=== PATIENT | male | born 1945 | race Caucasian/White ===

== ENCOUNTER 2017-07-08 14:47 | Inpatient (IN) | payer MEDICARE, OTHER ==
[~2017-07-08] VITALS: Ht 172.7 cm; Wt 116.8 kg
--- NOTE | 2017-07-08 15:13 | NUR ---
RECEIVED PT VIA WHEELCHAIR ACCOMPANIED BY SPOUSE. PT IS ALERT AND ORIENTED. ON ROOM AIR. PT IS HAVING SOME VERTIGO AT THIS CURRENT TIME. PT IS SITTING IN CHAIR. MAULIK EID IS AT BEDSIDE. WILL ADMIT PT AND CONTINUE TO MONITOR.
[2017-07-08] MEDS ORDERED: BUMEX 1 MG TAB1 MG PO (15:16)
[2017-07-08] MEDS ORDERED: CRESTOR20 MG PO (15:16)
[2017-07-08] MEDS ORDERED: LOVAZA1 G PO ×2 (15:17→15:18)
[2017-07-08] MEDS ORDERED: NAPROSYN500 MG PO (15:17)
[2017-07-08] MEDS ORDERED: NEXIUM40 MG PO (15:18)
[2017-07-08] MEDS ORDERED: ZETIA10 MG PO (15:18)
[2017-07-08] MEDS ORDERED: TRICOR145 MG PO (15:18)
[2017-07-08] MEDS ORDERED: AVAPRO150 MG PO (15:19)
[2017-07-08] MEDS ORDERED: COREG25 MG PO ×2 (15:20→15:22)
[2017-07-08] MEDS ORDERED: NORVASC10 MG PO (15:20)
[2017-07-08] MEDS ORDERED: PLAVIX75 MG PO (15:20)
[2017-07-08] MEDS ORDERED: BAYER CHEWABLE81 MG PO (15:22)
[2017-07-08 15:23] VITALS: BP 189/81; BMI 32.0
[2017-07-08 15:31] LABS: BASOPHILS 0.1 % (0-2); EOSINOPHILS 0.1 % (0-7); HEMATOCRIT 34.7 % (42.0-54.0); HEMOGLOBIN 11.6 g/dL (13.5-17.5); IMMATURE GRANULOCYTES 0.3 % (0-5); LYMPHOCYTES 13.6 % (15-50); MCH 32.1 pg (26.0-34.0); MCHC 33.4 g/dL (31.0-37.0); MCV 96.1 fL (80.0-100.0); MEAN PLATELET VOLUME 11.1 fL (7.4-10.4); MONOCYTES 5.6 % (2-11); NEUTROPHILS 80.3 % (40-80); RBC 3.61 10x6/uL (4.20-6.10); RDW 13.3 % (11.5-14.5)
[2017-07-08 15:35] LABS: PLATELET COUNT 143 10x3/uL (130-400)
[2017-07-08 16:17] LABS: ALKALINE PHOSPHATASE 48 U/L (46-116); BILIRUBIN - TOTAL 0.76 mg/dL (0.2-1.3); CARBON DIOXIDE 23.3 mmol/L (21.0-32.0); CHLORIDE - SERUM 103 mmol/L (98-107); CKMB 6.1 U/L (0.0-3.6); POTASSIUM - SERUM 3.3 mmol/L (3.5-5.1); PROTEIN - SERUM 6.6 g/dL (6.4-8.2); SODIUM 144 mmol/L (136-145)
--- NOTE | 2017-07-08 16:35 | NUR ---
QUICKSTART DONE, ADMISSION ASSESSMENT DONE, ADMISSION HISTORY DONE. IV FLUIDS ARE RUNNING ORDERED AND MEDICATIONS HAVE BEEN GIVEN. PT IS VERY COLD. PT GIVEN THREE BLANKETS. IS AT BEDSIDE. PT IS AWARE TO NOT GET OOB WITHOUT HELP FROM STAFF MEMBERS. WILL CONTINUE TO MONITOR AND CONTINUE WITH PLAN OF CARE.
[2017-07-08 16:44] LABS: ALBUMIN 2.9 g/dL (3.4-5.0); ALT (SGPT) 14 U/L (10-68); CALC OSMOLALITY 297 mosm/kg (275-300); CREATININE - SERUM 2.7 mg/dL (0.6-1.3); GLUCOSE 146 mg/dL (74-106); UREA NITROGEN 34 mg/dL (7-18); eGFR NON AFRICAN AMERICAN 25 mL/min (90-120)
--- NOTE | 2017-07-08 16:58 | NUR ---
ZOLTAN EID APN TO INFORM HER OF PTS CRITICAL CALCIUM LEVEL (5.0). WILL AWAIT CALLBACK.
--- NOTE | 2017-07-08 17:01 | NUR ---
RECEIVED CALLBACK FROM MAULIK EID. INFORMED HER OF PTS CALCIUM LEVEL (5.0). NO NEW ORDERS RECEIVED.
--- NOTE | 2017-07-08 17:11 | NUR ---
YELLOW ID PLACED ON PT AND NON-SKID SOCKS ARE ON.
[2017-07-08 17:28] LABS: CREATINE KINASE 1560 UL (21-232)
[2017-07-08 17:30] LABS: T4 THYROXIN - FREE 1.49 ng/dL (0.76-1.46)
--- NOTE | 2017-07-08 19:36 | NUR ---
UPON ADMISSION THIS NURSE INSERTED 22G IV CATHETER X2 STICKS TO RIGHT FOREARM.
--- NOTE | 2017-07-08 20:55 | NUR ---
PT LYING IN BED, AWAK, ALERT, ORIENTED, FAMILY AT BEDSIDE. NO NEEDS AT THIS TIME. CONTINUE TO MONITOR CLOSELY.
[2017-07-08 22:06] VITALS: BP 168/88
[2017-07-08 23:11] LABS: CKMB 5.4 U/L (0.0-3.6)
[2017-07-08 23:12] LABS: CREATINE KINASE 1644 UL (21-232)
[2017-07-08 23:13] LABS: TROPONIN-I 0.105 ng/mL (0.000-0.060)
--- NOTE | 2017-07-08 23:19 | NUR ---
STANTON PUBLIC SPEAKING INSTRUCTOR FOR [facility] NOTIFIED OF PTS CALCIUM RECHECK OF 5.2. PT STILL DEMONSTRATES SEVERE AND EXCESSIVE JERKING AND DIZZINESS INHIBITING HIM FROM BEING ABLE TO SIT UP AT THIS TIME. PT AND HAVE BEEN INSTRUCTED TO CALL WITH ANY NEEDS AND PT IS NOT TO GET OUT OF BED FOR ANY REASON AT THIS TIME. PT DOES HAVE A URINAL AT BEDSIDE. PT IS CURRENTLY HAVING A CT OF HEAD WITHOUT CONTRAST PER ORDER. STANTON ALSO ORDERED ALBUMIN 25 X 1, 1 AMP OF LAURA GLUC X 1, LAB ADDED: FOLATE AND B12. BRITTNEY FROM LAB CALLED TO REPORT AN INCREASING TROPONIN AND CK. WILL CONTINUE TO MONITOR PT CLOSELY. PT HAS BEEN NS IN THE 80'S WITH PVC'S ON TELEMETRY.
--- NOTE | 2017-07-08 23:45 | NUR ---
PT BACK FROM CT, IV ALBUMIN INFUSING NOW. PT RESTING COMFORTABLY, STILL C/O SEVERE DIZZINESS. AT BEDSIDE. CONTINUE TO MONITOR CLOSELY.
[2017-07-09 01:06] VITALS: BP 175/85
--- NOTE | 2017-07-09 01:59 | NUR ---
URINE COLLECTED FOR ORDERED U/A AND URINE CXL
[2017-07-09 02:38] LABS: APPEARANCE CLEAR (CLEAR); COLOR YELLOW (YELLOW); NITRITE NEGATIVE (NEGATIVE); PROTEIN 3+ mg/dL (NEGATIVE)
[2017-07-09 02:39] LABS: BILIRUBIN NEGATIVE (NEGATIVE); GLUCOSE 50 mg/dL (NEGATIVE); KETONE NEGATIVE (NEGATIVE); UROBILINOGEN NORMAL (NORMAL)
[2017-07-09 02:40] LABS: BACTERIA FEW /hpf (NONE SEEN); EPITHELIAL CELLS 0-5 /hpf (0-5); RED CELLS - URINE 0-5 /hpf (0-5); WHITE CELLS - URINE 0-5 /hpf (0-5)
[2017-07-09 05:00] LABS: BASOPHILS 0 % (0-2); EOSINOPHILS 0.2 % (0-7); HEMATOCRIT 30.6 % (42.0-54.0); HEMOGLOBIN 10.3 g/dL (13.5-17.5); IMMATURE GRANULOCYTES 0.3 % (0-5); MCHC 33.7 g/dL (31.0-37.0); MEAN PLATELET VOLUME 11.4 fL (7.4-10.4); MONOCYTES 8.7 % (2-11); NEUTROPHILS 77.8 % (40-80); PLATELET COUNT 146 10x3/uL (130-400); RBC 3.22 10x6/uL (4.20-6.10); RDW 13.2 % (11.5-14.5); WBC 6.2 10x3/uL (4.8-10.8)
[2017-07-09 05:30] LABS: ALBUMIN 2.8 g/dL (3.4-5.0); ALKALINE PHOSPHATASE 37 U/L (46-116); ALT (SGPT) 15 U/L (10-68); CALC OSMOLALITY 292 mosm/kg (275-300); CARBON DIOXIDE 24.8 mmol/L (21.0-32.0); CHLORIDE - SERUM 103 mmol/L (98-107); CKMB 6.6 U/L (0.0-3.6); CREATININE - SERUM 2.5 mg/dL (0.6-1.3); GLUCOSE 135 mg/dL (74-106); PROTEIN - SERUM 6.3 g/dL (6.4-8.2); SODIUM 142 mmol/L (136-145); UREA NITROGEN 34 mg/dL (7-18); eGFR NON AFRICAN AMERICAN 27 mL/min (90-120)
[2017-07-09 05:33] LABS: CALCIUM 5.3 mg/dL (8.5-10.1); CREATINE KINASE 1912 UL (21-232); TROPONIN-I 0.161 ng/mL (0.000-0.060)
[2017-07-09 06:14] LABS: PHOSPHOROUS 2.9 mg/dL (2.5-4.9)
[2017-07-09 06:16] LABS: MAGNESIUM - SERUM 0.2 mg/dL (1.8-2.4)
[2017-07-09 06:17] VITALS: BP 122/39; BP 184/90
--- NOTE | 2017-07-09 07:33 | NUR ---
PT SITTING UP IN BED DENIES NEEDS. AT BEDSIDE. WAS TOLD IN REPORT THAT STANTON WILLINGHAM WITH DR RODRIGUEZ WAS PAGED SEVERAL TIMES DURING THE NIGHT ABOUT PT LOW ELECTROLYTES AND LAB VALUES OUT OF PARAMETER. SANTOS LUDWIG SAID STANTON WOULD BE HERE THIS AM TO LOOK AT EVERYTHING HER SELF AND ADDRESS THESE. PT DENIES ANY NEEDS AT THIS TIME WILL CONT TO MONITOR
[2017-07-09 08:00] VITALS: BP 171/87
--- NOTE | 2017-07-09 08:45 | NUR ---
EKG DONE AND PLACED ON CHART.
[2017-07-09 09:27] LABS: CKMB 7.3 U/L (0.0-3.6)
[2017-07-09 09:36] LABS: CREATINE KINASE 2387 UL (21-232); TROPONIN-I 0.066 ng/mL (0.000-0.060)
--- NOTE | 2017-07-09 09:41 | NUR ---
HAT IS IN TOILET TO COLLECT STOOL SPECIMEN, PT AND PT AWARE STOOL IS NEEDED. WILL CALL FOR NURSE TO COLLECT STOOL WHEN AVAILABLE
--- NOTE | 2017-07-09 11:44 | NUR ---
SPOKE WITH STANTON SAID TO START ELEC ARYAN. DONE. PAGED FORD PT IS RUNNING SR MULTI FOCAL PVCS.
--- NOTE | 2017-07-09 11:48 | NUR ---
SPOKE WITH FORD BOWER NOTIFIED OF PT RUNNING MULTIFOCAL PVCS
--- NOTE | 2017-07-09 11:56 | NUR ---
FORD CALLED BACK SHE IS PUTTING ORDERS IN FOR IV MAG AND MORE IV CALCIUM. WILL GIVE WHEN AVAILABLE
[2017-07-09 12:00] VITALS: BP 144/74
--- NOTE | 2017-07-09 12:24 | NUR ---
CALLED PHARM SPOK WITH NASREEN, ASKED HER TO HAVE SOMEONE BRING UP SOME CALCIUM GLUCONATE UP DANNY
[2017-07-09 13:17] VITALS: Ht 172.7 cm; Wt 116.8 kg
--- NOTE | 2017-07-09 13:25 | NUR ---
PT HAS MAG SULFATE, CALCIUM SULFATE INFUSING AT THIS TIME. PT DENIES ANY NEEDS. STATES HIS SYMPTOMS "COME AND GO". FEELING OK AT THIS TIME. WILL CONT TO MONITOR
--- NOTE | 2017-07-09 13:28 | NUR ---
PT REFUSES SCDS, BUT DOES HAVE LOVENOX FOR DVT PROPHYLAXIS
--- NOTE | 2017-07-09 14:36 | NUR ---
EKG DONE AND PLACED ON THE CHART
[2017-07-09 16:00] VITALS: BP 126/83
[2017-07-09 16:18] LABS: CKMB 8.8 U/L (0.0-3.6)
[2017-07-09 16:24] LABS: CREATINE KINASE 2983 UL (21-232); POTASSIUM - SERUM 3.8 mmol/L (3.5-5.1)
[2017-07-09 16:25] LABS: CALCIUM 5.2 mg/dL (8.5-10.1); MAGNESIUM - SERUM 0.7 mg/dL (1.8-2.4); TROPONIN-I 0.191 ng/mL (0.000-0.060)
--- NOTE | 2017-07-09 16:32 | NUR ---
PAGED DR ROSENDO SWIFTING PT ELECTROLYTES. TALKED TO STANTON WILLINGHAM, SHES AWARE BUT SAID TO CALL [facility], THEY ARE MANAGING.
--- NOTE | 2017-07-09 16:50 | NUR ---
WAITING ON PHARM TO BRING UP CALCIUM
[2017-07-09 16:59] LABS: HEMOGLOBIN A1C 4.6 % (4.8-6.0)
--- NOTE | 2017-07-09 19:58 | NUR ---
PT IN BED [employer] TELEVISION. CURRENTLY RECEIVING IV MAG. WILL CONTINUE WITH ELECTROLYTE REPLACEMENT THERAPY.
[2017-07-09 20:07] LABS: CALC OSMOLALITY 287 mosm/kg (275-300); CARBON DIOXIDE 24.8 mmol/L (21.0-32.0); CHLORIDE - SERUM 101 mmol/L (98-107); CKMB 11.8 U/L (0.0-3.6); CREATINE KINASE 3355 UL (21-232); CREATININE - SERUM 2.6 mg/dL (0.6-1.3); GLUCOSE 191 mg/dL (74-106); MAGNESIUM - SERUM 1.5 mg/dL (1.8-2.4); PHOSPHOROUS 2.7 mg/dL (2.5-4.9); POTASSIUM - SERUM 3.8 mmol/L (3.5-5.1); SODIUM 137 mmol/L (136-145); UREA NITROGEN 38 mg/dL (7-18); eGFR NON AFRICAN AMERICAN 26 mL/min (90-120)
[2017-07-09 20:08] LABS: CALCIUM 6.5 mg/dL (8.5-10.1); TROPONIN-I 0.204 ng/mL (0.000-0.060)
[2017-07-09 20:10] VITALS: BP 160/78
--- NOTE | 2017-07-09 23:10 | NUR ---
CALL LIGHT IN REACH, WILL CONTINUE WITH PLAN OF CARE.
[2017-07-10 00:34] VITALS: BP 173/89
[2017-07-10 04:32] VITALS: BP 175/80
[2017-07-10 05:53] LABS: BASOPHILS 0 % (0-2); EOSINOPHILS 0 % (0-7); HEMATOCRIT 33.3 % (42.0-54.0); HEMOGLOBIN 11.2 g/dL (13.5-17.5); IMMATURE GRANULOCYTES 0.3 % (0-5); LYMPHOCYTES 7.1 % (15-50); MCH 31.9 pg (26.0-34.0); MCHC 33.6 g/dL (31.0-37.0); MCV 94.9 fL (80.0-100.0); MEAN PLATELET VOLUME 10.9 fL (7.4-10.4); MONOCYTES 7.9 % (2-11); NEUTROPHILS 84.7 % (40-80); RBC 3.51 10x6/uL (4.20-6.10); RDW 13.1 % (11.5-14.5)
[2017-07-10 06:00] LABS: PLATELET COUNT 180 10x3/uL (130-400)
[2017-07-10 06:33] LABS: HEMOGLOBIN A1C 5.2 % (4.8-6.0)
[2017-07-10 06:55] LABS: ALBUMIN 2.6 g/dL (3.4-5.0); ALKALINE PHOSPHATASE 47 U/L (46-116); AMYLASE - SERUM 83 U/L (25-115); BILIRUBIN - TOTAL 0.75 mg/dL (0.2-1.3); CARBON DIOXIDE 26.5 mmol/L (21.0-32.0); CHLORIDE - SERUM 104 mmol/L (98-107); CREATININE - SERUM 2.5 mg/dL (0.6-1.3); LIPASE 673 U/L (73-393); PHOSPHOROUS 3.2 mg/dL (2.5-4.9); POTASSIUM - SERUM 3.9 mmol/L (3.5-5.1); PROTEIN - SERUM 6.2 g/dL (6.4-8.2); SODIUM 139 mmol/L (136-145); UREA NITROGEN 39 mg/dL (7-18); eGFR NON AFRICAN AMERICAN 27 mL/min (90-120)
[2017-07-10 06:56] LABS: ALT (SGPT) 21 U/L (10-68); CALC OSMOLALITY 288 mosm/kg (275-300); CREATINE KINASE 2913 UL (21-232); GLUCOSE 129 mg/dL (74-106); MAGNESIUM - SERUM 1.9 mg/dL (1.8-2.4)
[2017-07-10 06:57] LABS: CKMB 9.5 U/L (0.0-3.6)
--- NOTE | 2017-07-10 07:28 | NUR ---
PT SITTING UP IN BED STATES "I FEEL MUCH BETTER!", AT BEDSIDE. DENIES NEEDS AT THIS TIME WILL CONT TO MONITOR
[2017-07-10 08:17] LABS: FOLATE (FOLIC ACID) - SERUM >20.0 ng/mL (>3.0)
[2017-07-10 08:56] VITALS: BP 145/80
[2017-07-10 11:39] VITALS: BP 111/69
--- NOTE | 2017-07-10 12:57 | NUR ---
OT NOTE: PT DOING MUCH BETTER. PT WAS SITTING UP ON EDGE OF BED AND REPORTED THAT HE HAD JUST AMBULATED WITH PHYSICAL THERAPY. REPORTED THAT HE FELT " A LITTLE " BETTER. PT PERFORMED SIT TO STAND WITH CGA; STANDING BALANCE ACT WITH MIN ASSIST. PT WONDERING WHEN HE WILL GET TO EAT SOLID FOOD HE IS FINALLY FEELING HUNGRY INSTEAD OF NAUSEATED
[2017-07-10 15:42] VITALS: BP 134/66
[2017-07-10 15:49] LABS: PROTEIN - URINE 49.3 mg/dL (0.0-11.9)
--- NOTE | 2017-07-10 16:56 | EC ---
PATIENT:YODIT TRAORE DATE OF SERVICE: 07/08/17 SEX: M MEDICAL RECORD: [id number] DATE OF : [birth year] LOCATION:D.M2 D.210 AGE OF PATIENT: 71 ADMISSION DATE: 07/08/17 REFERRING PHYSICIAN: INTERPRETING PHYSICIAN: PATRICIA MISHRA MD ECHOCARDIOGRAM REPORT ECHO CHARGES 4 ECHO COMPLETE CLINICAL DIAGNOSIS: HTN HX CAD/STENTS ECHOCARDIOGRAPHIC MEASUREMENTS (adult normal given) AC root (d.<3.7cm) 3.9 cm LV Septum d (<1.2 cm> 1.0 cm Valve Excursion 1.9 cm LV Septum (systole) 1.2 cm Left Atria (s.<4.0cm> 3.9 cm LVPW d(<1.2cm) 1.3 cm RV (d.<2.3cm) 3.3 cm LVPW (sytole) 1.6 cm LV diastole(<5.6CM) 5.7 cm MV E-F(>70mm/sec) cm LV systole 4.0 cm LVOT Diameter 1.6 cm MV exc.(>10mm) 1.0 cm Est.ejection fraction (50-75%) % Pericardial Effusion Y DOPPLER: LVIT cm/sec A 114 cm/sec E 87.0 cm/sec LA cm/sec RVSP 30 mmHg LVOT 110 cm/sec AOP1/2T m/s Asc. Ao 163 cm/sec RVOT 104 cm/sec RA cm/sec PA 141 cm/sec AV Gradient Peak 10.61mmHg AV Mean 6.92 mmHg AV Area 1.4 cm MV Gradient Peak 509 mmHg MV Mean 2.59 mmHg MV Area cm COMMENTS: Security Sergeant: Leonor MCDANIEL [facility] Administrative Assistant: 2 Dr. Joiner TAPE# PACS DATE OF SERVICE: 07/09/2017 Echocardiogram FINDINGS: 1. Left ventricle chamber size is within normal limits. Left ventricular systolic function is normal. Overall ejection fraction estimated at 55%. 2. Left atrium, right atrium, right ventricular chamber sizes are within normal limits. 3. Valvular structures have normal structure and motion. ECHOCARDIOGRAM REPORT [id number] YODIT TRAORE 4. Doppler interrogation reveals mild mitral regurgitation, mild tricuspid regurgitation, no other valvular insufficiency or stenosis. Pulmonary systolic pressure is normal, estimated at 30 mmHg. 5. No evidence of pericardial effusion or left ventricular thrombus. TRANSINT:[id number] Voice Confirmation ID: [id number] DOCUMENT ID: [id number] PATRICIA MISHRA MD at 1656 CC: [id number] DICTATION DATE: 07/09/17 1327 RF ENGINEER: 07/09/17 1400 ADM IN [facility] [address] [place] [address]
--- NOTE | 2017-07-10 18:01 | NUR ---
PT SITTING UP ON SIDE OF BED DENIES NEEDS. AT BEDSIDE.
--- NOTE | 2017-07-10 19:35 | NUR ---
PT IN BED WATCHING TELEVISON. AT BEDSIDE. DENIES NEEDS AT THIS TIME.
[2017-07-10 19:48] LABS: ANION GAP 12.4 mmol/L (8-16); CARBON DIOXIDE 26.6 mmol/L (21.0-32.0); CREATININE - SERUM 2.7 mg/dL (0.6-1.3); MAGNESIUM - SERUM 1.6 mg/dL (1.8-2.4)
[2017-07-10 19:54] LABS: CALCIUM 6.4 mg/dL (8.5-10.1)
[2017-07-10 21:06] VITALS: BP 133/64
--- NOTE | 2017-07-10 21:30 | NUR ---
NOTIFIED BY POWER PLANT TECHNICIAN THAT PT HAD A RUN OF 17 BEATS OF V TACH. VITALS FOLLOWS 90%, 117/70, 78, 20. PT PLACED ON 2L O2 VIA NASAL CANNULA. WILL CONTINUE TO MONITOR.
[2017-07-11 00:34] VITALS: BP 120/78
[2017-07-11 04:00] VITALS: BP 129/61
--- NOTE | 2017-07-11 05:35 | NUR ---
AWAKE AND LAYING IN BED. DENIES PAIN/NEEDS ATT. RR EVEN AND UNLABORED. BED LOW AND LOCKED, CALL LIGHT IN REACH. WILL CPOC.
[2017-07-11 06:20] LABS: BASOPHILS 0 % (0-2); EOSINOPHILS 0 % (0-7); HEMATOCRIT 31.8 % (42.0-54.0); HEMOGLOBIN 10.7 g/dL (13.5-17.5); IMMATURE GRANULOCYTES 0.3 % (0-5); LYMPHOCYTES 3.4 % (15-50); MCH 31.8 pg (26.0-34.0); MCHC 33.6 g/dL (31.0-37.0); MCV 94.4 fL (80.0-100.0); MEAN PLATELET VOLUME 11.2 fL (7.4-10.4); MONOCYTES 5.9 % (2-11); NEUTROPHILS 90.4 % (40-80); PLATELET COUNT 191 10x3/uL (130-400); RBC 3.37 10x6/uL (4.20-6.10)
[2017-07-11 06:27] LABS: WBC 14.6 10x3/uL (4.8-10.8)
[2017-07-11 07:02] LABS: ALBUMIN 2.5 g/dL (3.4-5.0); ALKALINE PHOSPHATASE 59 U/L (46-116); ALT (SGPT) 24 U/L (10-68); BILIRUBIN - DIRECT 0.22 mg/dL (0.00-0.30); BILIRUBIN - TOTAL 0.78 mg/dL (0.2-1.3); CALC OSMOLALITY 278 mosm/kg (275-300); CARBON DIOXIDE 24.1 mmol/L (21.0-32.0); CHLORIDE - SERUM 98 mmol/L (98-107); CREATININE - SERUM 2.8 mg/dL (0.6-1.3); GLUCOSE 147 mg/dL (74-106); LIPASE 756 U/L (73-393); MAGNESIUM - SERUM 1.6 mg/dL (1.8-2.4); PHOSPHOROUS 3.3 mg/dL (2.5-4.9); POTASSIUM - SERUM 3.8 mmol/L (3.5-5.1); SODIUM 131 mmol/L (136-145); UREA NITROGEN 50 mg/dL (7-18); eGFR NON AFRICAN AMERICAN 24 mL/min (90-120)
[2017-07-11 07:03] LABS: CREATINE KINASE 2318 UL (21-232)
[2017-07-11 07:05] LABS: CALCIUM 6.1 mg/dL (8.5-10.1); CKMB 6.3 U/L (0.0-3.6)
--- NOTE | 2017-07-11 07:38 | NUR ---
PT SITTING UP IN BED ASLEEP, NO S/S DISTRESS NOTED RR EVEN AND UNLABORED WILL CONT TO MONITOR
[2017-07-11 08:00] VITALS: BP 122/62
[2017-07-11 16:00] VITALS: BP 126/73
--- NOTE | 2017-07-11 17:46 | NUR ---
PT SITTING UP TO CHAIR DENIES ANY NEEDS.
--- NOTE | 2017-07-11 19:53 | NUR ---
RECEIVED REPORT, WILL ASSUME CARE OF PT, SITTING UP IN CHAIR, ASKING FOR COFFEE, WILL GIVE, CALL LIGHT IN REACH, WILL CONTINUE PLAN OF CARE
[2017-07-11 21:24] VITALS: BP 128/67
[2017-07-12] VITALS (11 sets, daily range): BP systolic 111–141; BP diastolic 49–65
--- NOTE | 2017-07-12 04:51 | NUR ---
ASSESSMENT COMPLETE, SEE FLOWSHEET, PT SLEEPING, BED IS LOW, SRX2, AT BEDSIDE, CALL LIGHT IN REACH, WILL CONTINUE PLAN OF CARE
[2017-07-12 05:04] LABS: BASOPHILS 0 % (0-2); EOSINOPHILS 0 % (0-7); HEMATOCRIT 30.4 % (42.0-54.0); HEMOGLOBIN 10.4 g/dL (13.5-17.5); IMMATURE GRANULOCYTES 0.4 % (0-5); MCH 32.2 pg (26.0-34.0); MCHC 34.2 g/dL (31.0-37.0); MCV 94.1 fL (80.0-100.0); MEAN PLATELET VOLUME 10.9 fL (7.4-10.4); MONOCYTES 6.2 % (2-11); NEUTROPHILS 90.4 % (40-80); PLATELET COUNT 187 10x3/uL (130-400); RBC 3.23 10x6/uL (4.20-6.10); RDW 12.5 % (11.5-14.5); WBC 14.9 10x3/uL (4.8-10.8)
[2017-07-12 05:23] LABS: ALBUMIN 2.4 g/dL (3.4-5.0); ANION GAP 13.1 mmol/L (8-16); BILIRUBIN - TOTAL 0.77 mg/dL (0.2-1.3); CARBON DIOXIDE 27.8 mmol/L (21.0-32.0); CREATININE - SERUM 3.1 mg/dL (0.6-1.3); MAGNESIUM - SERUM 1.6 mg/dL (1.8-2.4); PHOSPHOROUS 3.9 mg/dL (2.5-4.9); POTASSIUM - SERUM 3.9 mmol/L (3.5-5.1); PROTEIN - SERUM 5.9 g/dL (6.4-8.2)
[2017-07-12 05:24] LABS: CALCIUM 5.8 mg/dL (8.5-10.1)
--- NOTE | 2017-07-12 05:35 | NUR ---
MAG. 1.6 FOLLOWED ELECTROLYTE PROTOCOL
--- NOTE | 2017-07-12 07:22 | NUR ---
AM ROUNDS- PT IN BED, WITH EYES CLOSED, AROUSES EASILY TO VOICE, RESP EVEN AND UNLABORED. RT FA INFUSING SODIUM BICARB AT 75CC/HR. PT DENIES ANY NEEDS AT THIS TIME. AT BEDSIDE, BED LOW AND WHEELS LOCKED, BEDSIDE RAILS X2, CALL LIGHT IN REACH, NAD NOTED, WILL CONTINUE TO MONITOR.
--- NOTE | 2017-07-12 08:40 | NUR ---
CALLED RELAY TELEGRAPHER PATRIC, AND INFORMED HER THAT I NEED A 12F AND 14F COUDE WALDEN CATHETER. PATRIC STATED THAT SHE WOULD BRING IT UP SHORTLY.
--- NOTE | 2017-07-12 08:52 | NUR ---
RECEIVED CALL BACK FROM DR. PERKINS, WHO STATED TO BLADDER SCAN PT AND IF HE WAS RETAINING URINE TO PLACE WALDEN. INFORMED HIM THAT THIS NURSE HAS ORDERS ALREADY FOR WALDEN PLACEMENT. NO NEW ORDERS GIVEN.
--- NOTE | 2017-07-12 09:55 | NUR ---
AM MEDS GIVEN AT THIS TIME. PT UP TO SIDE OF BED, READING NEWSPAPER. PT DENIES ANY NEEDS AT THIS TIME, IV FLUIDS CHANGED TO NS AT 30CC/HR. IVPB CEFEPIME HUNG AT THIS TIME. CALL LIGHT IN REACH, AT BEDSIDE NAD NOTED, WILL CONTINUE TO MONITOR.
--- NOTE | 2017-07-12 10:33 | NUR ---
14F COUDE WALDEN CATHETER INSERTED PT TOLERATED PROCEDURE WELL. WALDEN DRAINED ABOUT 1000CC. CLAMPED WALDEN AT THIS TIME TO PREVENT FROM DRAINING BLADDER TOO FAST. URINE SAMPLE COLLECTED AND TAKEN TO LAB. PT DENIES ANY NEEDS AT THIS TIME. CALL LIGHT IN REACH, NAD NOTED, WILL CONTINUE TO MONITOR.
[2017-07-12 11:00] LABS: APPEARANCE CLEAR (CLEAR); BILIRUBIN NEGATIVE (NEGATIVE); COLOR YELLOW (YELLOW); GLUCOSE NEGATIVE (NEGATIVE); KETONE NEGATIVE (NEGATIVE); NITRITE NEGATIVE (NEGATIVE); PROTEIN 2+ mg/dL (NEGATIVE); SPECIFIC GRAVITY 1.015 (1.005-1.020); UROBILINOGEN NORMAL (NORMAL)
--- NOTE | 2017-07-12 15:12 | NUR ---
REPORT CALLED TO NASREEN LUDWIG IN CVICU, PT TRANSFERED TO CVICU VIA WHEELCHAIR, NAD NOTED.
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
--- NOTE | 2017-07-12 20:09 | NUR ---
PT LAYING IN BED WATCHING TV. LOLIS AT BEDSIDE. REPORT GIVEN. QUESTIONS ANSWERED. PT REPOSITIONED FOR COMFORT. BEDSIDE TABLE NEAR. CALL LIGHT WITHIN REACH. DENIES FURTHER NEEDS. WILL CONTINUE TO MONITOR.
--- NOTE | 2017-07-12 20:39 | NUR ---
MEDS ADMINISTERED PER EMAR. NO PROBLEMS NOTED. AWAKE AND ALERT WATCHING TV. AT BEDSIDE. WILL CONTINUE TO MONITOR.
--- NOTE | 2017-07-12 21:22 | NUR ---
PT LAYING IN BED AWAKE, WATCHING TV. FSBS ASSESSED. SEE FLOW SHEET FOR DETAILS. ATTEMPTED TO GET RESPIRATORY CULTURE, BUT COUGH IS NON-PRODUCTIVE. INSTRUCTED PT TO SPIT IN CUP IN CASE HE COUGHED ANYTHING UP, HE VERBALIZED UNDERSTANDING. CALL LIGHT WITHIN REACH. BED IN LOWEST POSITION. WILL CONTINUE TO MONITOR.
--- NOTE | 2017-07-12 23:00 | NUR ---
REASSESSMENT COMPLETED PER FLOW SHEET SEE FOR DETAILS. PT LAYING IN BED AAO. RADIAL PULSES PALP. PEDAL PULSES WEAK TO PALPATION, AUSCULATATED WITH DOPPLER AND PEDAL PULSES ARE PRESENT. FINE CRACKLES NOTED TO RUL, RML, AND ANGELICA. DIMINISHED BREATH SOUNDS IN RLL AND LLL. NO DISTRESS NOTED. LIGHTS OFF. PT DENIES NEEDS. CALL LIGHT WITHIN REACH. BED IN LOWEST POSITION. WILL CONTINUE TO MONITOR.
[2017-07-13] VITALS (16 sets, daily range): BP systolic 112–151; BP diastolic 49–77
--- NOTE | 2017-07-13 01:00 | NUR ---
PT LAYING IN BED RESTING. NO DISTRESS NOTED AT THIS TIME. WILL CONTINUE TO MONITOR. BED IN LOWEST POSITION. CALL LIGHT WITHIN REACH.
--- NOTE | 2017-07-13 03:00 | NUR ---
REASSESSMENT COMPLETED PER FLOW SHEET, SEE FOR DETAILS. NO ACUTE CHANGES FROM PREVIOUS. PT DENIES NEEDS AT THIS TIME. WILL CONTINUE TO MONITOR.
--- NOTE | 2017-07-13 03:51 | NUR ---
PT LAYING IN BED AWAKE. MEDS ADMINISTERED PER EMAR, SEE FOR DETAILS. AAO. DENIES NEEDS. WILL CONTINUE TO MONITOR.
[2017-07-13 03:59] LABS: BASOPHILS 0 % (0-2); EOSINOPHILS 0 % (0-7); HEMATOCRIT 26.9 % (42.0-54.0); HEMOGLOBIN 9.3 g/dL (13.5-17.5); IMMATURE GRANULOCYTES 0.4 % (0-5); LYMPHOCYTES 3.8 % (15-50); MCH 32.1 pg (26.0-34.0); MCHC 34.6 g/dL (31.0-37.0); MCV 92.8 fL (80.0-100.0); MEAN PLATELET VOLUME 10.6 fL (7.4-10.4); MONOCYTES 3.5 % (2-11); NEUTROPHILS 92.3 % (40-80); PLATELET COUNT 161 10x3/uL (130-400); RDW 12.5 % (11.5-14.5); WBC 13.6 10x3/uL (4.8-10.8)
--- NOTE | 2017-07-13 04:00 | NUR ---
PT LAYING IN BED AWAKE. I&O'S OBTAINED. PT CONVERSANT AND VERY PLEASANT AT THIS TIME. DENIES NEEDS. WILL CONTINUE TO MONITOR. 0415 XR AT BEDSIDE.
[2017-07-13 04:58] LABS: ALKALINE PHOSPHATASE 44 U/L (46-116); ALT (SGPT) 22 U/L (10-68); BILIRUBIN - TOTAL 0.56 mg/dL (0.2-1.3); CALC OSMOLALITY 288 mosm/kg (275-300); CARBON DIOXIDE 30.6 mmol/L (21.0-32.0); CHLORIDE - SERUM 97 mmol/L (98-107); CREATININE - SERUM 2.9 mg/dL (0.6-1.3); GLUCOSE 173 mg/dL (74-106); MAGNESIUM - SERUM 1.5 mg/dL (1.8-2.4); POTASSIUM - SERUM 3.9 mmol/L (3.5-5.1); PROTEIN - SERUM 5.2 g/dL (6.4-8.2); SODIUM 134 mmol/L (136-145); UREA NITROGEN 60 mg/dL (7-18); eGFR NON AFRICAN AMERICAN 23 mL/min (90-120)
[2017-07-13 05:00] LABS: PHOSPHOROUS 2.9 mg/dL (2.5-4.9)
--- NOTE | 2017-07-13 05:00 | NUR ---
COMPLETE SOAP AND WATER BED BATH GIVEN. [facility]OSPITAL GOWN PROVIDED. COMPLETE BED LINEN CHANGE. PT REPOSITIONED. SITTING UP IN BED. COFFEE PROVIDED PER REQUEST. TV ON. DENIES FUTHER NEEDS. CALL LIGHT WITHIN REACH. BED IN LOWEST POSITION.
[2017-07-13 05:01] LABS: CALCIUM 5.8 mg/dL (8.5-10.1); CREATINE KINASE 916 UL (21-232)
[2017-07-13 05:06] LABS: CKMB 3.6 U/L (0.0-3.6)
--- NOTE | 2017-07-13 05:30 | NUR ---
AM LABS REVIEWED. CRITICAL LOW CALCIUM. CORRECTED CALCIUM CALCULATED AND NOT AT A CRITICAL VALUE. WILL CONTINUE TO MONITOR.
--- NOTE | 2017-07-13 06:39 | NUR ---
PT LAYING IN BED RESTING, MEDS ADMINISTERED PER EMAR. DENIES NEEDS. CALL LIGHT WITHIN REACH. BED IN LOWEST POSITION.
--- NOTE | 2017-07-13 08:20 | NUR ---
SHIFT ASSESSMENT COMPLETE. PATIENT DENIES ANY NEEDS. PATIENT IS UP TO BEDSIDE FOR BREAKFAST. CALL LIGHT WITHIN REACH, BED IN LOW POSITION.
--- NOTE | 2017-07-13 08:58 | NUR ---
PATIENT IS WALKING WITH PHYSICAL THERAPY ASSIST AT THIS TIME, PATIENT IS TOLERATING WELL.
--- NOTE | 2017-07-13 10:15 | NUR ---
PATIENT UP TO CHAIR WITH ONE PERSON ASSIST. CALL LIGHT WITHIN REACH. WALDEN TO GRAVITY DRAIN.
--- NOTE | 2017-07-13 11:15 | NUR ---
Nutrition Follow Up: was in pt's room at the time of RD visit. Interview deferred. Pt is eating 68% meal avg on a regular diet. Per chart N/V resolved. Wt gain noted. +BM 07/12/17. Labs reviewed - Glucose elevated. Meds noted including Solu-Medrol. Rec continue current diet. If glucose continues elevated rec changing diet to NCS. RD following.
--- NOTE | 2017-07-13 12:36 | NUR ---
* Is the patient Alert and Oriented? Yes 0 * How many steps to enter\exit or inside your home? 0 0 * PCP Dr. Cueva 0 * [facility] 0 * Preadmission Environment Home with Family 0 * ADLs Independent 0 * List name and contact numbers for known caregivers / representatives who currently or will assist patient after discharge: Spouse - Ginny [phone] 0 * Additional services required to return to the preadmission environment? Yes 0 * Can the patient safely return to the preadmission environment? Yes 0 * Has this patient been hospitalized within the prior 30 days at any hospital? No Patient Name: YODIT TRAORE Admission Status: Urgent Accout number: [id number] Admission Date: 07-08-2017 : 1945 Admission Diagnosis: Attending: LAZARA RODRIGUEZ Current LOS: 5 Primary Insurance: MEDICARE A & B Discharge Planning Comments: CM met with patient to assess dc plans/needs. Patient states he lives at home with his , Ginny. He reports he was fully independent with all ADL's prior to admission. He is concerned about his physical weakness since admitting to the hospital. Discussed PT & OT services. Also discussed rehab & home health options for physical therapy. He is agreeable if needed. CM will ask PT & OT evaluate patient. CM will follow & assist as needed. Rehabilitation Therapy Aide: Jennie Conroy
[2017-07-13 14:09] LABS: ANION GAP 10.2 mmol/L (8-16); CARBON DIOXIDE 29.6 mmol/L (21.0-32.0); CREATININE - SERUM 2.7 mg/dL (0.6-1.3); MAGNESIUM - SERUM 1.4 mg/dL (1.8-2.4); POTASSIUM - SERUM 3.8 mmol/L (3.5-5.1)
[2017-07-13 14:12] LABS: CALCIUM 5.8 mg/dL (8.5-10.1)
--- NOTE | 2017-07-13 15:11 | NUR ---
PATIENT SITTING UP IN CHIAR, AT BEDSIDE. PATIENT DENIES ANY NEEDS AT THIS TIME. CALL LIGHT WITHIN REACH.
--- NOTE | 2017-07-13 19:30 | NUR ---
REPORT RECIEVED. ASSESSMENT COMPLETED. SEE FLWO SHEET FOR DETAILS. PT SITTING IN CHAIR. WITH AT BEDSIDE. WILL CONTINUE TO MONITOR PT.
--- NOTE | 2017-07-13 21:00 | NUR ---
PT RESTING IN CHAIR. WITH AT BEDSIDE. VSS. WILL CONTINUE TO MONITOR PT.
--- NOTE | 2017-07-13 22:46 | NUR ---
RECIEVED A ROOM TO TRANSFER PT. REPORT CALLED AND GIVEN TO DIAZ. WILL TRANFER WITH SAFETY.
--- NOTE | 2017-07-13 23:04 | NUR ---
RECEIVED REPORT FROM CHARLI RN FROM , PT TRANFER FROM VIA BED, AT BEDSIDE, SHANA-LANDRY @ , [facility], WILL FOLLOW PLAN OF CARE
[2017-07-14 01:44] VITALS: BP 127/74
[2017-07-14 04:40] VITALS: BP 153/80
--- NOTE | 2017-07-14 05:37 | NUR ---
PT REFUSING TO HAVE LAB DRAW BLOOD
[2017-07-14 06:30] LABS: MAGNESIUM - SERUM 1.6 mg/dL (1.8-2.4); PHOSPHOROUS 2.5 mg/dL (2.5-4.9)
[2017-07-14 07:13] VITALS: BP 132/61
[2017-07-14 07:24] LABS: CEA 3.4 ng/mL (0.0-4.7)
[2017-07-14 07:48] LABS: BASOPHILS 0.1 % (0-2); EOSINOPHILS 0.4 % (0-7); HEMATOCRIT 31.3 % (42.0-54.0); HEMOGLOBIN 10.6 g/dL (13.5-17.5); IMMATURE GRANULOCYTES 0.7 % (0-5); MCH 32.4 pg (26.0-34.0); MCHC 33.9 g/dL (31.0-37.0); MEAN PLATELET VOLUME 10.7 fL (7.4-10.4); MONOCYTES 4.2 % (2-11); NEUTROPHILS 89.6 % (40-80); RBC 3.27 10x6/uL (4.20-6.10); RDW 12.6 % (11.5-14.5)
[2017-07-14 07:52] LABS: MCV 95.7 fL (80.0-100.0); PLATELET COUNT 207 10x3/uL (130-400); WBC 17.5 10x3/uL (4.8-10.8)
[2017-07-14 07:54] LABS: CREATININE - SERUM 2.6 mg/dL (0.6-1.3)
[2017-07-14 07:55] LABS: CALCIUM 6.1 mg/dL (8.5-10.1)
[2017-07-14 09:14] LABS: CREATINE KINASE 817 UL (21-232)
[2017-07-14 09:15] LABS: CKMB 2.3 U/L (0.0-3.6)
[2017-07-14 12:57] VITALS: BP 131/64
--- NOTE | 2017-07-14 13:53 | NUR ---
OT NOTE: OT HAS BEEN FOLLOWING PT WHILE ON THE FLOOR; RECEIVED ORDER TO EVAL WHILE IN CVO8, HOWEVER, THIS AM, PT HAD ALREADY BEEN TRANSFERRED BACK TO ROOM. CONTINUED TREATMENT AT THIS TIME WITHOUT NEW EVALUATION BEING PERFORMED. PT WAS DOING BETTER. ASSISTED PT WITH TRANSFER FROM BED TO CHAIR WITH MIN ASSIST AND DECREASED BALANCE. PERFORMED UE AROM EXS WITHOUT DIFFICULTY. PT SEEN AFTER LUNCH FOR AMBULATION. REQUIRED MIN ASSIST X 2 TO AMB APPROX 75 FT WITH RW AND FAIR BALANCE. DID NOT REQUIRE REST BREAK DURING AMBULATION. PT DID NOT WANT TO GO BACK TO BED AND WANTED TO SIT UP IN CHAIR. BALANCE AND BED MOB MUCH IMPROVED FROM INTITIAL EVAL. PT STATES THAT HE IS FEELING BETTER AND HE FEELS THAT THE "DIZZINESS" IS ALMOST GONE.
[2017-07-14 16:00] VITALS: BP 133/86
--- NOTE | 2017-07-14 19:31 | NUR ---
PT UP INCHAIR AT BEDSIDE WATCHING TV WITH FAMILY. NO CONCERNS NOTED AT THIS TIME. CALL LIGHT IN REACH.
[2017-07-14 20:00] VITALS: BP 144/59
--- NOTE | 2017-07-14 23:30 | NUR ---
PT IN BED WITH EYES CLOSED AND CHEST RISING. LAB CALLED AND REPORTED TO DIRECTOR OF CAREER SERVICES FOR DR. RODRIGUEZ WITH NO NEW ORDERS. AT BEDSIDE. NO OTHER CONCERNS NOTED. CALL LIGHT IN REACH. WILL CONTINUE TO OBSERVE.
[2017-07-15 04:00] VITALS: BP 158/83
[2017-07-15 06:25] LABS: PHOSPHOROUS 2.8 mg/dL (2.5-4.9)
[2017-07-15 06:27] LABS: CREATINE KINASE 514 UL (21-232)
[2017-07-15 06:28] LABS: CKMB 1.3 U/L (0.0-3.6)
[2017-07-15 08:35] VITALS: BP 167/53
--- NOTE | 2017-07-15 11:50 | NUR ---
FSBS OBTAINED WITH [facility] QA DEVELOPER- BS 181. NOTIFIED NURSE CURRENTLY CARING FOR THIS PATIENT.
--- NOTE | 2017-07-15 12:00 | NUR ---
ALERT AND ORIENTED X4. RESTING IN BED. IN CONTACT ISO FOR FORMED STOOL TESTED POSITIVE FOR C.DIFF. LAMBERT WITH INFECTION CONTROL ORDERS FOR TRANSFER TO 2139. CALL LAMBERT TO INFORM CONSISTENCY OF FORMED STOOL. OK TO HOLD OFF ON ROOM TRANSFER IF APPROVED BY . CONTACT ISOLATION CONTINUED. DENIES ANY NEEDS. AT BEDSIDE. BED LOCKED AND LOW. CALL LIGHT IN REACH. TWO SIDERAILS UP.
[2017-07-15 12:40] VITALS: BP 136/65
[2017-07-15 13:23] LABS: BASOPHILS 0 % (0-2); EOSINOPHILS 0.1 % (0-7); HEMATOCRIT 33.1 % (42.0-54.0); HEMOGLOBIN 10.9 g/dL (13.5-17.5); IMMATURE GRANULOCYTES 0.9 % (0-5); LYMPHOCYTES 3.6 % (15-50); MCH 32.2 pg (26.0-34.0); MCHC 32.9 g/dL (31.0-37.0); MEAN PLATELET VOLUME 10.7 fL (7.4-10.4); MONOCYTES 1.9 % (2-11); NEUTROPHILS 93.5 % (40-80); PLATELET COUNT 211 10x3/uL (130-400); RBC 3.38 10x6/uL (4.20-6.10); RDW 12.8 % (11.5-14.5); WBC 14.6 10x3/uL (4.8-10.8)
[2017-07-15 13:35] LABS: MCV 97.9 fL (80.0-100.0)
[2017-07-15 13:50] LABS: ANION GAP 10.9 mmol/L (8-16); CARBON DIOXIDE 33.6 mmol/L (21.0-32.0); CREATININE - SERUM 2.4 mg/dL (0.6-1.3); POTASSIUM - SERUM 4.5 mmol/L (3.5-5.1)
[2017-07-15 16:44] VITALS: BP 149/83
--- NOTE | 2017-07-15 16:48 | NUR ---
ALERT AND ORIENTED X4. PHOTO PRINTER INFORMS ELEVATED HEART RATE 180bpm SINUS TACH ON TELEMETRY. FSBS 256 NO INSULIN COVERAGE ORDERED. NOTIFY LA. ORDER FOR NOVOLOG R LOW RESISTANT ORDERED. HEART RATE ELEVATED WHEN UP OOB TO BRUSH TEETH. HEART RATE RETURNS TO 79bpm ON TELEMETRY. CONTACT ISOLATION FOR C.DIFF CONTINUED PER . NOT REQUIRED TO MOVE TO 2140 PER . STOOL FORMED. NO BM SINCE SPECIMEN COLLECTED. DENIES SOB OR PAIN. CONTINUE PLAN OF CARE. BED LOCKED AND LOW. CALL LIGHT IN REACH. TWO SIDERAILS UP. AT BEDSIDE. NO SCDs. RECIEVES LOVENOX INJ.
--- NOTE | 2017-07-15 18:09 | NUR ---
OT NOTE: PT COMPLETED BUE AROM EXS FOR INCREASED I WITH ADLS . JOSE CARPENTER COTA/Osmar
[2017-07-15 19:00] VITALS: BP 151/68
--- NOTE | 2017-07-16 02:26 | NUR ---
CALL LIGHT IN REACH. WILL CONTINUE WITH PLAN OF CARE. 79 SR WITH PACS
[2017-07-16 05:59] LABS: ANION GAP 7.3 mmol/L (8-16); CARBON DIOXIDE 36.6 mmol/L (21.0-32.0); CREATININE - SERUM 2.3 mg/dL (0.6-1.3); POTASSIUM - SERUM 3.9 mmol/L (3.5-5.1)
[2017-07-16 06:07] LABS: CALCIUM 6.8 mg/dL (8.5-10.1)
--- NOTE | 2017-07-16 06:22 | NUR ---
LAB CALLED WITH CRITICAL LOW CALCIUM OF 6.8, ALBUMIN LEVEL ORDERED. PT IS ALERT IN BED, SPOUSE IS AT BEDSIDE. CALL LIGHT IN REACH.
--- NOTE | 2017-07-16 06:38 | NUR ---
PATIENT NEEDS A STOOL SAMPLE COLLECTED, HE DID NOT HAVE A BM ON MY SHIFT. WILL PASS ON TO DAY SHIFT. CALL LIGHT IN REACH.
--- NOTE | 2017-07-16 08:23 | NUR ---
AM MEDS GIVEN AT THIS TIME. PT SAYING " I HATE HAVING SO MANY INTERRUPTIONS." INFOMRED PT THAT HE ARE JUST TRYING TO HELP HIM GET BETTER. SWELLING NOTED TO BILAT ARMS. CHECKED RT FA IV TO MAKE SURE IT'S WORKING. IV PATENT AND WORKING. PT DENIES ANY NEEDS AT THIS TIME. AT BEDSIDE, NAD NOTED, CALL LIGHT IN REACH, WILL CONTINUE TO MONITOR.
[2017-07-16 10:22] VITALS: BP 161/93
--- NOTE | 2017-07-16 11:22 | NUR ---
BLOOD SUGAR OF 207, 4 UNITS OF HUMULIN R GIVEN PER S/S. PT IN BED, WITH EYES CLOSED, AROUSES EASILY TO VOICE. AT BEDSIDE, CALL LIGHT IN REACH, NAD NOTED, WILL CONTINUE TO MONITOR.
--- NOTE | 2017-07-16 11:57 | NUR ---
OT NOTE: PTS REPORTED THAT HE AMBULATED THIS AM. PT WAS ASLEEP BUT AROUSED WHILE SPEAKING WITH HIS . REQUESTED TO HOLD UE EXS UNTIL PM, HE WAS VERY SLEEPY
[2017-07-16 12:08] VITALS: BP 138/67
[2017-07-16 15:26] VITALS: BP 124/57
--- NOTE | 2017-07-16 15:31 | NUR ---
Rehab Note- Acute Rehab Prescreen order received. Meet with the patient and his . They are in agreeance with [facility] Acute Rehab when ready for discharge from the acute hospital. Spoke with LALA Nguyen. Will follow at this time and accept the patient to [facility] acute rehab when ready for discharge from the acute hospital. Thank you for this referral! Shari Rios RN Clincial Liaison, [facility] Rehab
--- NOTE | 2017-07-16 16:29 | NUR ---
BLOOD SUGAR OF 169, 2UNITS OF HUMULIN R GIVEN PER S/S. WALDEN EMPTIED AT THIS TIME TOTAL OF 1000 EMPTIED. PT DENIES ANY NEEDS A THIS TIME. CALL LIGHT IN REACH NAD NOTED, WILL CONTINUE TO MONITOR.
--- NOTE | 2017-07-16 18:17 | NUR ---
OT NOTE: PT COMPLETED MOB WITH SBA. PT COMPLETED SIT TO STAND WITH CGA. PT COMPLETED BUE AROM EXS AT EOB. THANK YOU, MINERVA KLINE/Osmar
--- NOTE | 2017-07-16 19:16 | NUR ---
PATIENT IS ALERT, SR ON THE MONITOR. RR, CALL LIGHT IN REACH. FAMILY AT BEDSIDE. CONTACT ISOLATION IN PLACE.
[2017-07-16 20:00] VITALS: BP 151/69
[2017-07-17 04:00] VITALS: BP 182/79
--- NOTE | 2017-07-17 04:42 | NUR ---
URINE SAMPLE COLLECTED AND SENT TO THE LAB.
--- NOTE | 2017-07-17 05:25 | NUR ---
PATIENT NEEDS A STOOL SAMPLE COLLECTED, HE DID NOT HAVE A BM ON THIS SHIFT. WILL PASS TO DAY SHIFT.
--- NOTE | 2017-07-17 05:40 | NUR ---
LYING IN BED WITH CALL LIGHT IN REACH. WILL CONTINUE WITH PLAN OF CARE.
[2017-07-17 07:23] LABS: BASOPHILS 0 % (0-2); HEMATOCRIT 29.8 % (42.0-54.0); HEMOGLOBIN 9.8 g/dL (13.5-17.5); IMMATURE GRANULOCYTES 0.9 % (0-5); LYMPHOCYTES 8.1 % (15-50); MCH 31.9 pg (26.0-34.0); MCHC 32.9 g/dL (31.0-37.0); MCV 97.1 fL (80.0-100.0); MEAN PLATELET VOLUME 10.3 fL (7.4-10.4); RBC 3.07 10x6/uL (4.20-6.10); RDW 12.7 % (11.5-14.5)
[2017-07-17 07:30] LABS: PLATELET COUNT 150 10x3/uL (130-400); WBC 10.9 10x3/uL (4.8-10.8)
--- NOTE | 2017-07-17 07:55 | NUR ---
PT SITTING UP IN BED DENIES ANY NEEDS AT BEDSIDE. PT IN ISOLATION FOR CDIFF. PT STATES HE HAS NEVER HAD A DIARRHEA EPISODE AND HAS NOT HAD A BM IN 2 DAYS. WILL CONT TO MONITOR
[2017-07-17 08:00] VITALS: BP 147/74
[2017-07-17 08:04] LABS: ANION GAP 10.8 mmol/L (8-16); CALCIUM 7.3 mg/dL (8.5-10.1); CARBON DIOXIDE 32.4 mmol/L (21.0-32.0); CREATININE - SERUM 2.1 mg/dL (0.6-1.3); PHOSPHOROUS 2.6 mg/dL (2.5-4.9); POTASSIUM - SERUM 4.2 mmol/L (3.5-5.1)
[2017-07-17 12:00] VITALS: BP 142/70
--- NOTE | 2017-07-17 12:33 | NUR ---
OT NOTE: ENTERED PTS ROOM AND HE WAS IN BED. ASKED IF HE HAD BEEN UP TO CHAIR AND HE REPORTED YES AND THAT HE AMBULATED EARLIER WITH PHYS THERAPY. PT REPORTED THAT HE DID NOT FEEL WELL. REPORTED PAIN IN L KNEE. PT WAS ABLE TO PERFORM BED MOB WITHOUT ASSIST. NO DIZZINESS AT THIS TIME AND PT STATED THAT HE HAS NOT FELT THAT IN SEVERAL DAYS. DID NOT WANT TO PERFORM EXS AT THIS TIME. REPORTED THAT HE WAS SUPPOSED TO BE TRANSFERRED TO IN PATIENT REHAB TODAY.
--- NOTE | 2017-07-17 13:32 | NUR ---
Nutrition Follow Up: Pt is in isolation for CDT. Interview deferred at this time. Pt is eating 61% meal avg on a regular diet. +BM 07/12/17. Labs reviewed. Meds noted including Questran, Flagyl, Solu-Medrol. Rec continue current diet. RD following.
[2017-07-17] MEDS ORDERED: PROCRIT/EP10000 UNIT SC (14:12)
[2017-07-17] MEDS ORDERED: FLOMAX0.4 MG PO (14:13)
[2017-07-17] MEDS ORDERED: PROSCAR5 MG PO (14:14)
[2017-07-17] MEDS ORDERED: PATIENT'S OWN MEDICA PO (14:15)
[2017-07-17] MEDS ORDERED: SODIUM BICARBO650 MG PO (14:15)
[2017-07-17] MEDS ORDERED: SYNTHROID50 MCG PO (14:15)
[2017-07-17] MEDS ORDERED: MUCINEX DM ER1 EAC1 PO (14:16)
[2017-07-17] MEDS ORDERED: BENZONATATE200 MG PO (14:16)
[2017-07-17] MEDS ORDERED: MUCINEX600 MG PO (14:16)
[2017-07-17] MEDS ORDERED: FLAGYL500 MG PO (14:19)
[2017-07-17] MEDS ORDERED: PREDNISONE10 MG PO (14:22)
[2017-07-17] MEDS ORDERED: VIA IV (15:59)
[2017-07-17] MEDS ORDERED: [UNRECOGNIZED DRUG - OTHER] IV (15:59)
--- NOTE | 2017-07-17 16:24 | NUR ---
CALLED REPORT TO REHAB NURSE RISA
--- NOTE | 2017-07-17 16:52 | NUR ---
WENT OVER DC PAPERWORK WITH PT AND PT BOTH VERBALIZE UNDERSTANDING. DC TELE AND RETURNED TO PROJECT MANAGER [employer]AIL. PT GOING DOWN WITH PIV IN R FA BECAUSE HE WILL STILL BE RECEIVING ABX DOWNSTAIRS. PT IS SITTING UP IN BED EATING DINNER AND WILL CALL STAFF FOR WHEELCHAIR.
--- NOTE | 2017-07-17 17:08 | NUR ---
Patient Name: YODIT TRAORE Encounter No: [id number] : 1945 Primary Insurance: MEDICARE A & B Anticipated DC Date: 07-17-2017 Planned Disposition: INPATIENT REHAB PLANNED EXTERNAL PROVIDER, [facility] INPATIENT REH[facility] DCP follow-up note: CM MET WITH PT IN ROOM TO DISCUSS DISCHARGE NEEDS AND PLANNING. CM DISCUSSED AVAILABILITY OF HOME HEALTH, REHAB SERVICES AND MEDICAL EQUIPMENT. PT AGREEABLE WITH INPATIENT REHAB AT [place]. SPOUSE TO TRANSPORT HOME AT DISCHARGE. IMPORTANT MESSAGE FROM [employer] PROVIDED AND EXPLAINED. CM NOTIFIED CATALINO RIGGINS WHO REPORTS PT WILL DISCHARGE TO REHAB TODAY. CM NOTIFIED PT AND SPOUSE IN ROOM, CM NOTIFIED MEREDITH OF INPATIENT REHAB. CM RECEIVED CALL FROM MEREDITH OF [facility] INPATIENT REHAB, READY FOR REPORT, PT TO ADMIT TO ROOM 1115. VACUUM WORKER AND BEDSIDE NURSE NOTIFIED. Mingo Ruiz, CASE MANAGEMENT
--- NOTE | 2017-07-17 18:09 | NUR ---
PT WAS WHEELED DOWN TO REHAB ROOM 1115. AT BEDSIDE
[2017-07-20 06:07] LABS: OVA + PARASITE EXAM Final report (())
--- NOTE | 2017-09-09 10:59 | NUR ---
* Is the patient Alert and Oriented? Yes 0 * How many steps to enter\exit or inside your home? 0 0 * PCP Dr. Cueva 0 * Pharmacy [facility] 0 * Preadmission Environment Home with Family 0 * ADLs Partial Dependent 0 * Partial ADLs (Assistance needed) Ambulation 0 * Equipment Cane Rolling Walker 0 * List name and contact numbers for known caregivers / representatives who currently or will assist patient after discharge: Spouse - Ginny [phone] 0 * Community resources currently utilized Home Health 0 * Please name any agencies selected above. [place] 0 * Additional services required to return to the preadmission environment? Yes 0 * Can the patient safely return to the preadmission environment? Yes 0 * Has this patient been hospitalized within the prior 30 days at any hospital? No Patient Name: YODIT TRAORE Admission Status: ER Accout number: [id number] Admission Date: 09-07-2017 : 1945 Admission Diagnosis: Attending: LAZARA RODRIGUEZ Current LOS: 2 Anticipated DC Date: Planned Disposition: Home with Home Health Primary Insurance: MEDICARE A & B Discharge Planning Comments: Patient sedated, on vent. CM met with spouse, Ginny, @ bedside to assess dc plans/needs. She reports patient was discharged from inpatient rehab here at [facility] on 07/29. He was currently receiving nursing & physical therapy services from [facility]. He was using a cane for ambulating but also has a rolling walker should he need it. At dc, they plan to return home and resume home health services, but are agreeable to rehab if necessary. CM will follow & assist as needed. Binder Selector: Jennie Conroy
== END 2017-07-17 18:09 | DRG 682 ==
LOC: D.M2 14:47 → D.CVICU 07-12 15:16 → D.M2 07-13 22:49
PROVIDERS: Family Medicine; Internal Medicine; Internal Medicine Cardiovascular Disease; Internal Medicine Nephrology; Internal Medicine Pulmonary Disease; ADMIT Family Medicine
PROC: 0T9B70Z Drainage of Bladder with Drainage Device, Via Natural or Artificial Opening (ICD-10-PCS; principal; 2017-07-12)
DX: N17.9 Acute kidney failure, unspecified (principal); J69.0 Pneumonitis due to inhalation of food and vomit; I13.0 Hypertensive heart and chronic kidney disease with heart failure and stage 1 through stage 4 chronic kidney disease, or unspecified chronic kidney disease; E87.1 Hypo-osmolality and hyponatremia; N13.8 Other obstructive and reflux uropathy; N39.0 Urinary tract infection, site not specified; A04.72 Enterocolitis due to Clostridium difficile, not specified as recurrent; J98.11 Atelectasis; M62.82 Rhabdomyolysis; I50.32 Chronic diastolic (congestive) heart failure; E11.22 Type 2 diabetes mellitus with diabetic chronic kidney disease; N18.9 Chronic kidney disease, unspecified; I50.9 Heart failure, unspecified; E86.0 Dehydration; E78.5 Hyperlipidemia, unspecified; K21.9 Gastro-esophageal reflux disease without esophagitis; K52.9 Noninfective gastroenteritis and colitis, unspecified; I25.10 Atherosclerotic heart disease of native coronary artery without angina pectoris; E11.65 Type 2 diabetes mellitus with hyperglycemia; D64.9 Anemia, unspecified; N40.1 Benign prostatic hyperplasia with lower urinary tract symptoms; N13.30 Unspecified hydronephrosis; I08.1 Rheumatic disorders of both mitral and tricuspid valves; E87.6 Hypokalemia; E83.42 Hypomagnesemia; E83.51 Hypocalcemia; Z95.5 Presence of coronary angioplasty implant and graft; Z87.891 Personal history of nicotine dependence; M25.562 Pain in left knee

== ENCOUNTER 2017-07-17 15:39 | Inpatient (IN) | payer MEDICARE, OTHER ==
[~2017-07-17] VITALS: Ht 172.7 cm; Wt 79.4 kg
[~2017-07-17 15:39] MED LIST: AVAPRO150 MG PO; BAYER CHEWABLE81 MG PO; BENZONATATE200 MG PO; BUMEX 1 MG TAB1 MG PO; COREG25 MG PO; CRESTOR20 MG PO; FLAGYL500 MG PO; FLOMAX0.4 MG PO; LOVAZA1 G PO; MUCINEX DM ER1 EAC1 PO; MUCINEX600 MG PO; NAPROSYN500 MG PO; NEXIUM40 MG PO; NORVASC10 MG PO; PATIENT'S OWN MEDICA PO; PLAVIX75 MG PO; PREDNISONE10 MG PO; PROCRIT/EP10000 UNIT SC; PROSCAR5 MG PO; SODIUM BICARBO650 MG PO; SYNTHROID50 MCG PO; TRICOR145 MG PO; ZETIA10 MG PO
[2017-07-17] MEDS ORDERED: VIA IV (15:59)
[2017-07-17] MEDS ORDERED: [UNRECOGNIZED DRUG - OTHER] IV (15:59)
[2017-07-17 18:36] VITALS: BP 125/98; BMI 26.6
--- NOTE | 2017-07-17 20:08 | NUR ---
STAY WITH PT IN ROOM.
--- NOTE | 2017-07-18 00:40 | NUR ---
PATIENT IN BED, RESTING QUIETLY. STAYING IN ROOM IN RECLINER. EARLIER HAD TO REMIND HER TO GOWN AND GLOVE PER ENTERIC PRECAUTIONS. SHE COMPLIED.
--- NOTE | 2017-07-18 03:09 | NUR ---
REST IN BED, EYE CLOSE, CALL LIGHT IN REACH.
--- NOTE | 2017-07-18 04:42 | NUR ---
REST IN BED, BED LOW, CALL LIGHT IN REACH.
[2017-07-18 07:44] LABS: BASOPHILS 0 % (0-2); EOSINOPHILS 1.7 % (0-7); HEMATOCRIT 29.6 % (42.0-54.0); HEMOGLOBIN 9.6 g/dL (13.5-17.5); IMMATURE GRANULOCYTES 0.6 % (0-5); LYMPHOCYTES 8.5 % (15-50); MCH 32.1 pg (26.0-34.0); MCHC 32.4 g/dL (31.0-37.0); MEAN PLATELET VOLUME 9.8 fL (7.4-10.4); MONOCYTES 6.4 % (2-11); NEUTROPHILS 82.8 % (40-80); PLATELET COUNT 134 10x3/uL (130-400); RBC 2.99 10x6/uL (4.20-6.10); RDW 12.9 % (11.5-14.5); WBC 9.5 10x3/uL (4.8-10.8)
[2017-07-18 07:52] LABS: ANION GAP 10.1 mmol/L (8-16); CALCIUM 7.6 mg/dL (8.5-10.1); CARBON DIOXIDE 32.9 mmol/L (21.0-32.0)
--- NOTE | 2017-07-18 08:15 | NUR ---
PT UP IN BEDSIDE CHAIR EATING BREAKFAST TOLERATING WELL AT BEDSIDE NO PROBLEMS WILL MONITER
[2017-07-18 09:49] VITALS: BP 164/88
--- NOTE | 2017-07-18 12:00 | NUR ---
FAMILY IN ROOM.CL IN REACH.
[2017-07-18 14:06] VITALS: Ht 172.7 cm; Wt 79.4 kg
--- NOTE | 2017-07-18 17:34 | NUR ---
PT RESTING INBED WITH EYES OPEN CALL LIGHT IN REACH NO PROBLEMS WILL MONITER
[2017-07-18 19:51] VITALS: BP 161/83
--- NOTE | 2017-07-18 20:31 | NUR ---
PT. IN BED WITH HOB UP FOR COMFORT WITH TV ON. NO VOICED NEEDS AT THIS TIME AND HIS CALL LIGHT IS WITHIN REACH.
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
--- NOTE | 2017-07-19 00:16 | NUR ---
RESTING IN BED WITH EYES CLOSED.
--- NOTE | 2017-07-19 05:36 | NUR ---
PT SITTING ON THE SIDE OF HIS BED WITH SPOUSE AT HIS SIDE. NO NEEDS VOICED. FSBS WNL.
[2017-07-19 05:45] LABS: BASOPHILS 0 % (0-2); EOSINOPHILS 0.5 % (0-7); HEMATOCRIT 30.3 % (42.0-54.0); HEMOGLOBIN 10.2 g/dL (13.5-17.5); IMMATURE GRANULOCYTES 0.3 % (0-5); LYMPHOCYTES 8.5 % (15-50); MCH 33.2 pg (26.0-34.0); MCHC 33.7 g/dL (31.0-37.0); MCV 98.7 fL (80.0-100.0); MEAN PLATELET VOLUME 10.2 fL (7.4-10.4); MONOCYTES 6.7 % (2-11); PLATELET COUNT 159 10x3/uL (130-400); RBC 3.07 10x6/uL (4.20-6.10); RDW 13.1 % (11.5-14.5); WBC 9.4 10x3/uL (4.8-10.8)
[2017-07-19 06:01] LABS: % SATURATION 30 % (15-55); IRON 56 ug/dl (35-150); TOTAL IRON BIND CAPACITY 183 ug/dl (260-445); UNSAT IRON BIND CAPACITY 127 ug/dl (150-375)
[2017-07-19 06:12] LABS: ANION GAP 10.6 mmol/L (8-16); CARBON DIOXIDE 32.5 mmol/L (21.0-32.0); CREATININE - SERUM 1.9 mg/dL (0.6-1.3); POTASSIUM - SERUM 4.1 mmol/L (3.5-5.1)
--- NOTE | 2017-07-19 08:20 | NUR ---
PT UP IN BEDSIDE CHAIR EATING BREAKFAST IN ROOM CALL LIGHT IN REACH WILL MONITER
[2017-07-19 10:35] VITALS: BP 149/62
--- NOTE | 2017-07-19 18:21 | NUR ---
PT RESTING IN BED WITH EYES OPEN CALL LIGHT IN REACH NO PROBLEMS WILL MONITER
--- NOTE | 2017-07-19 22:36 | NUR ---
PT IS RESTING IN BED WITH EYES OPEN. NO NEEDS VOICED. SPOUSE AT BEDSIDE.
--- NOTE | 2017-07-19 23:46 | NUR ---
PT. SITTING UP IN CHAIR AND VISITING WITH FEMALE GUEST. NO VOICED NEEDS AND HIS CALL LIGHT IS WITHIN REACH.
--- NOTE | 2017-07-20 00:15 | NUR ---
RESTING IN BED WITH EYES CLOSED.
[2017-07-20 02:35] VITALS: BP 123/53
--- NOTE | 2017-07-20 03:00 | NUR ---
RESTING IN BED WITH EYES CLOSED.
--- NOTE | 2017-07-20 05:43 | NUR ---
RESTING IN BED WITH EYES CLOSED. AWOKE EASILY TO VERBAL STIMULI. TOLERATED AM MEDS WITHOUT DIFFICULTY. NO NEEDS VOICED. SPOUSE SLEEPING IN ROOM WITH PT.
[2017-07-20 07:17] LABS: BASOPHILS 0.1 % (0-2); EOSINOPHILS 0.2 % (0-7); HEMATOCRIT 29.8 % (42.0-54.0); HEMOGLOBIN 9.7 g/dL (13.5-17.5); IMMATURE GRANULOCYTES 0.4 % (0-5); LYMPHOCYTES 8.4 % (15-50); MCH 32.2 pg (26.0-34.0); MCHC 32.6 g/dL (31.0-37.0); MEAN PLATELET VOLUME 10.1 fL (7.4-10.4); MONOCYTES 4.7 % (2-11); NEUTROPHILS 86.2 % (40-80); PLATELET COUNT 170 10x3/uL (130-400); RBC 3.01 10x6/uL (4.20-6.10); RDW 13.3 % (11.5-14.5)
[2017-07-20 07:43] LABS: ANION GAP 8.9 mmol/L (8-16); CALCIUM 7.6 mg/dL (8.5-10.1); CARBON DIOXIDE 32.9 mmol/L (21.0-32.0); CREATININE - SERUM 1.9 mg/dL (0.6-1.3); POTASSIUM - SERUM 3.8 mmol/L (3.5-5.1)
[2017-07-20 07:55] VITALS: BP 126/56
--- NOTE | 2017-07-20 12:15 | NUR ---
SITTING UP IN CHIAR IN ROOM EATING LUNCH. IN ROOM WITH PT. HE HAS 4+ EDEMA TO LUE, 3+ TO RUE. HE DENIES PAIN OR SOB AT PRESENT
--- NOTE | 2017-07-20 18:44 | NUR ---
RESTING QUIETLY IN BED. CALL LIGHT IN REACH. BED IN LOWEST POSITION.
--- NOTE | 2017-07-20 19:46 | NUR ---
RECIEVED UP IN W/C IN ROOM WITH SPOUSE AT BEDSIDE. PLEASANT AND COOPERATIVE. C/O EDEMA TO LOWER EXTREMITIES. EDUCATED TO ELEVATE LEGS WHEN EVER POSSIBLE TO HELP WITH THE EDEMA. STATES "IT HURTS WORSE WHEN THEY'RE UP". EPLAINED THAT ELEVATING HIS LEGS WHEN IN BED OR UP IN CHAIR WOULD HELP. SPOUSE AGREED.
--- NOTE | 2017-07-20 21:20 | NUR ---
UP IN W/C WITH SPOUSE AT BEDSIDE. PEASANT AND COOPERATIVE. DENIES ANY PAIN. CALL LIGHT AND OVERBED TABLE IN REACH.
--- NOTE | 2017-07-21 00:04 | NUR ---
RESTING IN BED WITH EYES CLOSED. NO S/S OF DISTRESS OBSERVED. SPOUSE AT BEDSIDE WITH EYES CLOSED. CALL LIGHT AND OVERBED TABLE IN REACH.
--- NOTE | 2017-07-21 04:31 | NUR ---
RESTING IN BED WITH EYES CLOSED. NO S/S OF DISTRESS OBSERVED. SPOUSE AT BED SIDE. CALL LIGHT AND OVERBED TABLE IN REACH.
--- NOTE | 2017-07-21 08:09 | NUR ---
SITTING UP IN RECLINER IN ROOM EATING BREAKFAST. SITTING IN ROOM WITH PT. SHE STAYS TO HELP HIM. HE HAS FLAT AFFECT. DENIES PAIN. DENIES SOB AT REST. 4+ EDEMA NOTED TO BUE AND 3+ EDEMA NOTED TO BLE. HE HAS F/C.
[2017-07-21 09:00] VITALS: BP 162/80
[2017-07-21 09:17] LABS: FOLATE (FOLIC ACID) - SERUM 18.8 ng/mL (>3.0)
[2017-07-21 12:52] LABS: ANION GAP 9.6 mmol/L (8-16); CALCIUM 7.9 mg/dL (8.5-10.1); CARBON DIOXIDE 31.6 mmol/L (21.0-32.0); CREATININE - SERUM 2.1 mg/dL (0.6-1.3); MAGNESIUM - SERUM 1.8 mg/dL (1.8-2.4); PHOSPHOROUS 2.9 mg/dL (2.5-4.9); POTASSIUM - SERUM 4.2 mmol/L (3.5-5.1)
[2017-07-21 19:32] VITALS: BP 162/80
--- NOTE | 2017-07-21 19:32 | NUR ---
RECIEVED UP IN W/C WITH SPOUSE AT BEDSIDE. ALERT AND ORIENTED. PLEASANT AND COOPERATIVE. DENIES ANY NEEDS AT THIS TIME. CALL LIGHT IN REACH.
--- NOTE | 2017-07-21 21:30 | NUR ---
UP IN W/C WATCHING TV WITH AT BED SIDE. IV CHECKED AND NOT PATENT. ATTEMPTS X1 BY THIS NUSE. VERY EDEMATOUS AND UNABLE TO FIND A VEIN. ASKED SAMARA LUDWIG AND HE STARTED THE IV TO LEFT HAND. ATTEMPTS X2. F/C PATENT AND DRAINING STRAW COLOR URINE TO BEDSIDE DRAINAGE SYSTEM.
--- NOTE | 2017-07-22 01:38 | NUR ---
PT IN BED WITH HOB UP FOR COMFORT. EYES CLOSED. CHEST RISING AND FALLING. BED IN LOWEST POSITION AND CALL LIGHT WITHIN REACH. AT BEDISDE.
--- NOTE | 2017-07-22 04:46 | NUR ---
PT LYING IN BED WITH HOB UP FOR COMFORT. EYES CLOSED. RESPIRATIONS ARE EVEN AND UNLABORED. BED IN LOWEST POSITION AND CALL LIGHT WIHTIN REACH.
[2017-07-22 07:24] LABS: MAGNESIUM - SERUM 1.7 mg/dL (1.8-2.4); PHOSPHOROUS 3.2 mg/dL (2.5-4.9)
[2017-07-22 08:00] VITALS: BP 165/93
--- NOTE | 2017-07-22 08:00 | NUR ---
SHIFT ASSMT COMPLETED.BILAT ARMS RED AND WEEPING SEROUS FLD NOTED.FC PATENT. AT BEDSIDE.
--- NOTE | 2017-07-22 12:00 | NUR ---
SITTING UP EATING LUNCH. ASSISTING.
--- NOTE | 2017-07-22 16:00 | NUR ---
REMAINS UP IN CHAIR. AT SIDE.
--- NOTE | 2017-07-22 16:25 | NUR ---
PATIENT ADMITTED TO REHAB FROM ACUTE FLOOR. DR. MERIDA IS PCP AND FOR HIS PHARMACY IS [facility]. WILL CONTNUE TO FOLLOW WITH PATIENT AND WILL BE RA AT NEXT MEETING. PLANS ARE FOR PATIENT TO RETURN HOME
[2017-07-22 19:30] VITALS: BP 143/68
--- NOTE | 2017-07-22 19:30 | NUR ---
PT IS SITTING IN A RECLINER IN HIS ROOM WITH FEET ELEVATED WATCHING TV. ALERT AND ORIENTED X 4. DENIES PAIN OR DISCOMFORT AT THIS TIME. VSS. SPOUSE IS AT BEDSIDE. CONTACT PRECAUTIONS OBSERVED. RIGHT FOREARM SALINE LOCK NOTED. CALL LIGHT AND BEDSIDE TABLE ARE WITHIN EASY REACH.
--- NOTE | 2017-07-22 21:41 | NUR ---
PT IS RESTING QUIETLY IN BED WITH OPEN. WATCHING TV. NO NEEDS VOICED.
--- NOTE | 2017-07-23 00:22 | NUR ---
RESTING IN BED WITH EYES CLOSED.
--- NOTE | 2017-07-23 02:35 | NUR ---
IN BED, EYES CLOSED. SNORING SOFTLY. SLEEPING IN RECLINER AT BEDSIDE.
--- NOTE | 2017-07-23 04:25 | NUR ---
RESTING QUIETLY IN BED WITH EYES CLOSED. RESPS ARE EVEN AND UNLABORED. NO ACUTE DISTRESS NOTED.
--- NOTE | 2017-07-23 06:29 | NUR ---
RESTING IN BED WITH EYES CLOSED.
[2017-07-23 07:56] VITALS: BP 174/80
--- NOTE | 2017-07-23 08:00 | NUR ---
SHIFT ASSMT COMPLETED.BILAT ARMS WITH LESS EDEMA.LEFT ARM STILL WEEPING SMALL AMT SEROUS FLD.
--- NOTE | 2017-07-23 16:00 | NUR ---
REMAINS AT BEDSIDE.[facility]ERAP[facility].
--- NOTE | 2017-07-23 20:00 | NUR ---
PT IN WC. WATCHING TV WITH AT BEDSIDE. CONTACT ISOLATION [place]. PT IS ALERT & ORIENTED. WALDEN CATH TO DC 07/31/17. NO O2. RIGHT FA SL. CALL LIGHT WITHIN REACH.
[2017-07-23 20:30] VITALS: BP 130/75
--- NOTE | 2017-07-24 | NUR ---
PT LYING IN BED WITH HOB UP FOR COMFORT. EYES CLOSED. CHEST RISING AND FALIING. BED IN LOWEST POSITION AND CALL LIGHT WIHTIN REACH. AT BEDSIDE.
--- NOTE | 2017-07-24 04:00 | NUR ---
PT LYING IN BED WITH HOB UP FOR COMFORT. EYES CLOSED. RESPIRATIONS EVEN AND UNLABORED. BED IN LOWEST POSITION AND CALL LIGHT WITHIN REACH. AT BEDSIDE.
--- NOTE | 2017-07-24 04:30 | NUR ---
IN BED, EYES CLOSED. RESPIRATIONS UNLABORED. SLEEPING IN RECLINER AT BEDSIDE.
[2017-07-24 06:10] LABS: BASOPHILS 0.1 % (0-2); EOSINOPHILS 0.1 % (0-7); HEMATOCRIT 32.1 % (42.0-54.0); HEMOGLOBIN 10.5 g/dL (13.5-17.5); IMMATURE GRANULOCYTES 0.2 % (0-5); LYMPHOCYTES 10.8 % (15-50); MCHC 32.7 g/dL (31.0-37.0); MCV 100.9 fL (80.0-100.0); MEAN PLATELET VOLUME 10.1 fL (7.4-10.4); MONOCYTES 4.7 % (2-11); NEUTROPHILS 84.1 % (40-80); PLATELET COUNT 189 10x3/uL (130-400); RBC 3.18 10x6/uL (4.20-6.10); RDW 14.7 % (11.5-14.5); WBC 9.4 10x3/uL (4.8-10.8)
[2017-07-24 06:51] LABS: ANION GAP 11.4 mmol/L (8-16); CALCIUM 7.9 mg/dL (8.5-10.1); CARBON DIOXIDE 28.6 mmol/L (21.0-32.0); PHOSPHOROUS 3.4 mg/dL (2.5-4.9)
--- NOTE | 2017-07-24 07:01 | NUR ---
RESTING QUIETLY IN BED. CALL LIGHT IN REACH. BED IN LOWEST POSITION.
[2017-07-24 08:00] VITALS: BP 118/68
--- NOTE | 2017-07-24 09:00 | NUR ---
DR. Stacey BARNES INTO SEE PATIENT. NEW ORDERS RECEIVED.
--- NOTE | 2017-07-24 11:00 | NUR ---
PATIENT IN REHAB ROOM. WORKING WITH PHYSICAL THERAPIST. CONTACT ISOLATION PRECAUSIONS MAINTAINED.
--- NOTE | 2017-07-24 13:02 | NUR ---
Nutrition Follow Up: Chart reviewed. Pt is eating 83% meal avg on a regular diet. +BM. Meds and labs noted. Pt continues at low nutritional risk. Rec continue current diet. RD following.
--- NOTE | 2017-07-24 17:27 | NUR ---
REMAINS IN PATIENTS ROOM. HELPS PATIENT WITH BASIC NEEDS
--- NOTE | 2017-07-24 17:51 | NUR ---
PATIENT HAS MULTIPLE VISITORS IN HIS ROOM. CONTACT ISOLATION MAINTAINED WITH VISITORS
--- NOTE | 2017-07-24 19:01 | NUR ---
RECIEVED UP IN W/C IN ROOM WITH SPOUSE AT HIS SIDE AND TV ON. PLEASANT AND COOPERATIVE. ALERT AND ORIENTED X4. IV TO LEFT HAND PATENT. DENIES ANY NEEDS. CALL LIGHT IN REACH.
--- NOTE | 2017-07-24 21:07 | NUR ---
UP IN W/C WITH SPOUSE AT BEDSIDE. ALERT AND ORIENTED. PLEASANT AND TALKATIVE. IV TO LEFT HAND PATENT. DENIES ANY PAIN AT THIS TIME. CALL LIGHT AND OVERBED TABLE IN REACH.
[2017-07-24 22:38] VITALS: BP 137/56
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
--- NOTE | 2017-07-25 04:07 | NUR ---
RESTING IN BED WITH EYES CLOSED. NO S/S OF DISTRESS OBSERVED. SPOUSE IN CHAIR AT BEDSIDE ASLEEP. HOB ELEVATED PER PT PREFERENCE. CALL LIGHT AND OVERBED TABLE IN REACH.
--- NOTE | 2017-07-25 05:31 | NUR ---
RESTING IN BED WITH EYES CLOSED. EASILY AROUSES WITH VERBAL STIMULI. IV TO LEFT WRIST PATENT AND DRESSING CLEAN, DRY AND INTACT. F/C PATENT AND DRAINING STAW COOOR URINE TO BEDSIDE DRAINAGE SYSTEM.
--- NOTE | 2017-07-25 08:01 | NUR ---
SITTING UP IN RECLINER IN ROOM. IN ROOM WITH PT. HE DENIES NEEDS OR C/O.
[2017-07-25 09:07] VITALS: BP 159/77
--- NOTE | 2017-07-25 12:01 | NUR ---
SITTING IN RECLINER IN ROOM WATCHING TV. DENIES NEEDS OR PAIN. F/C STILL PATENT AND DRAINING CLOUDY YELLOW URINE
--- NOTE | 2017-07-25 19:17 | NUR ---
RECIEVED UP IN RECLINER WITH SPOUSE AT HIS SIDE. PLEASANT AND TALKATIVE. DENIES ANY NEEDS AT THIS TIME. CALL LIGHT AND OVERBED TABLE IN REACH.
[2017-07-25 20:25] VITALS: BP 113/66
--- NOTE | 2017-07-25 21:05 | NUR ---
UP IN RECLINER WITH SPOUSE AT BEDSIDE. IV TO LEFT WRIST PATENT WITH DRESSING CLEAN, DRY AND INTACT. F/C PATENT WITH STRAW COLOR URINE DRAINING TO BEDSIDE DRAINAGE SYSTEM. EDEMA APPERARS BETTER TO UPPER EXTREMITIES AND ABDOMEN NOT DISTENDED. CONTINUES TO HAVE EDEMA TO LOWER EXTREMITIES. LEGS ELEVATED AT THIS TIME. CALL LIGHT AND OVERBED TABLE IN REACH.
--- NOTE | 2017-07-26 00:56 | NUR ---
RESTING IN BED WITH EYES CLOSED. NO S/S OF DISTRESS OBSERVED. CALL LIGHT AND OVERBED TABLE IN REACH.
--- NOTE | 2017-07-26 04:17 | NUR ---
RESTING IN BED WITH EYES CLOSED. NO S/S OF DISTRESS OBSERVED. SPOUSE AT BEDSIDE. HOB ELEVATED. CALL LIGHT AND OVERBED TABLE IN REACH.
[2017-07-26 09:13] VITALS: BP 161/79
--- NOTE | 2017-07-26 09:33 | NUR ---
SITTING UP IN RECLINER IN ROOM. DENIES PAIN OR NEEDS. IN ROOM WITH PT. HE IS ANXIOUS FOR F/C TO COME OUT
--- NOTE | 2017-07-26 15:00 | NUR ---
SITTING IN RECLINER IN ROOM, EYES CLOSED. NO S/S DISTRESS. IN ROOM READING PAPER
--- NOTE | 2017-07-26 19:46 | NUR ---
RECIEVED UP IN W/C WITH SPOUSE AT HIS SIDE. PLEASANT AND SMILING. DENIES ANY NEEDDS. CALL LIGHT IN REACH.
[2017-07-26 20:33] VITALS: BP 130/66
--- NOTE | 2017-07-26 21:26 | NUR ---
UP IN W/C WITH SPOUSE AT HIS SIDE. PLEASANT AND COOPERATIVE. F/C PATENT WITH CLEAR YELLOW URINE DRAINING TO BEDSIDE DRAINAGE SYSTEM. IV TO LEFT WRIST SL. PATENT AND DRESSING INTACT. DENIES ANY PAIN OR NEEDS.
--- NOTE | 2017-07-26 21:30 | NUR ---
LARGE FLUID FILLED BLISTER BETWEEN BIG TOE AND SECOND TOE. FOAM DRESSING APPLIED TO PROTECT FROM RUPTURE. WILL REPORT TO DARY.
--- NOTE | 2017-07-27 05:14 | NUR ---
RESTING IN BED WITH EYES CLOSED. NO S/S OF DISTRESS OBSERVED. SPOUSE AT BED SIDE. CALL LIGHT AND OVERBED TABLE IN REACH.
[2017-07-27 05:57] LABS: BASOPHILS 0 % (0-2); EOSINOPHILS 0.7 % (0-7); HEMATOCRIT 33.2 % (42.0-54.0); HEMOGLOBIN 10.6 g/dL (13.5-17.5); IMMATURE GRANULOCYTES 0.1 % (0-5); LYMPHOCYTES 11.3 % (15-50); MCH 32.2 pg (26.0-34.0); MCHC 31.9 g/dL (31.0-37.0); MCV 100.9 fL (80.0-100.0); MEAN PLATELET VOLUME 9.7 fL (7.4-10.4); MONOCYTES 7.9 % (2-11); PLATELET COUNT 177 10x3/uL (130-400); RBC 3.29 10x6/uL (4.20-6.10); RDW 15.1 % (11.5-14.5); WBC 7.4 10x3/uL (4.8-10.8)
[2017-07-27 06:14] LABS: ANION GAP 8.5 mmol/L (8-16); CALCIUM 7.7 mg/dL (8.5-10.1); CARBON DIOXIDE 30.6 mmol/L (21.0-32.0); CREATININE - SERUM 1.8 mg/dL (0.6-1.3); POTASSIUM - SERUM 4.1 mmol/L (3.5-5.1)
[2017-07-27 07:59] VITALS: BP 148/86
--- NOTE | 2017-07-27 08:00 | NUR ---
SHIFT ASSMT COMPLETED.
--- NOTE | 2017-07-27 12:00 | NUR ---
IN CHAIR EATING LUNCH.CL IN REACH. AT BEDSIDE.
--- NOTE | 2017-07-27 16:00 | NUR ---
EXPECTING DC HOME WED.SPOKE WITH ;STATED OK TO REMOVE FC AFTER 2 WKS BUT IF NO VOID IN 6 HRS WILL NEED TO REPLACE.PLAN TO DC FC 07/31/17
--- NOTE | 2017-07-27 19:20 | NUR ---
RECEIVED PT IN ROOM. SITTING IN RECLINER WITH AT SIDE. SOCIALIZING WITH . STATED THAT THE BLISTER ON FOOT WAS LEAKING OUT FLUID AND GOT HIS SOCK WET. DRESSING APPLIED OVER BLISTER. WALDEN CATHETER INTACT AND DRAINING. CALL LIGHT AND BED SIDE TABLE IN REACH. NO FURTHER NEEDS AT THIS TIME.
[2017-07-27 19:30] VITALS: BP 138/67
--- NOTE | 2017-07-27 23:50 | NUR ---
PT ASLEEP. NO SIGNS OF DISTRESS. WALDEN CATHETER INTACT AND DRAINING. BED IN LOWEST POSITION. 2 SIDE RAILS UP. CALL LIGHT AND BED SIDE TABLE IN REACH.
--- NOTE | 2017-07-28 00:27 | NUR ---
PT SITTING IN RECLINER. SOCIALIZING WITH . CALL LIGHT AND BED SIDE TABLE IN REACH. VOICES NO NEEDS AT THIS TIME.
--- NOTE | 2017-07-28 03:31 | NUR ---
RESTING IN BED WITH HOB ELEVATED. F/C PATENT WITH STRAW COLOR URINE DRAINING TO BEDSIDE DRAINAGE SYSTEM. SPOUSE ASLEEP AT BED SIDE. CALL LIGHT AND OVERBED TABLE IN REACH.
[2017-07-28 06:52] LABS: ANION GAP 9.6 mmol/L (8-16); CALCIUM 7.7 mg/dL (8.5-10.1); CARBON DIOXIDE 29.2 mmol/L (21.0-32.0); CREATININE - SERUM 1.8 mg/dL (0.6-1.3); POTASSIUM - SERUM 3.8 mmol/L (3.5-5.1)
--- NOTE | 2017-07-28 08:00 | NUR ---
SHIFT ASSMT COMPLETED.SCANT DRAINAGE WEEPING LEFT ARM.LEFT FOOT FLUID FILLED BLISTER NOW OPEN AND DRAINING.DENIES NEEDS.BREAKFAST GIVEN. AT SIDE ASSISTING WITH NEEDS.CL IN REACH.
[2017-07-28 08:54] VITALS: BP 172/90
--- NOTE | 2017-07-28 12:00 | NUR ---
BACK FROM THERAPY.KYLE WITH WOUND CARE VISITING;OBSERVED BLISTER ON TOP OF LEFT FOOT.BIG TOE IS WEEPING FLD.AREA CLEANED AND ADAPTIC IN PLACE;COVERED WITH 4X4 GAUZE.
--- NOTE | 2017-07-28 12:25 | NUR ---
VISITING AND ORDERS R/N TO REMOVE FC.14FR FC DC'D WITH TIP DEFLATED AND INTACT.INSTRUCTED IN VOIDS.
--- NOTE | 2017-07-28 13:06 | NUR ---
Nutrition Follow Up: Pt was in therapy at the time of RD visit. Interview deferred. Chart reviewed. Pt is eating 97% meal avg on a regular diet. +BM 07/27/17. Meds and labs reviewed. Pt continues at low nutritional risk. Rec continue current diet. RD following.
--- NOTE | 2017-07-28 16:00 | NUR ---
NO VOID AT THIS TIME.RESTING IN BED.LEGS UP.
--- NOTE | 2017-07-28 18:10 | NUR ---
still no void,waiting on shore working supervisor to bring a 14fr fc for reinsertion.
--- NOTE | 2017-07-28 19:30 | NUR ---
PT RESTING IN BED WITH EYES OPEN. ALERT AND ORIENTED X 4. VOICES HE IS STARTING TO FEEL LIKE HIS BLADDER IS GETTING FULL, BUT IS UNABLE TO VOID. AWAITING HAT CONDITIONER TO DELIVER 14FR CATH TO REINSERT WALDEN PER ORDERED. VSS. WEEPING EDEMA NOTED IN RIGHT ARM. ARM ELEVATED UP ON PILLOW AT THIS TIME. SPOUSE IS AT BEDSIDE. SR'S ARE UP X 2 IN BED. CALL LIGHT AND BEDSIDE TABLE ARE WITHIN EASY REACH.
--- NOTE | 2017-07-28 20:15 | NUR ---
SPOUSE APPROACHED NURSES STATION ASKING WHEN PT WAS GOING TO GET HIS CATHETER REPLACED. STATES PT IS HAVING SOME PAIN , BUT IS STILL UNABLE TO VOID. I INFORMED HER THAT I HAD JUST SPOKEN WITH THE RETAIL CUSTOMER SERVICE REPRESENTATIVE, AND SHE STATED SHE WAS TRYING TO GET TO IT, BUT WAS BUSY IN THE ER AT THE MOMENT.
--- NOTE | 2017-07-28 21:15 | NUR ---
PT VOICING CONTINUED ABD. PAIN. MAINTENANCE SPECIALIST CALLED. SHE STATES SHE IS TRYING TO GET TO THE CATHETER DANNY.
[2017-07-28 21:37] VITALS: BP 139/65
--- NOTE | 2017-07-28 22:23 | NUR ---
14 FR WALDEN CATH INSERTED USING STERILE TECHNIQUE. NO DIFFICULTY NOTED.
--- NOTE | 2017-07-28 23:43 | NUR ---
RESTING IN BED WITH EYES CLOSED. 850 CC MEDIUM DARK YELLOW URINE NOTED IN WALDEN BAG.
--- NOTE | 2017-07-29 00:35 | NUR ---
IN BED, EYES CLOSED. RESTING QUIETLY. SLEEPING IN RECLINER AT BEDSIDE.
--- NOTE | 2017-07-29 01:54 | NUR ---
RESTING IN BED WITH EYES CLOSED.
--- NOTE | 2017-07-29 04:43 | NUR ---
PT RESTING QUIETLY IN BED WITH EYES CLOSED. RESPS ARE EVEN AND UNLABORED. NO ACUTE DISTRESS NOTED. WALDEN CATH DRAINING TO A GRAVITY BAG.
[2017-07-29 07:00] LABS: BASOPHILS 0 % (0-2); EOSINOPHILS 2.4 % (0-7); HEMATOCRIT 33.1 % (42.0-54.0); HEMOGLOBIN 10.7 g/dL (13.5-17.5); IMMATURE GRANULOCYTES 0.2 % (0-5); LYMPHOCYTES 14.8 % (15-50); MCH 32.5 pg (26.0-34.0); MCHC 32.3 g/dL (31.0-37.0); MCV 100.6 fL (80.0-100.0); MEAN PLATELET VOLUME 9.6 fL (7.4-10.4); MONOCYTES 8.3 % (2-11); NEUTROPHILS 74.3 % (40-80); PLATELET COUNT 159 10x3/uL (130-400); RBC 3.29 10x6/uL (4.20-6.10); RDW 15.3 % (11.5-14.5); WBC 5.3 10x3/uL (4.8-10.8)
[2017-07-29 07:15] LABS: ANION GAP 11.2 mmol/L (8-16); CALCIUM 7.7 mg/dL (8.5-10.1); CARBON DIOXIDE 29.7 mmol/L (21.0-32.0); CREATININE - SERUM 1.7 mg/dL (0.6-1.3); POTASSIUM - SERUM 3.9 mmol/L (3.5-5.1)
--- NOTE | 2017-07-29 08:00 | NUR ---
PATIEHT IS ALERT/ORIENT X4. STAYS IN ROOM WITH PATIENT. PATIENT SITTING UP IN A RECLINER. CALL LIGHT WITHIN REACH
--- NOTE | 2017-07-29 09:00 | NUR ---
DR. Stacey BARNES. INTO SEE PATIENT. NEW ORDERS RECEIVED TO DISCHARGE PATIENT TO HOME.
--- NOTE | 2017-07-29 10:00 | NUR ---
PATIENT AND GIVEN DISCHARGE INSTRUCTIONS. DISCHARGE MEDICATIONS THAT PATIENT DOES NOT HAVE CALLED INTO [facility]. PATIENT HELP OUT TO CAR BY STAFF.
[2017-07-29 11:16] VITALS: BP 138/57
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
== END 2017-07-29 12:06 | disposition home health service (06) | DRG 558 ==
LOC: D.REHAB 15:39
PROVIDERS: Internal Medicine; Internal Medicine Nephrology; ADMIT Emergency Medicine
DX: M62.82 Rhabdomyolysis (principal); N39.0 Urinary tract infection, site not specified; N17.9 Acute kidney failure, unspecified; A04.72 Enterocolitis due to Clostridium difficile, not specified as recurrent; J44.9 Chronic obstructive pulmonary disease, unspecified; I10 Essential (primary) hypertension; E78.5 Hyperlipidemia, unspecified; K21.9 Gastro-esophageal reflux disease without esophagitis; D64.9 Anemia, unspecified; R97.20 Elevated prostate specific antigen [PSA]; D72.829 Elevated white blood cell count, unspecified; R53.1 Weakness; R11.2 Nausea with vomiting, unspecified; E86.0 Dehydration; R55 Syncope and collapse; R42 Dizziness and giddiness; K52.9 Noninfective gastroenteritis and colitis, unspecified; R80.9 Proteinuria, unspecified; G89.29 Other chronic pain; E11.65 Type 2 diabetes mellitus with hyperglycemia

== ENCOUNTER 2017-08-30 21:02 | Emergency (ER) | payer MEDICARE, OTHER ==
[2017-07-18 14:06] VITALS: BMI 26.6
[~2017-08-30 21:02] MED LIST changes: +VIA IV; +[UNRECOGNIZED DRUG - OTHER] IV
[2017-08-30 22:53] LABS: APPEARANCE CLOUDY (CLEAR); BILIRUBIN NEGATIVE (NEGATIVE); COLOR YELLOW (YELLOW); GLUCOSE NEGATIVE (NEGATIVE); KETONE NEGATIVE (NEGATIVE); NITRITE NEGATIVE (NEGATIVE); PROTEIN 1+ mg/dL (NEGATIVE); UROBILINOGEN NORMAL (NORMAL); WHITE CELLS - URINE >50 /hpf (0-5)
[2017-08-30 22:54] LABS: BACTERIA MODERATE /hpf (NONE SEEN); EPITHELIAL CELLS RARE /hpf (0-5)
== END 2017-08-30 22:30 | disposition home or self-care (01) ==
LOC: D.ER 21:02
PROVIDERS: Physician Assistant
DX: R33.9 Retention of urine, unspecified (principal); N40.0 Benign prostatic hyperplasia without lower urinary tract symptoms

== ENCOUNTER 2017-09-07 11:22 | Inpatient (IN) | payer MEDICARE, OTHER ==
[2017-09-07] VITALS (18 sets, daily range): BP systolic 67–115; BP diastolic 37–65; BMI 32.0
[~2017-09-07] VITALS: Ht 172.7 cm; Wt 98.2 kg
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
--- NOTE | ~2017-09-07 | EC ---
PATIENT:YODIT TRAORE DATE OF SERVICE: 09/07/17 SEX: M MEDICAL RECORD: [id number] DATE OF : 45 LOCATION:[facility] D230 AGE OF PATIENT: 71 ADMISSION DATE: 09/07/17 REFERRING PHYSICIAN: INTERPRETING PHYSICIAN: JC MITCHELL MD ECHOCARDIOGRAM REPORT ECHO CHARGES 4 ECHO COMPLETE CLINICAL DIAGNOSIS: CHF ECHOCARDIOGRAPHIC MEASUREMENTS (adult normal given) AC root (d.<3.7cm) 3.9 cm LV Septum d (<1.2 cm> 1.4 cm Valve Excursion 1.9 cm LV Septum (systole) 1.8 cm Left Atria (s.<4.0cm> 2.9 cm LVPW d(<1.2cm) 1.7 cm RV (d.<2.3cm) 4.2 cm LVPW (sytole) 2.0 cm LV diastole(<5.6CM) 5.7 cm MV E-F(>70mm/sec) cm LV systole 4.0 cm LVOT Diameter 1.8 cm MV exc.(>10mm) 1.6 cm Est.ejection fraction (50-75%) % Pericardial Effusion Y DOPPLER: LVIT cm/sec A 92.0 cm/sec E 83.0 cm/sec LA cm/sec RVSP 37 mmHg LVOT 93 cm/sec AOP1/2T m/s Asc. Ao 144 cm/sec RVOT 82 cm/sec RA cm/sec PA 91 cm/sec AV Gradient Peak 829 mmHg AV Mean 3.89 mmHg AV Area 1.6 cm MV Gradient Peak 3.88 mmHg MV Mean 1.74 mmHg MV Area cm COMMENTS: Cook Chili: 2 RICARDO MCDANIEL Cokeman: 4 Dr. Mitchell TAPE# PACS DATE OF SERVICE: 09/07/2017 PROCEDURE: Transthoracic echocardiogram. FINDINGS: 1. Left ventricle has moderate concentric left ventricular hypertrophy. The overall ejection fraction is normal to mildly decreased and EF of 50% to 55%. There are no distinct regional wall motion abnormalities. The inflow characteristics consistent with diastolic dysfunction versus possible increased left ventricular end-diastolic pressures. ECHOCARDIOGRAM REPORT [id number] YODIT TRAORE 2. The right ventricle is moderately to severely dilated with normal function. 3. The right atrium is mildly to moderately dilated. 4. The mitral valve shows yetth-wc-nygv mitral regurgitation. 5. The tricuspid valve has mild tricuspid regurgitation. RVSP is estimated between 35 and 40 mmHg. 6. The aortic valve has mild sclerosis without stenosis. 7. Pulmonic valve is not well visualized. CONCLUSIONS: The patient has evidence of hypertensive heart disease with mildly decreased LV systolic function. No obvious regional wall motion abnormalities. TRANSINT:[id number] Voice Confirmation ID: [id number] DOCUMENT ID: [id number] 09/15/2017 Edited to correct date of service, dm. JC MITCHELL MD at 1353 CC: [id number] DICTATION DATE: 09/08/17 1140 ORACLE DRM CONSULTANT: 09/08/17 1217 ADM IN [place] [id number] [place] [id number]
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
[2017-09-07 12:17] LABS: BASOPHILS 0 % (0-2); EOSINOPHILS 0 % (0-7); HEMATOCRIT 28.7 % (42.0-54.0); LYMPHOCYTES 2.7 % (15-50); MCH 30.9 pg (26.0-34.0); MCHC 31.4 g/dL (31.0-37.0); MCV 98.6 fL (80.0-100.0); MEAN PLATELET VOLUME 10.5 fL (7.4-10.4); MONOCYTES 2.7 % (2-11); NEUTROPHILS 93.6 % (40-80); PLATELET COUNT 155 10x3/uL (130-400); RBC 2.91 10x6/uL (4.20-6.10); RDW 14.3 % (11.5-14.5); WBC 15.4 10x3/uL (4.8-10.8)
[2017-09-07 12:26] LABS: APTT 51.7 SECONDS (22.8-39.4); INR 1.39 (0.85-1.17); PROTIME 16.6 SECONDS (11.6-15.0)
[2017-09-07 12:41] LABS: ALBUMIN 2.1 g/dL (3.4-5.0); ALKALINE PHOSPHATASE 77 U/L (46-116); ALT (SGPT) 37 U/L (10-68); BILIRUBIN - TOTAL 1.19 mg/dL (0.2-1.3); CALC OSMOLALITY 292 mosm/kg (275-300); CARBON DIOXIDE 30.4 mmol/L (21.0-32.0); CHLORIDE - SERUM 100 mmol/L (98-107); CREATINE KINASE 68 UL (21-232); CREATININE - SERUM 3.7 mg/dL (0.6-1.3); GLUCOSE 129 mg/dL (74-106); POTASSIUM - SERUM 3.3 mmol/L (3.5-5.1); PRO BNP 14875 pg/mL (0-125); PROTEIN - SERUM 6.4 g/dL (6.4-8.2); SODIUM 139 mmol/L (136-145); UREA NITROGEN 50 mg/dL (7-18); eGFR NON AFRICAN AMERICAN 17 mL/min (90-120)
[2017-09-07 12:47] LABS: TROPONIN-I < 0.017 ng/mL (0.000-0.060)
[2017-09-07 12:48] LABS: CALCIUM 6.5 mg/dL (8.5-10.1); MAGNESIUM - SERUM 0.6 mg/dL (1.8-2.4)
[2017-09-07 14:17] LABS: APPEARANCE HAZY (CLEAR); BACTERIA MODERATE /hpf (NONE SEEN); COLOR ORANGE (YELLOW); EPITHELIAL CELLS RARE /hpf (0-5); HYALINE CAST OCC /lpf (NONE SEEN); MUCUS <1+ /lpf (NONE SEEN); RED CELLS - URINE 0-5 /hpf (0-5); WHITE CELLS - URINE OCC /hpf (0-5)
[2017-09-07 14:18] LABS: AMORPHOUS SEDIMENT >1+ /lpf (NONE SEEN)
[2017-09-07] MEDS ORDERED: AMBIEN10 MG PO (20:15)
[2017-09-07] MEDS ORDERED: AVAPRO300 MG PO (20:15)
[2017-09-07] MEDS ORDERED: REGLAN10 MG PO (20:16)
[2017-09-07] MEDS ORDERED: LEVOTHYROXINE50 MCG PO (20:16)
[2017-09-07] MEDS ORDERED: BUMEX 1 MG TAB1 MG PO (20:16)
[2017-09-07 23:43] LABS: BASOPHILS 0 % (0-2); EOSINOPHILS 0 % (0-7); HEMATOCRIT 26.4 % (42.0-54.0); HEMOGLOBIN 8.4 g/dL (13.5-17.5); IMMATURE GRANULOCYTES 1.6 % (0-5); LYMPHOCYTES 3.2 % (15-50); MCHC 31.8 g/dL (31.0-37.0); MCV 97.4 fL (80.0-100.0); NEUTROPHILS 92.2 % (40-80); PLATELET COUNT 159 10x3/uL (130-400); RBC 2.71 10x6/uL (4.20-6.10); RDW 14.7 % (11.5-14.5); WBC 12.4 10x3/uL (4.8-10.8)
[2017-09-07 23:46] LABS: ANION GAP 17.4 mmol/L (8-16); CARBON DIOXIDE 24.4 mmol/L (21.0-32.0); POTASSIUM - SERUM 3.8 mmol/L (3.5-5.1)
[2017-09-07 23:47] LABS: CALCIUM 6.8 mg/dL (8.5-10.1)
[2017-09-08] VITALS (77 sets, daily range): BP systolic 84–103; BP diastolic 15–84; Ht 172.7 cm; Wt 98.2 kg
[2017-09-08 06:03] LABS: BASOPHILS 0 % (0-2); EOSINOPHILS 0 % (0-7); HEMATOCRIT 29.7 % (42.0-54.0); HEMOGLOBIN 9.5 g/dL (13.5-17.5); IMMATURE GRANULOCYTES 0.6 % (0-5); LYMPHOCYTES 2.6 % (15-50); MCH 30.9 pg (26.0-34.0); MCV 96.7 fL (80.0-100.0); MONOCYTES 2.4 % (2-11); NEUTROPHILS 94.4 % (40-80); PLATELET COUNT 177 10x3/uL (130-400); RBC 3.07 10x6/uL (4.20-6.10); RDW 14.6 % (11.5-14.5); WBC 14.1 10x3/uL (4.8-10.8)
[2017-09-08 06:34] LABS: ALBUMIN 1.9 g/dL (3.4-5.0); ANION GAP 18.9 mmol/L (8-16); BILIRUBIN - TOTAL 1.72 mg/dL (0.2-1.3); CARBON DIOXIDE 22.2 mmol/L (21.0-32.0); CREATININE - SERUM 4.2 mg/dL (0.6-1.3); PHOSPHOROUS 5.6 mg/dL (2.5-4.9); POTASSIUM - SERUM 4.1 mmol/L (3.5-5.1); PROTEIN - SERUM 6.1 g/dL (6.4-8.2); THYROID STIMULATING HORMONE 0.41 uIU/mL (0.36-3.74)
[2017-09-08 06:35] LABS: MAGNESIUM - SERUM 1.4 mg/dL (1.8-2.4)
[2017-09-08 06:37] LABS: CALCIUM 6.7 mg/dL (8.5-10.1)
[2017-09-09] VITALS (92 sets, daily range): BP systolic 91–121; BP diastolic 45–536
[2017-09-09 06:37] LABS: BASOPHILS 0 % (0-2); EOSINOPHILS 0.1 % (0-7); HEMATOCRIT 29.3 % (42.0-54.0); HEMOGLOBIN 9.8 g/dL (13.5-17.5); IMMATURE GRANULOCYTES 0.5 % (0-5); LYMPHOCYTES 3.1 % (15-50); MCH 31.3 pg (26.0-34.0); MCHC 33.4 g/dL (31.0-37.0); MONOCYTES 2.5 % (2-11); NEUTROPHILS 93.8 % (40-80); RBC 3.13 10x6/uL (4.20-6.10); RDW 14.4 % (11.5-14.5); WBC 14.8 10x3/uL (4.8-10.8)
[2017-09-09 06:40] LABS: MCV 93.6 fL (80.0-100.0); PLATELET COUNT 239 10x3/uL (130-400)
[2017-09-09 06:53] LABS: ANION GAP 22.7 mmol/L (8-16); CARBON DIOXIDE 17.4 mmol/L (21.0-32.0); CREATININE - SERUM 5.2 mg/dL (0.6-1.3); MAGNESIUM - SERUM 1.9 mg/dL (1.8-2.4); POTASSIUM - SERUM 5.1 mmol/L (3.5-5.1); VANCOMYCIN - RANDOM 18.3 ug/mL (10.0-20.0)
[2017-09-09 06:54] LABS: CALCIUM 6.3 mg/dL (8.5-10.1)
[2017-09-09 19:09] LABS: AFB SPECIMEN PROCESSING Concentration (())
[2017-09-10] VITALS (90 sets, daily range): BP systolic 97–159; BP diastolic 56–89
[2017-09-10 05:15] LABS: BASOPHILS 0 % (0-2); EOSINOPHILS 0 % (0-7); HEMATOCRIT 26.8 % (42.0-54.0); HEMOGLOBIN 9.4 g/dL (13.5-17.5); IMMATURE GRANULOCYTES 0.3 % (0-5); LYMPHOCYTES 3.5 % (15-50); MCHC 35.1 g/dL (31.0-37.0); MEAN PLATELET VOLUME 10.6 fL (7.4-10.4); MONOCYTES 3.4 % (2-11); NEUTROPHILS 92.8 % (40-80); PLATELET COUNT 210 10x3/uL (130-400); RBC 2.85 10x6/uL (4.20-6.10); RDW 14.1 % (11.5-14.5); WBC 11.6 10x3/uL (4.8-10.8)
[2017-09-10 05:28] LABS: CARBON DIOXIDE 17.8 mmol/L (21.0-32.0); CREATININE - SERUM 5.8 mg/dL (0.6-1.3); MAGNESIUM - SERUM 2.1 mg/dL (1.8-2.4); POTASSIUM - SERUM 4.8 mmol/L (3.5-5.1)
[2017-09-10 05:32] LABS: CALCIUM 5.6 mg/dL (8.5-10.1)
[2017-09-11] VITALS (24 sets, daily range): BP systolic 120–162; BP diastolic 65–83
[2017-09-11 04:10] LABS: BASOPHILS 0 % (0-2); EOSINOPHILS 0 % (0-7); HEMATOCRIT 27.9 % (42.0-54.0); HEMOGLOBIN 9.7 g/dL (13.5-17.5); IMMATURE GRANULOCYTES 0.8 % (0-5); LYMPHOCYTES 6.1 % (15-50); MCHC 34.8 g/dL (31.0-37.0); MCV 92.1 fL (80.0-100.0); MEAN PLATELET VOLUME 10.4 fL (7.4-10.4); MONOCYTES 4.1 % (2-11); PLATELET COUNT 187 10x3/uL (130-400); RBC 3.03 10x6/uL (4.20-6.10); RDW 14.2 % (11.5-14.5)
[2017-09-11 04:11] LABS: WBC 7.5 10x3/uL (4.8-10.8)
[2017-09-11 04:30] LABS: MAGNESIUM - SERUM 2.1 mg/dL (1.8-2.4); VANCOMYCIN - RANDOM 12.2 ug/mL (10.0-20.0)
[2017-09-11 04:31] LABS: ANION GAP 17.1 mmol/L (8-16); CALCIUM 7.3 mg/dL (8.5-10.1); CARBON DIOXIDE 23.9 mmol/L (21.0-32.0); CREATININE - SERUM 4.2 mg/dL (0.6-1.3)
[2017-09-11 14:17] LABS: HEPATITIS C ANTIBODY <0.1 (0.0-0.9)
[2017-09-11 14:17] LABS: FUNGUS STAIN Final report (())
[2017-09-11 17:10] LABS: AEROBE ID Final report (())
[2017-09-12] VITALS (24 sets, daily range): BP systolic 83–151; BP diastolic 49–85
[2017-09-12 05:24] LABS: BASOPHILS 0.1 % (0-2); EOSINOPHILS 0 % (0-7); HEMOGLOBIN 10.3 g/dL (13.5-17.5); LYMPHOCYTES 7.8 % (15-50); MCH 31.1 pg (26.0-34.0); MCHC 33.2 g/dL (31.0-37.0); MCV 93.7 fL (80.0-100.0); MEAN PLATELET VOLUME 10.6 fL (7.4-10.4); MONOCYTES 6.1 % (2-11); PLATELET COUNT 172 10x3/uL (130-400); RBC 3.31 10x6/uL (4.20-6.10); RDW 14.6 % (11.5-14.5); WBC 8.2 10x3/uL (4.8-10.8)
[2017-09-12 05:40] LABS: ANION GAP 19.3 mmol/L (8-16); CALCIUM 7.1 mg/dL (8.5-10.1); CARBON DIOXIDE 21.7 mmol/L (21.0-32.0); CREATININE - SERUM 4.5 mg/dL (0.6-1.3); VANCOMYCIN - RANDOM 20.7 ug/mL (10.0-20.0)
[2017-09-13] VITALS (24 sets, daily range): BP systolic 96–154; BP diastolic 49–69
[2017-09-13 04:47] LABS: BASOPHILS 0 % (0-2); EOSINOPHILS 0.1 % (0-7); HEMOGLOBIN 9.9 g/dL (13.5-17.5); IMMATURE GRANULOCYTES 4.2 % (0-5); LYMPHOCYTES 8.5 % (15-50); MCH 30.7 pg (26.0-34.0); MCV 92.9 fL (80.0-100.0); MEAN PLATELET VOLUME 10.2 fL (7.4-10.4); MONOCYTES 4.5 % (2-11); NEUTROPHILS 82.7 % (40-80); PLATELET COUNT 158 10x3/uL (130-400); RBC 3.23 10x6/uL (4.20-6.10); RDW 14.4 % (11.5-14.5); WBC 10.1 10x3/uL (4.8-10.8)
[2017-09-13 05:04] LABS: ALBUMIN 1.7 g/dL (3.4-5.0); ANION GAP 15.9 mmol/L (8-16); BILIRUBIN - TOTAL 0.53 mg/dL (0.2-1.3); CALCIUM 7.1 mg/dL (8.5-10.1); CARBON DIOXIDE 24.3 mmol/L (21.0-32.0); CREATININE - SERUM 3.6 mg/dL (0.6-1.3); PROTEIN - SERUM 5.3 g/dL (6.4-8.2)
[2017-09-13 05:06] LABS: POTASSIUM - SERUM 4.2 mmol/L (3.5-5.1)
[2017-09-14] VITALS (24 sets, daily range): BP systolic 91–159; BP diastolic 49–95
[2017-09-14 04:19] LABS: BASOPHILS 0 % (0-2); EOSINOPHILS 0.8 % (0-7); HEMOGLOBIN 9.8 g/dL (13.5-17.5); IMMATURE GRANULOCYTES 4.8 % (0-5); LYMPHOCYTES 13.2 % (15-50); MCH 30.5 pg (26.0-34.0); MCHC 32.7 g/dL (31.0-37.0); MCV 93.5 fL (80.0-100.0); MEAN PLATELET VOLUME 10.2 fL (7.4-10.4); NEUTROPHILS 77.2 % (40-80); PLATELET COUNT 150 10x3/uL (130-400); RBC 3.21 10x6/uL (4.20-6.10); RDW 14.3 % (11.5-14.5); WBC 10.7 10x3/uL (4.8-10.8)
[2017-09-14 04:41] LABS: ALBUMIN 1.6 g/dL (3.4-5.0); ANION GAP 14.7 mmol/L (8-16); BILIRUBIN - TOTAL 0.49 mg/dL (0.2-1.3); CALCIUM 7.3 mg/dL (8.5-10.1); CARBON DIOXIDE 24.3 mmol/L (21.0-32.0); CREATININE - SERUM 4.1 mg/dL (0.6-1.3); PROTEIN - SERUM 5.1 g/dL (6.4-8.2)
[2017-09-15] VITALS (21 sets, daily range): BP systolic 92–159; BP diastolic 69–101
[2017-09-15 04:26] LABS: BASOPHILS 0 % (0-2); EOSINOPHILS 0.1 % (0-7); HEMATOCRIT 33.5 % (42.0-54.0); HEMOGLOBIN 10.9 g/dL (13.5-17.5); IMMATURE GRANULOCYTES 1.8 % (0-5); LYMPHOCYTES 4.6 % (15-50); MCH 30.4 pg (26.0-34.0); MCHC 32.5 g/dL (31.0-37.0); MCV 93.3 fL (80.0-100.0); MEAN PLATELET VOLUME 10.6 fL (7.4-10.4); MONOCYTES 1.6 % (2-11); NEUTROPHILS 91.9 % (40-80); PLATELET COUNT 191 10x3/uL (130-400); RBC 3.59 10x6/uL (4.20-6.10); RDW 14.2 % (11.5-14.5); WBC 15.9 10x3/uL (4.8-10.8)
[2017-09-15 04:29] LABS: ANION GAP 20.8 mmol/L (8-16); BILIRUBIN - TOTAL 0.79 mg/dL (0.2-1.3); CARBON DIOXIDE 23.8 mmol/L (21.0-32.0); CREATININE - SERUM 4.3 mg/dL (0.6-1.3); POTASSIUM - SERUM 4.6 mmol/L (3.5-5.1); PROTEIN - SERUM 6.2 g/dL (6.4-8.2)
[2017-09-15 04:39] LABS: ALBUMIN 2.1 g/dL (3.4-5.0)
[2017-09-16] VITALS (24 sets, daily range): BP systolic 122–167; BP diastolic 73–100
[2017-09-16 04:23] LABS: BASOPHILS 0 % (0-2); EOSINOPHILS 0.4 % (0-7); HEMATOCRIT 30.5 % (42.0-54.0); HEMOGLOBIN 9.9 g/dL (13.5-17.5); IMMATURE GRANULOCYTES 0.8 % (0-5); LYMPHOCYTES 4.9 % (15-50); MCH 30.3 pg (26.0-34.0); MCHC 32.5 g/dL (31.0-37.0); MCV 93.3 fL (80.0-100.0); MEAN PLATELET VOLUME 10.1 fL (7.4-10.4); MONOCYTES 2.4 % (2-11); NEUTROPHILS 91.5 % (40-80); PLATELET COUNT 190 10x3/uL (130-400); RBC 3.27 10x6/uL (4.20-6.10); RDW 14.2 % (11.5-14.5); WBC 15.9 10x3/uL (4.8-10.8)
[2017-09-16 04:35] LABS: ANION GAP 20.4 mmol/L (8-16); CREATININE - SERUM 3.4 mg/dL (0.6-1.3); POTASSIUM - SERUM 4.4 mmol/L (3.5-5.1)
[2017-09-16 14:34] LABS: APTT 42.1 SECONDS (22.8-39.4); INR 1.22 (0.85-1.17)
[2017-09-17] VITALS (26 sets, daily range): BP systolic 98–158; BP diastolic 50–94
[2017-09-17 04:17] LABS: HEMATOCRIT 27.6 % (42.0-54.0); HEMOGLOBIN 9.1 g/dL (13.5-17.5); MCH 31.2 pg (26.0-34.0); MCV 94.5 fL (80.0-100.0); MEAN PLATELET VOLUME 9.7 fL (7.4-10.4); PLATELET COUNT 178 10x3/uL (130-400); RBC 2.92 10x6/uL (4.20-6.10); RDW 14.6 % (11.5-14.5); WBC 22.3 10x3/uL (4.8-10.8)
[2017-09-17 04:33] LABS: ANION GAP 18.1 mmol/L (8-16); BILIRUBIN - TOTAL 0.73 mg/dL (0.2-1.3); CALCIUM 8.3 mg/dL (8.5-10.1); CARBON DIOXIDE 23.3 mmol/L (21.0-32.0); CREATININE - SERUM 3.7 mg/dL (0.6-1.3); POTASSIUM - SERUM 4.4 mmol/L (3.5-5.1); PROTEIN - SERUM 5.8 g/dL (6.4-8.2)
[2017-09-17 04:42] LABS: BASOPHILS 1 % (0-2); LYMPHOCYTES 7 % (15-50); NEUTROPHILS 91 % (40-80); PLATELET ESTIMATE DECREASED
[2017-09-18] VITALS (24 sets, daily range): BP systolic 96–148; BP diastolic 55–110
[2017-09-18 06:16] LABS: BASOPHILS 0.1 % (0-2); EOSINOPHILS 0.3 % (0-7); HEMATOCRIT 25.4 % (42.0-54.0); HEMOGLOBIN 8.3 g/dL (13.5-17.5); IMMATURE GRANULOCYTES 0.3 % (0-5); LYMPHOCYTES 5.9 % (15-50); MCH 30.7 pg (26.0-34.0); MCHC 32.7 g/dL (31.0-37.0); MCV 94.1 fL (80.0-100.0); MEAN PLATELET VOLUME 10.6 fL (7.4-10.4); MONOCYTES 4.5 % (2-11); NEUTROPHILS 88.9 % (40-80); PLATELET COUNT 178 10x3/uL (130-400); RDW 15.1 % (11.5-14.5)
[2017-09-18 06:17] LABS: WBC 14.6 10x3/uL (4.8-10.8)
[2017-09-18 06:33] LABS: CALCIUM 8.1 mg/dL (8.5-10.1); CARBON DIOXIDE 22.3 mmol/L (21.0-32.0); CREATININE - SERUM 3.8 mg/dL (0.6-1.3); POTASSIUM - SERUM 4.3 mmol/L (3.5-5.1)
[2017-09-19] VITALS (17 sets, daily range): BP systolic 103–180; BP diastolic 65–108
[2017-09-19 05:01] LABS: BASOPHILS 0.1 % (0-2); EOSINOPHILS 0.6 % (0-7); HEMATOCRIT 27.9 % (42.0-54.0); HEMOGLOBIN 8.8 g/dL (13.5-17.5); IMMATURE GRANULOCYTES 0.2 % (0-5); MCH 30.3 pg (26.0-34.0); MCHC 31.5 g/dL (31.0-37.0); MEAN PLATELET VOLUME 9.6 fL (7.4-10.4); MONOCYTES 3.9 % (2-11); NEUTROPHILS 88.2 % (40-80); PLATELET COUNT 192 10x3/uL (130-400); RDW 15.7 % (11.5-14.5)
[2017-09-19 05:15] LABS: MCV 96.2 fL (80.0-100.0)
[2017-09-19 05:20] LABS: % SATURATION 20 % (15-55); IRON 25 ug/dl (35-150); TOTAL IRON BIND CAPACITY 123 ug/dl (260-445); UNSAT IRON BIND CAPACITY 98 ug/dl (150-375)
[2017-09-19 05:37] LABS: ALBUMIN 1.8 g/dL (3.4-5.0); ANION GAP 35.8 mmol/L (8-16); BILIRUBIN - TOTAL 0.38 mg/dL (0.2-1.3); CALCIUM 8.3 mg/dL (8.5-10.1); CARBON DIOXIDE 19.9 mmol/L (21.0-32.0); CREATININE - SERUM 4.2 mg/dL (0.6-1.3); MAGNESIUM - SERUM 2.3 mg/dL (1.8-2.4); POTASSIUM - SERUM 4.7 mmol/L (3.5-5.1); PROTEIN - SERUM 5.3 g/dL (6.4-8.2)
[2017-09-19 17:08] LABS: ACID FAST SMEAR Negative (()); AFB SPECIMEN PROCESSING Concentration (())
[2017-09-20 01:29] VITALS: BP 140/77
[2017-09-20 04:34] VITALS: BP 131/76
[2017-09-20 07:21] LABS: BASOPHILS 0.2 % (0-2); EOSINOPHILS 0.6 % (0-7); HEMATOCRIT 27.3 % (42.0-54.0); HEMOGLOBIN 8.8 g/dL (13.5-17.5); IMMATURE GRANULOCYTES 0.2 % (0-5); LYMPHOCYTES 8.6 % (15-50); MCH 30.2 pg (26.0-34.0); MCHC 32.2 g/dL (31.0-37.0); MCV 93.8 fL (80.0-100.0); MONOCYTES 5.6 % (2-11); NEUTROPHILS 84.8 % (40-80); PLATELET COUNT 187 10x3/uL (130-400); RBC 2.91 10x6/uL (4.20-6.10); RDW 15.4 % (11.5-14.5); WBC 9.7 10x3/uL (4.8-10.8)
[2017-09-20 07:34] LABS: ANION GAP 21.6 mmol/L (8-16); CALCIUM 7.5 mg/dL (8.5-10.1); CARBON DIOXIDE 20.1 mmol/L (21.0-32.0); CREATININE - SERUM 3.9 mg/dL (0.6-1.3); POTASSIUM - SERUM 4.7 mmol/L (3.5-5.1)
[2017-09-20 10:22] VITALS: BP 159/94
[2017-09-20 13:42] VITALS: BP 114/62
[2017-09-20 16:35] VITALS: BP 120/59
[2017-09-20 20:00] VITALS: BP 118/61
[2017-09-21] VITALS: BP 116/73
[2017-09-21 04:00] VITALS: BP 120/84
[2017-09-21 08:04] VITALS: BP 147/75
[2017-09-21 11:12] LABS: FUNGUS STAIN Final report (())
[2017-09-21 12:09] VITALS: BP 145/84
[2017-09-21 13:30] LABS: BASOPHILS 0.1 % (0-2); EOSINOPHILS 1.3 % (0-7); HEMATOCRIT 27.7 % (42.0-54.0); HEMOGLOBIN 8.7 g/dL (13.5-17.5); IMMATURE GRANULOCYTES 0.1 % (0-5); LYMPHOCYTES 6.7 % (15-50); MCH 30.2 pg (26.0-34.0); MCHC 31.4 g/dL (31.0-37.0); MCV 96.2 fL (80.0-100.0); MEAN PLATELET VOLUME 9.9 fL (7.4-10.4); MONOCYTES 5.1 % (2-11); NEUTROPHILS 86.7 % (40-80); PLATELET COUNT 203 10x3/uL (130-400); RBC 2.88 10x6/uL (4.20-6.10); RDW 15.6 % (11.5-14.5); WBC 7.6 10x3/uL (4.8-10.8)
[2017-09-21 13:55] LABS: ANION GAP 14.6 mmol/L (8-16); CALCIUM 7.6 mg/dL (8.5-10.1); CARBON DIOXIDE 22.5 mmol/L (21.0-32.0); CREATININE - SERUM 3.9 mg/dL (0.6-1.3); POTASSIUM - SERUM 4.1 mmol/L (3.5-5.1)
[2017-09-21 16:28] VITALS: BP 131/88
[2017-09-21 20:00] VITALS: BP 112/70
[2017-09-22 04:00] VITALS: BP 168/81
[2017-09-22 06:29] LABS: ANION GAP 16.9 mmol/L (8-16); CALCIUM 7.9 mg/dL (8.5-10.1); CARBON DIOXIDE 21.1 mmol/L (21.0-32.0); CREATININE - SERUM 3.9 mg/dL (0.6-1.3)
[2017-09-22 08:14] VITALS: BP 147/72
[2017-09-22 12:18] LABS: APPEARANCE SLT CLOUDY (CLEAR); COLOR YELLOW (YELLOW); GLUCOSE NEGATIVE (NEGATIVE); KETONE NEGATIVE (NEGATIVE); NITRITE NEGATIVE (NEGATIVE); PROTEIN TRACE mg/dL (NEGATIVE); SPECIFIC GRAVITY 1.015 (1.005-1.020); UROBILINOGEN NORMAL (NORMAL)
[2017-09-22 12:19] LABS: BILIRUBIN NEGATIVE (NEGATIVE)
[2017-09-22 12:24] LABS: BACTERIA MODERATE /hpf (NONE SEEN); EPITHELIAL CELLS OCC /hpf (0-5)
[2017-09-22 12:25] LABS: MUCUS <1+ /lpf (NONE SEEN)
[2017-09-22 12:26] LABS: YEAST >1+ WITH HYPHAE /hpf (NONE SEEN)
[2017-09-22 12:28] LABS: GRANULAR CAST 0-5 /lpf (NONE SEEN)
[2017-09-22 12:42] VITALS: BP 102/59
[2017-09-22 16:37] VITALS: BP 119/57
[2017-09-22 20:00] VITALS: BP 106/66
[2017-09-23 04:00] VITALS: BP 131/81
[2017-09-23 07:04] LABS: ANION GAP 15.2 mmol/L (8-16); CALCIUM 7.6 mg/dL (8.5-10.1); CARBON DIOXIDE 23.9 mmol/L (21.0-32.0); CREATININE - SERUM 3.9 mg/dL (0.6-1.3)
[2017-09-23 07:16] LABS: POTASSIUM - SERUM 4.1 mmol/L (3.5-5.1)
[2017-09-23 08:54] VITALS: BP 104/69
[2017-09-23 12:28] VITALS: BP 117/68
[2017-09-23] MEDS ORDERED: CORDARONE200 MG PO (14:56)
[2017-09-23] MEDS ORDERED: LASIX INJ40 MG/4 ML IV (14:57)
[2017-09-23 16:31] VITALS: BP 150/64
[2017-09-25 15:20] LABS: FUNGUS CULTURE RESULT 1 Candida albicans (())
[2017-10-06 07:27] LABS: FUNGUS MYCOLOGY CULTURE Final report (())
[2017-10-15 11:21] LABS: FUNGUS MYCOLOGY CULTURE Final report (())
[2017-10-27 13:16] LABS: ACID FAST CULTURE Negative (()); ACID FAST SMEAR Negative (())
== END 2017-09-23 18:00 | DRG 870 ==
LOC: D.ER 11:22 → D.M2 13:13 → D.ICU 13:13 → D.M2 09-19 15:33
PROVIDERS: Emergency Medicine; Family Medicine; Internal Medicine; Internal Medicine Nephrology; Internal Medicine Pulmonary Disease; Student in an Organized Health Care Education/Training Program
PROC: 5A1955Z Respiratory Ventilation, Greater than 96 Consecutive Hours (ICD-10-PCS; 2017-09-07)
PROC: 0BH17EZ Insertion of Endotracheal Airway into Trachea, Via Natural or Artificial Opening (ICD-10-PCS; 2017-09-07)
PROC: 0T9B70Z Drainage of Bladder with Drainage Device, Via Natural or Artificial Opening (ICD-10-PCS; 2017-09-07)
PROC: 0BJ08ZZ Inspection of Tracheobronchial Tree, Via Natural or Artificial Opening Endoscopic (ICD-10-PCS; principal; 2017-09-08)
PROC: 5A1D70Z Performance of Urinary Filtration, Intermittent, Less than 6 Hours Per Day (ICD-10-PCS; 2017-09-11)
DX: A41.9 Sepsis, unspecified organism (principal); N17.0 Acute kidney failure with tubular necrosis; J96.21 Acute and chronic respiratory failure with hypoxia; J13 Pneumonia due to Streptococcus pneumoniae; G72.81 Critical illness myopathy; I13.0 Hypertensive heart and chronic kidney disease with heart failure and stage 1 through stage 4 chronic kidney disease, or unspecified chronic kidney disease; N18.4 Chronic kidney disease, stage 4 (severe); I50.32 Chronic diastolic (congestive) heart failure; J44.0 Chronic obstructive pulmonary disease with (acute) lower respiratory infection; J44.1 Chronic obstructive pulmonary disease with (acute) exacerbation; J84.9 Interstitial pulmonary disease, unspecified; R65.20 Severe sepsis without septic shock; E11.22 Type 2 diabetes mellitus with diabetic chronic kidney disease; E11.65 Type 2 diabetes mellitus with hyperglycemia; Z99.2 Dependence on renal dialysis; K21.9 Gastro-esophageal reflux disease without esophagitis; D64.9 Anemia, unspecified; E78.5 Hyperlipidemia, unspecified; I25.10 Atherosclerotic heart disease of native coronary artery without angina pectoris; N40.0 Benign prostatic hyperplasia without lower urinary tract symptoms; Z87.891 Personal history of nicotine dependence

== ENCOUNTER 2017-09-23 17:51 | Inpatient (IN) | payer MEDICARE, OTHER ==
[~2017-09-23] VITALS: Ht 172.7 cm; Wt 95.3 kg
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
[~2017-09-23 17:51] MED LIST changes: +AMBIEN10 MG PO; +AVAPRO300 MG PO; +CORDARONE200 MG PO; +LASIX INJ40 MG/4 ML IV; +LEVOTHYROXINE50 MCG PO; +REGLAN10 MG PO
[2017-09-24 00:01] VITALS: BP 105/63; BMI 32.0
[2017-09-24 08:00] VITALS: BP 111/61
[2017-09-24 08:30] LABS: HEMOGLOBIN 8.8 g/dL (13.5-17.5); MCHC 32.6 g/dL (31.0-37.0); MCV 95.1 fL (80.0-100.0); MEAN PLATELET VOLUME 9.8 fL (7.4-10.4); NEUTROPHILS 77.9 % (40-80); PLATELET COUNT 178 10x3/uL (130-400); RBC 2.84 10x6/uL (4.20-6.10); RDW 15.7 % (11.5-14.5); WBC 5.7 10x3/uL (4.8-10.8)
[2017-09-24 08:31] LABS: ANION GAP 17.9 mmol/L (8-16); CALCIUM 7.6 mg/dL (8.5-10.1); CARBON DIOXIDE 23.6 mmol/L (21.0-32.0); CREATININE - SERUM 3.8 mg/dL (0.6-1.3); POTASSIUM - SERUM 4.5 mmol/L (3.5-5.1)
[2017-09-24 13:05] VITALS: Ht 172.7 cm; Wt 95.3 kg
[2017-09-24 23:20] VITALS: BP 134/68
[2017-09-25 05:59] LABS: BASOPHILS 0.4 % (0-2); HEMATOCRIT 27.3 % (42.0-54.0); HEMOGLOBIN 8.3 g/dL (13.5-17.5); IMMATURE GRANULOCYTES 0.2 % (0-5); LYMPHOCYTES 19.1 % (15-50); MCH 29.4 pg (26.0-34.0); MCHC 30.4 g/dL (31.0-37.0); MCV 96.8 fL (80.0-100.0); NEUTROPHILS 71.3 % (40-80); PLATELET COUNT 184 10x3/uL (130-400); RBC 2.82 10x6/uL (4.20-6.10); RDW 15.8 % (11.5-14.5); WBC 4.5 10x3/uL (4.8-10.8)
[2017-09-25 06:21] LABS: ANION GAP 15.6 mmol/L (8-16); CARBON DIOXIDE 24.2 mmol/L (21.0-32.0)
[2017-09-25 06:25] LABS: POTASSIUM - SERUM 3.8 mmol/L (3.5-5.1)
[2017-09-25 08:00] VITALS: BP 108/67
[2017-09-25 19:15] VITALS: BP 98/51
[2017-09-26 08:00] VITALS: BP 119/82
[2017-09-26 22:12] VITALS: BP 134/68
[2017-09-27 08:32] VITALS: BP 120/65
[2017-09-27 22:59] VITALS: BP 156/50
[2017-09-28 06:39] LABS: BASOPHILS 0.6 % (0-2); EOSINOPHILS 1.7 % (0-7); HEMATOCRIT 26.7 % (42.0-54.0); HEMOGLOBIN 7.9 g/dL (13.5-17.5); IMMATURE GRANULOCYTES 0.2 % (0-5); LYMPHOCYTES 16.7 % (15-50); MCH 29.5 pg (26.0-34.0); MCHC 29.6 g/dL (31.0-37.0); MCV 99.6 fL (80.0-100.0); MEAN PLATELET VOLUME 9.8 fL (7.4-10.4); MONOCYTES 6.5 % (2-11); NEUTROPHILS 74.3 % (40-80); PLATELET COUNT 152 10x3/uL (130-400); RBC 2.68 10x6/uL (4.20-6.10); RDW 15.7 % (11.5-14.5); WBC 5.4 10x3/uL (4.8-10.8)
[2017-09-28 06:48] LABS: CALCIUM 7.6 mg/dL (8.5-10.1); CARBON DIOXIDE 29.3 mmol/L (21.0-32.0); CREATININE - SERUM 3.9 mg/dL (0.6-1.3); POTASSIUM - SERUM 3.3 mmol/L (3.5-5.1)
[2017-09-28 07:39] VITALS: BP 123/65
[2017-09-28 20:48] VITALS: BP 120/65
[2017-09-29 08:00] VITALS: BP 128/59
[2017-09-29 15:52] VITALS: BP 132/85
[2017-09-29 20:10] VITALS: BP 158/80
[2017-09-30 06:36] LABS: BASOPHILS 0.4 % (0-2); EOSINOPHILS 2.2 % (0-7); HEMATOCRIT 26.6 % (42.0-54.0); HEMOGLOBIN 8.1 g/dL (13.5-17.5); LYMPHOCYTES 23.9 % (15-50); MCHC 30.5 g/dL (31.0-37.0); MCV 98.5 fL (80.0-100.0); MEAN PLATELET VOLUME 9.5 fL (7.4-10.4); NEUTROPHILS 64.5 % (40-80); PLATELET COUNT 139 10x3/uL (130-400); RDW 15.4 % (11.5-14.5); WBC 4.6 10x3/uL (4.8-10.8)
[2017-09-30 07:13] LABS: ANION GAP 10.6 mmol/L (8-16); CALCIUM 7.8 mg/dL (8.5-10.1); CARBON DIOXIDE 31.6 mmol/L (21.0-32.0); CREATININE - SERUM 3.9 mg/dL (0.6-1.3); PHOSPHOROUS 4.2 mg/dL (2.5-4.9); POTASSIUM - SERUM 3.2 mmol/L (3.5-5.1)
[2017-09-30 07:40] VITALS: BP 134/79
[2017-09-30 15:54] VITALS: BP 149/76
[2017-09-30 20:00] VITALS: BP 119/74
[2017-10-01 05:44] LABS: BASOPHILS 0.7 % (0-2); EOSINOPHILS 2.4 % (0-7); HEMATOCRIT 26.3 % (42.0-54.0); IMMATURE GRANULOCYTES 0.2 % (0-5); LYMPHOCYTES 25.4 % (15-50); MCH 30.2 pg (26.0-34.0); MCHC 30.4 g/dL (31.0-37.0); MCV 99.2 fL (80.0-100.0); MEAN PLATELET VOLUME 9.3 fL (7.4-10.4); MONOCYTES 10.6 % (2-11); NEUTROPHILS 60.7 % (40-80); PLATELET COUNT 148 10x3/uL (130-400); RBC 2.65 10x6/uL (4.20-6.10); RDW 15.4 % (11.5-14.5); WBC 4.2 10x3/uL (4.8-10.8)
[2017-10-01 06:05] LABS: ANION GAP 9.8 mmol/L (8-16); CALCIUM 7.9 mg/dL (8.5-10.1); CARBON DIOXIDE 34.9 mmol/L (21.0-32.0); PHOSPHOROUS 3.7 mg/dL (2.5-4.9); POTASSIUM - SERUM 3.7 mmol/L (3.5-5.1)
[2017-10-01 08:17] VITALS: BP 101/64
[2017-10-01 22:00] VITALS: BP 123/69
[2017-10-02 05:56] LABS: EOSINOPHILS 3.4 % (0-7); HEMATOCRIT 26.7 % (42.0-54.0); IMMATURE GRANULOCYTES 0.3 % (0-5); LYMPHOCYTES 26.7 % (15-50); MEAN PLATELET VOLUME 9.6 fL (7.4-10.4); MONOCYTES 9.1 % (2-11); NEUTROPHILS 59.5 % (40-80); PLATELET COUNT 149 10x3/uL (130-400); RBC 2.67 10x6/uL (4.20-6.10); RDW 15.5 % (11.5-14.5); WBC 3.9 10x3/uL (4.8-10.8)
[2017-10-02 06:50] LABS: ANION GAP 9.6 mmol/L (8-16); CALCIUM 7.7 mg/dL (8.5-10.1); CARBON DIOXIDE 34.9 mmol/L (21.0-32.0); CREATININE - SERUM 4.3 mg/dL (0.6-1.3); PHOSPHOROUS 3.6 mg/dL (2.5-4.9); POTASSIUM - SERUM 3.5 mmol/L (3.5-5.1)
[2017-10-02 07:57] VITALS: BP 108/66
[2017-10-02 19:00] VITALS: BP 123/65
[2017-10-03] VITALS (8 sets, daily range): BP systolic 101–140; BP diastolic 57–70
[2017-10-03 07:07] LABS: BASOPHILS 0.8 % (0-2); EOSINOPHILS 4.1 % (0-7); HEMATOCRIT 24.5 % (42.0-54.0); LYMPHOCYTES 28.4 % (15-50); MCH 29.7 pg (26.0-34.0); MCHC 29.8 g/dL (31.0-37.0); MCV 99.6 fL (80.0-100.0); MEAN PLATELET VOLUME 9.4 fL (7.4-10.4); MONOCYTES 11.3 % (2-11); NEUTROPHILS 55.4 % (40-80); PLATELET COUNT 160 10x3/uL (130-400); RBC 2.46 10x6/uL (4.20-6.10); RDW 15.7 % (11.5-14.5); WBC 3.9 10x3/uL (4.8-10.8)
[2017-10-03 07:22] LABS: ANION GAP 7.7 mmol/L (8-16); CALCIUM 8.1 mg/dL (8.5-10.1); CARBON DIOXIDE 36.8 mmol/L (21.0-32.0); CREATININE - SERUM 4.3 mg/dL (0.6-1.3); PHOSPHOROUS 3.3 mg/dL (2.5-4.9); POTASSIUM - SERUM 3.5 mmol/L (3.5-5.1)
[2017-10-03 07:25] LABS: HEMOGLOBIN 7.3 g/dL (13.5-17.5)
[2017-10-04 06:04] LABS: BASOPHILS 0.8 % (0-2); EOSINOPHILS 3.7 % (0-7); HEMATOCRIT 28.8 % (42.0-54.0); LYMPHOCYTES 24.2 % (15-50); MCHC 30.9 g/dL (31.0-37.0); MEAN PLATELET VOLUME 9.6 fL (7.4-10.4); MONOCYTES 10.9 % (2-11); NEUTROPHILS 60.4 % (40-80); PLATELET COUNT 172 10x3/uL (130-400); RDW 16.9 % (11.5-14.5)
[2017-10-04 06:07] LABS: WBC 4.9 10x3/uL (4.8-10.8)
[2017-10-04 06:08] LABS: HEMOGLOBIN 8.9 g/dL (13.5-17.5); RBC 2.97 10x6/uL (4.20-6.10)
[2017-10-04 06:22] LABS: ANION GAP 6.7 mmol/L (8-16); CALCIUM 8.1 mg/dL (8.5-10.1); CARBON DIOXIDE 37.1 mmol/L (21.0-32.0); CREATININE - SERUM 4.4 mg/dL (0.6-1.3); PHOSPHOROUS 3.5 mg/dL (2.5-4.9); POTASSIUM - SERUM 3.8 mmol/L (3.5-5.1)
[2017-10-04 08:06] VITALS: BP 125/71
[2017-10-04 19:42] VITALS: BP 113/61
[2017-10-05 07:07] LABS: BASOPHILS 1.2 % (0-2); EOSINOPHILS 3.3 % (0-7); HEMATOCRIT 29.5 % (42.0-54.0); HEMOGLOBIN 9.1 g/dL (13.5-17.5); IMMATURE GRANULOCYTES 0.2 % (0-5); LYMPHOCYTES 23.4 % (15-50); MCHC 30.8 g/dL (31.0-37.0); MCV 97.4 fL (80.0-100.0); MEAN PLATELET VOLUME 9.6 fL (7.4-10.4); MONOCYTES 11.4 % (2-11); NEUTROPHILS 60.5 % (40-80); PLATELET COUNT 154 10x3/uL (130-400); RBC 3.03 10x6/uL (4.20-6.10); RDW 16.5 % (11.5-14.5); WBC 4.3 10x3/uL (4.8-10.8)
[2017-10-05 07:14] LABS: ANION GAP 8.2 mmol/L (8-16); CALCIUM 7.9 mg/dL (8.5-10.1); CARBON DIOXIDE 37.1 mmol/L (21.0-32.0); CREATININE - SERUM 4.5 mg/dL (0.6-1.3); POTASSIUM - SERUM 3.3 mmol/L (3.5-5.1)
[2017-10-05 07:45] VITALS: BP 133/68
[2017-10-05 21:20] VITALS: BP 114/68
[2017-10-06 08:08] VITALS: BP 126/77
[2017-10-06 21:10] VITALS: BP 128/61
[2017-10-07 06:59] LABS: BASOPHILS 0.9 % (0-2); EOSINOPHILS 2.8 % (0-7); HEMATOCRIT 29.2 % (42.0-54.0); HEMOGLOBIN 8.9 g/dL (13.5-17.5); LYMPHOCYTES 24.9 % (15-50); MCH 30.1 pg (26.0-34.0); MCHC 30.5 g/dL (31.0-37.0); MCV 98.6 fL (80.0-100.0); MEAN PLATELET VOLUME 9.7 fL (7.4-10.4); MONOCYTES 9.5 % (2-11); NEUTROPHILS 61.9 % (40-80); PLATELET COUNT 154 10x3/uL (130-400); RBC 2.96 10x6/uL (4.20-6.10); RDW 16.1 % (11.5-14.5); WBC 4.2 10x3/uL (4.8-10.8)
[2017-10-07 07:24] LABS: CALCIUM 7.7 mg/dL (8.5-10.1); CREATININE - SERUM 4.6 mg/dL (0.6-1.3); POTASSIUM - SERUM 3.2 mmol/L (3.5-5.1)
[2017-10-07 07:25] LABS: ANION GAP 5.2 mmol/L (8-16)
[2017-10-07 09:15] VITALS: BP 143/59
[2017-10-07 21:45] VITALS: BP 120/60
[2017-10-08 07:54] VITALS: BP 122/68
[2017-10-08] MEDS ORDERED: K-DUR20 MEQ PO (08:11)
[2017-10-08] MEDS ORDERED: LASIX40 MG PO (08:11)
[2017-10-08 21:30] VITALS: BP 127/58
[2017-10-09 05:55] LABS: BASOPHILS 0.5 % (0-2); EOSINOPHILS 2.6 % (0-7); HEMATOCRIT 29.7 % (42.0-54.0); HEMOGLOBIN 9.2 g/dL (13.5-17.5); IMMATURE GRANULOCYTES 0.2 % (0-5); LYMPHOCYTES 27.6 % (15-50); MCH 30.3 pg (26.0-34.0); MCV 97.7 fL (80.0-100.0); MEAN PLATELET VOLUME 9.6 fL (7.4-10.4); MONOCYTES 9.5 % (2-11); NEUTROPHILS 59.6 % (40-80); PLATELET COUNT 153 10x3/uL (130-400); RBC 3.04 10x6/uL (4.20-6.10); RDW 15.9 % (11.5-14.5); WBC 4.2 10x3/uL (4.8-10.8)
[2017-10-09 06:04] LABS: CALCIUM 7.7 mg/dL (8.5-10.1); CARBON DIOXIDE 39.3 mmol/L (21.0-32.0); CREATININE - SERUM 4.5 mg/dL (0.6-1.3); POTASSIUM - SERUM 3.3 mmol/L (3.5-5.1)
[2017-10-09 07:43] VITALS: BP 147/63
== END 2017-10-09 12:08 | disposition home health service (06) | DRG 91 ==
LOC: D.REHAB 17:51
PROVIDERS: Emergency Medicine; Internal Medicine Nephrology
DX: G72.89 Other specified myopathies (principal); J13 Pneumonia due to Streptococcus pneumoniae; A41.9 Sepsis, unspecified organism; R65.21 Severe sepsis with septic shock; N17.9 Acute kidney failure, unspecified; J90 Pleural effusion, not elsewhere classified; N18.9 Chronic kidney disease, unspecified; E78.5 Hyperlipidemia, unspecified; N40.0 Benign prostatic hyperplasia without lower urinary tract symptoms; M54.5 Low back pain; D64.9 Anemia, unspecified; I25.10 Atherosclerotic heart disease of native coronary artery without angina pectoris; R11.2 Nausea with vomiting, unspecified; I12.9 Hypertensive chronic kidney disease with stage 1 through stage 4 chronic kidney disease, or unspecified chronic kidney disease; R53.1 Weakness; R55 Syncope and collapse; J44.9 Chronic obstructive pulmonary disease, unspecified; E11.65 Type 2 diabetes mellitus with hyperglycemia; E11.22 Type 2 diabetes mellitus with diabetic chronic kidney disease

== ENCOUNTER → 2017-10-26 17:42 | Outpatient (CLI) | payer MEDICARE, OTHER ==
[2017-09-24 13:05] VITALS: BMI 31.9
[~2017-10-26 17:42] MED LIST changes: +K-DUR20 MEQ PO; +LASIX40 MG PO
== END | disposition home or self-care (01) ==
LOC: D.LABREF 17:42
DX: N39.0 Urinary tract infection, site not specified (principal)

== ENCOUNTER 2017-12-09 12:44 | Inpatient (IN) | payer MEDICARE, OTHER ==
[~2017-12-09] VITALS: Ht 172.7 cm; Wt 86.0 kg
--- NOTE | ~2017-12-09 | OP ---
PATIENT NAME: YODIT TRAORE MEDICAL RECORD: [id number] :45 LOCATION:D.M2 D.2134 ADMISSION DATE:12/09/17 SURGEON: DOM GAN MD DATE OF OPERATION: 12/18/2017 PREOPERATIVE DIAGNOSES: 1. Hgyeb-ci-jpyquwm renal failure. 2. Coronary artery disease. 3. Chronic obstructive pulmonary disease. 4. Gastroesophageal reflux disease. 5. Mental status changes. 6. Myopathy. POSTOPERATIVE DIAGNOSES: 1. Xfgyl-jt-gpobkzm renal failure. 2. Coronary artery disease. 3. Chronic obstructive pulmonary disease. 4. Gastroesophageal reflux disease. 5. Mental status changes. 6. Myopathy. PROCEDURE: Right IJ 12-1/2 cm Trialysis catheter placement. SURGEON: Dom Gan MD REPORT OF PROCEDURE: The patient's right neck was prepped and draped in sterile fashion. A total of 5 mL of 1% lidocaine was infused into the subcutaneous tissues. Using ultrasound guidance, a needle was used to cannulate the right internal jugular vein. A guidewire was advanced with ease. Over this wire, a dilator was placed followed by the Trialysis catheter. The catheter aspirated nonpulsatile dark blood and flushed easily in all 3 ports. This was sutured into place with 4-0 nylons and dressed appropriately. COMPLICATIONS: None. CONDITION: Stable. ANESTHESIA: Local. BLOOD LOSS: Minimal. Procedure done at the bedside. TRANSINT:[id number] Voice Confirmation ID: [id number] DOCUMENT ID: [id number] DOM GAN MD at 1144 CC: [id number] DICTATION DATE: 12/18/17 1437 SUPPORT SERVICES TECH: 12/18/17 1445 DIS IN 12/19/17 [place] [id number] [place] [address]
[2017-12-09 14:51] LABS: BASOPHILS 0.2 % (0-2); EOSINOPHILS 0 % (0-7); HEMATOCRIT 33.9 % (42.0-54.0); HEMOGLOBIN 10.6 g/dL (13.5-17.5); IMMATURE GRANULOCYTES 0.2 % (0-5); LYMPHOCYTES 5.2 % (15-50); MCH 32.2 pg (26.0-34.0); MCHC 31.3 g/dL (31.0-37.0); MONOCYTES 4.2 % (2-11); NEUTROPHILS 90.2 % (40-80); PLATELET COUNT 148 10x3/uL (130-400); RBC 3.29 10x6/uL (4.20-6.10); RDW 16.2 % (11.5-14.5); WBC 11.8 10x3/uL (4.8-10.8)
[2017-12-09] MEDS ORDERED: LASIX80 MG PO (14:55)
[2017-12-09] MEDS ORDERED: TEMAZEPAM30 MG PO (14:56)
[2017-12-09] MEDS ORDERED: OMEGA 3 FISH OI1 CAP PO (14:57)
[2017-12-09] MEDS ORDERED: FOLIC ACID1 MG PO (14:58)
[2017-12-09] MEDS ORDERED: VITAMIN D31000 UNI2 PO (14:58)
[2017-12-09] MEDS ORDERED: VITAMIN B COMPL1 TAB PO (14:59)
[2017-12-09 15:08] LABS: ALBUMIN 2.7 g/dL (3.4-5.0); ANION GAP 14.7 mmol/L (8-16); BILIRUBIN - TOTAL 0.55 mg/dL (0.2-1.3); CALCIUM 8.1 mg/dL (8.5-10.1); CARBON DIOXIDE 25.5 mmol/L (21.0-32.0); CREATININE - SERUM 4.5 mg/dL (0.6-1.3); POTASSIUM - SERUM 4.2 mmol/L (3.5-5.1); PROTEIN - SERUM 6.3 g/dL (6.4-8.2)
[2017-12-09 15:15] LABS: MAGNESIUM - SERUM 1.9 mg/dL (1.8-2.4)
[2017-12-09 15:27] VITALS: BMI 28.1
[2017-12-09 20:00] VITALS: BP 167/72
[2017-12-09 22:53] LABS: APPEARANCE CLEAR (CLEAR); COLOR YELLOW (YELLOW)
[2017-12-09 22:54] LABS: BILIRUBIN NEGATIVE (NEGATIVE); GLUCOSE NEGATIVE (NEGATIVE); KETONE NEGATIVE (NEGATIVE); NITRITE NEGATIVE (NEGATIVE); PROTEIN NEGATIVE (NEGATIVE); UROBILINOGEN NORMAL (NORMAL)
[2017-12-10 04:00] VITALS: BP 132/75
[2017-12-10 08:34] VITALS: BP 171/85
[2017-12-10 10:55] VITALS: BMI 28.1
[2017-12-10 11:00] LABS: BASOPHILS 0.4 % (0-2); EOSINOPHILS 0.1 % (0-7); HEMATOCRIT 32.6 % (42.0-54.0); HEMOGLOBIN 10.4 g/dL (13.5-17.5); IMMATURE GRANULOCYTES 0.1 % (0-5); LYMPHOCYTES 7.7 % (15-50); MCH 32.4 pg (26.0-34.0); MCHC 31.9 g/dL (31.0-37.0); MCV 101.6 fL (80.0-100.0); MEAN PLATELET VOLUME 9.8 fL (7.4-10.4); NEUTROPHILS 86.7 % (40-80); PLATELET COUNT 153 10x3/uL (130-400); RBC 3.21 10x6/uL (4.20-6.10); RDW 16.5 % (11.5-14.5); WBC 8.9 10x3/uL (4.8-10.8)
[2017-12-10 11:23] LABS: ANION GAP 12.6 mmol/L (8-16); CALCIUM 8.2 mg/dL (8.5-10.1); CARBON DIOXIDE 26.5 mmol/L (21.0-32.0); CREATININE - SERUM 4.5 mg/dL (0.6-1.3); MAGNESIUM - SERUM 1.7 mg/dL (1.8-2.4); POTASSIUM - SERUM 4.1 mmol/L (3.5-5.1)
[2017-12-10 11:52] VITALS: BP 157/79
[2017-12-10 11:55] VITALS: Ht 172.7 cm; Wt 86.0 kg
[2017-12-10 16:17] VITALS: BP 166/77
[2017-12-10 17:29] LABS: % SATURATION 10 % (15-55); IRON 20 ug/dl (35-150); TOTAL IRON BIND CAPACITY 193 ug/dl (260-445); UNSAT IRON BIND CAPACITY 173 ug/dl (150-375)
[2017-12-10 20:00] VITALS: BP 149/72
[2017-12-11] VITALS: BP 152/80
[2017-12-11 04:00] VITALS: BP 121/67
[2017-12-11 07:51] LABS: MAGNESIUM - SERUM 1.7 mg/dL (1.8-2.4); PHOSPHOROUS 4.3 mg/dL (2.5-4.9); POTASSIUM - SERUM 3.8 mmol/L (3.5-5.1)
[2017-12-11 07:53] VITALS: BP 157/72
[2017-12-11 11:00] VITALS: BP 150/67
[2017-12-11 16:18] VITALS: BP 141/67
[2017-12-11 21:05] VITALS: BP 159/72
[2017-12-12 01:47] VITALS: BP 142/72
[2017-12-12 05:20] VITALS: BP 123/58
[2017-12-12 05:22] LABS: FOLATE (FOLIC ACID) - SERUM >20.0 ng/mL (>3.0)
[2017-12-12 05:41] LABS: BASOPHILS 0.1 % (0-2); EOSINOPHILS 0 % (0-7); HEMATOCRIT 30.6 % (42.0-54.0); HEMOGLOBIN 9.8 g/dL (13.5-17.5); IMMATURE GRANULOCYTES 0.1 % (0-5); LYMPHOCYTES 6.9 % (15-50); MCH 32.2 pg (26.0-34.0); MCV 100.7 fL (80.0-100.0); MEAN PLATELET VOLUME 9.6 fL (7.4-10.4); MONOCYTES 3.7 % (2-11); NEUTROPHILS 89.2 % (40-80); PLATELET COUNT 161 10x3/uL (130-400); RBC 3.04 10x6/uL (4.20-6.10); RDW 16.2 % (11.5-14.5); WBC 7.4 10x3/uL (4.8-10.8)
[2017-12-12 06:03] LABS: ANION GAP 12.7 mmol/L (8-16); CALCIUM 8.3 mg/dL (8.5-10.1); CARBON DIOXIDE 25.9 mmol/L (21.0-32.0); CREATININE - SERUM 4.6 mg/dL (0.6-1.3); POTASSIUM - SERUM 3.6 mmol/L (3.5-5.1)
[2017-12-12 07:34] VITALS: BP 121/57
[2017-12-12 09:22] LABS: IMMUNOGLOBULIN A 125 mg/dL (61-437); IMMUNOGLOBULIN G 1156 mg/dL (700-1600)
[2017-12-12 11:00] VITALS: BP 128/61
[2017-12-12 15:13] VITALS: BP 126/75
[2017-12-12 20:00] VITALS: BP 120/60
[2017-12-13] VITALS (7 sets, daily range): BP systolic 107–120; BP diastolic 50–56
[2017-12-13 05:28] LABS: BASOPHILS 0.2 % (0-2); EOSINOPHILS 0.2 % (0-7); HEMATOCRIT 32.1 % (42.0-54.0); HEMOGLOBIN 10.1 g/dL (13.5-17.5); IMMATURE GRANULOCYTES 0.3 % (0-5); LYMPHOCYTES 9.9 % (15-50); MCH 31.7 pg (26.0-34.0); MCHC 31.5 g/dL (31.0-37.0); MCV 100.6 fL (80.0-100.0); MEAN PLATELET VOLUME 9.6 fL (7.4-10.4); MONOCYTES 5.2 % (2-11); NEUTROPHILS 84.2 % (40-80); PLATELET COUNT 146 10x3/uL (130-400); RBC 3.19 10x6/uL (4.20-6.10); RDW 16.3 % (11.5-14.5); WBC 5.7 10x3/uL (4.8-10.8)
[2017-12-13 05:59] LABS: ANION GAP 10.7 mmol/L (8-16); CALCIUM 8.2 mg/dL (8.5-10.1); CARBON DIOXIDE 28.1 mmol/L (21.0-32.0); CREATININE - SERUM 4.9 mg/dL (0.6-1.3); POTASSIUM - SERUM 3.8 mmol/L (3.5-5.1); VANCOMYCIN - RANDOM 22.6 ug/mL (10.0-20.0)
[2017-12-13 06:00] LABS: MAGNESIUM - SERUM 2.2 mg/dL (1.8-2.4)
[2017-12-14 03:51] LABS: BASOPHILS 0.4 % (0-2); EOSINOPHILS 1.4 % (0-7); HEMATOCRIT 31.3 % (42.0-54.0); HEMOGLOBIN 9.9 g/dL (13.5-17.5); IMMATURE GRANULOCYTES 0.2 % (0-5); LYMPHOCYTES 11.6 % (15-50); MCH 31.9 pg (26.0-34.0); MCHC 31.6 g/dL (31.0-37.0); MEAN PLATELET VOLUME 9.5 fL (7.4-10.4); MONOCYTES 8.1 % (2-11); NEUTROPHILS 78.3 % (40-80); PLATELET COUNT 140 10x3/uL (130-400); RDW 16.2 % (11.5-14.5); WBC 5.5 10x3/uL (4.8-10.8)
[2017-12-14 04:00] VITALS: BP 103/52
[2017-12-14 04:09] LABS: ANION GAP 11.8 mmol/L (8-16); CALCIUM 7.9 mg/dL (8.5-10.1); CARBON DIOXIDE 26.1 mmol/L (21.0-32.0); CREATININE - SERUM 5.3 mg/dL (0.6-1.3); POTASSIUM - SERUM 3.9 mmol/L (3.5-5.1); VANCOMYCIN - RANDOM 19.2 ug/mL (10.0-20.0)
[2017-12-14 08:35] VITALS: BP 104/54
[2017-12-14 11:40] VITALS: BP 106/49
[2017-12-14 15:34] VITALS: BP 111/65
[2017-12-14 21:09] VITALS: BP 118/58
[2017-12-15 04:45] LABS: BASOPHILS 0.2 % (0-2); EOSINOPHILS 1.5 % (0-7); HEMATOCRIT 31.9 % (42.0-54.0); HEMOGLOBIN 10.3 g/dL (13.5-17.5); IMMATURE GRANULOCYTES 0.3 % (0-5); LYMPHOCYTES 12.1 % (15-50); MCH 31.9 pg (26.0-34.0); MCHC 32.3 g/dL (31.0-37.0); MCV 98.8 fL (80.0-100.0); MEAN PLATELET VOLUME 9.4 fL (7.4-10.4); MONOCYTES 8.2 % (2-11); NEUTROPHILS 77.7 % (40-80); PLATELET COUNT 148 10x3/uL (130-400); RBC 3.23 10x6/uL (4.20-6.10)
[2017-12-15 05:04] LABS: ANION GAP 13.5 mmol/L (8-16); CARBON DIOXIDE 24.7 mmol/L (21.0-32.0); CREATININE - SERUM 5.7 mg/dL (0.6-1.3); POTASSIUM - SERUM 4.2 mmol/L (3.5-5.1); VANCOMYCIN - RANDOM 18.9 ug/mL (10.0-20.0)
[2017-12-15 06:16] VITALS: BP 114/57
[2017-12-15 08:27] VITALS: BP 116/49
[2017-12-15 11:46] VITALS: BP 100/50
[2017-12-15 15:34] VITALS: BP 122/60
[2017-12-15 20:00] VITALS: BP 125/62
[2017-12-16] VITALS: BP 127/55
[2017-12-16 04:00] VITALS: BP 126/60
[2017-12-16 04:54] LABS: BASOPHILS 0.3 % (0-2); EOSINOPHILS 0.8 % (0-7); HEMATOCRIT 33.4 % (42.0-54.0); HEMOGLOBIN 10.7 g/dL (13.5-17.5); IMMATURE GRANULOCYTES 0.6 % (0-5); LYMPHOCYTES 10.3 % (15-50); MEAN PLATELET VOLUME 9.6 fL (7.4-10.4); MONOCYTES 6.8 % (2-11); NEUTROPHILS 81.2 % (40-80); PLATELET COUNT 154 10x3/uL (130-400); RBC 3.34 10x6/uL (4.20-6.10); WBC 6.3 10x3/uL (4.8-10.8)
[2017-12-16 05:07] LABS: ANION GAP 11.7 mmol/L (8-16); CALCIUM 8.1 mg/dL (8.5-10.1); CARBON DIOXIDE 26.9 mmol/L (21.0-32.0); CREATININE - SERUM 5.7 mg/dL (0.6-1.3); POTASSIUM - SERUM 4.6 mmol/L (3.5-5.1); VANCOMYCIN - RANDOM 17.8 ug/mL (10.0-20.0)
[2017-12-16 07:49] VITALS: BP 126/54
[2017-12-16 11:15] VITALS: BP 117/51
[2017-12-16 15:14] VITALS: BP 100/52
[2017-12-16 20:00] VITALS: BP 120/57
[2017-12-17] VITALS: BP 114/56
[2017-12-17 04:00] VITALS: BP 122/60
[2017-12-17 05:45] LABS: BASOPHILS 0.2 % (0-2); EOSINOPHILS 1.1 % (0-7); HEMATOCRIT 29.1 % (42.0-54.0); HEMOGLOBIN 9.3 g/dL (13.5-17.5); IMMATURE GRANULOCYTES 0.5 % (0-5); LYMPHOCYTES 10.3 % (15-50); MCH 31.5 pg (26.0-34.0); MCV 98.6 fL (80.0-100.0); MEAN PLATELET VOLUME 9.5 fL (7.4-10.4); NEUTROPHILS 80.9 % (40-80); PLATELET COUNT 152 10x3/uL (130-400); RBC 2.95 10x6/uL (4.20-6.10); WBC 6.6 10x3/uL (4.8-10.8)
[2017-12-17 06:00] LABS: ANION GAP 14.3 mmol/L (8-16); CARBON DIOXIDE 23.9 mmol/L (21.0-32.0); CREATININE - SERUM 5.7 mg/dL (0.6-1.3); POTASSIUM - SERUM 4.2 mmol/L (3.5-5.1); VANCOMYCIN - RANDOM 15.8 ug/mL (10.0-20.0)
[2017-12-17 07:38] VITALS: BP 136/66
[2017-12-17 11:14] VITALS: BP 116/54
[2017-12-17 15:23] VITALS: BP 116/58
[2017-12-17 20:00] VITALS: BP 157/66
[2017-12-18] VITALS: BP 133/66
[2017-12-18 04:00] VITALS: BP 108/46
[2017-12-18 05:42] LABS: BASOPHILS 0.2 % (0-2); EOSINOPHILS 0.5 % (0-7); HEMATOCRIT 29.8 % (42.0-54.0); HEMOGLOBIN 9.5 g/dL (13.5-17.5); IMMATURE GRANULOCYTES 0.2 % (0-5); LYMPHOCYTES 6.8 % (15-50); MCH 31.3 pg (26.0-34.0); MCHC 31.9 g/dL (31.0-37.0); MEAN PLATELET VOLUME 9.4 fL (7.4-10.4); MONOCYTES 4.4 % (2-11); NEUTROPHILS 87.9 % (40-80); PLATELET COUNT 157 10x3/uL (130-400); RBC 3.04 10x6/uL (4.20-6.10); RDW 15.8 % (11.5-14.5); WBC 8.2 10x3/uL (4.8-10.8)
[2017-12-18 06:05] LABS: ANION GAP 14.6 mmol/L (8-16); CALCIUM 8.2 mg/dL (8.5-10.1); CARBON DIOXIDE 24.4 mmol/L (21.0-32.0); CREATININE - SERUM 5.6 mg/dL (0.6-1.3); MAGNESIUM - SERUM 2.3 mg/dL (1.8-2.4); PHOSPHOROUS 5.4 mg/dL (2.5-4.9); VANCOMYCIN - RANDOM 14.9 ug/mL (10.0-20.0)
[2017-12-18 07:30] LABS: IMMUNOGLOBULIN E 136 IU/mL (0-100)
[2017-12-18 09:26] VITALS: BP 144/69
[2017-12-18 12:03] VITALS: BP 184/88
[2017-12-18 20:00] VITALS: BP 131/74
[2017-12-19] VITALS: BP 177/85
[2018-02-09] MEDS ORDERED: FUROSEMIDE40 MG PO (12:48)
[2018-02-09] MEDS ORDERED: REGLAN10 MG PO (12:49)
[2018-02-09] MEDS ORDERED: K-DUR20 MEQ PO (12:49)
[2018-02-09] MEDS ORDERED: CRESTOR20 MG PO (12:50)
[2018-02-09] MEDS ORDERED: COREG25 MG PO (12:51)
[2018-02-09] MEDS ORDERED: NEXIUM40 MG PO (12:52)
== END 2017-12-19 02:38 | disposition short-term general hospital (02) | DRG 177 ==
LOC: D.SDCHOLD 12:44 → D.M2 12:44 → D.SDCHOLD 12-11 13:10 → D.M2 12-11 13:10
PROVIDERS: Family Medicine; Internal Medicine Nephrology; Internal Medicine Pulmonary Disease
DX: J15.6 Pneumonia due to other Gram-negative bacteria (principal); J96.21 Acute and chronic respiratory failure with hypoxia; N17.0 Acute kidney failure with tubular necrosis; J44.0 Chronic obstructive pulmonary disease with (acute) lower respiratory infection; J44.1 Chronic obstructive pulmonary disease with (acute) exacerbation; I13.0 Hypertensive heart and chronic kidney disease with heart failure and stage 1 through stage 4 chronic kidney disease, or unspecified chronic kidney disease; N18.4 Chronic kidney disease, stage 4 (severe); I50.9 Heart failure, unspecified; E78.5 Hyperlipidemia, unspecified; I25.10 Atherosclerotic heart disease of native coronary artery without angina pectoris; I27.20 Pulmonary hypertension, unspecified; N40.0 Benign prostatic hyperplasia without lower urinary tract symptoms; K21.9 Gastro-esophageal reflux disease without esophagitis; I08.1 Rheumatic disorders of both mitral and tricuspid valves; E03.9 Hypothyroidism, unspecified; I95.9 Hypotension, unspecified; E83.42 Hypomagnesemia; Z95.5 Presence of coronary angioplasty implant and graft; G25.3 Myoclonus; J15.212 Pneumonia due to Methicillin resistant Staphylococcus aureus

== ENCOUNTER → 2018-01-15 09:03 | Outpatient (CLI) | payer MEDICARE, OTHER ==
[2017-12-10 11:55] VITALS: BMI 28.1
[~2018-01-15 09:03] MED LIST changes: +FOLIC ACID1 MG PO; +FUROSEMIDE40 MG PO; +LASIX80 MG PO; +OMEGA 3 FISH OI1 CAP PO; +TEMAZEPAM30 MG PO; +VITAMIN B COMPL1 TAB PO; +VITAMIN D31000 UNI2 PO
== END | disposition home or self-care (01) ==
LOC: D.MRI 09:03
DX: N28.1 Cyst of kidney, acquired (principal)

== ENCOUNTER → 2018-01-29 12:19 | Outpatient (CLI) | payer MEDICARE, OTHER ==
[2017-12-10 11:55] VITALS: BMI 28.1
== END | disposition home or self-care (01) ==
LOC: D.RAD 12:19
DX: Z91.89 Other specified personal risk factors, not elsewhere classified (principal)

== ENCOUNTER 2018-02-10 05:30 | Day surgery (SDC) | payer MEDICARE, OTHER ==
[2018-02-09 09:50] LABS: ANION GAP 12.9 mmol/L (8-16); CARBON DIOXIDE 28.2 mmol/L (21.0-32.0); CREATININE - SERUM 4.4 mg/dL (0.6-1.3); POTASSIUM - SERUM 4.1 mmol/L (3.5-5.1)
[2018-02-09 10:22] LABS: HEMATOCRIT 35.1 % (42.0-54.0); HEMOGLOBIN 10.8 g/dL (13.5-17.5); MCH 32.9 pg (26.0-34.0); MCHC 30.8 g/dL (31.0-37.0); MEAN PLATELET VOLUME 9.6 fL (7.4-10.4); RBC 3.28 10x6/uL (4.20-6.10); RDW 18.9 % (11.5-14.5); WBC 7.4 10x3/uL (4.8-10.8)
[~2018-02-10] VITALS: Ht 172.7 cm; Wt 75.3 kg
--- NOTE | ~2018-02-10 | OP ---
PATIENT NAME: YODIT TRAORE MEDICAL RECORD: [id number] :45 LOCATION:[facility] ADMISSION DATE: SURGEON: ASHU PERKINS MD DATE OF OPERATION: 02/10/2018 SURGEON: Ashu Perkins MD ANESTHESIA: General anesthesia, Dr. Aramis Moore. DIAGNOSES: Obstructive BPH, urinary retention. PROCEDURE: Cystoscopy, GreenLight laser transurethral resection of the prostate, power 80-100 junior, energy 54,948 kilojoules, laser on time 12 minutes and 02 seconds. FINDINGSs: Obstructive lateral lobes, single ureteral orifices bilaterally. No bladder tumors. ESTIMATED BLOOD LOSS: Minimal. CLINICAL HISTORY: This is a 72-year-old male, who has a history of urinary retention. He was hospitalized in November to December of 2017 with pneumonia. While in the hospital, he fell out of bed and he hit his head. He was transferred to [facility] for neurological evaluation. At [facility], they discovered that he was in urinary retention and a Anderson catheter was placed. He has been on Flomax and Proscar since that time. He has had several voiding trials, which have all failed. He is getting tired of waiting for the Flomax to take effect. Flomax takes up to 1 year to reduce the prostate volume by 19% on average. He would like to proceed with a GreenLight laser TURP. He has quite significant COPD as well as hypertension. He is also on Plavix and aspirin. These medications were held with the permission of his primary care physician. He had clearance given also regarding his pulmonary status. Since his Plavix is only held about 5 days ago, he is not a candidate for a spinal anesthetic. Therefore, he is getting a general anesthetic today. He is not allergic to any medications. He was given ampicillin and sulbactam networks computer consultant to the OR. DESCRIPTION OF PROCEDURE: The patient was given induction of general anesthesia. He was then placed in the dorsal lithotomy position and prepped and draped. The laser resectoscope was introduced using a 30-degree lens. Penile urethra shows no strictures. Prostatic urethra shows bilateral lateral lobe hyperplasia, which is obstructive. The median lobe was insignificant. Going into the bladder, there is trabeculation of the bladder, but no bladder tumors were seen. Single ureteral orifices are seen on each side. These are located some distance away from the bladder neck. Starting with the laser fiber with the power level of 80 junior, we resected from the level of the bladder neck to just proximal to the verumontanum. Along the way, we encountered quite significant venous bleeding. These were cauterized and coagulated as necessary. This was using the coagulation setting of the laser. As we got towards the compressed pseudocapsule of the prostate as evidenced by the presence of prostatic stones, which we unroofed, the tissue became more resistant to the laser energy and we had to increase the power up to 100 junior. This got us to the pseudocapsule all around. There was still some bleeding from the anterior fibromuscular stroma. This material had to be taken down also. At the end of procedure, there was just some bleeding remaining at the apex on the left side. The coagulation setting was used to control all this venous bleeding. Finally, OPERATIVE REPORT [id number] YODIT TRAORE we noticed no further bleeding even with the irrigation fluid turned off. A clear channel was seen from the verumontanum all the way through the prostatic urethra to the bladder neck. The laser was put to standby. The laser fiber was removed, we inserted the guidewire through the scope into the bladder. Once the wire was in the bladder, we removed the scope. The reason for using the guidewire is that sometimes irregularity of the prostatic surface after resection makes passage of the Anderson catheter difficult. A 20-Ni[place] tip 3-way Anderson catheter was placed into the bladder over the guidewire. Once the catheter was fully in the bladder, we removed the guidewire. The balloon was inflated with 20 cc of sterile water. The catheter inflow port was plugged with the catheter plug. The catheter was put to bag drainage. The patient will be going home today. He will see me in the office tomorrow to have the catheter removed for a voiding trial. TRANSINT:[id number] Voice Confirmation ID: [id number] DOCUMENT ID: [id number] ASHU PERKINS MD at 1710 CC: [id number] DICTATION DATE: 02/10/18 0850 HONING MACHINE OPERATOR SEMIAUTOMATIC: 02/10/[address] [facility] 02/10/18 [facility] [address] [place] [address]
[2018-02-10 06:33] VITALS: BP 140/62; Ht 172.7 cm; Wt 75.3 kg
[2018-02-10 06:35] LABS: ANION GAP 11.1 mmol/L (8-16); CALCIUM 7.7 mg/dL (8.5-10.1); CARBON DIOXIDE 26.8 mmol/L (21.0-32.0); CREATININE - SERUM 4.4 mg/dL (0.6-1.3); POTASSIUM - SERUM 3.9 mmol/L (3.5-5.1)
== END 2018-02-10 10:10 | disposition home or self-care (01) ==
LOC: D.OPS 05:30 → D.PAN 07:30 → D.OPS 10:10
PROVIDERS: Anesthesiology; Urology
DX: N40.0 Benign prostatic hyperplasia without lower urinary tract symptoms (principal); R33.9 Retention of urine, unspecified; F17.200 Nicotine dependence, unspecified, uncomplicated; I10 Essential (primary) hypertension; E03.9 Hypothyroidism, unspecified; K21.9 Gastro-esophageal reflux disease without esophagitis; J44.9 Chronic obstructive pulmonary disease, unspecified; I25.10 Atherosclerotic heart disease of native coronary artery without angina pectoris; Z01.812 Encounter for preprocedural laboratory examination

== ENCOUNTER → 2018-06-07 09:24 | Outpatient (CLI) | payer MEDICARE, OTHER ==
[2018-02-10 06:33] VITALS: BMI 25.2
== END | disposition home or self-care (01) ==
LOC: D.RT 09:24
DX: J44.9 Chronic obstructive pulmonary disease, unspecified (principal); Z87.01 Personal history of pneumonia (recurrent)

== ENCOUNTER 2019-02-09 01:58 | Inpatient (IN) | payer MEDICARE, OTHER ==
[~2019-02-09] VITALS: Ht 172.7 cm; Wt 78.0 kg
--- NOTE | ~2019-02-09 | HEMODYNAMI ---
PATIENT:YODIT TRAORE MEDICAL RECORD: [id number] : 45 LOCATION[facility] [id number] ADMISSION DATE: 02/09/19 Generatedon:02/11/201911:41 Patient name: YODIT TRAORE Patient #: [id number] SSN: : 1945 Date of study: 02/11/2019 Page: Of Hemodynamic Procedure Report Patient Data Patient Demographics Procedure consent was obtained First Name: YODIT Gender: Male Last Name: LEÓN : 1945 [facility] Initial: C Age: 73 year(s) Patient #: [id number] Race: Unknown Additional ID: [id number] Contact details [address]: [address] [place] [address] [place] State: [place] City: [place] Zip code: [address] Admission Admission Data Admission Date: 02/09/2019 Admission Time: 3:32 Room #: D.2113 Weight (lbs.): 171.96 Weight (kg.): 78 Lab Results Lab Result Date: 02/11/2019 Lab Result Time: 0:00 Biochemistry Name Units Result Min Max BUN mg/dl 75 --(----)-* 7 18 Creatinine mg/dl 3.4 --(----)-* 0.6 1.3 CBC Name Units Result Min Max Hemoglobin g/dl 10.1 *-(----)-- 13.5 17.5 Procedure Procedure Types Cath Procedure Diagnostic Procedure [facility] w/Coronaries FFR/IVUS FFR Initial Intra-Coronary IVUS Initial Intra-Coronary IVUS Additional PCI Procedure Coronary Stent Coronary Stent Initial Procedure Description Procedure Date Procedure Date: 02/11/2019 Procedure Start Time: 10:52 Procedure End Time: 11:40 Procedure Staff Name Function Ric Ortiz MD Performing Physician Hudson Ovalle RT Monitor Aimee Lainez RT Scrub Bryanna Rodriguez RN Nurse Procedure Data Cath Procedure Fluoroscopy Diagnostic fluoroscopy Total fluoroscopy Time: time: 14.8 min 14.8 min Diagnostic fluoroscopy Total fluoroscopy dose: dose: 1846 mGy 1846 mGy Contrast Material Contrast Material Type Amount (ml) Isovue 370 63 Entry Location Entry Primary Successful Side Size Upsize Upsize Entry Closure Sy ccessful Closure Location (Fr) 1 (Fr) 2 (Fr) Remarks Device Remarks Radial Right 6 Fr Mechanical artery Short Compression Estimated blood loss: 10 ml Diagnostic catheters Device Type Used For End Catheter Placement DIAGNOSTIC [place] 110cm 5 Procedure Fr catheter ([id number]) Procedure Complications No complications Procedure Medications Medication Administration Route Dosage Oxygen etCO2 Nasal cannula 2 l/min Lidocaine 2% added to field 20 Heparin Flush Bag added to field 2 bags (1000units/500ml NS) 0.9% NaCl I.V. 50 ml/hr Radial Cocktail I.A. 1 syringe (Verapamil 2mg/Nitro 400mcg/Heparin 1500units) Versed I.V. 1 mg Fentanyl I.V. 50 mcg Versed I.V. 1 mg Fentanyl I.V. 50 mcg Versed I.V. 1 mg Heparin Bolus I.V. 4000 units Versed I.V. 1 mg 0.9% NaCl I.V. 300 ml/hr Plavix P.O. 75 mg Hemodynamics Rest HGB: 10.1 (g/dl) Heart Rate: 65 (bpm) Pressure Samples Time Site Value (mmHg) Purpose Heart Use Rate(bpm) 11:02 AO 153/60(94) Snapshot 64 11:10 AO 155/60(94) Snapshot 63 Snapshots Pre Cath Intra NCS Post Cath Vital Signs Time Heart Resp SPO2 etCO2 NIBP (mmHg) Rhythm Pain Sedation Rate (ipm) (%) (mmHg) Status Level (bpm) 10:17:35 66 11 100 30 200/103(156) NSR 0 (11) 10(A) , No pain 10:22:10 61 15 98 34.5 195/85(162) NSR 0 (11) 10(A) , No pain 10:26:44 61 15 99 16.5 187/78(146) NSR 0 (11) 10(A) , No pain 10:31:15 61 15 100 22.5 178/81(151) NSR 0 (11) 10(A) , No pain 10:35:43 65 14 99 0 176/76(147) NSR 0 (11) 10(A) , No pain 10:40:09 63 14 98 0 182/78(143) NSR 0 (11) 10(A) , No pain 10:44:40 65 14 98 33 175/78(136) NSR 0 (11) 10(A) , No pain 10:49:06 62 15 99 33 173/78(144) NSR 0 (11) 10(A) , No pain 10:53:30 63 14 100 30.8 168/81(136) NSR 0 (11) 10(A) , No pain 10:57:54 60 11 94 33 143/62(110) NSR 0 (11) 9(A) , No pain 11:02:13 63 10 95 21 157/68(127) NSR 0 (11) 9(A) , No pain 11:06:37 66 11 94 29 147/66(118) NSR 0 (11) 9(A) , No pain 11:10:57 65 13 96 36.7 144/69(123) NSR 0 (11) 9(A) , No pain 11:15:13 66 11 96 0 148/72(123) NSR 0 (11) 9(A) , No pain 11:19:33 67 12 94 0 142/67(115) NSR 0 (11) 9(A) , No pain 11:23:49 66 16 96 34.5 161/77(129) NSR 0 (11) 9(A) , No pain 11:28:07 65 15 98 30.7 173/88(147) NSR 0 (11) 10(A) , No pain 11:32:29 67 16 98 33 183/88(159) NSR 0 (11) 10(A) , No pain 11:36:56 62 14 98 34.5 187/89(157) NSR 0 (11) 10(A) , No pain Medications Time Medication Route Dose Verified Delivered Reason Not es Effectiveness by by 10:16:47 Oxygen etCO2 2 l/min Ric Gould used for Nasal Angel Rodriguez etl software engineer cannula 10:16:56 Lidocaine 2% added 20ml Ric Larios for local to vial Angel Ortiz MD anesthetic field 10:17:02 Heparin Flush added 2 bags Ric Larios used for Bag to Angel Ortiz MD procedure (1000units/500ml field NS) 10:17:11 0.9% NaCl I.V. 50 Ric Buffie Per physician ml/hr Angel Rodriguez RN 10:50:03 Fentanyl I.V. 50 mcg Ric Buffie for sedation Angel Rodriguez RN 10:50:58 Versed I.V. 1 mg Ric Buffie for sedation Angel Rodriguez RN 10:54:24 Radial Cocktail I.A. 1 Ric Ric for (Verapamil syringe Angel Ortiz MD vasodilation 2mg/Nitro 400mcg/Heparin 1500units) 10:55:09 Versed I.V. 1 mg Ric Buffie for sedation Angel Rodriguez RN 10:55:13 Fentanyl I.V. 50 mcg Ric Buffie for sedation Angel Rodriguez RN 11:01:15 Versed I.V. 1 mg Ric Buffie for sedation Angel Rodriguez RN 11:10:17 Heparin Bolus I.V. 4000 Ric Appleie for liz ified units Angel Rodriguez RN anticoagulation with dr ortiz 11:13:38 Versed I.V. 1 mg Ric Buffie for sedation Angel Rodriguez RN 11:24:37 0.9% NaCl I.V. 300 Ric Buffie Per physician ml/hr Angel Rodriguez RN 11:29:05 Plavix P.O. 75 mg Ric Buffie for Angel Rodriguez RN antiplatelet therapy Procedure Log Time Note 9:49:48 Diagnostic Cath Status : Elective 9:50:09 Bryanna Rodriguez RN sent for patient. Start room use. 9:50:10 Time tracking: Regular hours (M-F 7:00 - 5:00) 9:50:15 Plan of Care:Hemodynamics will remain stable., Cardiac rhythm will remain stable., Comfort level will be maintained., Respiratory function will remain adequate., Patient/ family verbilizes understanding of procedure., Procedure tolerated without complication., Recovers from procedure without complications.. 10:00:00 Patient received from PCU to CCL 2 Alert and oriented. Tansferred to table in Supine position. 10:08:01 Warm blankets applied, and jessica hugger turned on for patient comfort. 10:08:01 Correct patient and procedure confirmed by team. 10:08:03 Signed procedure consent form obtained from patient. 10:08:03 ECG and BP/O2 sat monitors applied to patient. 10:15:16 Vital chart was started 10:16:47 Oxygen 2 l/min etCO2 Nasal cannula was administered by Bryanna Rodriguez RN; used for procedure; 10:16:56 Lidocaine 2% 20ml vial added to field was administered by Ric Ortiz MD; for local anesthetic; 10:17:02 Heparin Flush Bag (1000units/500ml NS) 2 bags added to field was administered by Ric Ortiz MD; used for procedure; 10:17:11 0.9% NaCl 50 ml/hr I.V. was administered by Bryanna Rodriguez RN; Per physician; 10:18:58 Baseline sample Acquired. 10:19:18 Rhythm: sinus rhythm 10:19:20 Full Disclosure recording started 10:22:01 H&P Date Dictated: 02/09/2019 Within 30 days and on chart., H&P Addendum completed by physician on day of procedure. (MUST COMPLETE FOR ALL OUTPATIENTS). 10:22:02 Pre-procedure instructions explained to patient. 10:22:02 Pre-op teaching completed and patient verbalized understanding. 10:22:06 Family in patients room. 10:22:08 Patient NPO since Midnight. 10:22:10 Is the patient allergic to Iodine/contrast media? No. 10:22:12 Is patient on blood thinner?Yes 10:22:15 ACC The patient was administered the following blood thiners within the last 24 hours: ACCPlavix 10:22:21 Patient diabetic? No. 10:22:37 Previous problem with sedation/anesthesia? No ? 10:22:39 Snore? Yes 10:22:40 Sleep apnea? Yes 10:22:41 Deviated septum? No 10:22:42 Opens mouth fully? Yes 10:22:43 Sticks out tongue? Yes 10:22:47 Airway obstruction? Yes COPD 10:22:52 Dentures? Yes IN 10:29:10 Pre procedure: right dorsailis pedis pulse 1+ Palpable, but thready & weak; easily obliterated 10:29:13 Modified Inocencio's test Ulnar < 7 seconds 10:29:17 Patient pain scale 0/10 ?. 10:29:21 IV patent on arrival in left forearm with 0.9% NaCl at [facility]. 10:29:35 Lab results completed and on chart. 10:29:39 Right Radial & Right Groin area was prepped with chlora-prep and draped in sterile fashion 10:29:40 Alarms reviewed by R. N. 10:29:40 Sharps counted by scrub and verified by R.N. 10:29:53 Use device set Radial Dx or PCI 10:29:54 Tegaderm 4 x 4 (1626W) opened to sterile field. 10:29:55 ACIST Manifold (80643) opened to sterile field. 10:29:56 ACIST Hand Control (08754) opened to sterile field. 10:29:58 ACIST Syringe (53954) opened to sterile field. 10:29:58 Medline Cath Pack ([id number]) opened to sterile field. 10:29:59 Bag Decanter (2002S) opened to sterile field. 10:29:59 DIAGNOSTIC WIRE .035 260cm J wire (715866) opened to sterile field. 10:30:01 MBrace Wrist Support ([id number]) opened to sterile field. 10:30:02 SHEATH 6FR Slender (41-5659) opened to sterile field. 10:31:44 Patient Weight : 171.96 lbs 10:32:12 Lab Result : Hemoglobin 10.1 g/dl 10:32:12 Lab Result : Creatinine 3.4 mg/dl 10:32:12 Lab Result : BUN 75 mg/dl 10:47:02 --------ALL STOP TIME OUT------ 10:47:02 Final Timeout: patient, procedure, and site verified with staff and physician. All members of the team are in agreement. 10:47:04 Right Radial & Right Groin site verified by team. 10:47:09 Maximum allowable Isovue 370 dose 53ml. Physician notified. (300ml for normal creatinines. For patients with creatinine of 1.7 or higher multiply weight(kg) x 5 divided by creatinine.) 10:47:13 Fire Safety Assessment: A--An alcohol-based skin anteseptic being used preoperatively., C--Open oxygen or nitrous oxide is being used., D--An ESU, laser, or fiber-optic light is being used. 10:47:19 Physical assessment completed. ASA score P 2 - A patient with mild systemic disease as per Ric Ortiz MD. 10:47:22 Sedation plan: IV Moderate Sedation Medication:Versed, Fentanyl 10:50:03 Fentanyl 50 mcg I.V. was administered by Bryanna Rodriguez RN; for sedation; 10:50:58 Versed 1 mg I.V. was administered by Bryanna Rodriguez RN; for sedation; 10:52:31 Procedure started. 10:52:51 Local anesthetic to right femoral artery with Lidocaine 2% by Ric Ortiz MD.INITIAL ACCESS ONLY 10:53:08 A 6 Fr Short sheath was inserted into the Right Radial artery 10:54:24 Radial Cocktail (Verapamil 2mg/Nitro 400mcg/Heparin 1500units) 1 syringe I.A. was administered by Ric Ortiz MD; for vasodilation; 10:54:46 A DIAGNOSTIC [place] 110cm 5 Fr catheter ([id number]) was advanced over the wire and used for Procedure. 10:55:01 GLIDE WIRE ANGLE 260cm (CV5034) opened to sterile field. 10:55:09 Versed 1 mg I.V. was administered by Bryanna Rodriguez RN; for sedation; 10:55:13 Fentanyl 50 mcg I.V. was administered by Bryanna Rodriguez RN; for sedation; 10:55:26 Gilbert wire used to advance catheter. 10:55:40 LV angiography performed. 10:55:42 LV gram done using BARNEY 10:56:10 EF : 50 % 10:56:14 Injector settings: Ml/sec: 7, Volume: 15, 10:57:09 LCA angiography performed. 10:58:10 RCA angiography performed. 10:58:22 Catheter exchanged over wire. 10:58:26 Use device set [facility] PCI 10:58:33 Randolph Verrata Plus pressure wire (24820N) opened to sterile field. 10:58:48 GUIDE 6FR XBLAD 3.5 catheter ([id number]) opened to sterile field. 10:58:49 GUIDE 6FR AR 2.0 catheter ([id number]) opened to sterile field. 10:58:52 INFLATOR Merit BasixCompak (DW1864) opened to sterile field. 10:59:08 6 Fr XBLAD 3.5 guide catheter was inserted over the wire 10:59:58 Guide Catheter removed. unable to cannulate vessel. 11:00:18 GUIDE 6FR XB 4.0 catheter (09245715) opened to sterile field. 11:00:31 6 Fr XB 4 guide catheter was inserted over the wire 11:01:00 FFR/IFR wire advanced. 11:01:15 Versed 1 mg I.V. was administered by Bryanna Rodriguez RN; for sedation; 11:05:01 Unable to wire the CIRC. Wire removed. 11:05:15 WHISPER 190cm wire ([id number]) opened to sterile field. 11:05:47 Whisper wire advanced. 11:07:08 WHISPER 300cm guide wire (0012645OL) opened to sterile field. 11:07:10 SuperCross Microcatheter 90 angle (5304) opened to sterile field. 11:07:26 Wire removed. unable to cross lesion. 11:07:34 Whisper 300 wire advanced. 11:08:04 SuperCross catheter used to wire CIRC. 11:08:39 Wire advanced across lesion. 11:09:38 SuperCross removed over the wire. 11:10:17 Heparin Bolus 4000 units I.V. was administered by Bryanna Rodriguez RN; for anticoagulation; verified with dr ortiz 11:10:21 Randolph [place] IVUS Catheter (52763H) opened to sterile field. 11:10:26 IVUS catheter advanced over wire. 11:11:26 IVUS pass to Circ lesion performed. 11:11:28 IVUS catheter removed over wire. 11:13:14 IVUS of the CIRC measured at 61%. 11:13:38 Versed 1 mg I.V. was administered by Bryanna Rodriguez RN; for sedation; 11:13:58 Wire removed. 11:13:59 Guide catheter removed. 11:14:05 6 Fr AR 2 guide catheter was inserted over the wire 11:14:54 FFR/IFR wire advanced. 11:16:00 Wire advanced across lesion. 11:16:48 RCA lesion measured at 0.92 with IFR 11:17:07 IVUS catheter advanced over wire. 11:19:10 IVUS pass to RCA lesion performed. 11:19:14 IVUS catheter removed over wire. 11:19:20 IVUS of the RCA, unable to accurately measure outer vessel of most significant lesions. Greater than 85% per Dr Ortiz. 11:20:35 Inflate balloon Inflation number: 1 A EUPHORA 3.5 x 30 Balloon ([id number]) was prepped and advanced across the Mid RCA -1, then inflated to 17 ROSALBA for 0:10 (min:sec) -1. 11:21:08 Multiple infaltions made at 17 Atms. 11:24:01 CHOICE PT Extra Support 182cm wire ([id number]) opened to sterile field. 11:24:37 0.9% NaCl 300 ml/hr I.V. was administered by Bryanna Rodriguez RN; Per physician; 11:24:50 CPTXS wire advanced. IFR wire used as ann wire. 11:25:10 Stent advanced. IFR wire removed. 11:25:28 Place stent Inflation Number: 2 A HARINDER RX 3.5 x 26 stent ([id number]) was prepped and advanced across the Mid RCA . The stent was deployed at 13 ROSALBA for 0:10 (min:sec) . 11:25:39 Stent catheter was removed intact over wire. 11:25:40 Wire removed. 11:25:40 Guide catheter removed. 11:26:29 TR BAND Standard ([id number]) opened to sterile field. 11:26:44 Sheath removed intact; hemostasis achieved with Mechanical Compression to the Right Radial artery. 11:26:46 Procedure ended.(Physican Out) 11:29:05 Plavix 75 mg P.O. was administered by Bryanna Rodriguez RN; for antiplatelet therapy; 11:37:54 Fluoroscopy time 14.80 minutes. 11:38:33 Fluoroscopy dose: 1846 mGy 11:38:33 Flurop Dose total: 1846 11:38:39 Contrast amount:Isovue 370 63ml. 11:38:44 Sharps counted by scrub and verified by R.N. 11:38:47 TR band inflated with 12cc of air. 11:38:48 Insertion/operative site no bleeding no hematoma. 11:38:50 Post Procedure Pulses reassessed and unchanged 11:38:52 Post-procedure physical assessment completed. ASA score P 2 - A patient with mild systemic disease as per Ric Ortiz MD. 11:38:54 Post procedure rhythm: unchanged. 11:38:56 Estimated blood loss: 10 ml 11:38:58 Post procedure instruction explained to patient.Patient verbalizes understanding. 11:38:58 Patient needs reinforcement of post procedure teaching. 11:39:25 Procedure type changed to Cath procedure, Diagnostic procedure, [facility] w/Coronaries, FFR/IVUS, FFR Initial, Intra-Coronary IVUS Initial, Intra-Coronary IVUS Additional, PCI procedure, Coronary Stent, Coronary Stent Initial 11:39:28 Procedure Complication : No complications 11:40:09 Procedure and supply charges have been captured, reviewed, submitted and are correct. 11:40:14 Vital chart was stopped 11:40:15 See physician's report for complete and final results. 11:40:17 Report given to PCU. 11:40:20 Patient transfered to PCU with Bed. 11:40:21 Procedure ended. 11:40:21 Full Disclosure recording stopped 11:40:55 End room use (Document Last) Intervention Summary Intervention Notes Time ActionType Lesion and Equipment Used Action# Pressure Duration Attributes 11:20:35 Inflate Mid RCA EUPHORA 3.5 x 1 17 00:10 balloon 30 Balloon ([id number]) 11:25:28 Place stent Mid RCA HARINDER RX 3.5 x 2 13 00:10 26 stent ([id number]) Device Usage Item Name Manufacture Quantity Catalog Number Hospital Part Current Minimal Lot# / Charge Number Stock Stock Serial# Code Tegaderm 4 x 4 3M 1 [id number] 368264 130908 [id number] 5 (1626W) ACIST Manifold Acist 1 08707 756899 561542 448748 5 (41239) Medical Systems Inc ACIST Hand Acist 1 89457 441036 862294 515667 5 Control Medical (28980) Systems Inc ACIST Syringe Acist 1 59181 038339 477920 160963 20 (28292) Medical Systems Inc Medline Cath Medline 1 [id number] 302406 07299 756933 5 Pack ([id number]) Bag Decanter Microtek 1 2001S 544024 36841 253383 5 (2001S) Medical Inc. DIAGNOSTIC St Homero 1 596736 491649 744034 671024 30 WIRE .035 260cm J wire (151286) MBrace Wrist Advanced 1 140-0250-00 308623 03393 851342 5 Support Vascular (901964018) Dynamics SHEATH 6FR Terumo 1 [id number] 681946 295897 394989 5 Slender (80-1060) DIAGNOSTIC Terumo 1 40-9671 059356 815954 593244 5 [place] 110cm 5 Fr catheter (458014) GLIDE WIRE Terumo 1 MK2128 890179 541700 242676 5 ANGLE 260cm (SL8556) Randolph Randolph 1 20972B 388087 836746139 849656 5 Verrata Plus pressure wire (02009T) GUIDE 6FR Cardinal 1 10091009 810128 575158 323162 10 XBLAD 3.5 Health catheter (07100840) GUIDE 6FR AR Medtronic 1 [id number] 070931 40362 601110 1 2.0 catheter (VF6LR40) INFLATOR Merit Merit 1 AJ8035 302764 296163 116580 15 UniversityLyfe (AJ3315) GUIDE 6FR XB Cardinal 1 64371996 765895 309492 572997 2 4.0 catheter Health (28859843) WHISPER 190cm Burgess 1 [id number] 381088 888823 008065 5 wire Vascular (4525875KS) WHISPER 300cm Burgess 1 [id number] 913397 727177 128499 5 guide wire Vascular (5081849BZ) SuperCross Vascular 1 5304 288710 841960 952958 5 Microcatheter Solutions 90 angle (5304) Randolph Randolph 1 94614Z 913958 683710 163274 8 [place] IVUS Catheter (06320R) EUPHORA 3.5 x Medtronic 1 [id number] 924190 333352 620551 5 630397119 30 Balloon (DIR1253V) CHOICE PT Emmet 1 [id number] 548777 218974 120495 5 Extra Support Scientific 182cm wire (9227061I8) HARINDER RX 3.5 x Medtronic 1 [id number] 219533 4130248 227033 5 [id number] 26 stent ([id number]) TR BAND Terumo 1 [id number] 916079 098736 885729 40 Standard (CAV60LNT) Signature Audit [place] Stage Time Signature Unsigned Intra-Procedure 02/11/2019 Hudson Ovalle 11:41:42 AM RT(R) Signatures Monitor : Hudson Ovalle RT Signature : Date : Time : [address] [place] [address]
--- NOTE | ~2019-02-09 | OP ---
PATIENT NAME: YODIT TRAORE MEDICAL RECORD: [id number] :45 LOCATION:D.M2 D.2113 ADMISSION DATE:02/09/19 SURGEON: PATRICIA MISHRA MD DATE OF OPERATION: 02/11/2019 PROCEDURES: 1. PTCA stent RCA. 2. IFR RCA. 3. IVUS RCA. 4. IVUS left circumflex. 5. Left heart catheterization. 6. Selective coronary angiography. 7. Left ventriculogram. INDICATION: Non-Q-wave myocardial infarction, unstable angina, coronary artery disease, previous PTCA stent. PROCEDURE IN DETAIL: After informed consent was obtained and after a detailed description of risks, benefits as well as alternative therapies, the patient elected to proceed with angiogram and angioplasty. The right radial area was prepped, draped in normal sterile fashion. Right radial artery was cannulated via modified Seldinger technique with placement of 6-Belarusian sheath. All catheters exchanged through this sheath. FINDINGS: The left ventriculogram was performed in standard 30-degree BARNEY view reveals preserved cardiac wall motion, ejection fraction 50%. SELECTIVE CORONARY ANGIOGRAPHY: 1. Left main is with no significant angiographic disease. 2. Left anterior descending has moderate irregularities, but no flow-limiting stenosis. 3. The left circumflex has a previously placed stent. This is patent with no significant restenosis. There is a questionable stenosis proximal to this. We tried to IFR this vessel; however, the IFR wire would not go around the initial bend of this due to extreme tortuosity. We were able to get a Whisper wire around that. IVUS revealed that this was only at 60% stenosis. 4. The right coronary artery has multiple previously placed stents. IFR was not abnormal at 0.92. However, IVUS revealed greater than 85% stenosis throughout the entire stented area that was in-stent restenosis. PTCA STENT OF THE RCA: The stent used was a 3.5 x 26 mm Sesar taken to 23 atmospheres. Result was 0% residual stenosis. OVERALL IMPRESSION: Successful PTCA stent of the RCA for in-stent restenosis greater than 85% initial stenosis confirmed by intravascular ultrasound to 0% residual stenosis. TRANSINT:[id number] Voice Confirmation ID: [id number] DOCUMENT ID: [id number] OPERATIVE REPORT [id number] YODIT TRAORE PATRICIA MISHRA MD CC: [id number] DICTATION DATE: 02/11/19 1130 CHARTER BOAT OPERATOR: 02/11/19 1140 ADM IN [facility] [address] [facility], [facility]
[2019-02-09] MEDS ORDERED: COREG12.5 MG PO (02:06)
[2019-02-09 02:59] LABS: BASOPHILS 0.4 % (0-2); EOSINOPHILS 3.8 % (0-7); HEMATOCRIT 36.3 % (42.0-54.0); HEMOGLOBIN 11.6 g/dL (13.5-17.5); LYMPHOCYTES 16.5 % (15-50); MCH 31.8 pg (26.0-34.0); MCV 99.5 fL (80.0-100.0); MEAN PLATELET VOLUME 9.5 fL (7.4-10.4); MONOCYTES 7.8 % (2-11); NEUTROPHILS 71.5 % (40-80); RBC 3.65 10x6/uL (4.20-6.10)
[2019-02-09 03:00] LABS: PLATELET COUNT 115 10x3/uL (130-400)
[2019-02-09 03:07] LABS: INR 1.18 (0.85-1.17); PROTIME 14.5 SECONDS (11.6-15.0)
[2019-02-09 03:08] LABS: APTT 59.3 SECONDS (22.8-39.4)
[2019-02-09 03:13] LABS: ALKALINE PHOSPHATASE 37 U/L (46-116); ALT (SGPT) 11 U/L (10-68); BILIRUBIN - TOTAL 0.55 mg/dL (0.2-1.3); CALC OSMOLALITY 304 mosm/kg (275-300); CALCIUM 8.3 mg/dL (8.5-10.1); CARBON DIOXIDE 29.9 mmol/L (21.0-32.0); CHLORIDE - SERUM 107 mmol/L (98-107); CREATININE - SERUM 3.3 mg/dL (0.6-1.3); GLUCOSE 93 mg/dL (74-106); POTASSIUM - SERUM 3.7 mmol/L (3.5-5.1); PROTEIN - SERUM 6.9 g/dL (6.4-8.2); SODIUM 141 mmol/L (136-145); UREA NITROGEN 80 mg/dL (7-18); eGFR NON AFRICAN AMERICAN 20 mL/min (90-120)
[2019-02-09 03:23] LABS: CKMB 1.6 U/L (0.0-3.6); CREATINE KINASE 39 UL (21-232); TROPONIN-I 0.029 ng/mL (0.000-0.060)
--- NOTE | 2019-02-09 04:58 | NUR ---
PT'S IV ROCEPHIN FINISHED.
--- NOTE | 2019-02-09 05:20 | NUR ---
RECIEVED TO ROOM 2112 FROM ER VIA . PT A&O. RESPERATIONS NON LABORED ON O2 AT 2 LITERS VIA NC. IV TO LEFT FOREARM WITH ZITHROMAX INFUSING. IV SITE CLEAN AND DRY. NO S/S ADVERSE REACTION NOTED FROM ABX. ABRASION NOTED TO LEFT ARM/ELBOW AND BRUISES NOTED TO RIGHT ARM. PLACED ON TELEMETRY, 65 SR PER MT. HISTORY AND MED REC OBTAINED. PT CURRENTLY DENIES PAIN OR NEEDS. AT BED SIDE. BED LOW, CL IN REACH.
[2019-02-09] MEDS ORDERED: PROTONIX40 MG PO (05:34)
[2019-02-09] MEDS ORDERED: REGLAN10 MG PO (05:35)
[2019-02-09] MEDS ORDERED: ATHLETE'S FOOT15 GM TOPICAL (05:37)
[2019-02-09] MEDS ORDERED: VITAMIN D31000 UNI2 PO (05:38)
[2019-02-09] MEDS ORDERED: IPRAT-ALBUT 0.5-3 ML UPD (05:38)
[2019-02-09] MEDS ORDERED: VITAMIN B-121000 MCG PO (05:39)
[2019-02-09 05:48] VITALS: BMI 26.2
[2019-02-09 07:40] VITALS: BP 146/60
[2019-02-09 08:32] LABS: BASOPHILS 0.7 % (0-2); EOSINOPHILS 4.3 % (0-7); HEMATOCRIT 34.4 % (42.0-54.0); HEMOGLOBIN 10.9 g/dL (13.5-17.5); LYMPHOCYTES 20.8 % (15-50); MCH 31.5 pg (26.0-34.0); MCHC 31.7 g/dL (31.0-37.0); MCV 99.4 fL (80.0-100.0); MEAN PLATELET VOLUME 9.3 fL (7.4-10.4); MONOCYTES 5.6 % (2-11); NEUTROPHILS 68.6 % (40-80); PLATELET COUNT 108 10x3/uL (130-400); RBC 3.46 10x6/uL (4.20-6.10); RDW 14.9 % (11.5-14.5); WBC 4.4 10x3/uL (4.8-10.8)
--- NOTE | 2019-02-09 09:00 | NUR ---
PT RESTING IN BED, AT BEDSIDE. SHIFT ASSESSMENT PERFORMED. ASSISTED PT TO CHAIR. DENIES ANY NEEDS AT THIS TIME. WILL CONT TO FOLLOW POC
[2019-02-09 09:10] LABS: ANION GAP 8.4 mmol/L (8-16); CALCIUM 8.3 mg/dL (8.5-10.1); CARBON DIOXIDE 31.4 mmol/L (21.0-32.0); CREATININE - SERUM 3.3 mg/dL (0.6-1.3); POTASSIUM - SERUM 3.8 mmol/L (3.5-5.1)
[2019-02-09 09:12] LABS: TROPONIN-I 0.594 ng/mL (0.000-0.060)
--- NOTE | 2019-02-09 10:43 | NUR ---
PT DOES NOT WEAR OXYGEN AT HOME. REMOVED NC. RECHECKED O2 1HR LATER AND O2 SAT WAS 97% ON RA. WILL KEEEP NC OFF
[2019-02-09 11:49] LABS: % SATURATION 27 % (15-55); IRON 63 ug/dl (35-150); TOTAL IRON BIND CAPACITY 228 ug/dl (260-445); UNSAT IRON BIND CAPACITY 165 ug/dl (150-375)
[2019-02-09 12:10] VITALS: BMI 26.1
[2019-02-09 12:35] VITALS: BP 156/61
[2019-02-09 13:42] VITALS: Ht 172.7 cm; Wt 78.0 kg
--- NOTE | 2019-02-09 14:25 | NUR ---
PT SITTING IN CHAIR, SPOUSE AT BEDSIDE. CALL LIGHT WITHIN REACHM DENIES ANY NEEDS AT THIS TIME, WILL CONT TO FOLLOW POC
[2019-02-09 15:00] VITALS: BP 142/58
--- NOTE | 2019-02-09 18:14 | NUR ---
PT RESTING IN CHAIR, SPOUSE AT BEDSIDE, DENIES ANY NEEDS AT THIS TIME, CALL LIGHT WITHIN REACH. WILL CONT TO FOLLOW POC
--- NOTE | 2019-02-09 19:30 | NUR ---
EVENING ROUNDS COMPLETED. AAOX4, VSS, PT NO S/S OF RESP DISTRESS. RECIEVING BREATHING TREATMENT @ THIS TIME. @ BEDSIDE. PIV INTACT. DENIES ANY FURTHER NEEDS AT THIS TIME. WILL CPOC.
[2019-02-09 20:00] VITALS: BP 145/70
[2019-02-09 23:00] VITALS: BP 211/80
--- NOTE | 2019-02-09 23:00 | NUR ---
SODA FOUNTAIN OPERATOR NOTIFIED ME THAT PT BP 211/80. RECHECKED WITH MANUAL BP 220/95. PRN O.1MG OF CLONIDINE GIVEN @ THIS TIME. WILL RECHECK BP. PT DENIES ANY CHANGES OR DISCOMFORT AT THIS TIME. WILL CTM.
--- NOTE | 2019-02-10 00:27 | NUR ---
RECHECHECK BP NOW 176/86. WILL ADMINISTER NEXT DOSE OF PRN CLONIDINE IF SYSTOLIC STAYS ABOVE 170. PT DENIES ANY S/S OF DISTRESS AT THIS TIME. WILL CTM.
--- NOTE | 2019-02-10 03:14 | NUR ---
PT BP 174/85. ADMINISTERED 0.1MG CLONIDINE PRN PER PROVIDERS ORDERS. IV CEFTRIAXONE INFUSING @ THIS TIME WILL CTM.
--- NOTE | 2019-02-10 03:15 | NUR ---
PT BP 174/85. ADMINISTERED 0.1MG PRN PER PROVIDERS ORDERS. WILL CTM. IV ZOSYN INFUSING @ THIS TIME.
--- NOTE | 2019-02-10 04:09 | NUR ---
RECHECKED SBP 150'S. PT LAYING IN BED WITH EYES CLOSE AT THIS TIME IV AZITHROMYCIN INFUSING @ THIS TIME. WILL CTM.
[2019-02-10 04:14] LABS: BASOPHILS 0.4 % (0-2); LYMPHOCYTES 17.9 % (15-50); MCH 31.9 pg (26.0-34.0); MCHC 32.3 g/dL (31.0-37.0); MEAN PLATELET VOLUME 9.7 fL (7.4-10.4); MONOCYTES 6.5 % (2-11); NEUTROPHILS 71.2 % (40-80); PLATELET COUNT 111 10x3/uL (130-400); RBC 3.13 10x6/uL (4.20-6.10); RDW 14.9 % (11.5-14.5); WBC 4.5 10x3/uL (4.8-10.8)
[2019-02-10 04:30] VITALS: BP 167/81
[2019-02-10 04:48] LABS: ALBUMIN 2.6 g/dL (3.4-5.0); ANION GAP 12.6 mmol/L (8-16); BILIRUBIN - TOTAL 0.45 mg/dL (0.2-1.3); CALCIUM 7.9 mg/dL (8.5-10.1); CREATININE - SERUM 3.2 mg/dL (0.6-1.3); MAGNESIUM - SERUM 2.1 mg/dL (1.8-2.4); POTASSIUM - SERUM 3.6 mmol/L (3.5-5.1); PROTEIN - SERUM 6.2 g/dL (6.4-8.2)
[2019-02-10 07:35] VITALS: BP 168/77
--- NOTE | 2019-02-10 07:40 | NUR ---
A/A/OX4. NO REQUESTS VOICED AND DENIES ANY PAIN OR DISCOMFORT. NO SOB OR DISTRESS NOTED. ASSESSMENT COMPLETED AND WILL CONTINUE POC.
[2019-02-10 10:15] LABS: FOLATE (FOLIC ACID) - SERUM >20.0 ng/mL (>3.0)
--- NOTE | 2019-02-10 11:08 | NUR ---
Nutrition follow-up: Diet: Renal PO intake ~60% average of last 3 meals Labs reviewed Wt: 172# RDN following.
[2019-02-10 11:21] VITALS: BP 169/67
--- NOTE | 2019-02-10 12:18 | NUR ---
I have reviewed this patient and I concur with the Shift Assessment completed by the Licensed Practical Nurse today this shift.
[2019-02-10 15:38] VITALS: BP 154/64
--- NOTE | 2019-02-10 15:39 | NUR ---
THORACENTESIS COMPLETED BY DR. KLEIN. PT TOLERATED WELL.
[2019-02-10 16:39] LABS: PROTEIN - BODY FLUID 3.4 G/DL
[2019-02-10 20:00] VITALS: BP 164/66
--- NOTE | 2019-02-10 20:09 | NUR ---
PATIENT SITTING IN RECLINER. AT BEDSIDE. NO COMPLAINTS AT THIS TIME. NO DISTRESS NOTED.
--- NOTE | 2019-02-10 22:33 | NUR ---
PATIENT LAYING IN BED. NO COMPLAINTS AT THIS TIME. NO DISTRESS NOTED.
--- NOTE | 2019-02-10 23:11 | NUR ---
I have reviewed this patient and I concur with the Shift Assessment completed by the Licensed Practical Nurse today this shift.
[2019-02-11 00:30] VITALS: BP 176/66
[2019-02-11 04:22] LABS: BASOPHILS 0.5 % (0-2); EOSINOPHILS 4.1 % (0-7); HEMOGLOBIN 10.1 g/dL (13.5-17.5); IMMATURE GRANULOCYTES 0.2 % (0-5); LYMPHOCYTES 14.4 % (15-50); MCHC 31.6 g/dL (31.0-37.0); MCV 98.2 fL (80.0-100.0); MEAN PLATELET VOLUME 10.1 fL (7.4-10.4); MONOCYTES 6.1 % (2-11); NEUTROPHILS 74.7 % (40-80); PLATELET COUNT 111 10x3/uL (130-400); RBC 3.26 10x6/uL (4.20-6.10); RDW 14.8 % (11.5-14.5); WBC 4.4 10x3/uL (4.8-10.8)
[2019-02-11 04:31] LABS: ALBUMIN 2.4 g/dL (3.4-5.0); ANION GAP 13.7 mmol/L (8-16); BILIRUBIN - TOTAL 0.36 mg/dL (0.2-1.3); CALCIUM 7.7 mg/dL (8.5-10.1); CARBON DIOXIDE 24.8 mmol/L (21.0-32.0); CREATININE - SERUM 3.4 mg/dL (0.6-1.3); POTASSIUM - SERUM 3.5 mmol/L (3.5-5.1); PROTEIN - SERUM 5.9 g/dL (6.4-8.2)
[2019-02-11 05:30] VITALS: BP 127/66
--- NOTE | 2019-02-11 08:05 | NUR ---
RESUMING PT CARE, PT LAYING IN BED ALERT AND ORIENTED, WILL PRE-OP FOR TRACK LAYER. CALL LIGHT IN REACH, WILL CONTINUE TO MONITOR AND FOLLOW PLAN OF CARE.
[2019-02-11 08:52] VITALS: BP 174/80
--- NOTE | 2019-02-11 11:28 | EC ---
PATIENT:YODIT TRAORE DATE OF SERVICE: 02/09/19 SEX: M MEDICAL RECORD: [id number] DATE OF : [birth year] LOCATION:D.M2 D.211 AGE OF PATIENT: 73 ADMISSION DATE: 02/09/19 REFERRING PHYSICIAN: INTERPRETING PHYSICIAN: PATRICIA ORTIZ MD ECHOCARDIOGRAM REPORT ECHO CHARGES 4 ECHO COMPLETE Date: 02/09/19 CLINICAL DIAGNOSIS: UT ECHOCARDIOGRAPHIC MEASUREMENTS (adult normal given) AC root (d.<3.7cm) 3.7 cm LV Septum d (<1.2 cm> 1.6 cm Valve Excursion 1.4 cm LV Septum (systole) 1.8 cm Left Atria (s.<4.0cm> 3.8 cm LVPW d(<1.2cm) 1.4 cm RV (d.<2.3cm) 3.9 cm LVPW (sytole) 2.0 cm LV diastole(<5.6CM) 5.2 cm MV E-F(>70mm/sec) cm LV systole 3.7 cm LVOT Diameter 1.7 cm MV exc.(>10mm) 1.5 cm Est.ejection fraction (50-75%) % DOPPLER: LVIT cm/sec A 97.0 cm/sec E 104 cm/sec LA cm/sec RVSP 44 mmHg LVOT 124 cm/sec AOP1/2T m/s Asc. Ao 186 cm/sec RVOT 85 cm/sec RA cm/sec PA 109 cm/sec AV Gradient Peak 13.87mmHg AV Mean 8.18 mmHg AV Area 1.6 cm MV Gradient Peak 6.10 mmHg MV Mean 2.64 mmHg MV Area cm COMMENTS: Police Shift Commander: Leonor MCDANIEL Transportation Supervisor: 1 Dr. Ortiz TAPE# PACS Pericardial Effusion N DATE OF SERVICE: 02/09/2019 FINDINGS: 1. Left ventricular chamber size is within normal limits. Left ventricular systolic function is normal. Overall ejection fraction is estimated at 55%. 2. Left atrium is within normal limits at 3.8 cm. Right atrium and right ventricular chamber sizes are mildly dilated. 3. Valvular structures: Aortic valve demonstrates mild calcific aortic stenosis. Valve area calculates to 1.6 cm-squared with gradient of 14 mm across the valve. The remaining valvular structures have normal structure and motion. ECHOCARDIOGRAM REPORT [id number] YODIT TRAORE 4. Doppler interrogation elsewise reveals mild mitral regurgitation and mild tricuspid regurgitation. No other valvular insufficiency or stenosis. Pulmonary systolic pressure is estimated at 44 mmHg. 5. No evidence of pericardial effusion or left ventricular thrombus. TRANSINT:[id number] Voice Confirmation ID: [id number] DOCUMENT ID: [id number] PATRICIA ORTIZ MD at 1128 CC: [id number] DICTATION DATE: 02/09/19 1240 ACCOUNTING CLERK: 02/09/19 1352 ADM IN [place] [id number] [place] [id number]
--- NOTE | 2019-02-11 11:28 | CN ---
PATIENT NAME:YODIT PELAEZ MEDICAL RECORD: [id number] : 45 LOCATION:D. D.2113 ADMIT DATE: 02/09/19 ACCOUNT: [id number] CONSULTING PHYSICIAN: PATRICIA MISHRA MD REFERRING PHYSICIAN: YECENIA ESTES MD DATE OF CONSULTATION: 02/09/2019 CARDIOLOGY CONSULTATION DATE OF SERVICE: 02/09/2018 DIAGNOSES: 1. Non-Q-wave myocardial infarction. 2. Coronary artery disease. 3. Previous percutaneous transluminal coronary angioplasty stent. 4. Smoking history. 5. Chronic obstructive pulmonary disease. 6. Qixnq-lg-mhmquiq renal insufficiency. 7. Hypertension. HISTORY OF PRESENT ILLNESS: Mr. Pelaez presents with chest pain that started at 12:30-1:00 a.m. this morning. It was similar to his previous anginal pain. His troponin is elevated. His EKG is with nonspecific ST-T abnormalities in the inferior leads. He does have a history of coronary artery disease. His last cardiac stenting was approximately 15 years ago. He has a history of renal insufficiency. His creatinine usually runs in the 2.5 to 3.0 range, now he is at 3.3. He as well is diagnosed with a right lower lobe pneumonia and being treated antibiotic craig for that. He has been coughing up some clear fluid, but he does not really complain of shortness of breath in conjunction with this. PHYSICAL EXAMINATION: GENERAL APPEARANCE: Well-nourished, well-developed, appears stated age. Level of distress, comfortable. PSYCHIATRIC: Mental status, alert, normal affect. Orientation, oriented to time, place and person. EYES: Lids and conjunctiva, noninjected. No discharge, no pallor. ENT: Lips, teeth, gums, normal dentition. Oropharynx, no cyanosis, no pallor. NECK: Carotid arteries, bilateral normal upstroke, no bruits, no thrills. JUGULAR VEINS: No jugular venous pressure or distention. CERVICAL LYMPH NODES: Nontender, nonenlarged. THYROID: Not enlarged. Nontender. No nodules. LUNGS: Respiratory effort, unlabored. CHEST: Normal curvature. No thoracic deformity. No chest wall tenderness. Percussion, resonant. Auscultation, clear. No wheezes, no rales, no rhonchi. CARDIOVASCULAR: Precordial exam, nondisplaced. No heaves or pericardial thrills. Rate and rhythm, regular. Heart sounds, normal S1, normal S2. No S3, no gallop, no rub. Systolic murmur, not heard. Diastolic murmur, not heard. EXTREMITIES: No cyanosis, no edema. Peripheral pulses, full and equal in all extremities, except as noted. No bruits appreciated. ABDOMEN: Soft, nondistended. Normal aorta. No bruit. Nontender. No masses. Liver, nontender, no hepatomegaly. Spleen, nontender, no splenomegaly. MUSCULOSKELETAL: No joint tenderness. No joint swelling. No erythema. NEUROLOGICAL: Normal gait, normal strength, normal tone. SKIN: Warm and dry. CONSULT REPORT [id number] YODIT PELAEZ OVERALL IMPRESSION: Chest pain - non-Q-wave myocardial infarction, most likely he does have recurrent hemodynamically significant coronary artery disease after 15 years status post percutaneous transluminal coronary angioplasty stent. This is not surprising. We will start him on beta blockade, statin, aspirin, and Plavix. His blood pressure is running overall low and I doubt that he will tolerate nitrates on top of that, but he is pain free at this time. Further care depends upon the medical management as well as the renal insufficiency. We will plan for cardiac catheterization based on these and recurrent symptomatology. TRANSINT:[id number] Voice Confirmation ID: [id number] DOCUMENT ID: [id number] PATRICIA MISHRA MD at 1128 CC: [id number] DICTATION DATE: 02/09/19 1031 MANAGER OFFICE: 02/09/19 1214 ADM IN [place] [address] [place] [address]
--- NOTE | 2019-02-11 12:11 | NUR ---
PT RETURNED FROM TURN OUT WITH TR BAND TO RIGHT WRIST INTACT, PT IS ALERT AND ORIENTED X3. FAMILY AT BEDSIDE. CALL LIGHT IN REACH, WILL CONTINUE TO MONITOR.
--- NOTE | 2019-02-11 12:35 | NUR ---
I have reviewed this patient and I concur with the Shift Assessment completed by the Licensed Practical Nurse today this shift.
--- NOTE | 2019-02-11 14:43 | MORECARE ---
CASE MANAGEMENT DISCHARGE SUMMARY PATIENT: YODIT TRAORE UNIT: [id number] ADM DATE: 02/09/19 AGE: 73 : 45 SEX: M ROOM/BED: D.2113 AUTHOR: CORNEL JEFFERS PHYSICIAN: REFERRING PHYSICIAN: YECENIA ESTES MD DATE OF SERVICE: 02/11/19 Discharge Plan Patient Name: [facility]ODIT TRAORE [facility] [facility] 1945 Planned Disposition: Home Anticipated Discharge Date: Discharge Date: Expected LOS: Initial Reviewer: [email or web address] Initial Review Date: 02/11/2019 Generated: 02/11/19 3:42 pm DCPIA - Discharge Planning Initial Assessment Updated by [id number]: Mingo Ruiz on 02/11/19 2:39 pm * Is the patient Alert and Oriented? Yes * How many steps to enter\exit or inside your home? NONE * PCP DR. MERIDA * Pharmacy [facility] * Preadmission Environment Home with Family * ADLs Independent * Equipment Cane Nebulizer Walker * Other Equipment NO MEDICAL EQUIPMENT PROVIDER PREFERENCE * List name and contact numbers for known caregivers / representatives who currently or will assist patient after discharge: LOLIS TRAORE, SPOUSE, * Verbal permission to speak to the caregivers and representatives has been obtained from the patient. Yes * Community resources currently utilized None * Please name any agencies selected above. NONE * Additional services required to return to the preadmission environment? No * Can the patient safely return to the preadmission environment? Yes * Has this patient been hospitalized within the prior 30 days at any hospital? No Patient Name: YODIT TRAORE Page [phone] at 1443 All edits/amendments must be made on the electronic document DICTATION DATE: 02/11/191441 MILLWRIGHT: ANDREWS 02/11/191441 RPT#: [id number] DC DATE: STATUS: ADM IN [facility] [address] [place] [address] END OF REPORT
--- NOTE | 2019-02-11 14:51 | MORECARE ---
CASE MANAGEMENT DISCHARGE SUMMARY PATIENT: YODIT TRAORE UNIT: [id number] ADM DATE: 02/09/19 AGE: 73 : 45 SEX: M ROOM/BED: D.2113 AUTHOR: AURY,DOC PHYSICIAN: REFERRING PHYSICIAN: YECENIA ESTES MD DATE OF SERVICE: 02/11/19 Discharge Plan Patient Name: YODIT TRAORE Facility: [facility]:[place] : 1945 Planned Disposition: Home Anticipated Discharge Date: Discharge Date: Expected LOS: Initial Reviewer: [email or web address] Initial Review Date: 02/11/2019 Generated: 02/11/19 3:51 pm Comments DCP- Discharge Planning Updated by [email or web address]: Mingo Ruiz on 02/11/19 1:[address] Patient Name: YODIT TRAORE Encounter No: [id number] : 1945 Primary Insurance: MEDICARE A & B Anticipated DC Date: Planned Disposition: Home DCP follow-up note: CM MET WITH PT AND SPOUSE IN ROOM TO DISCUSS DISCHARGE PLANNING AND NEEDS. YODIT TRAORE provided verbal consent to discuss current and ongoing needs with/in the presence of: LOLIS, . PT REPORTS LIVING AT HOME INDEPENDENTLY WITH HIS . PT HAS CANE, NEBLUIZER, WALKER AND WHEELCHAIR WITH NO MEDICAL EQUIPMENT PROVIDER. PT HAS NO OUTSIDE SERVICES ASSISTING IN THE HOME. CM DISCUSSED AVAILABILITY OF HOME HEALTH, REHAB SERVICES AND MEDICAL EQUIPMENT. PT HAS NO ANTICIPATED DISCHARGE NEEDS AT THIS TIME, REPORTS HIS WILL PICK HIM UP FOR DISCHARGE HOME. PT PLANS TO DISCHARGE HOME WITH SPOUSE, HAS NOT ANTICIPATED NEEDS AT THIS TIME. FAMILY TO TRANSPORT HOME. CM TO FOLLOW AND ASSIST IF NEEDED. Mingo Ruiz CASE MANAGEMENT DCPIA - Discharge Planning Initial Assessment Updated by [email or web address]: Mingo Ruiz on 02/11/19 2:39 pm * Is the patient Alert and Oriented? Yes * How many steps to enter\exit or inside your home? NONE * PCP DR. MERIDA * Pharmacy [facility] * Preadmission Environment Home with Family * ADLs Independent * Equipment Cane Nebulizer Walker * Other Equipment NO MEDICAL EQUIPMENT PROVIDER PREFERENCE * List name and contact numbers for known caregivers / representatives who currently or will assist patient after discharge: LOLIS TRAORE, SPOUSE, * Verbal permission to speak to the caregivers and representatives has been obtained from the patient. Yes * Community resources currently utilized None * Please name any agencies selected above. NONE * Additional services required to return to the preadmission environment? No * Can the patient safely return to the preadmission environment? Yes * Has this patient been hospitalized within the prior 30 days at any hospital? No Last DP export: 02/11/19 1:42 p Patient Name: YODIT TRAORE Page [phone] at 1451 All edits/amendments must be made on the electronic document DICTATION DATE: 02/11/191449 FEEDER CATCHER TOBACCO: ANDREWS 02/11/19 145 RPT#: [id number] DC DATE: STATUS: ADM IN [facility] [address] [place] [address] END OF REPORT
--- NOTE | 2019-02-11 15:08 | NUR ---
TR BAND STILL IN PLACE, I REMOVED 5 CC'S AND IT STARTED TO BLEED SO I ADDED THE AIR BACK, WILL CONTINUE TO MONITOR.
[2019-02-11 18:00] VITALS: BP 166/73
[2019-02-11 20:00] VITALS: BP 207/77
--- NOTE | 2019-02-11 20:03 | NUR ---
EVENING ROUNDS COMPLETED. REPORT RECEIVED. PT SITTING UP IN BED WITH EYES OPEN, RR EVEN AND UNLABORED. BED IN LOW POSITION. NO S/S OF DISTRESS NOTED. INTRODUCED SELF TO PT AND . PT DENIES FURTHER NEEDS AT THIS TIME. CALL LIGHT IN REACH. WILL CTM.
--- NOTE | 2019-02-11 21:59 | NUR ---
ADMINISTERED ORDERED 0.1 MG CLONADINE FOR PT BLOOD PRESSURE OF 206/77.
[2019-02-12 00:30] VITALS: BP 175/74
--- NOTE | 2019-02-12 03:24 | NUR ---
I have reviewed this patient and I concur with the Shift Assessment completed by the Licensed Practical Nurse today this shift.
[2019-02-12 03:52] LABS: ALBUMIN 2.1 g/dL (3.4-5.0); BILIRUBIN - TOTAL 0.51 mg/dL (0.2-1.3); CALCIUM 7.6 mg/dL (8.5-10.1); CARBON DIOXIDE 24.7 mmol/L (21.0-32.0); CREATININE - SERUM 3.2 mg/dL (0.6-1.3); PHOSPHOROUS 4.4 mg/dL (2.5-4.9); PROTEIN - SERUM 5.5 g/dL (6.4-8.2)
[2019-02-12 03:53] LABS: ANION GAP 11.6 mmol/L (8-16); POTASSIUM - SERUM 4.3 mmol/L (3.5-5.1)
--- NOTE | 2019-02-12 04:14 | NUR ---
PT SITTING UP IN BED WITH EYES OPEN, RR EVEN AND UNLABORED. NO S/S OF DISTRESS NOTED. LEFT WRIST PIV INFUSING ORDERED ABX. PT DENIES FURTHER NEEDS AT THIS TIME. 56 SINUS JM ON TELEMETRY. CALL LIGHT IN REACH. WILL CTM.
[2019-02-12 04:30] VITALS: BP 128/57
--- NOTE | 2019-02-12 07:10 | NUR ---
RECEIVED REPORT. ASSUMED CARE OF PATIENT. CALL LIGHT WITHIN REACH. PATIENT LYING IN BED WITH EYES OPEN. RESP EVEN AND UNLABORED. PATIENT ASKING IF HE IS ABLE TO GET UP NOW SINCE HE HAS HAD THE PROCEDURES YESTERDAY. HE WOULD LIKE TO SIT IN THE CHAIR AT BEDSIDE. PATIENT WITH PRESSURE DRESSING TO RIGHT RADIAL. ENCOURAGED PATIENT TO GET OOB AND SIT IN CHAIR AT BEDSIDE, IT WILL BE OF BENEFIT TO THE PATIENT. PATIENT THANKED THIS ANESTHESIOLOGY PHYSICIAN FOR EDUCATION PROVIDED AT THIS TIME. NO DISTRESS.
--- NOTE | 2019-02-12 07:26 | NUR ---
REPLACED PATIENT WRIST BAND DUE TO OLD ONE IS TIGHT AND CUTTING INTO PATIENT ARM. NO DISTRESS.
[2019-02-12 07:31] LABS: BASOPHILS 0.2 % (0-2); EOSINOPHILS 2.9 % (0-7); HEMATOCRIT 30.4 % (42.0-54.0); HEMOGLOBIN 9.7 g/dL (13.5-17.5); IMMATURE GRANULOCYTES 0.2 % (0-5); LYMPHOCYTES 12.9 % (15-50); MCH 31.4 pg (26.0-34.0); MCHC 31.9 g/dL (31.0-37.0); MCV 98.4 fL (80.0-100.0); MEAN PLATELET VOLUME 10.4 fL (7.4-10.4); MONOCYTES 7.4 % (2-11); NEUTROPHILS 76.4 % (40-80); PLATELET COUNT 110 10x3/uL (130-400); RBC 3.09 10x6/uL (4.20-6.10); RDW 14.9 % (11.5-14.5); WBC 5.1 10x3/uL (4.8-10.8)
--- NOTE | 2019-02-12 08:54 | NUR ---
REQUESTED MUCOMYST FROM PHARMACY AT THIS TIME.
--- NOTE | 2019-02-12 09:30 | NUR ---
PATIENT OOB TO CHAIR AT BEDSIDE. PATIENT STATES HE FEELS BETTER SITTING UP. NO DISTRESS.
[2019-02-12 09:33] VITALS: BP 158/75
--- NOTE | 2019-02-12 11:30 | NUR ---
PATIENT SITTING IN CHAIR AT BEDSIDE. FEMALE VISITOR SITTING ON EDGE OF BED. PATIENT DENIES NEEDS AT THIS TIME. NO DISTRESS. CALL LIGHT WITHIN REACH.
[2019-02-12 13:00] VITALS: BP 162/60
--- NOTE | 2019-02-12 14:37 | NUR ---
PATIENT SITTING TO CHAIR AT BEDSIDE. REPORTS HE HAS HAD HIS GOWN AND LINENS CHANGED. STATES HE FEELS GOOD TODAY. PATIENTS FEMALE VISITOR IN CHAIR AT BEDSIDE. PATIENT DENIES NEEDS AT THIS TIME. NO DISTRESS. CALL LIGHT WITHIN REACH.
[2019-02-12 15:30] VITALS: BP 152/63
--- NOTE | 2019-02-12 16:59 | NUR ---
SITTING AT BEDSIDE IN CHAIR, CONSUMING PM MEAL. PATIENT COMPLIMENTS THE FOOD OF HOW GOOD IT IS. NO DISTRESS. CALL LIGHT WIHTIN ROHITH.
--- NOTE | 2019-02-12 19:29 | NUR ---
EVENING ROUNDS COMPLETED. REPORT RECEIVED. PT SITTING UP IN BEDSIDE CHAIR WITH EYES OPEN, RR EVEN AND UNLABORED. NO S/S OF DISTRESS NOTED. 59 SINUS JM ON TELEMETRY. INTRODUCED SELF TO PT. PT COMPLAINTS OF IRRITATION IN EYE, PROVIDED PT WITH KLEENEX AND ASSISTED PT TO CLEAR EYE WITH STERILE SALINE. WILL PASS ON TO ONCOMING SHIFT PT HAS REQUESTED EYE DROPS FOR IN THE MORNING. PT DENIES FURTHER NEEDS AT THIS TIME. CALL LIGHT IN REACH. WILL CTM.
[2019-02-12 20:00] VITALS: BP 189/56
--- NOTE | 2019-02-12 21:12 | NUR ---
ADMINISTERED ORDERED CLONIDINE 0.1 MG FOR BP 202/97
[2019-02-13 00:30] VITALS: BP 172/67
--- NOTE | 2019-02-13 03:37 | NUR ---
I have reviewed this patient and I concur with the Shift Assessment completed by the Licensed Practical Nurse today this shift.
[2019-02-13 05:19] LABS: BASOPHILS 0.4 % (0-2); EOSINOPHILS 4.3 % (0-7); HEMOGLOBIN 9.3 g/dL (13.5-17.5); LYMPHOCYTES 16.6 % (15-50); MCH 31.5 pg (26.0-34.0); MCHC 32.1 g/dL (31.0-37.0); MCV 98.3 fL (80.0-100.0); MEAN PLATELET VOLUME 10.4 fL (7.4-10.4); MONOCYTES 7.4 % (2-11); NEUTROPHILS 71.3 % (40-80); PLATELET COUNT 105 10x3/uL (130-400); RBC 2.95 10x6/uL (4.20-6.10); RDW 14.5 % (11.5-14.5); WBC 4.5 10x3/uL (4.8-10.8)
[2019-02-13 05:30] VITALS: BP 144/62
[2019-02-13 05:38] LABS: ALBUMIN 2.2 g/dL (3.4-5.0); BILIRUBIN - TOTAL 0.29 mg/dL (0.2-1.3); CALCIUM 7.7 mg/dL (8.5-10.1); CARBON DIOXIDE 26.2 mmol/L (21.0-32.0); CREATININE - SERUM 3.5 mg/dL (0.6-1.3); PROTEIN - SERUM 5.5 g/dL (6.4-8.2)
[2019-02-13 05:43] LABS: ANION GAP 11.2 mmol/L (8-16); POTASSIUM - SERUM 3.4 mmol/L (3.5-5.1)
--- NOTE | 2019-02-13 07:00 | NUR ---
RECEIVED REPORT. ASSUMED CARE OF PATIENT. PATIENT AWAKE, ALERT, SITTING UP IN BED WITH ATTENTION TOWARD TELEVISION. LEFT EYE WITH ERYTHEMA. PATIENT STATES IS SAHU CLEAR LIQUID. PATIENT STATES THE LEFT EYE FEELS ITCHY AND HE WANTS TO SCRATCH IT. RESP EVEN AND UNLABORED. CALL LIGHT WITHIN REACH. DENIES NEEDS. NO DISTRESS.
[2019-02-13 08:14] VITALS: BP 155/54
[2019-02-13 13:06] VITALS: BP 126/49; BP 169/70
--- NOTE | 2019-02-13 18:02 | NUR ---
PATIENT ASKING ABOUT HIS DISCHARGE PAPERWORK. HE STATES HE WAS TOLD HE WOULD BE ABLE TO GO HOME TODAY. INFORMED PATIENT NO DISCHARGE ORDERS HAVE BEEN ENTERED AT THIS TIME.
--- NOTE | 2019-02-13 18:34 | NUR ---
LA HERE AND PLACING DISCHARGE ORDERS ON PATEINT.
[2019-02-13] MEDS ORDERED: PLAVIX75 MG PO (18:37)
[2019-02-13] MEDS ORDERED: PRAVACHOL20 MG PO (18:37)
--- NOTE | 2019-02-13 19:42 | NUR ---
LEFT FOREARM PIV REMOVED IN PREPARATION FOR DISCHARGE, GAUZE BANDAGE APPLIED. DISCHARGE INSTRUCTIONS EXPLAINED TO PT, PT STATES UNDERSTANDING. PROVIDED PT PHONE NUMBERS TO ALL FOLLOW UPS INCLUDING DR KLEIN'S OFFICE NUMBER. PT STATES UNDERSTANDING. PT'S HOME COPY PLACED IN [employer] FOLDER AND GIVEN TO . PT LEFT FLOOR BY WHEELCHAIR TO PERSONAL VEHICLE WITH BELONGINGS.
--- NOTE | 2019-02-14 09:08 | MORECARE ---
CASE MANAGEMENT DISCHARGE SUMMARY PATIENT: YODIT TRAORE UNIT: [id number] ADM DATE: 02/09/19 AGE: 73 : 45 SEX: M ROOM/BED: D.7413 AUTHOR: AURY,DOC PHYSICIAN: REFERRING PHYSICIAN: YECENIA ESTES MD DATE OF SERVICE: 02/14/19 Discharge Plan Patient Name: YODIT TRAORE Facility: [facility]:[place] : 1945 Planned Disposition: Home Anticipated Discharge Date: 02/13/19 Discharge Date: 02/13/2019 Expected LOS: 4 Initial Reviewer: [email or web address] Initial Review Date: 02/11/2019 Generated: 02/14/19 10:08 am Comments DCP- Discharge Planning Updated by [email or web address]: Mingo Ruiz on 02/11/19 1:[address] Patient Name: YODIT TRAORE Encounter No: [id number] : 1945 Primary Insurance: MEDICARE A & B Anticipated DC Date: Planned Disposition: Home DCP follow-up note: CM MET WITH PT AND SPOUSE IN ROOM TO DISCUSS DISCHARGE PLANNING AND NEEDS. YODIT TRAORE provided verbal consent to discuss current and ongoing needs with/in the presence of: LOLIS, . PT REPORTS LIVING AT HOME INDEPENDENTLY WITH HIS . PT HAS CANE, NEBLUIZER, WALKER AND WHEELCHAIR WITH NO MEDICAL EQUIPMENT PROVIDER. PT HAS NO OUTSIDE SERVICES ASSISTING IN THE HOME. CM DISCUSSED AVAILABILITY OF HOME HEALTH, REHAB SERVICES AND MEDICAL EQUIPMENT. PT HAS NO ANTICIPATED DISCHARGE NEEDS AT THIS TIME, REPORTS HIS WILL PICK HIM UP FOR DISCHARGE HOME. PT PLANS TO DISCHARGE HOME WITH SPOUSE, HAS NOT ANTICIPATED NEEDS AT THIS TIME. FAMILY TO TRANSPORT HOME. CM TO FOLLOW AND ASSIST IF NEEDED. Mingo Ruiz CASE MANAGEMENT DCPIA - Discharge Planning Initial Assessment Updated by [email or web address]: Mingo Ruiz on 02/11/19 2:39 pm * Is the patient Alert and Oriented? Yes * How many steps to enter\exit or inside your home? NONE * PCP DR. MERIDA * Pharmacy [facility] * Preadmission Environment Home with Family * ADLs Independent * Equipment Cane Nebulizer Walker * Other Equipment NO MEDICAL EQUIPMENT PROVIDER PREFERENCE * List name and contact numbers for known caregivers / representatives who currently or will assist patient after discharge: LOLIS TRAORE, SPOUSE, * Verbal permission to speak to the caregivers and representatives has been obtained from the patient. Yes * Community resources currently utilized None * Please name any agencies selected above. NONE * Additional services required to return to the preadmission environment? No * Can the patient safely return to the preadmission environment? Yes * Has this patient been hospitalized within the prior 30 days at any hospital? No Last DP export: 02/11/19 1:51 p Patient Name: YODIT TRAORE Page 70997 at 0908 All edits/amendments must be made on the electronic document DICTATION DATE: 02/14/19907 CHEF MANAGER: ANDREWS 02/14/19907 RPT#: [id number] DC DATE:02/13/19 STATUS: DIS IN [facility] [address] [place] [address] END OF REPORT
== END 2019-02-13 19:45 | disposition home or self-care (01) | DRG 246 ==
LOC: D.ER 01:58 → D.M2 03:32
PROVIDERS: Emergency Medicine; Family Medicine; Internal Medicine Interventional Cardiology; Internal Medicine Pulmonary Disease; ADMIT Family Medicine; ATTEND Family Medicine
PROC: 0W993ZZ Drainage of Right Pleural Cavity, Percutaneous Approach (ICD-10-PCS; principal; 2019-02-10)
PROC: B241ZZ3 Ultrasonography of Multiple Coronary Arteries, Intravascular (ICD-10-PCS; 2019-02-11)
PROC: 4A023N7 Measurement of Cardiac Sampling and Pressure, Left Heart, Percutaneous Approach (ICD-10-PCS; 2019-02-11)
PROC: B2111ZZ Fluoroscopy of Multiple Coronary Arteries using Low Osmolar Contrast (ICD-10-PCS; 2019-02-11)
PROC: B2151ZZ Fluoroscopy of Left Heart using Low Osmolar Contrast (ICD-10-PCS; 2019-02-11)
PROC: 027034Z Dilation of Coronary Artery, One Artery with Drug-eluting Intraluminal Device, Percutaneous Approach (ICD-10-PCS; 2019-02-11 09:50)
DX: I21.4 Non-ST elevation (NSTEMI) myocardial infarction (principal); J18.9 Pneumonia, unspecified organism; J47.0 Bronchiectasis with acute lower respiratory infection; D61.818 Other pancytopenia; J90 Pleural effusion, not elsewhere classified; T82.855A Stenosis of coronary artery stent, initial encounter; N17.9 Acute kidney failure, unspecified; J98.11 Atelectasis; I13.0 Hypertensive heart and chronic kidney disease with heart failure and stage 1 through stage 4 chronic kidney disease, or unspecified chronic kidney disease; I50.32 Chronic diastolic (congestive) heart failure; J30.9 Allergic rhinitis, unspecified; I25.110 Atherosclerotic heart disease of native coronary artery with unstable angina pectoris; D64.9 Anemia, unspecified; Y83.8 Other surgical procedures as the cause of abnormal reaction of the patient, or of later complication, without mention of misadventure at the time of the procedure; N18.9 Chronic kidney disease, unspecified; I08.1 Rheumatic disorders of both mitral and tricuspid valves

== ENCOUNTER → 2019-02-25 09:55 | Outpatient (CLI) | payer MEDICARE, OTHER ==
[2019-02-09 13:42] VITALS: BMI 26.1
[~2019-02-25 09:55] MED LIST changes: +ATHLETE'S FOOT15 GM TOPICAL; +COREG12.5 MG PO; +IPRAT-ALBUT 0.5-3 ML UPD; +PRAVACHOL20 MG PO; +PROTONIX40 MG PO; +VITAMIN B-121000 MCG PO
== END | disposition home or self-care (01) ==
LOC: D.RAD 09:55
PROVIDERS: ATTEND Nurse Practitioner
DX: D63.1 Anemia in chronic kidney disease (principal)

== ENCOUNTER 2019-02-25 14:53 | Inpatient (IN) | payer MEDICARE, OTHER ==
--- NOTE | 2019-02-25 15:20 | NUR ---
TO T2 VIA W/C. AMB TO STRETCHER AND O2 PLACED AT 2 L PNC. CM, NIBP, PULSE OX ON SATS INCREASED TO 95 % QUICKLY. PT A/OX3. SKIN W/D/P.
[2019-02-25 15:37] LABS: BASOPHILS 0.7 % (0-2); EOSINOPHILS 2.2 % (0-7); HEMATOCRIT 31.1 % (42.0-54.0); IMMATURE GRANULOCYTES 0.2 % (0-5); LYMPHOCYTES 14.9 % (15-50); MCH 32.2 pg (26.0-34.0); MCHC 32.2 g/dL (31.0-37.0); MEAN PLATELET VOLUME 9.5 fL (7.4-10.4); MONOCYTES 6.1 % (2-11); NEUTROPHILS 75.9 % (40-80); RBC 3.11 10x6/uL (4.20-6.10)
[2019-02-25 15:39] VITALS: BP 167/73
[2019-02-25 15:39] LABS: PLATELET COUNT 188 10x3/uL (130-400)
[2019-02-25 15:52] LABS: ALBUMIN 2.8 g/dL (3.4-5.0); ALKALINE PHOSPHATASE 48 U/L (46-116); ALT (SGPT) 12 U/L (10-68); BILIRUBIN - TOTAL 0.48 mg/dL (0.2-1.3); CALC OSMOLALITY 303 mosm/kg (275-300); CALCIUM 10.2 mg/dL (8.5-10.1); CARBON DIOXIDE 30.5 mmol/L (21.0-32.0); CHLORIDE - SERUM 104 mmol/L (98-107); CREATININE - SERUM 3.8 mg/dL (0.6-1.3); GLUCOSE 95 mg/dL (74-106); POTASSIUM - SERUM 5.3 mmol/L (3.5-5.1); SODIUM 140 mmol/L (136-145); UREA NITROGEN 83 mg/dL (7-18); eGFR NON AFRICAN AMERICAN 17 mL/min (90-120)
[2019-02-25 16:06] LABS: CKMB 2.1 U/L (0.0-3.6); CREATINE KINASE 55 UL (21-232)
[2019-02-25 16:11] LABS: TROPONIN-I 0.129 ng/mL (0.000-0.060)
--- NOTE | 2019-02-25 16:12 | NUR ---
RCVD CALL FROM YEVGENIY IN LAB: TROPONIN 0.129
--- NOTE | 2019-02-25 16:17 | NUR ---
PAGED RT FOR ABG'S
[2019-02-25 16:47] VITALS: BP 162/74
[2019-02-25 17:20] VITALS: BP 172/81
--- NOTE | 2019-02-25 17:21 | NUR ---
RT AT BS FOR NEB TX
[2019-02-25 18:56] VITALS: BP 152/77
--- NOTE | 2019-02-25 18:56 | NUR ---
VOIDED 100ML VIA URINAL
--- NOTE | 2019-02-25 19:00 | NUR ---
REPORT CALLED TO REBEKAH LUDWIG BY SBAR FORMAT
[2019-02-25 20:00] VITALS: BP 189/81
[2019-02-25 20:20] VITALS: BP 189/81; BMI 26.3
[2019-02-25 23:42] LABS: CKMB 2.4 U/L (0.0-3.6); CREATINE KINASE 35 UL (21-232)
[2019-02-25 23:43] LABS: TROPONIN-I 0.174 ng/mL (0.000-0.060)
[2019-02-26] VITALS: BP 117/51
[2019-02-26 01:21] LABS: COLOR YELLOW (YELLOW)
[2019-02-26 01:22] LABS: APPEARANCE CLEAR (CLEAR); BILIRUBIN NEGATIVE (NEGATIVE); GLUCOSE NEGATIVE (NEGATIVE); KETONE NEGATIVE (NEGATIVE); NITRITE NEGATIVE (NEGATIVE); PROTEIN NEGATIVE (NEGATIVE); UROBILINOGEN NORMAL (NORMAL)
--- NOTE | 2019-02-26 03:31 | NUR ---
ASSESSED AT THE BEGINNING OF THE SHIFT WHEN PT FIRST CAME ON THE FLOOR. WAS WITH HIM. HE IS ALERT AND ORIENTED, ABLE TO VERBALZIE NEEDS. O2 IS IN PLACE AND PT WAS PLACED ON A A PULSE OX TO KEEP AN EYE ON HIS SATS. HE HAS SEEN DR OBRIEN AND THE ONLY MED HE WAS ORDERED FOR TONIGHT WAS RESP. MEDS AND A SLEEPING MED. HE HAS RESTED WELL AND HAS NOT VOICED ANY PROBLEMS.
[2019-02-26 04:00] VITALS: BP 122/52
[2019-02-26 06:22] LABS: BASOPHILS 0.5 % (0-2); EOSINOPHILS 2.5 % (0-7); HEMATOCRIT 27.2 % (42.0-54.0); HEMOGLOBIN 8.7 g/dL (13.5-17.5); IMMATURE GRANULOCYTES 0.2 % (0-5); LYMPHOCYTES 17.4 % (15-50); MCH 31.9 pg (26.0-34.0); MCV 99.6 fL (80.0-100.0); MEAN PLATELET VOLUME 9.2 fL (7.4-10.4); MONOCYTES 8.3 % (2-11); NEUTROPHILS 71.1 % (40-80); PLATELET COUNT 157 10x3/uL (130-400); RBC 2.73 10x6/uL (4.20-6.10); RDW 15.2 % (11.5-14.5)
[2019-02-26 06:25] LABS: WBC 4.4 10x3/uL (4.8-10.8)
[2019-02-26 07:15] LABS: CALC OSMOLALITY 307 mosm/kg (275-300); CALCIUM 9.2 mg/dL (8.5-10.1); CARBON DIOXIDE 29.5 mmol/L (21.0-32.0); CHLORIDE - SERUM 105 mmol/L (98-107); CKMB 1.6 U/L (0.0-3.6); CREATINE KINASE 23 UL (21-232); CREATININE - SERUM 4.2 mg/dL (0.6-1.3); GLUCOSE 110 mg/dL (74-106); MAGNESIUM - SERUM 2.2 mg/dL (1.8-2.4); PHOSPHOROUS 4.4 mg/dL (2.5-4.9); POTASSIUM - SERUM 3.9 mmol/L (3.5-5.1); SODIUM 141 mmol/L (136-145); THYROID STIMULATING HORMONE 2.25 uIU/mL (0.36-3.74); UREA NITROGEN 86 mg/dL (7-18); eGFR NON AFRICAN AMERICAN 15 mL/min (90-120)
[2019-02-26 07:16] LABS: TROPONIN-I 0.222 ng/mL (0.000-0.060)
--- NOTE | 2019-02-26 08:19 | NUR ---
PT ALERT X 4. BREATH SOUNDS DIMINISHED TO LOWER LOBES, 2L O2 PER NC. TELEMETRY IN PLACE. IV TO LEFT FOREARM, SALINE LOCKED. CONTINUOUS PULSE OX IN PLACE. PT REPORTING IMPROVEMENT IN SOB. FAMILY AT BEDSIDE. BED LOW, CALL LIGHT IN REACH. NO OTHER NEEDS AT THIS TIME.
[2019-02-26 09:43] VITALS: BP 142/61
[2019-02-26 09:54] VITALS: BMI 26.3
[2019-02-26 09:56] VITALS: BMI 26.3
[2019-02-26 13:08] LABS: CKMB 1.5 U/L (0.0-3.6); CREATINE KINASE 23 UL (21-232); TROPONIN-I 0.199 ng/mL (0.000-0.060)
[2019-02-26 14:17] VITALS: BP 129/59
[2019-02-26 17:44] VITALS: BP 131/61
--- NOTE | 2019-02-26 19:15 | NUR ---
PT ALERT AND ORIENTED. AT BEDSIDE. PT BREATHING SHALLOW. WEARING NASAL CANNULA WITH 2L O2. BREATH SOUNDS DIMINISHED BILATERALLY IN LOWER LOBES. HAS LEFT FOREARM IV THAT IS SALINE LOCKED. NO REDNESS, TENDERNESS, OR SWELLING NOTED TO INSERTION SITE. DENIES PAIN. DENIES NEEDS. HAS CALL LIGHT IN HAND. VERBALIZES HOW TO USE CORRECTLY. BED IN LOWEST POSSIBLE POSITION. SIDE RAILS UP X 2.
[2019-02-26 20:00] VITALS: BP 138/60
[2019-02-27] VITALS: BP 143/62
[2019-02-27 04:00] VITALS: BP 137/58
--- NOTE | 2019-02-27 04:38 | NUR ---
I have reviewed this patient and I concur with the Shift Assessment completed by the Licensed Practical Nurse today this shift.
[2019-02-27 06:37] LABS: EOSINOPHILS 4.3 % (0-7); HEMATOCRIT 26.7 % (42.0-54.0); HEMOGLOBIN 8.4 g/dL (13.5-17.5); IMMATURE GRANULOCYTES 0.3 % (0-5); LYMPHOCYTES 19.5 % (15-50); MCH 31.8 pg (26.0-34.0); MCHC 31.5 g/dL (31.0-37.0); MCV 101.1 fL (80.0-100.0); MONOCYTES 9.3 % (2-11); NEUTROPHILS 65.6 % (40-80); PLATELET COUNT 154 10x3/uL (130-400); RBC 2.64 10x6/uL (4.20-6.10); RDW 15.7 % (11.5-14.5)
[2019-02-27 07:33] LABS: ANION GAP 10.1 mmol/L (8-16); CALCIUM 8.7 mg/dL (8.5-10.1); CARBON DIOXIDE 29.9 mmol/L (21.0-32.0); CREATININE - SERUM 4.2 mg/dL (0.6-1.3); MAGNESIUM - SERUM 2.1 mg/dL (1.8-2.4); PHOSPHOROUS 4.8 mg/dL (2.5-4.9)
--- NOTE | 2019-02-27 07:57 | NUR ---
PT ALERT X 4. COURSE EXPIRATORY WHEEZES TO LEFT SIDE AND RLL, 3L O2 PER NC, NON-PRODUCTIVE COUGH, PT REPORTS SOB BETTER TODAY. IV TO LEFT FOREARM, SALINE LOCKED. BED LOW, CALL LIGHT IN REACH. NO OTHER NEEDS AT THIS TIME.
[2019-02-27 10:13] VITALS: BP 133/54; BP 157/79
[2019-02-27 13:54] VITALS: BP 141/70
[2019-02-27 17:49] VITALS: BP 145/65
[2019-02-27 21:25] VITALS: BP 148/57
--- NOTE | 2019-02-28 01:09 | NUR ---
DISSCUSSED BENEFITS OF BIPAP USE AND COMPLIANCE HOWEVER PT CONTINUES TO REFUSE TO WEAR.
--- NOTE | 2019-02-28 03:03 | NUR ---
I have reviewed this patient and I concur with the Shift Assessment completed by the Licensed Practical Nurse today this shift.
--- NOTE | 2019-02-28 03:11 | NUR ---
PT ALERT AND ORIENTED WITH AND FAMILY IN ROOM. DENIES PAIN. DENIES NEEDS. WEARING 3 L O2 AT THIS TIME. HAS BIPAP IN ROOM BUT STATES THAT HE DOES NOT WANT TO WEAR TONIGHT. HAS IV TO THE LEFT FOREARM THAT IS SALINE LOCKED. HAS CALL LIGHT IN REACH.
[2019-02-28 05:33] LABS: BASOPHILS 0.7 % (0-2); EOSINOPHILS 3.7 % (0-7); HEMATOCRIT 27.7 % (42.0-54.0); HEMOGLOBIN 8.7 g/dL (13.5-17.5); IMMATURE GRANULOCYTES 0.2 % (0-5); LYMPHOCYTES 15.4 % (15-50); MCH 31.8 pg (26.0-34.0); MCHC 31.4 g/dL (31.0-37.0); MCV 101.1 fL (80.0-100.0); MEAN PLATELET VOLUME 9.1 fL (7.4-10.4); PLATELET COUNT 151 10x3/uL (130-400); RBC 2.74 10x6/uL (4.20-6.10); RDW 15.9 % (11.5-14.5); WBC 4.4 10x3/uL (4.8-10.8)
[2019-02-28 06:02] LABS: ANION GAP 8.1 mmol/L (8-16); CALCIUM 8.3 mg/dL (8.5-10.1); CARBON DIOXIDE 32.9 mmol/L (21.0-32.0); CREATININE - SERUM 4.1 mg/dL (0.6-1.3); MAGNESIUM - SERUM 1.9 mg/dL (1.8-2.4); PHOSPHOROUS 4.4 mg/dL (2.5-4.9)
--- NOTE | 2019-02-28 08:13 | NUR ---
PT ALERT X 4. BREATH SOUNDS DIMINSHED TO RLL, 3L O2 PER NC. TELEMETRY IN PLACE. IV TO LEFT FOREARM, SALINE LOCKED. FAMILY AT BEDSIDE. BED LOW, CALL LIGHT IN REACH. NO OTHER NEEDS AT THIS TIME.
[2019-02-28 08:25] LABS: INR 1.18 (0.85-1.17); PROTIME 14.4 SECONDS (11.6-15.0)
[2019-02-28 08:26] LABS: APTT 63.7 SECONDS (22.8-39.4)
[2019-02-28 09:01] VITALS: BP 145/64
--- NOTE | 2019-02-28 12:40 | NUR ---
NUTRITION F/U CHART REVIEWED, PT VISIT. PT CURRENTLY NPO FOR PROCEDURE. WILL PROVIDE RENAL DIET WHEN RESUMED, MONITOR PO INTAKE. RD FOLLOWING
[2019-02-28 13:05] VITALS: BP 151/61
[2019-02-28 13:07] LABS: % SATURATION 19 % (15-55); IRON 38 ug/dl (35-150); TOTAL IRON BIND CAPACITY 191 ug/dl (260-445); UNSAT IRON BIND CAPACITY 153 ug/dl (150-375)
[2019-02-28 13:19] LABS: FERRITIN 88 ng/mL (3-244); LDH 140 U/L (85-227)
--- NOTE | 2019-02-28 14:29 | NUR ---
TALKED TO DR KLEIN INSTRUCT PATIENTS PTT ABNORMAL AND WE WILL RECHECK IN AM. THORACENTESIS NOT DONE TODAY WILL RECHECK LABS IN AM.
[2019-02-28 17:15] VITALS: BP 144/62
[2019-02-28 20:00] VITALS: BP 171/69
--- NOTE | 2019-02-28 20:00 | NUR ---
ALERT SITTING UP IN CHAIR, DENIES NEEDS AT THIS TIME, SEE SHIFT ASSESSMENT, CALL LIGT IN REACH
[2019-03-01 03:44] VITALS: BP 148/62
[2019-03-01 05:12] LABS: FOLATE (FOLIC ACID) - SERUM >20.0 ng/mL (>3.0)
[2019-03-01 05:41] LABS: EOSINOPHILS 3.4 % (0-7); HEMATOCRIT 28.5 % (42.0-54.0); HEMOGLOBIN 8.9 g/dL (13.5-17.5); IMMATURE GRANULOCYTES 0.3 % (0-5); LYMPHOCYTES 17.7 % (15-50); MCH 32.1 pg (26.0-34.0); MCHC 31.2 g/dL (31.0-37.0); MCV 102.9 fL (80.0-100.0); MEAN PLATELET VOLUME 8.9 fL (7.4-10.4); MONOCYTES 7.6 % (2-11); PLATELET COUNT 156 10x3/uL (130-400); RBC 2.77 10x6/uL (4.20-6.10); RDW 15.8 % (11.5-14.5); WBC 3.8 10x3/uL (4.8-10.8)
[2019-03-01 06:06] LABS: ANION GAP 10.1 mmol/L (8-16); CALCIUM 8.1 mg/dL (8.5-10.1); CARBON DIOXIDE 31.1 mmol/L (21.0-32.0); CREATININE - SERUM 3.9 mg/dL (0.6-1.3); PHOSPHOROUS 4.3 mg/dL (2.5-4.9); POTASSIUM - SERUM 4.2 mmol/L (3.5-5.1)
[2019-03-01 06:26] VITALS: BP 148/62
--- NOTE | 2019-03-01 07:32 | NUR ---
PT IS RESTING IN BED WITH EYES OPEN. RESPIRATIONS ARE EVEN AND UNLABORED. PT DENIES PRESENCE OF PAIN. PT REPORTS SLIGHT DYSPNEA WITH BIG BREATHS. PT WITH FREQUENT WET COUGH. FAMILY IS AT BEDSIDE. O2 @ 2L VIA NC. PT DENIES PRESENCE OF N/V AT THIS TIME. BED IS IN THE LOWEST POSITION. CALL LIGHT AND BEDSIDE TABLE ARE WITHIN REACH. SIDE RAILS X 2. PT DENIES FURTHER NEEDS. WILL CONT TO MONITOR.
[2019-03-01 07:36] LABS: INR 1.2 (0.85-1.17); PROTIME 14.7 SECONDS (11.6-15.0)
[2019-03-01 07:37] LABS: APTT 59.9 SECONDS (22.8-39.4)
[2019-03-01 09:30] VITALS: BP 152/67
--- NOTE | 2019-03-01 11:10 | NUR ---
FIRST UNIT OF FFP INFUSION INITIATED. VERIFIED WITH REBEKAH CORONA RN. SEE INFUSION CARD FOR PRE INFUSION VITALS. PT FAMILY IS AT BEDSIDE. PT DENIES PRESENCE OF PAIN/N/V/DYSPNEA AT THIS TIME. BED IS IN THE LOWEST POSITION. CALL LIGHT AND BEDSIDE TABLE ARE WITHIN REACH. SIDE RAILS X2. WILL STAY IN ROOM TO MONITOR CLOSELY FOR FIRST 15 MINUTES.
--- NOTE | 2019-03-01 11:55 | NUR ---
FIRST UNIT OF FFP INFUSION COMPLETE. VSS. SEE INFUSION CARD. PT DENIES PRESENCE OF PAIN/N/V/DYSPNEA.
--- NOTE | 2019-03-01 12:00 | NUR ---
SECOND UNIT OF FFP INITIATED. VERIFIED WITH ANDREI GALLARDO RN. SEE INFUSION CARD FOR VITALS. PT DENIES PRESENCE OF PAIN/N/V/DYSPNEA. FFP INFUSING TO LEFT FOREARM. PIV SITE WITHOUT COMPROMISE/REDNESS/SWELLING/TENDERNESS. BED IS IN THE LOWEST POSITION. CALL LIGHT AND BEDSIDE TABLE ARE WITHIN REACH. SIDE RAILS X 2. FAMILY IS AT BEDSIDE. WILL REMAIN IN ROOM FOR FIRST 15 MINUTES OF INFUSION TO CLOSELY MONITOR. PT.
[2019-03-01 12:49] VITALS: BP 158/74
--- NOTE | 2019-03-01 12:55 | NUR ---
SECOND UNIT FFP INFUSION COMPLETE. VSS. LAB NOTIFIED OF INFUSION COMPLETION AND ABILITY TO DRAW LABS AT THIS TIME. PT DENIES FURTHER NEEDS. WILL CONT TO MONITOR.
--- NOTE | 2019-03-01 13:45 | NUR ---
RECD MESSAGE FROM KYLE MARCELO THAT PT WILL NOT HAVE PROCEDURE TODAY AND PT CAN EAT. ORDERS PLACED. PT NOTIFIED.
[2019-03-01 14:20] LABS: INR 1.18 (0.85-1.17); PROTIME 14.5 SECONDS (11.6-15.0)
[2019-03-01 14:21] LABS: APTT 62.9 SECONDS (22.8-39.4)
[2019-03-01 17:08] LABS: FOLATE (FOLIC ACID) - SERUM >20.0 ng/mL (>3.0)
[2019-03-01 17:44] VITALS: BP 152/64
--- NOTE | 2019-03-01 20:00 | NUR ---
ALERT RESTING IN BED, DENIES ANY PAIN OR NEEDS AT THIS TIME, CALL LIGHT IN REACH, SEE SHIFT ASSESSMENT
[2019-03-01 20:40] VITALS: BP 167/79
[2019-03-02 00:51] VITALS: BP 170/80
[2019-03-02 04:48] VITALS: BP 170/68
[2019-03-02 06:22] LABS: BASOPHILS 0.7 % (0-2); EOSINOPHILS 3.2 % (0-7); HEMATOCRIT 27.7 % (42.0-54.0); HEMOGLOBIN 8.6 g/dL (13.5-17.5); LYMPHOCYTES 14.8 % (15-50); MCH 31.9 pg (26.0-34.0); MCV 102.6 fL (80.0-100.0); MEAN PLATELET VOLUME 9.2 fL (7.4-10.4); MONOCYTES 9.7 % (2-11); NEUTROPHILS 71.6 % (40-80); PLATELET COUNT 149 10x3/uL (130-400); RDW 16.3 % (11.5-14.5); WBC 4.1 10x3/uL (4.8-10.8)
[2019-03-02 06:45] LABS: ANION GAP 10.1 mmol/L (8-16); CALCIUM 8.1 mg/dL (8.5-10.1); CREATININE - SERUM 3.6 mg/dL (0.6-1.3); PHOSPHOROUS 4.3 mg/dL (2.5-4.9); POTASSIUM - SERUM 4.1 mmol/L (3.5-5.1)
[2019-03-02 06:56] LABS: INR 1.17 (0.85-1.17); PROTIME 14.4 SECONDS (11.6-15.0)
[2019-03-02 06:57] LABS: APTT 66.7 SECONDS (22.8-39.4)
[2019-03-02 08:52] VITALS: BP 184/77
[2019-03-02 12:18] VITALS: BP 170/70
--- NOTE | 2019-03-02 14:41 | NUR ---
RECEIVED PT BACK FROM IR. PT HAD 2L DRAINED, STATED FEELS A LOT BETTER WILL RESTART DIET AND CONTINUE WITH PLAN OF CARE
[2019-03-02 16:24] LABS: PROTEIN - BODY FLUID 3.3 G/DL
--- NOTE | 2019-03-02 17:05 | MORECARE ---
CASE MANAGEMENT DISCHARGE SUMMARY PATIENT: YODIT TRAORE UNIT: [id number] ADM DATE: 02/25/19 AGE: 73 : 45 SEX: M ROOM/BED: D.2206 AUTHOR: CORNEL JEFFERS PHYSICIAN: REFERRING PHYSICIAN: YAZMIN OBRIEN DO DATE OF SERVICE: 03/02/19 Discharge Plan Patient Name: YODIT TRAORE Facility: [facility]:[place] : 1945 Planned Disposition: Home Anticipated Discharge Date: Discharge Date: Expected LOS: Initial Reviewer: [email or web address] Initial Review Date: 02/25/2019 Generated: 03/02/19 6:05 pm External Providers [facility] Next Contact Date: Service Request Date: Service Type: Resolution: Reviewer: Comments: Patient Name: YODIT TRAORE Page [phone] at 1705 All edits/amendments must be made on the electronic document DICTATION DATE: 03/02/191703 ACCOUNTING ASSOCIATE: ANDREWS 03/02/191703 RPT#: [id number] DC DATE: STATUS: ADM IN [facility] [address] [place] [address] END OF REPORT
--- NOTE | 2019-03-02 17:14 | MORECARE ---
CASE MANAGEMENT DISCHARGE SUMMARY PATIENT: YODIT TRAORE UNIT: [id number] ADM DATE: 02/25/19 AGE: 73 : 45 SEX: M ROOM/BED: D.2206 AUTHOR: CORNEL JEFFERS PHYSICIAN: REFERRING PHYSICIAN: YAZMIN OBRIEN DO DATE OF SERVICE: 03/02/19 Discharge Plan Patient Name: YODIT TRAORE [facility] [facility] 1945 Planned Disposition: Home Anticipated Discharge Date: Discharge Date: Expected LOS: Initial Reviewer: [email or web address] Initial Review Date: 02/25/2019 Generated: 03/02/19 6:14 pm Comments DCP- Discharge Planning Updated by [email or web address]: Erlinda Ramos on 03/02/19 4:[address] Patient is requesting to go home. Patient has received dc orders for this evening if xray ok. I have contacted Ashu with [facility] the DME company he uses for his other resp equipment. Patient will need home O2 with portability. I faxed him clinical paperwork and he will have it delivered to the room today. Patient is independent with his care at home. His will be his local delivery driver. Last DP export: 03/02/19 4:05 p Patient Name: YODIT TRAORE Page [id number] at 1714 All edits/amendments must be made on the electronic document DICTATION DATE: 03/02/191713 LEISURE STUDIES PROFESSOR: ANDREWS 03/02/191713 RPT#: [id number] DC DATE: STATUS: ADM IN [facility] [address] [place] [address] END OF REPORT
[2019-03-02] MEDS ORDERED: LASIX40 MG PO (17:20)
[2019-03-02 17:44] VITALS: BP 169/76
[2019-03-02 22:06] LABS: EOS BF 1 %; MACROPHAGES BF 5 %; MESOTHELIALS BF 1 %; NEUT - BF 12 %
--- NOTE | 2019-03-03 11:50 | MORECARE ---
CASE MANAGEMENT DISCHARGE SUMMARY PATIENT: YODIT TRAORE UNIT: [id number] ADM DATE: 02/25/19 AGE: 73 : 45 SEX: M ROOM/BED: D.2206 AUTHOR: CORNEL JEFFERS PHYSICIAN: REFERRING PHYSICIAN: YAZMIN OBRIEN DO DATE OF SERVICE: 03/03/19 Discharge Plan Patient Name: YODIT TRAORE [facility] [facility] 1945 Planned Disposition: Home Anticipated Discharge Date: Discharge Date: 03/02/2019 Expected LOS: Initial Reviewer: [email or web address] Initial Review Date: 02/25/2019 Generated: 03/03/19 12:49 pm Comments DCP- Discharge Planning Updated by [email or web address]: Erlinda Ramos on 03/02/19 4:[address] Patient is requesting to go home. Patient has received dc orders for this evening if xray ok. I have contacted Ashu with [facility] the DME company he uses for his other resp equipment. Patient will need home O2 with portability. I faxed him clinical paperwork and he will have it delivered to the room today. Patient is independent with his care at home. His will be his airport driver. Last DP export: 03/02/19 4:14 p Patient Name: YODIT TRAORE Page [phone] at 1150 All edits/amendments must be made on the electronic document DICTATION DATE: 03/03/19 1149 OUTCOMES SPECIALIST: ANDREWS 03/03/19 1149 RPT#: [id number] DC DATE:03/02/19 STATUS: DIS IN [facility] [address] [place] [address] END OF REPORT
[2019-03-03 14:11] LABS: FACTOR VIII - APTT 50.4 sec (22.9-30.2); FACTOR VIII - APTT 1:1 NP 36.4 sec (22.9-30.2); FACTOR VIII ACTIVITY 109 % (56-140)
[2019-03-03 15:12] LABS: FACTOR VIII - APTT 1:1 60 MIN 37.3 sec (22.9-30.2)
[2019-03-03 18:07] LABS: AFB SPECIMEN PROCESSING Not Indicated (())
[2019-03-04 12:11] LABS: FUNGUS STAIN Final report (())
[2019-03-05 08:12] LABS: HEXAGONAL PHASE PHOS 60 sec (0-11); LUPUS - INTERPRETATION Comment: (()); LUPUS - THROMBIN TIME 18.3 sec (0.0-23.0); LUPUS - dRVVT 76.1 sec (0.0-47.0); LUPUS - dRVVT CONFIRMATION 1.5 ratio (0.8-1.2); PTT-LA 113.9 sec (0.0-51.9)
--- NOTE | 2019-03-08 16:59 | CN ---
PATIENT NAME:YODIT PELAEZ MEDICAL RECORD: [id number] : 45 LOCATION:D.MS Gross2206 ADMIT DATE: 02/25/19 ACCOUNT: [id number] CONSULTING PHYSICIAN: PACO ROSARIO MD REFERRING PHYSICIAN: YAZMIN OBRIEN DO DATE OF CONSULTATION: 02/26/2019 CONSULT REQUESTING PHYSICIAN: Yazmin Obrien DO REASON FOR CONSULTATION: Right-sided moderate pleural effusion. HISTORY OF PRESENT ILLNESS: Mr. Pelaez is a 73-year-old gentleman who was recently hospitalized for the right pleural effusion. He had a thoracentesis on 02/10/2019 and 2100 cc fluid was aspirated. Now, he presented again to the ER with worsening shortness of breath. Workup showed that he has atelectasis in the right lower lobe and moderate-sized right pleural effusion. Denies any fever and chills, no night sweats, no chest pain. REVIEW OF SYSTEMS: As in the history of present illness. PAST MEDICAL HISTORY: 1. COPD. 2. Pneumonia. 3. History of bronchiectasis. 4. Congestive heart failure with chronic diastolic dysfunction with the EF above 50%. 5. Coronary artery disease. 6. Status post angioplasty and stent placement. 7. Chronic kidney disease. 8. Allergic rhinitis. 9. Gastroesophageal reflux disease. 10. Hypothyroidism. 11. Benign prostatic hypertrophy. 12. Anemia. PAST SURGICAL HISTORY: 1. He had a carotid endarterectomy bilaterally. 2. Coronary artery stent placement and bypass. ALLERGIES: There are no known drug allergies. MEDICATIONS: On [employer] Mobile Payment is reviewed. PERSONAL AND SOCIAL HISTORY: The patient is an ex-smoker. He is a nondrinker. FAMILY HISTORY: Noncontributory. PHYSICAL EXAMINATION: GENERAL: Now, the patient is lying comfortable in bed. He is not in acute distress. VITAL SIGNS: The blood pressure is 149/59, pulse is 61, respiration 20, temperature 97.3, and SPO2 is 93% on 3 liters nasal cannula. HEENT: Conjunctivae are pink. Sclerae are not icteric. NECK: Supple, no JVD. CHEST: The chest excursion is minimal on the right side. There is dullness on CONSULT REPORT [id number] YODIT PELAEZ percussion with the decreased breath sounds. HEART: Rhythm regular, normal sound, no murmur. ABDOMEN: Soft, bowel sounds present. No hepatosplenomegaly. RECTAL: Deferred. EXTREMITIES: No cyanosis, no clubbing. There is 1+ pedal edema. CENTRAL NERVOUS SYSTEM: The patient is awake and alert. There are no obvious cranial nerve abnormalities. The gait was not tested. LABORATORY DATA: CBC: WBC 6, hemoglobin 10, hematocrit 31.1, and the platelet count is 188. Chemistry: Sodium 141, potassium 3.9, BUN is 86, creatinine 4.2. ABG: The pH is 7.30, pCO2 is 57.6, the pO2 is 72, bicarbonate 26.3. CHEST RADIOGRAPH: There are moderate-sized right pleural effusions, atelectasis at the right lower lobe. The troponin level is 0.22. IMPRESSION: 1. Crkwt-rz-pjoanhc hypoxic hypercapnic respiratory failure. 2. Right pleural effusion, most likely secondary to congestive heart failure, which is recurrent. 3. Atelectasis, right lower lobe secondary to congestive heart failure. 4. Chronic obstructive pulmonary disease without exacerbation. 5. Chronic congestive heart failure. 6. Chronic diastolic dysfunction. 7. Coronary artery disease. 8. Chronic kidney disease. 9. Gastroesophageal reflux disease without esophagitis. 10. Bronchiectasis. RECOMMENDATIONS: 1. Continue supplemental oxygen. 2. BiPAP if required. 3. DVT prophylaxis. 4. Albuterol/ipratropium nebulizer and start on Brovana/budesonide nebulizer. 5. Diuresis. 6. We will follow up labs and chest radiographs. Dr. Obrien, thank you for involving me in the care of Mr. Pelaez. TRANSINT:[id number] Voice Confirmation ID: [id number] DOCUMENT ID: [id number] PACO ROSARIO MD at 1659 CC: [id number] DICTATION DATE: 02/26/19 1427 DELIVERY ROOM SUPERVISOR: 02/26/19 2141 DIS IN 03/02/19 [place] [id number] [place] [address]
[2019-03-30 07:14] LABS: FUNGUS MYCOLOGY CULTURE Final report (())
[2019-04-24 12:08] LABS: ACID FAST CULTURE Negative (()); ACID FAST SMEAR Negative (())
== END 2019-03-02 18:26 | disposition home or self-care (01) | DRG 291 ==
LOC: D.ER 14:53 → D.MS 18:41
PROVIDERS: Emergency Medicine; General Practice; Internal Medicine Medical Oncology; Internal Medicine Nephrology; Internal Medicine Pulmonary Disease; Radiology Vascular & Interventional Radiology; Specialist; ADMIT Family Medicine; ATTEND Family Medicine
PROC: 0W993ZZ Drainage of Right Pleural Cavity, Percutaneous Approach (ICD-10-PCS; principal; 2019-03-02 13:30)
DX: I13.0 Hypertensive heart and chronic kidney disease with heart failure and stage 1 through stage 4 chronic kidney disease, or unspecified chronic kidney disease (principal); J96.21 Acute and chronic respiratory failure with hypoxia; I50.32 Chronic diastolic (congestive) heart failure; N17.9 Acute kidney failure, unspecified; J98.11 Atelectasis; J91.8 Pleural effusion in other conditions classified elsewhere; N18.9 Chronic kidney disease, unspecified; K21.9 Gastro-esophageal reflux disease without esophagitis

== ENCOUNTER → 2019-03-03 09:46 | Outpatient (CLI) | payer MEDICARE, OTHER ==
[2019-02-26 09:56] VITALS: BMI 26.3
== END | disposition home or self-care (01) ==
LOC: D.RAD 09:46
PROVIDERS: ATTEND Internal Medicine Nephrology
DX: R09.02 Hypoxemia (principal); R06.00 Dyspnea, unspecified; J90 Pleural effusion, not elsewhere classified

== ENCOUNTER → 2019-04-18 07:56 | Outpatient (CLI) | payer MEDICARE, OTHER | END | disposition home or self-care (01) | LOC: D.RT 07:56 | PROVIDERS: ATTEND Internal Medicine Pulmonary Disease | DX: J44.9 Chronic obstructive pulmonary disease, unspecified (principal) ==

== ENCOUNTER → 2019-04-26 08:36 | Outpatient (CLI) | payer MEDICARE, OTHER ==
[~2019-04-26 08:36] MED LIST changes: +COREG 3.1253.125 MG PO; +FLUTICASONE PRO16 GM NASAL; +PHOSLO667 MG PO; +ROCALTROL0.25 MCG PO
[2019-04-27 11:10] LABS: ANA REFLEX - ANTICHROMATIN ABS 1.4 AI (0.0-0.9); ANA REFLEX - CENTROMERE B ABS <0.2 AI (0.0-0.9); ANA REFLEX - DBL STRANDED DNA 3 IU/mL (0-9); ANA REFLEX - DIRECT Positive (Negative); ANA REFLEX - JO-1 AB <0.2 AI (0.0-0.9); ANA REFLEX - RNP ANTIBODIES 0.4 AI (0.0-0.9); ANA REFLEX - SCL-70 <0.2 AI (0.0-0.9); ANA REFLEX - SJOGRENS AB SSA <0.2 AI (0.0-0.9); ANA REFLEX - SJOGRENS AB SSB <0.2 AI (0.0-0.9); ANA REFLEX - SMITH AB <0.2 AI (0.0-0.9)
== END | disposition home or self-care (01) ==
LOC: D.LAB 08:36
PROVIDERS: ATTEND Internal Medicine Pulmonary Disease
DX: J90 Pleural effusion, not elsewhere classified (principal)

== ENCOUNTER → 2019-05-05 11:05 | Outpatient (CLI) | payer MEDICARE, OTHER ==
[2019-05-05 12:14] LABS: PLT FUNCT.(P2Y12) PLAVIX 6 PRU (194-418)
[2019-05-05 12:47] LABS: ALBUMIN 2.7 g/dL (3.4-5.0); BILIRUBIN - TOTAL 0.5 mg/dL (0.2-1.3); CALCIUM 8.4 mg/dL (8.5-10.1); CARBON DIOXIDE 37.2 mmol/L (21.0-32.0); CREATININE - SERUM 4.1 mg/dL (0.6-1.3); POTASSIUM - SERUM 4.2 mmol/L (3.5-5.1); PROTEIN - SERUM 6.3 g/dL (6.4-8.2)
== END | disposition home or self-care (01) ==
LOC: D.CT 11:05
PROVIDERS: ATTEND Thoracic Surgery (Cardiothoracic Vascular Surgery)
DX: J90 Pleural effusion, not elsewhere classified (principal); D63.1 Anemia in chronic kidney disease

== ENCOUNTER 2019-05-09 10:48 | Inpatient (IN) | payer MEDICARE, OTHER ==
[2019-05-09] VITALS (13 sets, daily range): BP systolic 139–212; BP diastolic 58–92; BMI 25.1; BMI 23.6
[~2019-05-09] VITALS: Ht 172.7 cm; Wt 71.5 kg
[~2019-05-09 10:48] MED LIST changes: -COREG 3.1253.125 MG PO; -FLUTICASONE PRO16 GM NASAL; -PHOSLO667 MG PO; -ROCALTROL0.25 MCG PO
[2019-05-09 17:09] LABS: HEMATOCRIT 30.8 % (42.0-54.0); HEMOGLOBIN 9.8 g/dL (13.5-17.5); MCH 33.2 pg (26.0-34.0); MCHC 31.8 g/dL (31.0-37.0); MCV 104.4 fL (80.0-100.0); MEAN PLATELET VOLUME 9.4 fL (7.4-10.4); RBC 2.95 10x6/uL (4.20-6.10); RDW 14.7 % (11.5-14.5); WBC 4.4 10x3/uL (4.8-10.8)
[2019-05-09 17:15] LABS: INR 1.17 (0.85-1.17); PROTIME 14.4 SECONDS (11.6-15.0)
[2019-05-09 17:16] LABS: APTT 93.5 SECONDS (22.8-39.4)
--- NOTE | 2019-05-09 17:30 | NUR ---
PT ARRIVED TO ROOM AT 1615 ALERT AND ORIENTED O2 2L NC LFA PIC SL, CONTINENT, USES URINAL, ALL CONSULTS CALLED DR NAZARIO NOTIFIED OF BP, ORDERS TO GIVE LASIX AND COREG AND IF REMAINED HIGH GIVE HYDRALAZINE UA SENT TO LAB
[2019-05-09 17:41] LABS: ALBUMIN 1.3 g/dL (3.4-5.0); ALKALINE PHOSPHATASE 47 U/L (46-116); BILIRUBIN - TOTAL 0.56 mg/dL (0.2-1.3); CALCIUM 8.7 mg/dL (8.5-10.1); CARBON DIOXIDE 32.8 mmol/L (21.0-32.0); CHLORIDE - SERUM 103 mmol/L (98-107); CREATININE - SERUM 0.2 mg/dL (0.6-1.3); POTASSIUM - SERUM 4.5 mmol/L (3.5-5.1); PROTEIN - SERUM 5.7 g/dL (6.4-8.2); SODIUM 141 mmol/L (136-145); UREA NITROGEN 74 mg/dL (7-18); eGFR NON AFRICAN AMERICAN > 90 mL/min (90-120)
[2019-05-09 17:43] LABS: ALT (SGPT) 3 U/L (10-68); CALC OSMOLALITY 300 mosm/kg (275-300); GLUCOSE 70 mg/dL (74-106)
[2019-05-09 17:50] LABS: APPEARANCE CLEAR (CLEAR); COLOR YELLOW (YELLOW)
[2019-05-09 17:53] LABS: BILIRUBIN NEGATIVE (NEGATIVE); GLUCOSE NEGATIVE (NEGATIVE); KETONE NEGATIVE (NEGATIVE); NITRITE NEGATIVE (NEGATIVE); PROTEIN 1+ mg/dL (NEGATIVE); SPECIFIC GRAVITY 1.015 (1.005-1.020); UROBILINOGEN NORMAL (NORMAL)
[2019-05-09 18:07] LABS: WHITE CELLS - URINE 0-5 /hpf (0-5)
[2019-05-09 18:10] LABS: BACTERIA FEW /hpf (NONE SEEN); RED CELLS - URINE 0-5 /hpf (0-5)
[2019-05-09 18:11] LABS: YEAST >1+ WITH HYPHAE /hpf (NONE SEEN)
--- NOTE | 2019-05-09 19:53 | NUR ---
REPORT RECEIVED, SHIFT ASSESSMENT COMPLETED PER FLOW SHEET. AAOX4. IS PROVIDED, PULLING 1200 X10, INSTRUCTIONS PROVIDED ON IMPORTANCE OF USING AT LEAST 10XS Q1H WHILE AWAKE, VERBALIZED UNDERSTANDING. YAUNKER PROVIDED, INSTRUCTED PATIENT TO COUGH AND SUCTION SPUTUM, VERBALIZED UNDERSTANDING. CALL LIGHT WITHIN REACH. WILL CONTINUE TO MONITOR.
--- NOTE | 2019-05-09 20:00 | NUR ---
AT BEDSIDE, PATIENT CALM, UPDATE GIVEN.
--- NOTE | 2019-05-09 21:00 | NUR ---
SCHEDULED MEDS GIVEN, SEE EMAR FOR DETAILS. WATER PROVIDED. TOLERATED WELL. WILL CONTINUE TO MONITOR. AT BEDSIDE, PATIENT AND DENY FURTHER NEEDS.
--- NOTE | 2019-05-09 23:14 | NUR ---
REASSESSMENT COMPLETED PER FLOW SHEET, SEE FOR DETAILS. WATER PROVIDED. DENIES OTHER NEEDS. WILL CONTINUE TO MONITOR.
[2019-05-10] VITALS (35 sets, daily range): BP systolic 103–167; BP diastolic 39–83; Ht 172.7 cm; Wt 71.5 kg
--- NOTE | 2019-05-10 01:07 | NUR ---
RESTING, DENIES NEEDS, CALL LIGHT WITHIN REACH. WILL CONTINUE TO MONITOR.
--- NOTE | 2019-05-10 02:29 | NUR ---
CALL LIGHT ANSWERED, C/O PAIN ON CHEST STATES IT "HURTS ONLY WHEN I TAKE A DEEP BREATH" STATES PAIN DOES NOT RADIATE. VSS. BREATH SOUNDS CLEAR ON RUL, RML, AND ANGELICA, DIMINISHED IN RLL AND LLL. NO DRAINAGE NOTED FROM THORACENTESIS SITE. PRN NORCO GIVEN, WILL CONTINUE TO MONITOR. CALL LIGHT WITHIN REACH.
--- NOTE | 2019-05-10 03:11 | NUR ---
REASSESSMENT COMPLETED PER FLOW SHEET, SEE FOR DETAILS. DENIES NEEDS. CALL LIGHT WITHIN REACH. WILL CONTINUE TO MONITOR.
--- NOTE | 2019-05-10 03:14 | NUR ---
RATES PAIN 0/10, STATES NORCO HELPED WITH PAIN.
--- NOTE | 2019-05-10 04:00 | NUR ---
COMPLETE BED BATH GIVEN, PREPPED AND CLIPPED FOR SURGERY THIS AM PER DOCTOR'S ORDERS. COMPLETE BED LINEN CHANGE PROVIDED, DENIES OTHER NEEDS. CALL LIGHT WITHIN REACH.
[2019-05-10 04:05] LABS: BASOPHILS 0.4 % (0-2); EOSINOPHILS 2.4 % (0-7); HEMATOCRIT 30.5 % (42.0-54.0); HEMOGLOBIN 9.7 g/dL (13.5-17.5); IMMATURE GRANULOCYTES 0.2 % (0-5); LYMPHOCYTES 10.9 % (15-50); MCH 33.1 pg (26.0-34.0); MCHC 31.8 g/dL (31.0-37.0); MCV 104.1 fL (80.0-100.0); MEAN PLATELET VOLUME 9.4 fL (7.4-10.4); MONOCYTES 6.2 % (2-11); NEUTROPHILS 79.9 % (40-80); PLATELET COUNT 136 10x3/uL (130-400); RBC 2.93 10x6/uL (4.20-6.10); RDW 14.8 % (11.5-14.5); WBC 4.7 10x3/uL (4.8-10.8)
[2019-05-10 04:24] LABS: ANION GAP 9.2 mmol/L (8-16); BILIRUBIN - TOTAL 0.62 mg/dL (0.2-1.3); CALCIUM 8.7 mg/dL (8.5-10.1); CARBON DIOXIDE 32.2 mmol/L (21.0-32.0); CREATININE - SERUM 3.9 mg/dL (0.6-1.3); MAGNESIUM - SERUM 2.2 mg/dL (1.8-2.4); PHOSPHOROUS 4.6 mg/dL (2.5-4.9); POTASSIUM - SERUM 4.4 mmol/L (3.5-5.1); PROTEIN - SERUM 6.6 g/dL (6.4-8.2)
[2019-05-10 04:25] LABS: ALBUMIN 2.6 g/dL (3.4-5.0)
--- NOTE | 2019-05-10 05:00 | NUR ---
AT BEDSIDE, UPDATE GIVEN, PATIENT RESTING IN BED.
--- NOTE | 2019-05-10 05:30 | NUR ---
CARLOS STRICKLAND AT BEDSIDE, SPEAKING WITH PATIENT AND REGARDING SURGERY.
[2019-05-10 07:48] LABS: INR 1.18 (0.85-1.17); PROTIME 14.5 SECONDS (11.6-15.0)
[2019-05-10 08:05] LABS: NORMAL PLASMA / APTT 48.4 SECONDS (22.8-39.4); NORMAL PLASMA / PROTHROMBIN 12.8 SECONDS (11.6-15.0)
--- NOTE | 2019-05-10 09:12 | NUR ---
0762 PT RECIEVED ALERT AN DORIENTED O2 2L NC, L WRIST PIV SL, CONTINENT, DENIES ALL NEEDS, SEE SHIFT ASSESSMENT DR BARNHART NOTIFIED OF LAB RESULTS, DR NAZARIO ALSO NOTIFIED ORDERS FOR LUPUS PROFILE, PT LEFT TO OR WITH JOSE ANTONIO [phone], AND DAUGHTER AWARE CONSULT TO DR MISHRA AND DIVERS CALLED
[2019-05-10 10:11] LABS: PLT FUNCT.(P2Y12) PLAVIX 233 PRU (194-418)
--- NOTE | 2019-05-10 12:52 | NUR ---
PT RECIEVED TO ROOM FROM OR SEDATED FROM SURGERY, ON VENT, ETT 9.0 14 AT [facility], PLACED ON VENT BY RT, R IJ CVL DRESSING CDI WITH PLASMALYTE 30ML/HR, L RADIAL A LINE ZEROED, GOOD WAVEFORM, WRIST PROTECTOR IN PLACE, R LAT CT TO 20CM SUCTION, NO AIR LEAK, BLOODY DRAINAGE, R POST INCISION SITE DRESSING CDI, CRITICORE WALDEN DRAINING YELLOW URINE, TEDS/SCDS IN PLACE, WILL CONTINUE TO MONITOR
--- NOTE | 2019-05-10 13:03 | NUR ---
NOTIFIED DR NAZARIO OF HR SINUS 48-52, NO NEW ORDERS, DR KIMBROUGH AWARE
--- NOTE | 2019-05-10 13:19 | NUR ---
SPOKE WITH [facility] AWAITING ZIELIZABETHEF
--- NOTE | 2019-05-10 13:29 | NUR ---
RECIEVED CALL FROM DR DYLAN VILLA FOR ORDERS CT TO WATER SEAL
--- NOTE | 2019-05-10 13:46 | OP ---
PATIENT NAME: YODIT TRAORE MEDICAL RECORD: [id number] :45 LOCATION:LA[facility] GrossCV06 ADMISSION DATE:05/09/19 SURGEON: SOM NAZARIO MD DATE OF OPERATION: 05/09/2019 SURGEON: Som Nazario MD CRANE OILER: None. ANESTHESIA: Local. PROCEDURE PERFORMED: Right ultrasound-guided thoracentesis. PROCEDURE IN DETAIL: With the patient seated upright in the outpatient surgery area with a heart rate, blood pressure, and pulse oximetry monitored, the right posterior chest was imaged and a window for aspiration was obtained for a large right pleural effusion. Posterior chest was sterilely prepped and draped, 1% Xylocaine used for local anesthetic. An effusion was localized with a small needle. Then, a 2-mm skin incision was made. Thoracentesis catheter was inserted. A total of 1800 cc of serous fluid was removed with moderate complaint of pleuritic type chest pain after drainage, but no apparent complications. The patient was mildly hypertensive and has chronic bradycardia. The patient was taken for chest x-ray at the end of the procedure and the ultrasound revealed a small amount of residual fluid. TRANSINT:[id number] Voice Confirmation ID: [id number] DOCUMENT ID: [id number] SOM NAZARIO MD at 1346 CC: JERALD MERIDA PATEL, NAYNESHKUMAR MD and PATRICIA MIHSRA [id number] DICTATION DATE: 05/09/19 1449 EXTRUDER OPERATOR MULTIPLE: 05/09/19 1506 ADM IN [place] [id number] [place] [address]
--- NOTE | 2019-05-10 14:59 | NUR ---
ABG NIF AND VITAL CALLED TO DR NAZARIO AND DR KIMBROUGH, PER DR KIMBROUGH WAITING 30 MIN BEFORE XTUBATING
--- NOTE | 2019-05-10 15:30 | MORECARE ---
CASE MANAGEMENT DISCHARGE SUMMARY PATIENT: YODIT TRAORE UNIT: [id number] ADM DATE: 05/09/19 AGE: 73 : [birth year] SEX: M [facility] AUTHOR: CORNEL JEFFERS PHYSICIAN: REFERRING PHYSICIAN: NATO NAZARIO MD DATE OF SERVICE: 05/10/19 Discharge Plan Patient Name: YODIT TRAORE [facility] [facility] 1945 Planned Disposition: Home Anticipated Discharge Date: Discharge Date: Expected LOS: Initial Reviewer: [email or web address] Initial Review Date: 05/09/2019 Generated: 05/10/19 4:29 pm Patient Name: YODIT TRAORE Page 14738 at 1530 All edits/amendments must be made on the electronic document DICTATION DATE: 05/10/19 1529 DRY HEAT CABINET ATTENDANT: ANDREWS 05/10/19 1529 RPT#: [id number] DC DATE: STATUS: ADM IN [facility] [address] [place] [address] END OF REPORT
--- NOTE | 2019-05-10 15:34 | NUR ---
PT EXTUBATED 1510 RESTRAITNS REMOVED
--- NOTE | 2019-05-10 15:38 | MORECARE ---
CASE MANAGEMENT DISCHARGE SUMMARY PATIENT: YODIT TRAORE UNIT: [id number] ADM DATE: 05/09/19 AGE: 73 : 45 SEX: M ROOM/BED: D.[facility] AUTHOR: AURY,DOC PHYSICIAN: REFERRING PHYSICIAN: NATO NAZARIO MD DATE OF SERVICE: 05/10/19 Discharge Plan Patient Name: YODIT TRAORE Facility: [facility]:[place] : 1945 Planned Disposition: Home Anticipated Discharge Date: Discharge Date: Expected LOS: Initial Reviewer: [email or web address] Initial Review Date: 05/09/2019 Generated: 05/10/19 4:38 pm Comments DCP- Discharge Planning Updated by [email or web address]: Shruthi Lawrence on 05/10/19 2:[address] Patient Name: YODIT TRAORE Admission Status: Elective Accout number: [id number] Admission Date: 05-09-2019 : 1945 Admission Diagnosis: Attending: NATO NAZARIO Current LOS: 1 Anticipated DC Date: Planned Disposition: Home Primary Insurance: MEDICARE A & B Discharge Planning Comments: CM met with patient to complete initial dc planning assessment. CM educated patient on the CM role and verbal consent given by patient to complete assessment. Patient lives at home with his where he is independent with his care. At discharge patient plans to return home and feels this is a safe discharge. CM discussed availability of home health, rehab services, and medical equipment. His will transport him home upon discharge. Patient has a nebulizer and home o2 ( [facility] home patient ) Patient denied known discharge needs at this time. CM will continue to follow and will assist as needed with dc plans/needs. Divisional Storekeeper: Shruthi Lawrence DCPIA - Discharge Planning Initial Assessment Updated by [email or web address]: Shruthi Lawrence on 05/10/19 3:31 pm * Is the patient Alert and Oriented? Yes * How many steps to enter\exit or inside your home? * PCP MERIDA * Pharmacy [facility] * Preadmission Environment Home with Family * ADLs Independent * Other Equipment HOME/ PORTABLE 02, W/C , CANE, WALKER, NEBULIZER * List name and contact numbers for known caregivers / representatives who currently or will assist patient after discharge: LOLIS TRAORE - JOSH- [phone] * Verbal permission to speak to the caregivers and representatives has been obtained from the patient. Yes * Community resources currently utilized None * Additional services required to return to the preadmission environment? No * Can the patient safely return to the preadmission environment? Yes * Has this patient been hospitalized within the prior 30 days at any hospital? No Last DP export: 05/10/19 2:30 p Patient Name: YODIT TRAORE Page [phone] at 1538 All edits/amendments must be made on the electronic document DICTATION DATE: 05/10/191537 CONSTRUCTION EQUIPMENT TECHNICIAN: ANDREWS 05/10/191537 RPT#: [id number] DC DATE: STATUS: ADM IN [facility] [address] [place] [address] END OF REPORT
--- NOTE | 2019-05-10 17:41 | NUR ---
NOTIFIED DR NAZARIO OF LOW URINE OUTPUT AND UPDATED ON VITALS AND THAT COREG WAS GIVEN WHEN HR 78, ORDERS FOR 250 SALINE OVER AN HOUR
[2019-05-10 17:45] LABS: MACROPHAGES BF 15 %; MESOTHELIALS BF 2 %; NEUT - BF 79 %
--- NOTE | 2019-05-10 19:23 | NUR ---
REPORT RECEIVED, SHIFT ASSESSMENT COMPLETED PER FLOW SHEET, SEE FOR DETAILS. RT CT TO WATER SEAL, NO AIR LEAK, BLOOD NOTED TO DRESSING, DRESSING CHANGED, NO BLEEDING NOTED FROM CT SITE. WILL CONTINUE TO MONITOR. PULLING 500 X10 ON IS. CALL LIGHT WITHIN REACH.
--- NOTE | 2019-05-10 21:14 | NUR ---
SCHEDULED MEDS GIVEN, WATER PROVIDED, NO DIFFICULTY SWALLOWING. AT BEDSIDE, PATIENT AND DENY NEEDS. CALL LIGHT WITHIN REACH.
--- NOTE | 2019-05-10 23:00 | NUR ---
REASSESSMENT COMPLETED PER FLOW SHEET, SEE FOR DETAILS. DISORIENTED TO PLACE, REORIENTATION PROVIDED. CALM AND COOPERATIVE. FOLLOWING COMMANDS. PERRLA. MOVES ALL EXTREMITIES. DENIES NEEDS. CALL LIGHT WITHIN REACH. WILL CONTINUE TO MONITOR.
[2019-05-11] VITALS (23 sets, daily range): BP systolic 105–140; BP diastolic 40–74
--- NOTE | 2019-05-11 01:00 | NUR ---
RESTING, DENIES NEEDS, WILL CONTINUE TO MONITOR.
--- NOTE | 2019-05-11 03:38 | NUR ---
REASSESSMENT COMPLETED PER FLOW SHEET, SEE FOR DETAILS. NO ACUTE CHANGES NOTED. CALL LIGHT WITHIN REACH. WILL CONTINUE TO MONITOR.
--- NOTE | 2019-05-11 05:00 | NUR ---
DENIES NEEDS AT THIS TIME. WILL CONTINUE TO MONITOR. CALL LIGHT WITHIN REACH.
[2019-05-11 06:26] LABS: BASOPHILS 0.3 % (0-2); EOSINOPHILS 0.6 % (0-7); HEMATOCRIT 27.5 % (42.0-54.0); IMMATURE GRANULOCYTES 0.4 % (0-5); LYMPHOCYTES 5.2 % (15-50); MCH 33.6 pg (26.0-34.0); MCHC 32.7 g/dL (31.0-37.0); MCV 102.6 fL (80.0-100.0); MEAN PLATELET VOLUME 9.3 fL (7.4-10.4); MONOCYTES 5.6 % (2-11); NEUTROPHILS 87.9 % (40-80); RBC 2.68 10x6/uL (4.20-6.10); RDW 16.4 % (11.5-14.5)
--- NOTE | 2019-05-11 06:40 | NUR ---
ASSISSTED OOB TO CHAIR PER DOCTOR'S ORDERS, X2 RN ASSISST. TOLERATED WELL. WILL CONTINUE TO MONITOR.
[2019-05-11 06:45] LABS: PLATELET COUNT 93 10x3/uL (130-400); WBC 7.1 10x3/uL (4.8-10.8)
[2019-05-11 06:46] LABS: ALBUMIN 2.3 g/dL (3.4-5.0); BILIRUBIN - TOTAL 0.68 mg/dL (0.2-1.3); CALCIUM 7.6 mg/dL (8.5-10.1); CARBON DIOXIDE 29.8 mmol/L (21.0-32.0); CREATININE - SERUM 4.6 mg/dL (0.6-1.3); MAGNESIUM - SERUM 2.1 mg/dL (1.8-2.4); PROTEIN - SERUM 5.9 g/dL (6.4-8.2)
[2019-05-11 06:47] LABS: ANION GAP 11.4 mmol/L (8-16); PHOSPHOROUS 6.9 mg/dL (2.5-4.9); POTASSIUM - SERUM 5.2 mmol/L (3.5-5.1)
--- NOTE | 2019-05-11 09:03 | NUR ---
0700 PT RECIEVED UP IN CHAIR ALERT, SOMEWHAT CONFUSED TO SITUATION, REORIENTED, O2 2L NC, R IJ CVL DRESSING CDI WITH PLASMALYTE AND ZINACEF INFUSING, R LAT CHEST INCISION DRESSING CDI, CT TO WATER SEAL NO AIR LEAK BLOODY DRAINAGE, L RADIAL A LINE DRESSING CDI WRIST PROTECTOR IN PLACE, GOOD WAVEFORM, CRITICORE WIN, CALL LIGHT AND WATER WITHIN REACH 0820 CLARIFIED COREG WITH Roosevelt BECERRIL, ORDERS TO CHECK WITH DR FERRIS, ORDERS FOR 6.25 COREG BID 0900 ATE 75% BREAKFAST AND TOOK AM MEDS WITHOUT DIFFICULTY
[2019-05-11 09:55] LABS: ANISOCYTOSIS OCC; PLATELET ESTIMATE DECREASED
--- NOTE | 2019-05-11 10:21 | OP ---
PATIENT NAME: YODIT TRAORE MEDICAL RECORD: [id number] :45 LOCATION:D.CVI D.CV06 ADMISSION DATE:05/09/19 SURGEON: SOM NAZARIO MD DATE OF OPERATION: 05/10/2019 SURGEON: Som Nazario MD TEXTILES SALES REPRESENTATIVE: Lloyd Paris OPERATION PERFORMED: 1. Thoracoscopy with decortication, right lower lobe. 2. Talc pleurodesis. 3. Bronchoscopy with washings. PREOPERATIVE DIAGNOSES: Recurrent pleural effusion and trapped right lower lobe, recent history of percutaneous coronary intervention, chronic kidney disease, severe hypertension, anticoagulation with Plavix, abnormal clotting studies, chronic anemia. POSTOPERATIVE DIAGNOSES: Recurrent pleural effusion and trapped right lower lobe, recent history of percutaneous coronary intervention, chronic kidney disease, severe hypertension, anticoagulation with Plavix, abnormal clotting studies, chronic anemia. ANESTHESIA: General endotracheal anesthesia. OPERATIVE SPECIMENS: Bronchoscopy with washings from the right lower lobe. OPERATIVE COMPLICATIONS: Bleeding at trocar insertion site. OPERATIVE BLOOD LOSS: 50 cc. CONDITION: Stable. DISPOSITION: ICU. OPERATIVE FINDINGS: 1. Double lumen endotracheal tube with position confirmed by bronchoscopy. 2. Anemia on initial arterial blood gas, transfusion given by anesthesia. Elevated PTT with near normalization on mixing study, FFP transfused during the procedure. 3. Dense adhesions to the lower lobe requiring a posterior working port and a lateral utility thoracotomy below which 2 cm opening in the visceral pleura was repaired with electrocautery and Progel. 4. Blunt and sharp removal of multiple adhesions to the right lower lobe with incomplete reexpansion, no significant adhesions to the upper and middle lobe with good reexpansion. 5. Six grams aerosolized talc. No air leak on positive pressure after closing the chest. 6. Bronchoscopy visualizing all mainstem and lobar and segmental bronchi with no endobronchial lesions and no significant amount of mucus. A 30 cc washings from the right lower lobe sent for culture. 7. Evidence of coagulopathy consistent with platelet dysfunction and recent Plavix therapy. OPERATIVE REPORT [id number] YODIT TRAORE OPERATIVE INDICATION: Recurrent right pleural effusion with 2 previous thoracenteses in January and in February following right coronary artery intervention in a patient with chronic kidney disease. OPERATIVE SUMMARY IN DETAIL: The patient was brought to the operating suite. Double lumen general endotracheal anesthesia was obtained, position confirmed with bronchoscopy. The patient was turned into the left lateral decubitus position with appropriate padding. The right chest was sterilely prepped and draped. Right lung was deflated at the level of the tip of the scapula and posteriorly, the pleural space was entered and the scope was introduced. Significant lung adhesions were noted and the lung would not fall away from the chest. Therefore, a working port was made in approximately the anterior axillary line fifth interspace and air was introduced into the chest. This incision was slightly enlarged by stretching the muscle and using direct suctioning, visualized some bleeding along the visceral pleura directly below this incision, which was controlled with electrocautery. The adhesions were taken down sharply and using blunt dissection and then thorough irrigation was undertaken mobilizing all of the lower lobe and as much of the dense visceral pleural reaction as possible. Progel was placed on the visceral pleura below the lateral incision. Then, talc was placed within the pleural cavity. A chest tube was directed apically from a separate chest tube site and the wounds were closed muscle layer, subcutaneous, and subcuticular. The patient was turned supine. Single lumen tube was placed. Bronchoscopy was performed with no endobronchial lesions seen and washings were performed. The patient is stable to CV ICU. TRANSINT:[id number] Voice Confirmation ID: [id number] DOCUMENT ID: [id number] SOM NAZARIO MD at 1021 CC: TRISHA KLEIN MD and PATRICIA IMSHRA [id number] DICTATION DATE: 05/10/19 1352 TAX SENIOR ASSOCIATE: 05/10/19 1419 ADM IN [facility] [address] [place] [address]
--- NOTE | 2019-05-11 11:20 | NUR ---
WALDEN AND A LINE DCD PER PROTOCOL TIPS INTACT, DRESSING TO RFA SKIN TEAR CHANGED
[2019-05-11 13:10] LABS: FUNGUS STAIN Final report (())
[2019-05-11 14:09] LABS: ACLA - IGG AB <9 GPL U/mL (0-14); ACLA - IGM AB <9 MPL U/mL (0-12)
--- NOTE | 2019-05-11 17:39 | NUR ---
1200 ATE 25% LUNCH 1300 STOOD AND REPOSITONED IN CHAIR 1500 REPOSITIONED IN CHAIR 1700 ATE 25% DINNER HOURLY IS AND FLUTTER VALVE
--- NOTE | 2019-05-11 18:32 | NUR ---
PT UNABLE TO VOID SINCE WALDEN REMOVED, BLADDER SCAN SHOWED 116ML, DR NAZARIO NOTIFIED WITH ORDERS TO ASK RENAL, RENAL HUMAN [employer] PAGED
--- NOTE | 2019-05-11 18:58 | NUR ---
PAGED RENAL (ANTHONY)
[2019-05-12] VITALS (19 sets, daily range): BP systolic 98–134; BP diastolic 42–76
[2019-05-12 05:44] LABS: BASOPHILS 0.2 % (0-2); EOSINOPHILS 1.5 % (0-7); HEMATOCRIT 25.8 % (42.0-54.0); HEMOGLOBIN 8.3 g/dL (13.5-17.5); IMMATURE GRANULOCYTES 0.3 % (0-5); MCH 32.8 pg (26.0-34.0); MCHC 32.2 g/dL (31.0-37.0); MEAN PLATELET VOLUME 9.7 fL (7.4-10.4); MONOCYTES 9.3 % (2-11); NEUTROPHILS 81.7 % (40-80); PLATELET COUNT 89 10x3/uL (130-400); RBC 2.53 10x6/uL (4.20-6.10); WBC 6.2 10x3/uL (4.8-10.8)
[2019-05-12 05:56] LABS: APTT 64.1 SECONDS (22.8-39.4); INR 1.36 (0.85-1.17); PROTIME 16.2 SECONDS (11.6-15.0)
[2019-05-12 05:57] LABS: D-DIMER-QUANTITATIVE 1.96 ug/mLFEU (0.20-0.54)
[2019-05-12 06:03] LABS: ALBUMIN 2.1 g/dL (3.4-5.0); ANION GAP 10.6 mmol/L (8-16); BILIRUBIN - TOTAL 0.77 mg/dL (0.2-1.3); CALCIUM 7.2 mg/dL (8.5-10.1); CARBON DIOXIDE 28.6 mmol/L (21.0-32.0); PHOSPHOROUS 5.2 mg/dL (2.5-4.9); POTASSIUM - SERUM 5.2 mmol/L (3.5-5.1); PROTEIN - SERUM 5.9 g/dL (6.4-8.2)
--- NOTE | 2019-05-12 07:00 | NUR ---
REPORT RECIEVED FROM THE OFF GOING RN. SEE ASSESSMENT IN THE PTS FLOW SHEET. PT CONFUSED BUT ALERT. VSS AT THIS TIME. O2 AT 2L VIA NC. NON PRODUCTIVE COUGH NOTED. INSTRUCTED THE PT TO USE HIS IS BUT PT UNABLE TO DO SO. RIGHT CVL NOTED TO RIGHT JUGULAR. RIGHT LATERAL CHEST TUBE NOTED TO WATER SEAL. NO AIR LEAK NOTED. DR MACKEY IN THE UNIT. PT DENIES PAIN/NEEDS AT THIS TIME. WILL CONT POC.
--- NOTE | 2019-05-12 08:23 | NUR ---
FC INSERTED USING STERILE TECHNIQUE. UA SENT DOWN TO THE LAB. YELLOW/RED TINGED URINE NOTED WITH SMALL CLOTS. PT TOLERATED WELL. AT THE PTS BEDSIDE.
[2019-05-12 08:39] LABS: APPEARANCE HAZY (CLEAR); COLOR YELLOW (YELLOW)
[2019-05-12 08:40] LABS: BACTERIA FEW /hpf (NONE SEEN); BILIRUBIN NEGATIVE (NEGATIVE); EPITHELIAL CELLS 0-5 /hpf (0-5); GLUCOSE NEGATIVE (NEGATIVE); KETONE NEGATIVE (NEGATIVE); MUCUS <1+ /lpf (NONE SEEN); NITRITE NEGATIVE (NEGATIVE); PROTEIN TRACE mg/dL (NEGATIVE); UROBILINOGEN NORMAL (NORMAL); WHITE CELLS - URINE OCC /hpf (0-5); YEAST <1+ /hpf (NONE SEEN)
--- NOTE | 2019-05-12 08:48 | NUR ---
WAS NOTIFIED BY THE OFF GOING RN THAT THE PT HAD AN IN AND OUT AND HAD 500 CC REMOVED.
--- NOTE | 2019-05-12 08:51 | NUR ---
DR MACKEY PAGED TO SPEAK TO THE PTS .
[2019-05-12 09:10] LABS: ACID FAST SMEAR Negative (()); AFB SPECIMEN PROCESSING Concentration (())
--- NOTE | 2019-05-12 10:15 | NUR ---
PT BECOMING MORE LETHARGIC. PT UNABLE TO BE AROUSED SPO2 62%. DR KIMBROUGH AND RT PAGED O2 INCRASED TO 10L VIA NC AND PT PUT INTO BED. DR KIMBROUGH STATED TO PUT THE PT ON BIPAP AND FOR A STAT ABG AND CXRAY. DR NAZARIO WALKED IN AT THIS TIME AND SPOKE WITH THE . AFTER A FEW MINUTES OF BIPAP, THE PTS SPO2 INCREASED OVER 95%. ABG RESULTS RECEIVED AND DR KIMBROUGH IN CVICU AND ASSESSING THE PT. PT BECOMING MORE ALERT. ORDERS FOR LASIX NOW. SEE MAR. WILL CONT POC.
--- NOTE | 2019-05-12 10:23 | NUR ---
Nutrition Follow-up: S/p VATS on 05/10. reports decreased appetite/PO intake since surgery. Diet: Renal Wt: 173# Last BM: reports 3-4 days ago Labs noted: Na 132, K+ 5.2, PO4 5.2, Ca 7.2, GFR 12, Alb 2.1 Meds noted: Lasix, Phoslo Continue current diet as tolerated. Ethel food preferences within diet restrictions. RD following.
[2019-05-12 10:37] LABS: CREATININE - URINE 75.8 mg/dL (30-125)
[2019-05-12 11:07] LABS: ALBUMIN 2.2 g/dL (3.4-5.0); ANION GAP 11.6 mmol/L (8-16); CALCIUM 7.4 mg/dL (8.5-10.1); CARBON DIOXIDE 29.8 mmol/L (21.0-32.0); CREATININE - SERUM 5.3 mg/dL (0.6-1.3); PHOSPHOROUS 5.8 mg/dL (2.5-4.9); POTASSIUM - SERUM 5.4 mmol/L (3.5-5.1)
--- NOTE | 2019-05-12 11:17 | NUR ---
PT BECOMING MUCH MORE ALERT. CONT BIPAP. SPO2 97%. WILL CONT POC.
--- NOTE | 2019-05-12 13:43 | NUR ---
DR SOSA NOTED ABOUT H&H DROPPING. GIVE 1 UNIT PRBC MARLENA AND REPEAT LASIX ONCE BLOOD IS COMPLETED.
--- NOTE | 2019-05-12 14:02 | NUR ---
DR MISHRA REPAGED ABOUT HIS CONSULT.
--- NOTE | 2019-05-12 15:10 | NUR ---
PRBC VERIFIED WITH ANOTHER NURSE. PRBC'S INFUSION STARTED. NO S/SX OF TRASFUSION REACTION AT THIS TIME.
--- NOTE | 2019-05-12 16:24 | NUR ---
DR NAZARIO AT THE PTS BEDSIDE. CT REMOVED. DRESSING APPLIED. PT TOLERATED WELL. WILL CONT POC.
--- NOTE | 2019-05-12 21:31 | NUR ---
PT CONFUSED NOT ABLE TO ANSWER WHERE HE IS LOCATED, ATTEMPTING TO PULL BIPAP OFF, REFUSING TO TAKE MEDS, FAMILY AT BEDSIDE ATTEMPTING TO ASSIST WITH PT, WILL CONTINUE TO MONITOR
[2019-05-13] VITALS (24 sets, daily range): BP systolic 107–178; BP diastolic 44–81
--- NOTE | 2019-05-13 01:50 | NUR ---
PT INCREASED CONFUSION PULLING BIPAP, MULTIPLE ATTEMPTS TO REORIENT, REPOSITIONED BIPAP AND CALMED PT, VSS, WILL CONTINUE TO MONITOR
[2019-05-13 04:20] LABS: BASOPHILS 1.1 % (0-2); EOSINOPHILS 1.3 % (0-7); HEMATOCRIT 23.9 % (42.0-54.0); HEMOGLOBIN 7.8 g/dL (13.5-17.5); IMMATURE GRANULOCYTES 0.2 % (0-5); LYMPHOCYTES 7.3 % (15-50); MCH 31.8 pg (26.0-34.0); MCHC 32.6 g/dL (31.0-37.0); MCV 97.6 fL (80.0-100.0); MEAN PLATELET VOLUME 9.9 fL (7.4-10.4); MONOCYTES 8.5 % (2-11); NEUTROPHILS 81.6 % (40-80); PLATELET COUNT 76 10x3/uL (130-400); RBC 2.45 10x6/uL (4.20-6.10); RDW 18.4 % (11.5-14.5); WBC 4.5 10x3/uL (4.8-10.8)
[2019-05-13 04:28] LABS: INR 1.37 (0.85-1.17); PROTIME 16.3 SECONDS (11.6-15.0)
--- NOTE | 2019-05-13 04:30 | NUR ---
CHG/BATH GIVEN, COMPLETE LINEN CHANGE AND YELLOW GOWN PLACED ON PT
[2019-05-13 04:34] LABS: ALBUMIN 1.9 g/dL (3.4-5.0); BILIRUBIN - TOTAL 0.79 mg/dL (0.2-1.3); CARBON DIOXIDE 27.8 mmol/L (21.0-32.0); CREATININE - SERUM 5.3 mg/dL (0.6-1.3); PHOSPHOROUS 5.3 mg/dL (2.5-4.9); POTASSIUM - SERUM 4.8 mmol/L (3.5-5.1); PROTEIN - SERUM 5.6 g/dL (6.4-8.2)
[2019-05-13 04:42] LABS: PLATELET ESTIMATE DECREASED
--- NOTE | 2019-05-13 05:00 | NUR ---
AT BEDSIDE, UPDATE GIVEN, STATES SHE WOULD LIKE TO BE HERE FOR WHEN ROUNDS ON PT.
--- NOTE | 2019-05-13 06:00 | NUR ---
AT BEDSIDE, UPDATE GIVEN, AT BEDSIDE, VSS, WILL [id number] TO MONITOR
--- NOTE | 2019-05-13 07:05 | NUR ---
STATED TRIALYSIS CATH TO BE PLACED BY TODAY
[2019-05-13 07:14] LABS: HEXAGONAL PHASE PHOS 41 sec (0-11); LUPUS - INTERPRETATION Comment: (()); LUPUS - THROMBIN TIME 17.9 sec (0.0-23.0); LUPUS - dRVVT 55.7 sec (0.0-47.0); LUPUS - dRVVT CONFIRMATION 1.2 ratio (0.8-1.2); PTT-LA 89.5 sec (0.0-51.9); PTT-LA MIX 80.5 sec (0.0-48.9)
--- NOTE | 2019-05-13 15:35 | OP ---
PATIENT NAME: YODIT TRAORE MEDICAL RECORD: [id number] :45 LOCATION:[id number] ADMISSION DATE:05/09/19 SURGEON: SOM HERNANDES MD DATE OF OPERATION: 05/13/2019 SURGEON: Som Hernandes MD ANESTHESIA: 1 % local Xylocaine, 5 mL. PROCEDURE: Right femoral venous dialysis access catheter insertion. INDICATION: Chronic kidney disease. PROCEDURE IN DETAIL: With the patient supine in intensive care with a heart rate, blood pressure, and pulse oximetry monitored, the patient had a strong palpable right femoral pulse. The right groin was sterilely prepped and draped under sterile conditions, the local anesthetic was instilled. The right femoral artery was cannulated. Guidewire was passed easily. Sequential dilators were passed after making a small skin incision and then the Trialysis catheter was inserted. Good blood return was noted. The lumen was flushed and the catheter was sutured in place. A sterile dressing was applied. No apparent complications. TRANSINT:[id number] Voice Confirmation ID: [id number] DOCUMENT ID: [id number] SOM HERNANDES MD at 1535 CC: [id number] DICTATION DATE: 05/13/19 0848 CABINET ABRASIVE SANDBLASTER: 05/13/19 0904 [place] [address]
--- NOTE | 2019-05-13 19:30 | NUR ---
REPORT RECEIVED INITIAL ASSESSMENT COMPLETE. PT ALERT REPEATS WHAT RN SAYS DOES NOT ANSWER WHEN ASKED OR NAME. HE DOES FOLLOW COMMANDS WITH BUE AND BLE EQUAL FURNACE LOADER MODERATE WEAKNESS. JUSTYN. ABLE TO UNDERSTAND SOME OF SPEECH BUT MOST IS PT REPEATING WHAT RN SAYS. RESP EVEN AND NONLABORED O2 PER NC AT 2LPM O2 SAT 99%. LUNG SOUNDS COARSE RHONCHI AND DIMINISHED TO BASES. ENCOURAGED TO TCDB. PT HAS PRODUCTIVE COUGH WITH WHITE SECRETIONS. CM READING SR WITHOUT ECTOPY ALARMS ON AND AUDIBLE. WALDEN PATENT SKIN WD. DRESSING CDI TO RIGHT GROIN AND RIGHT ARM SKIN TEAR. AND DRESSING TO CHEST CDI. VSS AT THIS TIME WILL CONTINUE TO MONITOR
--- NOTE | 2019-05-13 20:30 | NUR ---
HERE AT BEDSIDE FOR VISITATION UPDATE GIVEN
--- NOTE | 2019-05-13 21:00 | NUR ---
PT HAS HAD BM STATES I GOTTA GO INFORMED TO GO AHEAD AND FINISH WOULD GET HIM CLEANED UP. COMPLETE CHG BATH GIVEN
--- NOTE | 2019-05-13 21:22 | NUR ---
PT STATES CLEARLY "OH IT HURTS" REMAINS AT BEDSIDE BOTH RN AND SPOUSE ASKED WHERE HE HURT UNABLE TO VERBALIZE WHERE BUT KEPT STATING "IT HURTS" SEE EMAR MEDICATED PER PRN MED WILL MONITOR
--- NOTE | 2019-05-13 22:06 | NUR ---
PT RESTING QUIETLY VSS PLACED ON BIPAP PER RESP THERAPY 40%
--- NOTE | 2019-05-13 23:00 | NUR ---
REASSESSMENT MADE NO CHANGES VSS REPOSITIONED FOR COMFORT TCDB CPOC
[2019-05-14] VITALS (24 sets, daily range): BP systolic 106–158; BP diastolic 39–95
--- NOTE | 2019-05-14 03:00 | NUR ---
REASSESSMENT MADE PT RESTING QUIETLY CONTINUES TO JERK IF STARTLED IN SLEEP WAS REPORTED YESTERDAY. VSS WILL CONTINUE TO MONITOR
[2019-05-14 06:09] LABS: HEPATITIS C ANTIBODY <0.1 (0.0-0.9)
[2019-05-14 06:30] LABS: ANION GAP 11.4 mmol/L (8-16); BILIRUBIN - TOTAL 0.75 mg/dL (0.2-1.3); CALCIUM 7.5 mg/dL (8.5-10.1); CARBON DIOXIDE 28.7 mmol/L (21.0-32.0); MAGNESIUM - SERUM 1.8 mg/dL (1.8-2.4); POTASSIUM - SERUM 4.1 mmol/L (3.5-5.1); PROTEIN - SERUM 5.2 g/dL (6.4-8.2)
[2019-05-14 06:31] LABS: CREATININE - SERUM 3.8 mg/dL (0.6-1.3); PHOSPHOROUS 3.8 mg/dL (2.5-4.9)
[2019-05-14 06:41] LABS: BASOPHILS 0.2 % (0-2); EOSINOPHILS 1.3 % (0-7); HEMATOCRIT 26.2 % (42.0-54.0); HEMOGLOBIN 8.8 g/dL (13.5-17.5); IMMATURE GRANULOCYTES 0.2 % (0-5); LYMPHOCYTES 3.7 % (15-50); MCH 31.9 pg (26.0-34.0); MCHC 33.6 g/dL (31.0-37.0); MCV 94.9 fL (80.0-100.0); MEAN PLATELET VOLUME 9.5 fL (7.4-10.4); MONOCYTES 6.4 % (2-11); NEUTROPHILS 88.2 % (40-80); PLATELET COUNT 96 10x3/uL (130-400); RBC 2.76 10x6/uL (4.20-6.10); RDW 18.2 % (11.5-14.5)
[2019-05-14 06:42] LABS: PLATELET ESTIMATE DECREASED
--- NOTE | 2019-05-14 06:45 | NUR ---
LAB CALLED GLUCOSE 62 D5 1/2 NS RESTARTED PT HAD LARGE BM COMPLETE LINEN CHANGE AND BATH. PT VERBAL CURSING WITH REPOSITIONING.
--- NOTE | 2019-05-14 09:00 | NUR ---
TOO LETHARGIC TO TAKE PO MEDS.
--- NOTE | 2019-05-14 12:12 | NUR ---
1045: ATIVAN 1MG GIVEN IV SLOWLY IN PREP FOR MRI. 1100: TO MRI VIA STRETCHER. 1150: RETURN FROM MRI VIA STRETCHER. TURNED ON TO L SIDE. RESTING.
--- NOTE | 2019-05-14 19:30 | NUR ---
REPORT RECEIVED. INITIAL ASSESSMENT COMPLETE. PT STILL CONFUSED BUT SPEECH ABLE TO UNDERSTAND. JERKING STARTLE LIKE MOVEMENTS NOT OFTEN. RESP DYSPNEA WITH EXERTION CHEST SOUNDS NOT COARSE LAST NIGHT. FAINT CRACKLES NOTED AND DIMINISHED TO BASES. ON 2LPM NC WITH O2 SAT 97. RIGHT IJ CENTRAL LINE WITH D5 1/2NS INFUSING VIA PUMP. CVP ZEROED AND CALIBRATED WITH READING OF 10. CM READING SR WITH OCC PAC. ALARMS ON AND AUDIBLE. REPOSITIONED PT FOR COMFORT CALL LIGHT IN REACH VSS CPOC. SEE FLOWSHEET FOR FULL ASSESSMENT
--- NOTE | 2019-05-14 20:01 | NUR ---
PTS AT BEDSIDE FOR VISITATION UPDATE GIVEN. CONSENT WAS SIGNED FOR TRIALYSIS CATH PLACEMENT IF NEEDED. PT DID VOICE CONCERNS OF PT BEING CLAUSTROPHOBIC AND REQUESTED IF POSSIBLE NOT TO COVER PTS FACE WITH DRAPE. NOTE WAS CLIPPED WITH CONSENT AND WILL PASS ON IN REPORT TOMORROW MORNING
--- NOTE | 2019-05-14 21:22 | NUR ---
PTS OUT TO NURSES STATION STATES HE HAD TALKED TO HER MORE TONIGHT THEN ALL DAY OR YESTERDAY. STATES HE IS RESTING NOW SHE WILL BE BACK IN AM.
--- NOTE | 2019-05-14 22:00 | NUR ---
PT PLACED ON BIPAP PER RT. DOES NOT WANT TO KEEP IT ON KEEPS REACHING TO REMOVE WILL CONTINUE TO MONITOR
[2019-05-15] VITALS (24 sets, daily range): BP systolic 122–183; BP diastolic 53–95
--- NOTE | 2019-05-15 | NUR ---
BILATERAL SOFT WRIST RESTRAINTS APPLIED PT CONTINUOUSLY PULLING BIPAP OFF WILL CONTINUE TO MONITOR
--- NOTE | 2019-05-15 03:00 | NUR ---
REASSESSMENT MADE SEE FLOWSHEET. BIPAP CONTINUES AT 30. TCDB
--- NOTE | 2019-05-15 04:45 | NUR ---
PT BP TRENDING UP LASIX DOSE GIVEN EARLY WILL CONTINUE TO MONITOR
[2019-05-15 06:10] LABS: BASOPHILS 0.1 % (0-2); EOSINOPHILS 1.3 % (0-7); HEMATOCRIT 27.6 % (42.0-54.0); HEMOGLOBIN 9.3 g/dL (13.5-17.5); IMMATURE GRANULOCYTES 0.1 % (0-5); LYMPHOCYTES 7.3 % (15-50); MCH 32.5 pg (26.0-34.0); MCHC 33.7 g/dL (31.0-37.0); MCV 96.5 fL (80.0-100.0); MEAN PLATELET VOLUME 8.9 fL (7.4-10.4); MONOCYTES 7.3 % (2-11); NEUTROPHILS 83.9 % (40-80); PLATELET COUNT 103 10x3/uL (130-400); RBC 2.86 10x6/uL (4.20-6.10); RDW 17.8 % (11.5-14.5)
[2019-05-15 06:30] LABS: ANION GAP 15.1 mmol/L (8-16); BILIRUBIN - TOTAL 0.7 mg/dL (0.2-1.3); CALCIUM 7.5 mg/dL (8.5-10.1); CARBON DIOXIDE 24.8 mmol/L (21.0-32.0); CREATININE - SERUM 3.8 mg/dL (0.6-1.3); MAGNESIUM - SERUM 1.9 mg/dL (1.8-2.4); PHOSPHOROUS 3.1 mg/dL (2.5-4.9); POTASSIUM - SERUM 3.9 mmol/L (3.5-5.1); PROTEIN - SERUM 5.5 g/dL (6.4-8.2)
--- NOTE | 2019-05-15 06:30 | NUR ---
COMPLETE CHG BATH PT HAD SMALL SEMI LIQUID BROWN STOOL. APPLIED MEPILEX BORDER
--- NOTE | 2019-05-15 19:30 | NUR ---
INITIAL ASSESSMENT COMPLETE SEE FLOWSHEET. PT MORE CLEAR TONIGHT DEMANDING CURSING ANGRY AND TELLS NURSE TO SHUT UP AND GET OUT. CM INTACT READING SR ALARMS ON AND AUDIBLE.
--- NOTE | 2019-05-15 22:20 | NUR ---
WITH BIPAP PT GETS EXTREMELY AGITATED HYPERTENSIVE SEE PRN EMAR.
[2019-05-16] VITALS (24 sets, daily range): BP systolic 128–170; BP diastolic 6–96
--- NOTE | 2019-05-16 | NUR ---
PT CONTINUES TO PULL AT BIPAP ANGRY HYPERTENSIVE CURSING SOFT WRIST RESTRAINTS APPLIED PER ORDER
--- NOTE | 2019-05-16 03:00 | NUR ---
REASSESSMENT MADE NO CHANGES
[2019-05-16 06:18] LABS: BASOPHILS 0.1 % (0-2); EOSINOPHILS 0.7 % (0-7); HEMATOCRIT 30.4 % (42.0-54.0); HEMOGLOBIN 10.3 g/dL (13.5-17.5); IMMATURE GRANULOCYTES 0.3 % (0-5); LYMPHOCYTES 4.2 % (15-50); MCH 32.4 pg (26.0-34.0); MCHC 33.9 g/dL (31.0-37.0); MCV 95.6 fL (80.0-100.0); MEAN PLATELET VOLUME 9.7 fL (7.4-10.4); MONOCYTES 12.2 % (2-11); NEUTROPHILS 82.5 % (40-80); PLATELET COUNT 123 10x3/uL (130-400); RBC 3.18 10x6/uL (4.20-6.10); RDW 17.1 % (11.5-14.5); WBC 7.6 10x3/uL (4.8-10.8)
[2019-05-16 06:34] LABS: ANION GAP 14.8 mmol/L (8-16); BILIRUBIN - TOTAL 0.62 mg/dL (0.2-1.3); CALCIUM 7.7 mg/dL (8.5-10.1); MAGNESIUM - SERUM 1.8 mg/dL (1.8-2.4); PHOSPHOROUS 3.2 mg/dL (2.5-4.9); POTASSIUM - SERUM 3.8 mmol/L (3.5-5.1); PROTEIN - SERUM 6.2 g/dL (6.4-8.2)
--- NOTE | 2019-05-16 06:41 | NUR ---
PT HAD BM CLEANED CHANGED LINEN. NEW SKIN TEAR TO LEFT HAND COVERED WITH MEPILEX BANDAGE. PT ANGRY CURSING AND PINCHING NURSES HANDS YELLING WANTS MASK OFF INFORMED AFTER ABG DRAWN BY RT
--- NOTE | 2019-05-16 07:00 | NUR ---
REPORT RECEVIED FROM THE OFF GOING RN. SEE ASSESSMENT IN THE PT'S FLOW SHEET. PT ON THE BIPAP. NSR WITH ON THE MONITOR. VSS AT THIS TIME. GENERLIZED BRUSING NOTED THROUGHT THE PTS BODY WITH SKIN TEARS. RIGHT IJ CVL NOTED. DRESSING C/D/I. RIGHT LATERAL DRESSING C/D/I. FC NOTED WITH CLEAR, YELLOW URINE. BIPAP REMOVED PER RT AND PLACED ON O2. PT CONFUSED. PT ALERT TO PERSON ONLY. PT STATED HE WAS IN [facility] AND DOES NOT ORIENTED TO TIME WHAT SO EVER AND DOES NOT KNOW WHY HE IS IN THE HOSPITAL. AT THE PTS BEDSIDE. RESTRAINTS REMOVED FROM THE PT. PT CALM AND COOPERATIVE AT THIS TIME. WILL CONT POC.
--- NOTE | 2019-05-16 08:22 | NUR ---
AFTER A SIP OF WATER AND WITH THE AT THE PTS BEDSIDE, THE PT LOOKED AT ME AND HIS AND STATED. "IM IN [facility]. IM IN [facility] FOR A LUNG PROCEDURE" METAL STATUS IMPROVED DRASTICALLY ALL OF THE SUDDEN. PT REQUEST A BEDPAN. IT WAS PROVIDED. CALL LIGHT IN REACH. WILL CONT POC.
--- NOTE | 2019-05-16 09:00 | NUR ---
PT HAD SMALL WATEREY BM. FULL CHD BATH GIVEN AND PT ASKED TO GET OOB. PT ASSISTED AND DANLGED AT THE BEDSIDE AND TOLERATED WELL. HE THEN ASKED TO USE THE BSC. IT WAS PROVIDED AND HE HAD A LARGE FORMED BM. PT WAS CLEANED AND ASSISTED TO THE BEDSIDE COMMOND. PT ALERT TO PERSON AND PLACE BUT NOT TIME AND SITUATION. SLIGHTLY WORSENING CONFUSION NOTED. AT THE PTS BEDSIDE AND SHE WILL REMAIN TO HELP REORIENT THE PT. VSS AT THIS TIME. CALL LIGTH IN REACH. WILL CONT POC.
--- NOTE | 2019-05-16 09:58 | NUR ---
Nutrition Follow-up: reports that pt has not been eating 2/[address] confusion. Not[address] mention of [address] eval to r/o aspiration; no ST eval noted. Diet: Renal Full Liquid Wt: 140# Last BM: 05/16 Labs reviewed Meds reviewed Rec ST eval and advance diet if able. RD available to assist with nutrition support if needed. RD following.
--- NOTE | 2019-05-16 11:29 | NUR ---
ST AT THE PTS BEDSIDE. OK FOR THIN LIQUIDS AND PURREE.
--- NOTE | 2019-05-16 12:15 | NUR ---
DR KIMBROUGH AT THE PTS BEDSIDE FOR ROUNDS.
--- NOTE | 2019-05-16 13:49 | NUR ---
DR CRUZ STATED TO REPLACE FC.
--- NOTE | 2019-05-16 17:44 | NUR ---
PT ASSISTED TO THE BEDSIDE COMMODE. SMALL AMOUNT OF LIQUID STOOL NOTED. PT CLEANED. WILL CONT POC.
--- NOTE | 2019-05-16 18:28 | NUR ---
FC REPLACED WITH AN 16 UPPER SORBIAN FC PER ORDERS. YELLOW SEDIMENT URINE NOTED. PT TOLERATED WELL. WILL CONT OPC.
--- NOTE | 2019-05-16 19:18 | NUR ---
REPORT RECEIVED, SHIFT ASSESSMENT COMPLETED PER FLOW SHEET, SEE FOR DETAILS. CONFUSED, REORIENTATION PROVIDED. DENIES NEEDS. CALL LIGHT WITHIN REACH. WILL CONTINUE TO MONITOR.
--- NOTE | 2019-05-16 21:07 | NUR ---
SCHEDULED MED GIVEN, TOLERATED WELL. DENIES NEEDS. AT BEDSIDE, DENIES NEEDS. CALL LIGHT WITHIN REACH.
--- NOTE | 2019-05-16 23:01 | NUR ---
REASSESSMENT COMPLETED PER FLOW SHEET, SEE FOR DETAILS. CALL LIGHT WITHIN REACH. CONFUSED, REORIENTATION PROVIDED. WILL CONTINUE TO MONITOR.
[2019-05-17] VITALS (23 sets, daily range): BP systolic 115–151; BP diastolic 53–80
--- NOTE | 2019-05-17 01:00 | NUR ---
RESTING IN BED, NO ACUTE DISTRESS NOTED, WILL CONTINUE TO MONITOR.
--- NOTE | 2019-05-17 03:01 | NUR ---
REASSESSMENT COMPLETED PER FLOW SHEET, SEE FOR DETAILS. CONFUSED, REORIENTATION PROVIDED. CALM AND COOPERATIVE. DENIES NEEDS. CALL LIGHT WITHIN REACH. WILL CONTINUE TO MONITOR.
--- NOTE | 2019-05-17 05:00 | NUR ---
RESTING IN BED, NO ACUTE DISTRESS NOTED. CALL LIGHT WITHIN REACH. WILL CONTINUE TO MONITOR.
[2019-05-17 05:26] LABS: BASOPHILS 0.2 % (0-2); EOSINOPHILS 0.5 % (0-7); HEMATOCRIT 26.6 % (42.0-54.0); HEMOGLOBIN 8.9 g/dL (13.5-17.5); IMMATURE GRANULOCYTES 0.2 % (0-5); MCH 31.7 pg (26.0-34.0); MCHC 33.5 g/dL (31.0-37.0); MCV 94.7 fL (80.0-100.0); MEAN PLATELET VOLUME 9.7 fL (7.4-10.4); MONOCYTES 14.7 % (2-11); NEUTROPHILS 77.4 % (40-80); PLATELET COUNT 117 10x3/uL (130-400); RBC 2.81 10x6/uL (4.20-6.10); RDW 16.9 % (11.5-14.5); WBC 5.7 10x3/uL (4.8-10.8)
[2019-05-17 05:35] LABS: CALCIUM 7.3 mg/dL (8.5-10.1); CARBON DIOXIDE 27.7 mmol/L (21.0-32.0); CREATININE - SERUM 4.4 mg/dL (0.6-1.3); POTASSIUM - SERUM 3.7 mmol/L (3.5-5.1)
--- NOTE | 2019-05-17 06:00 | NUR ---
COMPLETE BED BATH GIVEN, WALDEN CARE PROVIDED, TOLERATED WELL. ASSISSTED OOB TO CHAIR X2 RN ASSISST. DENIES NEEDS. CALL LIGHT WITHIN REACH. WILL CONTINUE TO MONITOR.
--- NOTE | 2019-05-17 09:29 | NUR ---
0700 PT RECIEVED UP IN CHAIR CONFUSED BUT EASILY REORIENTED, O2 2L NC R IJ CVL DRESSING CDI, R LAT CHEST INCISION CDI, WALDEN DRAINING YELLOW URINE, SEE SHIFT ASSESSMENT FOR DETAILS 0900 TOOK AM MEDS AND ATE 25% BREAKFAST AND SEEN BY PT
--- NOTE | 2019-05-17 16:22 | NUR ---
1100 PT ATE 25% LUNCH 1300 HERE FOR VISITATION, UPDATE PROVIDED 1500 PT ASSISTED TO BSC FOR BM, NO BM NOTED 1600 SEEN BY SPEECH
--- NOTE | 2019-05-17 19:00 | NUR ---
PT REPORT RECEIVED FROM DAY SHIFT NURSE. NO COMPLAINTS AT THIS TIME. VSS. WILL CONTINUE TO MONITOR
--- NOTE | 2019-05-17 21:00 | NUR ---
PT RESTING IN BED. FAMILY AT BEDSIDE. NO SIGNS OF DISTRESS NOTED. WILL CONTINUE TO MONITOR
--- NOTE | 2019-05-17 23:02 | NUR ---
PT REASSESSMENT COMPLETED. VSS. NO COMPLAINTS AT THIS TIME. WILL CONTINUE TO MONITOR
[2019-05-18] VITALS (23 sets, daily range): BP systolic 122–162; BP diastolic 56–94
--- NOTE | 2019-05-18 01:00 | NUR ---
PT UP IN CHAIR. TOLERATED WELL. VSS. WILL CONTINUE TO MONITOR
--- NOTE | 2019-05-18 03:00 | NUR ---
PT REASSESSMENT COMPLETED. VSS. WILL CONTINUE TO MONITOR
--- NOTE | 2019-05-18 05:00 | NUR ---
PT UP IN CHAIR. TOLERATED WELL. NO SIGNS OF DISTRESS NOTED. WILL CONTINUE TO MONITOR
[2019-05-18 05:30] LABS: BASOPHILS 0.2 % (0-2); EOSINOPHILS 0.9 % (0-7); HEMATOCRIT 25.2 % (42.0-54.0); HEMOGLOBIN 8.4 g/dL (13.5-17.5); IMMATURE GRANULOCYTES 0.4 % (0-5); MCH 31.8 pg (26.0-34.0); MCHC 33.3 g/dL (31.0-37.0); MCV 95.5 fL (80.0-100.0); MEAN PLATELET VOLUME 9.9 fL (7.4-10.4); MONOCYTES 11.4 % (2-11); NEUTROPHILS 79.1 % (40-80); PLATELET COUNT 115 10x3/uL (130-400); RBC 2.64 10x6/uL (4.20-6.10); RDW 16.9 % (11.5-14.5); WBC 5.4 10x3/uL (4.8-10.8)
[2019-05-18 06:07] LABS: ALBUMIN 1.8 g/dL (3.4-5.0); ANION GAP 12.8 mmol/L (8-16); BILIRUBIN - TOTAL 0.6 mg/dL (0.2-1.3); CALCIUM 7.4 mg/dL (8.5-10.1); CARBON DIOXIDE 24.8 mmol/L (21.0-32.0); CREATININE - SERUM 4.6 mg/dL (0.6-1.3); PHOSPHOROUS 3.7 mg/dL (2.5-4.9); POTASSIUM - SERUM 3.6 mmol/L (3.5-5.1); PROTEIN - SERUM 5.7 g/dL (6.4-8.2)
--- NOTE | 2019-05-18 10:34 | NUR ---
NEPROLOGY OFFICE CALLED AT THIS TIME TO SEE WHAT VENOUS ACCESS THEY WANT AFTER IJ IS REMOVED.
--- NOTE | 2019-05-18 10:49 | NUR ---
Nutrition Follow-up: Diet upgraded to solids with thin liquids per ST. Pt reports that he did not eat much this AM because it was cold but reports pt ate 100% of meal last night. Diet: Renal ADA Wt: 144# Last BM: 05/18 (small) Labs noted: Na 135, K+ 3.6, PO4 3.7, Ca 7.4, Glu 107 Meds noted: Nephrovite, Calcitriol, Phoslo May consider liberalizing to renal diet. Noted no h/o DM. [place] food preferences within diet restrictions. RD following.
--- NOTE | 2019-05-18 11:20 | NUR ---
RIGHT IJ CVL DC'D AT THIS TIME, TIP INTACT, PT TOLERATED WELL
--- NOTE | 2019-05-18 13:00 | NUR ---
PT DENIES ANY NEEDS AT THIS TIME, VSS, CALL LIGHT IN REACH
--- NOTE | 2019-05-18 14:22 | NUR ---
WALKED 170FT WITH PHYSICAL THERAPY AT THIS TIME, TOLERATED WELL,
--- NOTE | 2019-05-18 15:15 | NUR ---
REASSESSMENT COMPLETE, NO CHANGES NOTED, PT RESTING COMFORTABLY AT THIS TIME, VSS, CALL LIGHT IN REACH
--- NOTE | 2019-05-18 17:06 | NUR ---
PIV INFILTRATED. DC'D AT THIS TIME. ASSISTED TO CHAIR. MEAL TRAY SET UP. SPOUSE AT BEDSIDE. NO FURTHER NEEDS AT THIS TIME. WILL CONTINUE TO MONITOR.
--- NOTE | 2019-05-18 17:52 | NUR ---
MEPILEX BORDER DRESSING APPLIED TO SKIN TEAR ON RIGHT FOREARM.
--- NOTE | 2019-05-18 18:33 | NUR ---
PT ATE ABOUT 40% OF DINNER. ASSISTED BACK TO BED AT THIS TIME. WARM BLANKET PROVIDED. WILL CONTINUE TO MONITOR.
--- NOTE | 2019-05-18 19:30 | NUR ---
SHIFT ASSESSMENT COMPLETE. PATIENT SLEEPING AROUSES EASILY TO VERBAL STIMULI. CALL LIGHT WITHIN REACH, BED IN LOW POSITION.
--- NOTE | 2019-05-18 21:00 | NUR ---
PATIENT SLEEPING WITH NO DISTRESS NOTED. REPOSITIONED AND COUGHING COMPLETE . CALL LIGHT WITHIN REACH, BED IN LOW POSITION.
--- NOTE | 2019-05-18 23:00 | NUR ---
REASSESSMENT COMPLETE. CALL LIGHT WITHIN REACH, BED IN LOW POSITION. PATIENT DENIES ANY NEEDS AT THIS TIME.
--- NOTE | 2019-05-18 23:19 | NUR ---
IV STARTED IN L FA WITH ASEPTIC TECHNIQUE USED WITH 20G CATH X1 STICK. GOOD BLOOD RETURN NOTED AND FLUSHED EASILY WITH SALINE FLUSH.
[2019-05-19] VITALS (12 sets, daily range): BP systolic 138–162; BP diastolic 59–73
--- NOTE | 2019-05-19 00:22 | NUR ---
PATIENT REQUESTING TO GET UP TO CHAIR. ASSISTED UP TO CHAIR WITH MINIMAL ASSIST. WALDNE AND IV INTACT AND PATIENT.
[2019-05-19 04:53] LABS: BASOPHILS 0.2 % (0-2); EOSINOPHILS 1.3 % (0-7); HEMATOCRIT 26.8 % (42.0-54.0); HEMOGLOBIN 8.7 g/dL (13.5-17.5); IMMATURE GRANULOCYTES 0.8 % (0-5); LYMPHOCYTES 9.4 % (15-50); MCH 31.1 pg (26.0-34.0); MCHC 32.5 g/dL (31.0-37.0); MCV 95.7 fL (80.0-100.0); MEAN PLATELET VOLUME 10.1 fL (7.4-10.4); MONOCYTES 10.9 % (2-11); NEUTROPHILS 77.4 % (40-80); PLATELET COUNT 132 10x3/uL (130-400); RDW 16.5 % (11.5-14.5); WBC 5.3 10x3/uL (4.8-10.8)
[2019-05-19 05:22] LABS: ALBUMIN 1.9 g/dL (3.4-5.0); ANION GAP 13.5 mmol/L (8-16); BILIRUBIN - TOTAL 0.67 mg/dL (0.2-1.3); CALCIUM 7.8 mg/dL (8.5-10.1); POTASSIUM - SERUM 3.5 mmol/L (3.5-5.1)
--- NOTE | 2019-05-19 07:40 | NUR ---
PATIENT NEEDS ANOTHER ROUND OF DIALYSIS TODAY PER DR. MACKEY. OBTAINED CONSENT AND PAGED NOTIFIED DR. GAN.
--- NOTE | 2019-05-19 09:00 | NUR ---
PT ATTEMPTED BM ON BSC--VERY SMALL. ASSISTED BACK TO BED FROM CHAIR IN PREPARATION FOR TRIALYSIS PLACEMENT BY DR. GAN. VSS. IN ROOM. WILL CONTINUE TO MONITOR.
--- NOTE | 2019-05-19 09:41 | NUR ---
ZOLTAN COLLAZO APN FOR NEPHROLOGY. OBTAINED PERMISSION FOR PATIENT TO DIALYZE IN DIALYSIS CENTER TODAY SINCE TRANSFERRING TO FLOOR AFTERWORDS.
--- NOTE | 2019-05-19 10:24 | NUR ---
DR. GAN HERE FOR TRIALYSIS PLACEMENT. SUPPLIES IN ROOM
--- NOTE | 2019-05-19 11:00 | NUR ---
RIGHT IJ TRIALYSIS CATH PLACED BY DR. GAN. VERIFIED BY CHEST XRAY.
--- NOTE | 2019-05-19 11:05 | NUR ---
REMOVED WALDEN PER ORDERS
--- NOTE | 2019-05-19 11:22 | NUR ---
TAKEN DOWN TO DIALYSIS CENTER VIA WHEEL CHAIR. VSS.
--- NOTE | 2019-05-19 11:57 | NUR ---
CALLED REPORT TO MED 2 NURSE. PATIENT IN DIALYSIS CENTER NOW
--- NOTE | 2019-05-19 14:43 | NUR ---
PT ARRIVED TO FLOOR FROM DIALYSIS. VSS AND WNL. DENIES ANY NEEDS AT THIS TIME, WILL CONT TO FOLLOW POC
--- NOTE | 2019-05-19 18:09 | NUR ---
PT RESTING IN BED, AT BEDSIDE. DENIES ANY NEEDS AT THIS TIME. WILL CONT TO FOLLOW POC
--- NOTE | 2019-05-19 20:00 | NUR ---
ALERT, PEROIDS OF CONFUSIION, AT BEDSIDE, PT AND STATE HE WENT TO BATHROOM AND VOIDED JUST A LITTLE WHILE AGO, URINAL GIVEN INSTRUCTED TO USE IT SO COULD MEASURE URINE OUTPUT, VERBALIZED UNDERSTANDING, SEE SHIFT ASSESSMENT, CALL LIGHT IN REACH
[2019-05-20] VITALS: BP 145/63
[2019-05-20 04:00] VITALS: BP 166/66
[2019-05-20 05:44] LABS: BASOPHILS 0.2 % (0-2); EOSINOPHILS 0.3 % (0-7); HEMOGLOBIN 8.3 g/dL (13.5-17.5); IMMATURE GRANULOCYTES 0.2 % (0-5); LYMPHOCYTES 7.2 % (15-50); MCH 31.8 pg (26.0-34.0); MCHC 33.2 g/dL (31.0-37.0); MCV 95.8 fL (80.0-100.0); MEAN PLATELET VOLUME 9.7 fL (7.4-10.4); MONOCYTES 9.6 % (2-11); NEUTROPHILS 82.5 % (40-80); PLATELET COUNT 141 10x3/uL (130-400); RBC 2.61 10x6/uL (4.20-6.10); RDW 16.4 % (11.5-14.5); WBC 6.1 10x3/uL (4.8-10.8)
[2019-05-20 06:11] LABS: ALBUMIN 1.9 g/dL (3.4-5.0); ANION GAP 12.2 mmol/L (8-16); BILIRUBIN - TOTAL 0.72 mg/dL (0.2-1.3); CALCIUM 7.9 mg/dL (8.5-10.1); CARBON DIOXIDE 27.6 mmol/L (21.0-32.0); CREATININE - SERUM 3.8 mg/dL (0.6-1.3); PHOSPHOROUS 3.3 mg/dL (2.5-4.9); POTASSIUM - SERUM 3.8 mmol/L (3.5-5.1); PROTEIN - SERUM 5.6 g/dL (6.4-8.2)
[2019-05-20 08:37] VITALS: BP 157/72
[2019-05-20 12:25] VITALS: BP 154/66
--- NOTE | 2019-05-20 12:56 | NUR ---
Nutrition Follow-up: Pt eating lunch at time of visit. Appetite/PO intake seem to be improving. Diet: Renal ADA Wt: 146# Last BM: 05/20 Labs noted: K+ 3.8, PO4 3.3, Ca 7.9, Alb 1.9, Glu 83 Meds noted: Nephrovite, Calcitriol, Phoslo May considering liberalizing to renal diet. No h/o DM noted. [place] food preferences within diet restrictions. RD following.
[2019-05-20 15:25] VITALS: BP 156/72
--- NOTE | 2019-05-20 15:52 | NUR ---
I have reviewed this patient and I concur with the Shift Assessment completed by the Licensed Practical Nurse today this shift.
[2019-05-20 20:00] VITALS: BP 155/61
--- NOTE | 2019-05-20 20:00 | NUR ---
SUPINE IN CHAIR IN ROOM, AT BS. A&O X 4. DENIES PAIN/DISCOMFORT. AMBULATES INDEPENDENTLY, W/O DIFFICULTY TO BED. LUNG SOUNDS CTA IN RUL, ANGELICA, RML, LLL. RLL LUNG SOUNDS DIMINISHED. DRESSING TO RIGHT FOREARM C/D/I. PT REQUESTS BANDAGE FOR LEFT HAND SKIN TEAR. WRAPPED HAND WITH KERLEX AND SECURED WITH TAPE. DENIES FURTHER NEEDS. BED ALARM IN USE, WILL CONTINUE TO MONITOR.
[2019-05-21] VITALS: BP 111/66
[2019-05-21 04:00] VITALS: BP 146/71
[2019-05-21 05:07] LABS: BASOPHILS 0.2 % (0-2); EOSINOPHILS 0.7 % (0-7); HEMATOCRIT 24.4 % (42.0-54.0); IMMATURE GRANULOCYTES 0.2 % (0-5); LYMPHOCYTES 7.2 % (15-50); MCH 31.5 pg (26.0-34.0); MCHC 32.8 g/dL (31.0-37.0); MCV 96.1 fL (80.0-100.0); MEAN PLATELET VOLUME 9.3 fL (7.4-10.4); MONOCYTES 11.9 % (2-11); NEUTROPHILS 79.8 % (40-80); PLATELET COUNT 138 10x3/uL (130-400); RBC 2.54 10x6/uL (4.20-6.10); RDW 16.1 % (11.5-14.5); WBC 6.1 10x3/uL (4.8-10.8)
[2019-05-21 05:28] LABS: ANION GAP 13.7 mmol/L (8-16); BILIRUBIN - TOTAL 0.72 mg/dL (0.2-1.3); CALCIUM 8.6 mg/dL (8.5-10.1); POTASSIUM - SERUM 3.7 mmol/L (3.5-5.1); PROTEIN - SERUM 5.7 g/dL (6.4-8.2)
[2019-05-21 05:30] LABS: PHOSPHOROUS 4.2 mg/dL (2.5-4.9)
[2019-05-21 09:35] VITALS: BP 142/63
--- NOTE | 2019-05-21 09:43 | NUR ---
PATIENT IS SITTING UP IN BED EATTING BREAKFAST. AT BEDSIDE. PATIENT HAS GENERALIZED SKIN TEARS AND BRUISES ON HIS HANDS AND UPPER ARMS. HE REPORTS FEELING VERY TIRED. HE IS AWARE OF THE HEMOSPLIT PROCEDURE ON THURSDAY. CONSENTS HAVE NOT BEEN SIGNED YET.
--- NOTE | 2019-05-21 13:33 | NUR ---
PATIENT IS IN DIALYSIS NOW.
--- NOTE | 2019-05-21 19:30 | NUR ---
RECEIVED REPORT. WILL ASSUME CARE OF PT, WATCHING BALL GAME WITH , DENIES ANY NEEDS AT THIS TIME, BED IS LOW, SRX2, CALL LIGHT IN REACH, WILL CONTINUE PLAN OF CARE
[2019-05-21 21:35] VITALS: BP 139/71
[2019-05-22] VITALS: BP 122/66
[2019-05-22 04:00] VITALS: BP 121/62
--- NOTE | 2019-05-22 04:50 | NUR ---
I have reviewed this patient and I concur with the Shift Assessment completed by the Licensed Practical Nurse today this shift.
[2019-05-22 05:14] LABS: BASOPHILS 0.2 % (0-2); EOSINOPHILS 0.6 % (0-7); HEMATOCRIT 26.3 % (42.0-54.0); HEMOGLOBIN 8.5 g/dL (13.5-17.5); IMMATURE GRANULOCYTES 0.1 % (0-5); LYMPHOCYTES 9.2 % (15-50); MCH 31.3 pg (26.0-34.0); MCHC 32.3 g/dL (31.0-37.0); MCV 96.7 fL (80.0-100.0); MEAN PLATELET VOLUME 9.4 fL (7.4-10.4); MONOCYTES 8.4 % (2-11); NEUTROPHILS 81.5 % (40-80); RBC 2.72 10x6/uL (4.20-6.10); RDW 16.3 % (11.5-14.5)
[2019-05-22 05:15] LABS: PLATELET COUNT 169 10x3/uL (130-400); WBC 8.1 10x3/uL (4.8-10.8)
[2019-05-22 05:34] LABS: ALBUMIN 2.1 g/dL (3.4-5.0); ANION GAP 12.2 mmol/L (8-16); BILIRUBIN - TOTAL 0.71 mg/dL (0.2-1.3); CARBON DIOXIDE 27.6 mmol/L (21.0-32.0); MAGNESIUM - SERUM 1.9 mg/dL (1.8-2.4); POTASSIUM - SERUM 3.8 mmol/L (3.5-5.1); PROTEIN - SERUM 6.7 g/dL (6.4-8.2)
[2019-05-22 05:35] LABS: CREATININE - SERUM 3.7 mg/dL (0.6-1.3)
--- NOTE | 2019-05-22 07:09 | NUR ---
PT AWAKE AND ORIENTED, SITTING IN BEDSIDE RECLINER. C/O BEING HUNGRY AND CAN'T BELIEVE BREAKFAST IS AT 0800. NO OTHER COMPLAINTS/CONCERNS, ALL QUESTIONS ANSWRED TO THE BEST OF MY ABILITY. CLIN REACH, SRX2. NO FAMILY PRESENT AT THIS TIME.
[2019-05-22 09:05] VITALS: BP 146/61
--- NOTE | 2019-05-22 12:21 | NUR ---
I have reviewed this patient and I concur with the Shift Assessment completed by the Licensed Practical Nurse today this shift.
[2019-05-22 12:31] VITALS: BP 120/57
[2019-05-22 17:41] VITALS: BP 144/62
--- NOTE | 2019-05-22 17:50 | NUR ---
PT HAS BEEN ALERT WITH MOMNENTS OF CONFUSION. FAMILY AT BEDSIDE. NO COMPLAINTS OR CONCERNS AT THIS TIME. CL IN REACH, SRX2
[2019-05-22 20:00] VITALS: BP 146/56
[2019-05-23] VITALS: BP 156/69
[2019-05-23 04:00] VITALS: BP 150/62
[2019-05-23 06:10] LABS: ALBUMIN 2.3 g/dL (3.4-5.0); ANION GAP 13.1 mmol/L (8-16); BILIRUBIN - TOTAL 0.66 mg/dL (0.2-1.3); CARBON DIOXIDE 27.9 mmol/L (21.0-32.0); MAGNESIUM - SERUM 1.8 mg/dL (1.8-2.4); PROTEIN - SERUM 6.4 g/dL (6.4-8.2)
[2019-05-23 06:11] LABS: BASOPHILS 0.1 % (0-2); EOSINOPHILS 0.8 % (0-7); HEMATOCRIT 25.9 % (42.0-54.0); HEMOGLOBIN 8.5 g/dL (13.5-17.5); IMMATURE GRANULOCYTES 0.1 % (0-5); LYMPHOCYTES 7.7 % (15-50); MCH 31.7 pg (26.0-34.0); MCHC 32.8 g/dL (31.0-37.0); MCV 96.6 fL (80.0-100.0); MEAN PLATELET VOLUME 9.7 fL (7.4-10.4); MONOCYTES 10.3 % (2-11); PLATELET COUNT 187 10x3/uL (130-400); RBC 2.68 10x6/uL (4.20-6.10); WBC 7.9 10x3/uL (4.8-10.8)
--- NOTE | 2019-05-23 08:08 | NUR ---
AM MEDS GIVEN AT THIS TIME. PT TOOK ALL MEDICATIONS WITHOUT ANY TROUBLE SWALLOWING. HELPED PT UP TO SIDE OF BED FOR HIM TO EAT BREAKFAST. PT DENIES ANY NEEDS AT THIS TIME. CALL LIGHT IN REACH, SPOUSE AT BEDSIDE, NAD NOTED, WILL CONTINUE TO MONITOR. 0827- NEW ORDER FOR PT TO BE NPO FOR HEMOSPLIT PLACEMENT. MADE PT AND SPOUSE AWARE OF NPO STATUS.
[2019-05-23 08:12] LABS: % SATURATION 26 % (15-55); IRON 31 ug/dl (35-150); TOTAL IRON BIND CAPACITY 118 ug/dl (260-445); UNSAT IRON BIND CAPACITY 87 ug/dl (150-375)
[2019-05-23 08:47] VITALS: BP 145/57
--- NOTE | 2019-05-23 10:49 | NUR ---
CONSENTS SIGNED AND PLACED ON CHART.
[2019-05-23 12:05] VITALS: BP 145/57
[2019-05-23 16:10] VITALS: BP 157/65
--- NOTE | 2019-05-23 18:07 | NUR ---
PT TO OR.
--- NOTE | 2019-05-23 19:46 | NUR ---
RECIEVED REPORT FROM DARRICK LUDWIG IN RECOVERY AT 1924. RECIEVED TO ROOM AT 1934. ALERT AND ORIENTED X2. PUPILS EQUAL ROUND REACTIVE. DSG TO RIGHT SIDE OF NECK. HEMO SPLIT TO RIGHT CHEST WITH DSG CLEAN, DRY AND INTACT. BRUISING TO RIGHT SIDE OF NECK AND BILATERAL ARM. DSG X2 TO RIGHT SIDE OF ABDOMEN CDI. DENIES ANY PAIN. V/S'S 97.5 ORAL,B/P 156/68 RIGHT ARM, HR77,RESP 18. O2@ 3 LITERS PER HF.
[2019-05-24] VITALS: BP 141/65
--- NOTE | 2019-05-24 00:01 | NUR ---
UP IN BED WITH EYES OPEN AND TV ON. ALERT AND ORIENTED X4. ASKED HIM TO USE URINAL SO WE COULD MEASURE HIS OUT PUT. VERBAL AGREEMENT GIVEN. URINAL AT BEDSIDE. DENIES ANY PAIN AT THIS TIME. CONT TO MONITOR V/S'S.
[2019-05-24 04:00] VITALS: BP 151/58
[2019-05-24 05:00] LABS: BASOPHILS 0.2 % (0-2); EOSINOPHILS 0 % (0-7); HEMATOCRIT 23.8 % (42.0-54.0); HEMOGLOBIN 7.7 g/dL (13.5-17.5); IMMATURE GRANULOCYTES 0.3 % (0-5); LYMPHOCYTES 7.1 % (15-50); MCH 31.2 pg (26.0-34.0); MCHC 32.4 g/dL (31.0-37.0); MCV 96.4 fL (80.0-100.0); MONOCYTES 2.5 % (2-11); NEUTROPHILS 89.9 % (40-80); PLATELET COUNT 188 10x3/uL (130-400); RBC 2.47 10x6/uL (4.20-6.10); RDW 15.7 % (11.5-14.5); WBC 6.5 10x3/uL (4.8-10.8)
[2019-05-24 05:18] LABS: BILIRUBIN - TOTAL 0.63 mg/dL (0.2-1.3); CALCIUM 8.8 mg/dL (8.5-10.1); CARBON DIOXIDE 25.1 mmol/L (21.0-32.0); CREATININE - SERUM 5.6 mg/dL (0.6-1.3); PHOSPHOROUS 6.3 mg/dL (2.5-4.9); PROTEIN - SERUM 6.4 g/dL (6.4-8.2)
[2019-05-24 05:36] LABS: ANION GAP 13.9 mmol/L (8-16)
--- NOTE | 2019-05-24 07:22 | MORECARE ---
CASE MANAGEMENT DISCHARGE SUMMARY PATIENT: YODIT TRAORE UNIT: [id number] ADM DATE: 05/09/19 AGE: 73 : 45 SEX: M ROOM/BED: D.2102 AUTHOR: AURY,DOC PHYSICIAN: REFERRING PHYSICIAN: JANIE MACKEY MD DATE OF SERVICE: 05/24/19 Discharge Plan Patient Name: YODIT TRAORE Facility: [facility]:[place] : 1945 Planned Disposition: Home Anticipated Discharge Date: Discharge Date: Expected LOS: Initial Reviewer: [email or web address] Initial Review Date: 05/09/2019 Generated: 05/24/19 8:21 am Comments DCP- Discharge Planning Updated by [email or web address]: Mingo Ruiz on 05/24/19 6:[address] Patient Name: YODIT TRAORE Encounter No: [id number] : 1945 Primary Insurance: MEDICARE A & B Anticipated DC Date: Planned Disposition: Home DCP follow-up note: ORDER FOR ARRANGEMENT OF OUTPATIENT HEMODIALYSIS RECEIVED. LARA REYEZ OF PATIENT [facility] NOTIFIED. TOMAS Bermeo DCP- Discharge Planning Updated by [email or web address]: Shruthi Lawrence on 05/10/19 2:[address] Patient Name: YODIT TRAORE Admission Status: Elective Accout number: [id number] Admission Date: 05-09-2019 : 1945 Admission Diagnosis: Attending: NATO NAZARIO Current LOS: 1 Anticipated DC Date: Planned Disposition: Home Primary Insurance: MEDICARE A & B Discharge Planning Comments: CM met with patient to complete initial dc planning assessment. CM educated patient on the CM role and verbal consent given by patient to complete assessment. Patient lives at home with his where he is independent with his care. At discharge patient plans to return home and feels this is a safe discharge. CM discussed availability of home health, rehab services, and medical equipment. His will transport him home upon discharge. Patient has a nebulizer and home o2 ( [place] home patient ) Patient denied known discharge needs at this time. CM will continue to follow and will assist as needed with dc plans/needs. Physical Therapy Teacher: Shruthi Lawrence DCPIA - Discharge Planning Initial Assessment Updated by [email or web address]: Shruthi Lawrence on 05/10/19 3:31 pm * Is the patient Alert and Oriented? Yes * How many steps to enter\exit or inside your home? * PCP [facility] * Pharmacy [facility] * Preadmission Environment Home with Family * ADLs Independent * Other Equipment HOME/ PORTABLE 02, W/C , CANE, WALKER, NEBULIZER * List name and contact numbers for known caregivers / representatives who currently or will assist patient after discharge: LOLIS TRAORE - - [phone] * Verbal permission to speak to the caregivers and representatives has been obtained from the patient. Yes * Community resources currently utilized None * Additional services required to return to the preadmission environment? No * Can the patient safely return to the preadmission environment? Yes * Has this patient been hospitalized within the prior 30 days at any hospital? No Last DP export: 05/10/19 2:38 p Patient Name: YODIT TRAORE Page [id number] at 0722 All edits/amendments must be made on the electronic document DICTATION DATE: 05/24/19720 GREEN MATERIAL VALUE ADDED ASSESSOR: ANDREWS 05/24/19720 RPT#: [id number] DC DATE: STATUS: ADM IN [facility] [address] [place] [address] END OF REPORT
[2019-05-24 09:00] VITALS: BP 144/65
--- NOTE | 2019-05-24 10:30 | NUR ---
PT TO DIALYSIS, VIA WHEELCHAIR.
--- NOTE | 2019-05-24 11:30 | NUR ---
Rehab Note- Acute INpatient Rehab prescreen order received. THe patient has been receiving PT and is doing well enough to have been signed off to nursing on 05/23/19. The patient is too high level functionally at this time for inpatient acute rehab. Thank you for this referral! Aj Rios RN Clinical Liaison, [facility]
--- NOTE | 2019-05-24 14:31 | NUR ---
PT BACK TO ROOM FROM DIALYSIS, DENIES ANY NEEDS AT THIS TIME. CALL LIGHT IN REACH, AT BEDSIDE, NAD NOTED, WILL CONTNUE TO MONITOR.
--- NOTE | 2019-05-24 16:20 | MORECARE ---
CASE MANAGEMENT DISCHARGE SUMMARY PATIENT: YODIT TRAORE UNIT: [id number] ADM DATE: 05/09/19 AGE: 73 : 45 SEX: M ROOM/BED: D.2102 AUTHOR: AURY,DOC PHYSICIAN: REFERRING PHYSICIAN: JANIE MACKEY MD DATE OF SERVICE: 05/24/19 Discharge Plan Patient Name: YODIT TRAORE Facility: [facility]:[place] : 1945 Planned Disposition: Home with Home Health Anticipated Discharge Date: 05/25/19 Discharge Date: Expected LOS: 16 Initial Reviewer: [email or web address] Initial Review Date: 05/09/2019 Generated: 05/24/19 5:19 pm DCP- Discharge Planning Updated by [email or web address]: Mingo Ruiz on 05/24/19 6:[address] Patient Name: YODIT TRAORE Encounter No: [id number] : 1945 Primary Insurance: MEDICARE A & B Anticipated DC Date: Planned Disposition: Home DCP follow-up note: ORDER FOR ARRANGEMENT OF OUTPATIENT HEMODIALYSIS RECEIVED. LARA REYEZ OF PATIENT PATHWAYS NOTIFIED. TOMAS Bermeo DCP- Discharge Planning Updated by [id number]: Shruthi Lawrence on 05/10/19 2:[address] Patient Name: YODIT TRAORE Admission Status: Elective Accout number: [id number] Admission Date: 05-09-2019 : 1945 Admission Diagnosis: Attending: NATO NAZARIO Current LOS: 1 Anticipated DC Date: Planned Disposition: Home Primary Insurance: MEDICARE A & B Discharge Planning Comments: CM met with patient to complete initial dc planning assessment. CM educated patient on the CM role and verbal consent given by patient to complete assessment. Patient lives at home with his where he is independent with his care. At discharge patient plans to return home and feels this is a safe discharge. CM discussed availability of home health, rehab services, and medical equipment. His will transport him home upon discharge. Patient has a nebulizer and home o2 ( [facility] ) Patient denied known discharge needs at this time. CM will continue to follow and will assist as needed with dc plans/needs. Grape Pruner: Shruthi Lawrence DCPIA - Discharge Planning Initial Assessment Updated by [id number]: Shruthi Lawrence on 05/10/19 3:31 pm * Is the patient Alert and Oriented? Yes * How many steps to enter\exit or inside your home? * PCP [facility] * [facility] * Preadmission Environment Home with Family * ADLs Independent * Other Equipment HOME/ PORTABLE 02, W/C , CANE, WALKER, NEBULIZER * List name and contact numbers for known caregivers / representatives who currently or will assist patient after discharge: LOLIS LEÓN - - [phone] * Verbal permission to speak to the caregivers and representatives has been obtained from the patient. Yes * Community resources currently utilized None * Additional services required to return to the preadmission environment? No * Can the patient safely return to the preadmission environment? Yes * Has this patient been hospitalized within the prior 30 days at any hospital? No External Providers External Provider: [facility] Next Contact Date: 05/25/2019 Service Request Date: Service Type: Resolution: Reviewer: Comments: Coverage Notice Reviewer: [id number] Ruiz Notice Issued Date-Time: 05/24/2019 8:55 Notice Type: IM Discharge Notice Notice Delivered To: Patient Relationship to Patient: Senior Network Security Architect Name: Delivery Method: HAND - Hand Delivered Sloane Days: Prior Verbal Notification: Recipient Understood Notice: Yes Recipient Signature: Yes Med Rec Note Co-signed by Attending: Coverage Notice Comment: Reviewer: FLORENTINO Ruiz Notice Issued Date-Time: 05/24/2019 8:55 Notice Type: Patient Choice Letter Notice Delivered To: Patient Relationship to Patient: Senior Network Security Architect Name: Delivery Method: HAND - Hand Delivered Sloane Days: Prior Verbal Notification: Recipient Understood Notice: Yes Recipient Signature: Yes Med Rec Note Co-signed by Attending: Coverage Notice Comment: [facility] Last DP export: 05/24/19 6:22 a Patient Name: YODIT TRAORE Page [phone] at 1620 All edits/amendments must be made on the electronic document DICTATION DATE: 05/24/191618 GARDEN WORKER: ANDREWS 05/24/191618 RPT#: [id number] DC DATE: STATUS: ADM IN [facility] [address] [facility] [place] [address] END OF REPORT
--- NOTE | 2019-05-24 16:29 | MORECARE ---
CASE MANAGEMENT DISCHARGE SUMMARY PATIENT: YODIT TRAORE UNIT: [id number] ADM DATE: 05/09/19 AGE: 73 : 45 SEX: M ROOM/BED: D.2102 AUTHOR: AURY,DOC PHYSICIAN: REFERRING PHYSICIAN: JANIE MACKEY MD DATE OF SERVICE: 05/24/19 Discharge Plan Patient Name: YODIT TRAORE Facility: [facility]:[place] : 1945 Planned Disposition: Home with Home Health Anticipated Discharge Date: 05/25/19 Discharge Date: Expected LOS: 16 Initial Reviewer: [email or web address] Initial Review Date: 05/09/2019 Generated: 05/24/19 5:28 pm Comments DCP- Discharge Planning Updated by [email or web address]: Mingo Ruiz on 05/24/19 3:[address] Patient Name: YODIT TRAORE Encounter No: [id number] : 1945 Primary Insurance: MEDICARE A & B Anticipated DC Date: 05-25-2019 Planned Disposition: Home with Home Health External Planned Provider: [facility] DCP follow-up note: CM RECEIVED ORDER FOR REHAB SERVICES. CM MET WITH PT AND SPOUSE IN ROOM TO DISCUSS ORDER, AVAILABILITY OF REHAB SERVICES, PROVIDERS AND LOCATIONS. PT PROVIDED PERMISSION TO DISCUSS CARE AND PLANNING WITH AND IN PRESENCE OF SPOUSE. PT REFUSED REHAB PLACEMENT. CM DISCUSSED HOME HEALTH SERVICES. PT INITIALLY DECLINED HOME HEALTH SERVICES. PT'S SPOUSE DISCUSSED WITH PT AND THEN PT AGREED AND WANTS [facility] THAT IS WHO HE HAS USED IN THE PAST. CHOICE SIGNED. PT REPORTS PLAN TO DISCHARGE HOME AND WANTS TO GO HOME SOON POSSIBLE. CM EXPLAINED WAIT FOR OUTPATIENT DIALYSIS UNIT ARRANGEMENTS. PT DECLINES REHAB, WILL ACCEPT HOME HEALTH. CM TO [facility]RANGE [facility] WITH PHYSICIAN AGREEMENT AND HOME HEALTH ORDER. TOMAS Bermeo DCP- Discharge Planning Updated by [id number]: Mingo Ruiz on 05/24/19 6:[address] Patient Name: YODIT TRAORE Encounter No: [id number] : 1945 Primary Insurance: MEDICARE A & B Anticipated DC Date: Planned Disposition: Home DCP follow-up note: ORDER FOR ARRANGEMENT OF OUTPATIENT HEMODIALYSIS RECEIVED. LARA REYEZ OF PATIENT [facility]WAYS NOTIFIED. Mingo Ruiz, CASE MANAGEMENT DCP- Discharge Planning Updated by [id number]: Shruthi Lawrence on 05/10/19 2:[address] Patient Name: YODIT TRAORE Admission Status: Elective Accout number: [id number] Admission Date: 05-09-2019 : 1945 Admission Diagnosis: Attending: NATO NAZARIO Current LOS: 1 Anticipated DC Date: Planned Disposition: Home Primary Insurance: MEDICARE A & B Discharge Planning Comments: CM met with patient to complete initial dc planning assessment. CM educated patient on the CM role and verbal consent given by patient to complete assessment. Patient lives at home with his where he is independent with his care. At discharge patient plans to return home and feels this is a safe discharge. CM discussed availability of home health, rehab services, and medical equipment. His will transport him home upon discharge. Patient has a nebulizer and home o2 ( [facility] patient ) Patient denied known discharge needs at this time. CM will continue to follow and will assist as needed with dc plans/needs. Tractor Operator Battery: Shruthi Lawrence DCPIA - Discharge Planning Initial Assessment Updated by [id number]: Shruthi Lawrence on 05/10/19 3:31 pm * Is the patient Alert and Oriented? Yes * How many steps to enter\exit or inside your home? * PCP [facility] * [facility]acy [facility] * Preadmission Environment Home with Family * ADLs Independent * Other Equipment HOME/ PORTABLE 02, W/C , CANE, WALKER, NEBULIZER * List name and contact numbers for known caregivers / representatives who currently or will assist patient after discharge: LOLIS TRAORE - - [phone] * Verbal permission to speak to the caregivers and representatives has been obtained from the patient. Yes * Community resources currently utilized None * Additional services required to return to the preadmission environment? No * Can the patient safely return to the preadmission environment? Yes * Has this patient been hospitalized within the prior 30 days at any hospital? No Coverage Notice Reviewer: [id number] - Mingo Ruiz Notice Issued Date-Time: 05/24/2019 8:55 Notice Type: IM Discharge Notice Notice Delivered To: Patient Relationship to Patient: Soyfreeze Operator Name: Delivery Method: HAND - Hand Delivered Sloane Days: Prior Verbal Notification: Recipient Understood Notice: Yes Recipient Signature: Yes Med Rec Note Co-signed by Attending: Coverage Notice Comment: Reviewer: [id number] - Mingo Ruiz Notice Issued Date-Time: 05/24/2019 8:55 Notice Type: Patient Choice Letter Notice Delivered To: Patient Relationship to Patient: Soyfreeze Operator Name: Delivery Method: HAND - Hand Delivered Sloane Days: Prior Verbal Notification: Recipient Understood Notice: Yes Recipient Signature: Yes Med Rec Note Co-signed by Attending: Coverage Notice Comment: [facility] Last DP export: 05/24/19 3:20 p Patient Name: YODIT TRAORE Page [phone] at 1629 All edits/amendments must be made on the electronic document DICTATION DATE: 05/24/191627 PRODUCTION CLOTH CUTTER: ANDREWS 05/24/191627 RPT#: [id number] DC DATE: STATUS: ADM IN [facility] [address] [place] [address] END OF REPORT
[2019-05-24 17:11] VITALS: BP 135/51
--- NOTE | 2019-05-24 17:46 | NUR ---
IV LEAKING WAS NOT ABLE TO GIVE IRON. DUANEBE TO START IV, WILL CONTACT VASCULAR NURSE TO START NEW IV IN AM.
--- NOTE | 2019-05-24 20:00 | NUR ---
REPORT RECIEVED AND ROUNDING COMPLETE. PATIENT LAYING IN BED AT BEDSIDE. PATIENT STATES HE HAS NO NEEDS AT THIS TIME. PATIENT DOES NOT HAVE A PIV, PATIENT IS WEARING A HIGH FLOW NC WITH O2 AT 3L. PATIENT IS SHOWING NO S/SX OF DISTRESS. CALL LIGTH WITHIN REACH AND BED IN LOWEST LOCKED POSITION,
[2019-05-24 20:48] VITALS: BP 119/55
[2019-05-25 00:47] VITALS: BP 114/45
[2019-05-25 05:05] LABS: BASOPHILS 0.3 % (0-2); EOSINOPHILS 0.7 % (0-7); HEMATOCRIT 23.6 % (42.0-54.0); HEMOGLOBIN 7.7 g/dL (13.5-17.5); IMMATURE GRANULOCYTES 0.2 % (0-5); LYMPHOCYTES 10.6 % (15-50); MCH 31.2 pg (26.0-34.0); MCHC 32.6 g/dL (31.0-37.0); MCV 95.5 fL (80.0-100.0); MEAN PLATELET VOLUME 9.3 fL (7.4-10.4); MONOCYTES 9.7 % (2-11); NEUTROPHILS 78.5 % (40-80); PLATELET COUNT 201 10x3/uL (130-400); RBC 2.47 10x6/uL (4.20-6.10)
[2019-05-25 05:13] VITALS: BP 148/54
[2019-05-25 05:29] LABS: ALBUMIN 2.1 g/dL (3.4-5.0); ANION GAP 8.6 mmol/L (8-16); BILIRUBIN - TOTAL 0.67 mg/dL (0.2-1.3); CALCIUM 8.6 mg/dL (8.5-10.1); CARBON DIOXIDE 29.2 mmol/L (21.0-32.0); PROTEIN - SERUM 6.3 g/dL (6.4-8.2)
[2019-05-25 05:30] LABS: CREATININE - SERUM 4.1 mg/dL (0.6-1.3); PHOSPHOROUS 3.7 mg/dL (2.5-4.9); POTASSIUM - SERUM 3.8 mmol/L (3.5-5.1)
--- NOTE | 2019-05-25 08:36 | MORECARE ---
CASE MANAGEMENT DISCHARGE SUMMARY PATIENT: YODIT TRAORE UNIT: [id number] ADM DATE: 05/09/19 AGE: 73 : 45 SEX: M ROOM/BED: D.2102 AUTHOR: AURY,DOC PHYSICIAN: REFERRING PHYSICIAN: JANIE MACKEY MD DATE OF SERVICE: 05/25/19 Discharge Plan Patient Name: YODIT TRAORE Facility: [facility]:[place] : 1945 Planned Disposition: Home with Home Health Anticipated Discharge Date: 05/26/19 Discharge Date: Expected LOS: 17 Initial Reviewer: [email or web address] Initial Review Date: 05/09/2019 Generated: 05/25/19 9:35 am Comments DCP- Discharge Planning Updated by [id number]: Mingo Ruiz on 05/25/19 7:[address] Patient Name: YODIT TRAORE Encounter No: [id number] : 1945 Primary Insurance: MEDICARE A & B Anticipated DC Date: 05-26-2019 Planned Disposition: Home with Home Health External Planned Provider: [facility] DCP follow-up note: CM RECEIVED DISCHARGE ORDER, CALLED DIAZ AT [facility], , REFERRAL PROVIDED; [facility] WILL ACCEPT PT FOR NEW HOME HEALTH WITH PLANNED ADMISSION ON THURSDAY. CM FAXED REFERRAL TO [facility] AT [phone]. FOR DISCHARGE, FAX DISCHARGE INFORMATION TO [facility] AT [phone]. [facility] PL[facility] HOME HEALTH ADMISSION ON 05-28-19. CM TO FOLLOW AND ASSIST NEEDED. Mingo Ruiz CASE MANAGEMENT DCP- Discharge Planning Updated by [id number]: Mingo Ruiz on 05/24/19 3:[address] Patient Name: YODIT TRAORE Encounter No: [id number] : 1945 Primary Insurance: MEDICARE A & B Anticipated DC Date: 05-25-2019 Planned Disposition: Home with Home Health External Planned Provider: [facility] DCP follow-up note: CM RECEIVED ORDER FOR REHAB SERVICES. CM MET WITH PT AND SPOUSE IN ROOM TO DISCUSS ORDER, AVAILABILITY OF REHAB SERVICES, PROVIDERS AND LOCATIONS. PT PROVIDED PERMISSION TO DISCUSS CARE AND PLANNING WITH AND IN PRESENCE OF SPOUSE. PT REFUSED REHAB PLACEMENT. CM DISCUSSED HOME HEALTH SERVICES. PT INITIALLY DECLINED HOME HEALTH SERVICES. PT'S SPOUSE DISCUSSED WITH PT AND THEN PT AGREED AND WANTS [facility] THAT IS WHO HE HAS USED IN THE PAST. CHOICE SIGNED. PT REPORTS PLAN TO DISCHARGE HOME AND WANTS TO GO HOME SOON POSSIBLE. CM EXPLAINED WAIT FOR OUTPATIENT DIALYSIS UNIT ARRANGEMENTS. PT DECLINES REHAB, WILL ACCEPT HOME HEALTH. CM TO [facility]ANGE [facility] WITH PHYSICIAN AGREEMENT AND HOME HEALTH ORDER. Mingo Ruiz CASE MANAGEMENT DCP- Discharge Planning Updated by [id number]: Mingo Ruiz on 05/24/19 6:[address] Patient Name: YODIT TRAORE Encounter No: [id number] : 1945 Primary Insurance: MEDICARE A & B Anticipated DC Date: Planned Disposition: Home DCP follow-up note: ORDER FOR ARRANGEMENT OF OUTPATIENT HEMODIALYSIS RECEIVED. LARA REYEZ OF PATIENT PATHWAYS NOTIFIED. TOMAS Bermeo DCP- Discharge Planning Updated by [id number]: Shruthi Lawrence on 05/10/19 2:[address] Patient Name: YODIT TRAORE Admission Status: Elective Accout number: [id number] Admission Date: 05-09-2019 : 1945 Admission Diagnosis: Attending: NATO NAZARIO Current LOS: 1 Anticipated DC Date: Planned Disposition: Home Primary Insurance: MEDICARE A & B Discharge Planning Comments: CM met with patient to complete initial dc planning assessment. CM educated patient on the CM role and verbal consent given by patient to complete assessment. Patient lives at home with his where he is independent with his care. At discharge patient plans to return home and feels this is a safe discharge. CM discussed availability of home health, rehab services, and medical equipment. His will transport him home upon discharge. Patient has a nebulizer and home o2 ( [facility] home patient ) Patient denied known discharge needs at this time. CM will continue to follow and will assist as needed with dc plans/needs. Electromechanical Technician: Shruthi Lawrence DCPIA - Discharge Planning Initial Assessment Updated by [id number]: Shruthi Lawrence on 05/10/19 3:31 pm * Is the patient Alert and Oriented? Yes * How many steps to enter\exit or inside your home? * PCP [facility] * [facility] * Preadmission Environment Home with Family * ADLs Independent * Other Equipment HOME/ PORTABLE 02, W/C , CANE, WALKER, NEBULIZER * List name and contact numbers for known caregivers / representatives who currently or will assist patient after discharge: LOLIS TRAORE - - [phone] * Verbal permission to speak to the caregivers and representatives has been obtained from the patient. Yes * Community resources currently utilized None * Additional services required to return to the preadmission environment? No * Can the patient safely return to the preadmission environment? Yes * Has this patient been hospitalized within the prior 30 days at any hospital? No Coverage Notice Reviewer: [id number] Ruiz Notice Issued Date-Time: 05/24/2019 8:55 Notice Type: IM Discharge Notice Notice Delivered To: Patient Relationship to Patient: Supervisor Locomotive Name: Delivery Method: HAND - Hand Delivered Sloane Days: Prior Verbal Notification: Recipient Understood Notice: Yes Recipient Signature: Yes Med Rec Note Co-signed by Attending: Coverage Notice Comment: Reviewer: FLORENTINO Ruiz Notice Issued Date-Time: 05/24/2019 8:55 Notice Type: Patient Choice Letter Notice Delivered To: Patient Relationship to Patient: Supervisor Locomotive Name: Delivery Method: HAND - Hand Delivered Sloane Days: Prior Verbal Notification: Recipient Understood Notice: Yes Recipient Signature: Yes Med Rec Note Co-signed by Attending: Coverage Notice Comment: [facility] Last DP export: 05/24/19 3:29 p Patient Name: YODIT TRAORE Page [phone] at 0836 All edits/amendments must be made on the electronic document DICTATION DATE: 05/25/19834 FARM MANAGEMENT ADVISER: ANDREWS 05/25/19834 RPT#: [id number] DC DATE: STATUS: ADM IN [facility] [address] [place] [address] END OF REPORT
--- NOTE | 2019-05-25 09:07 | NUR ---
GAVE AM MEDS GAT THIS TIME. HELD COREG DUE TO LOW BP OF 91/49. INFORMED PT THAT HE IS ON THE SCHEDULE FOR DIALYSIS TODAY AND IS TO RECEIVE ONE UNIT OF BLOOD DURING DIALYSIS. PT SEEM TO GET UPSET DUE TO THE FACT THAT HE IS GOING TO HAVE DIALYSIS. PT DENIES ANY NEEDS AT THIS TIME. AT BEDSIDE, NAD NOTED, WILL CONTINUE TO MONITOR.
[2019-05-25 09:20] VITALS: BP 91/49
--- NOTE | 2019-05-25 10:40 | NUR ---
Nutrition Follow-up: Pt reports overall good appetite/PO intake. Diet: Renal ADA PO intake: 75% avg x 4 meals Wt: 164# Last BM: 05/24 Labs reviewed Meds reviewed Rec liberalizing to renal diet; no h/o DM noted. RD following.
[2019-05-25 13:07] VITALS: BP 118/54
--- NOTE | 2019-05-25 15:00 | NUR ---
PT UP TO CHAIR, DENIES ANY NEEDS AT THIS TIME. CALL LIGHT IN REACH, AT BEDSIDE, NAD NOTED, WILL CONTINUE TO MONITOR.
--- NOTE | 2019-05-25 16:01 | NUR ---
PT TO DIALYSIS AT THIS TIME, VIA WHEELCHAIR.
--- NOTE | 2019-05-25 17:06 | NUR ---
BLOOD TAKING DOWN TO DIALYSIS.
[2019-05-25 20:00] VITALS: BP 112/58
--- NOTE | 2019-05-25 20:15 | NUR ---
REC'D CHGE OF SHIFT DURING WALKING ROUNDS UP IN BEDSIDE CHAIR.02 3L NC.NO RESP DIFFICULTY OBSERVED AT PRESENT TIME AT BEDSIDE.WILL CONTINUE TO MONITOR FOR ANY CHGES.IN RESP. STATUS AND FOLLOW CURRENT PLAN OF CARE.
[2019-05-26] VITALS: BP 132/59
[2019-05-26 04:00] VITALS: BP 153/67
[2019-05-26 04:10] LABS: BASOPHILS 0.5 % (0-2); EOSINOPHILS 0.7 % (0-7); HEMATOCRIT 27.6 % (42.0-54.0); IMMATURE GRANULOCYTES 0.2 % (0-5); LYMPHOCYTES 12.9 % (15-50); MCHC 33.7 g/dL (31.0-37.0); MCV 94.8 fL (80.0-100.0); MONOCYTES 9.4 % (2-11); NEUTROPHILS 76.3 % (40-80); PLATELET COUNT 173 10x3/uL (130-400); RBC 2.91 10x6/uL (4.20-6.10); RDW 15.4 % (11.5-14.5)
[2019-05-26 04:17] LABS: HEMOGLOBIN 9.3 g/dL (13.5-17.5)
[2019-05-26 04:34] LABS: ALBUMIN 2.2 g/dL (3.4-5.0); ANION GAP 10.3 mmol/L (8-16); BILIRUBIN - TOTAL 0.59 mg/dL (0.2-1.3); CALCIUM 8.8 mg/dL (8.5-10.1); CARBON DIOXIDE 29.2 mmol/L (21.0-32.0); CREATININE - SERUM 3.5 mg/dL (0.6-1.3); PHOSPHOROUS 3.2 mg/dL (2.5-4.9); POTASSIUM - SERUM 3.5 mmol/L (3.5-5.1); PROTEIN - SERUM 6.8 g/dL (6.4-8.2)
--- NOTE | 2019-05-26 07:33 | NUR ---
ROUNDING DONE WITH AT BEDSIDE, PATIENT IS SITTING UP IN CHAIR. DENIES NEEDS AT THIS TIME. HAS TERESA SEEN TO LEFT HAND WITH OLD SKIN TEAR UNDERNEATH IT. RIGHT CHEST HEMISPLIT SEEN WITH DRY DRESSING. ON 3L PER NC. GLASSES ON. WILL MONITOR.
--- NOTE | 2019-05-26 08:19 | MORECARE ---
CASE MANAGEMENT DISCHARGE SUMMARY PATIENT: YODIT TRAORE UNIT: [id number] ADM DATE: 05/09/19 AGE: 73 : 45 SEX: M ROOM/BED: D.2102 AUTHOR: AURY,DOC PHYSICIAN: REFERRING PHYSICIAN: JANIE MACKEY MD DATE OF SERVICE: 05/26/19 Discharge Plan Patient Name: YODIT TRAORE Facility: [facility]:[place] : 1945 Planned Disposition: Home with Home Health Anticipated Discharge Date: 05/26/19 Discharge Date: Expected LOS: 17 Initial Reviewer: [id number] Initial Review Date: 05/09/2019 Generated: 05/26/19 9:18 am Comments DCP- Discharge Planning Updated by [email or web address]: Mingo Ruiz on 05/26/19 7:[address] Patient Name: YODIT TRAORE Encounter No: [id number] : 1945 Primary Insurance: MEDICARE A & B Anticipated DC Date: 05-26-2019 Planned Disposition: Home with Home Health External Planned Provider:[facility] DCP follow-up note: CM SPOKE TO DR. MACKEY REGARDING DIALYSIS ARRANGEMENTS, DISCUSSED DELAYS OF NEEDING HEP PANEL RESULT AND RADIOLOGIST TO NOTE THAT PT HAS NO INDICATION OF TB. DR. MACKEY DIRECTED CM TO CALL HIS OFFICE TO SEE IF NECESSARY LABS ARE THERE AND TO HAVE [facility] CALL HIM AT THE [facility] TODAY. CM CONTACTED LARA REYEZ OF [facility], ADVISED OF ABOVE. LARA INFORMED CM THAT SHE SUBMITTED FINAL PAPERWORK YESTERDAY AND DID NOT RECEIVE AN ASSIGNMENT. A SHORT TIME LATER, CM RECEIVED MESSAGE FROM LARA WHO ADVISED PT HAS CHAIR AT [facility], [facility], [address] MACKEY WHO WANTED ENTIRE HEP PROFILE. RN LALA HOUSE CONTACTED LAB AND OBTAINED RESULTS AND PROVIDED PERSONALLY TO DR. MACKEY AT NURSES STATION. FOR DISCHARGE, FAX DISCHARGE INFORMATION TO [facility] AT [phone]. [facility]ION ON 05-28-19. CM TO FOLLOW AND ASSIST NEEDED. Mingo Ruiz CASE MANAGEMENT DCP- Discharge Planning Updated by [id number]: Mingo Ruiz on 05/25/19 7:[address] Patient Name: YODIT TRAORE Encounter No: [id number] : 1945 Primary Insurance: MEDICARE A & B Anticipated DC Date: 05-26-2019 Planned Disposition: Home with Home Health External Planned Provider: [facility] DCP follow-up note: CM RECEIVED DISCHARGE ORDER, CALLED DIAZ AT [facility], , REFERRAL PROVIDED; [facility] ACCEPT PT FOR NEW HOME HEALTH WITH PLANNED ADMISSION ON THURSDAY. CM FAXED REFERRAL TO [facility] AT [phone]. FOR DISCHARGE, FAX DISCHARGE INFORMATION TO [facility] AT [phone]. [facility]ION ON 05-28-19. CM TO FOLLOW AND ASSIST NEEDED. Mingo Ruiz CASE MANAGEMENT DCP- Discharge Planning Updated by [id number]: Mingo Ruiz on 05/24/19 3:[address] Patient Name: YODIT TRAORE Encounter No: [id number] : 1945 Primary Insurance: MEDICARE A & B Anticipated DC Date: 05-25-2019 Planned Disposition: Home with Home Health External Planned Provider: [facility] DCP follow-up note: CM RECEIVED ORDER FOR REHAB SERVICES. CM MET WITH PT AND SPOUSE IN ROOM TO DISCUSS ORDER, AVAILABILITY OF REHAB SERVICES, PROVIDERS AND LOCATIONS. PT PROVIDED PERMISSION TO DISCUSS CARE AND PLANNING WITH AND IN PRESENCE OF SPOUSE. PT REFUSED REHAB PLACEMENT. CM DISCUSSED HOME HEALTH SERVICES. PT INITIALLY DECLINED HOME HEALTH SERVICES. PT'S SPOUSE DISCUSSED WITH PT AND THEN PT AGREED AND WANTS [facility] THAT IS WHO HE HAS USED IN THE PAST. CHOICE SIGNED. PT REPORTS PLAN TO DISCHARGE HOME AND WANTS TO GO HOME SOON POSSIBLE. CM EXPLAINED WAIT FOR OUTPATIENT DIALYSIS UNIT ARRANGEMENTS. PT DECLINES REHAB, WILL ACCEPT HOME HEALTH. CM TO [facility] WITH PHYSICIAN AGREEMENT AND HOME HEALTH ORDER. TOMAS Bermeo DCP- Discharge Planning Updated by [id number]: Mingo Ruiz on 05/24/19 6:[address] Patient Name: YODIT TRAORE Encounter No: [id number] : 1945 Primary Insurance: MEDICARE A & B Anticipated DC Date: Planned Disposition: Home DCP follow-up note: ORDER FOR ARRANGEMENT OF OUTPATIENT HEMODIALYSIS RECEIVED. LARA REYEZ OF [facility] NOTIFIED. Mingo Ruiz, CASE MANAGEMENT DCP- Discharge Planning Updated by [email or web address]: Shruthi Lawrence on 05/10/19 2:[address] Patient Name: YODIT TRAORE Admission Status: Elective Accout number: [id number] Admission Date: 05-09-2019 : 1945 Admission Diagnosis: Attending: NATO NAZARIO Current LOS: 1 Anticipated DC Date: Planned Disposition: Home Primary Insurance: MEDICARE A & B Discharge Planning Comments: CM met with patient to complete initial dc planning assessment. CM educated patient on the CM role and verbal consent given by patient to complete assessment. Patient lives at home with his where he is independent with his care. At discharge patient plans to return home and feels this is a safe discharge. CM discussed availability of home health, rehab services, and medical equipment. His will transport him home upon discharge. Patient has a nebulizer and home o2 ( [facility] home patient ) Patient denied known discharge needs at this time. CM will continue to follow and will assist as needed with dc plans/needs. Manager Pacu: Shruthi Lawrence DCPIA - Discharge Planning Initial Assessment Updated by [id number]: Shruthi Lawrence on 05/10/19 3:31 pm * Is the patient Alert and Oriented? Yes * How many steps to enter\exit or inside your home? * PCP [facility] * [facility] * Preadmission Environment Home with Family * ADLs Independent * Other Equipment HOME/ PORTABLE 02, W/C , CANE, WALKER, NEBULIZER * List name and contact numbers for known caregivers / representatives who currently or will assist patient after discharge: LOLIS TRAORE - - [phone] * Verbal permission to speak to the caregivers and representatives has been obtained from the patient. Yes * Community resources currently utilized None * Additional services required to return to the preadmission environment? No * Can the patient safely return to the preadmission environment? Yes * Has this patient been hospitalized within the prior 30 days at any hospital? No Coverage Notice Reviewer: [id number] - Mingo Ruiz Notice Issued Date-Time: 05/24/2019 8:55 Notice Type: IM Discharge Notice Notice Delivered To: Patient Relationship to Patient: Tomato Grader Name: Delivery Method: HAND - Hand Delivered Sloane Days: Prior Verbal Notification: Recipient Understood Notice: Yes Recipient Signature: Yes Med Rec Note Co-signed by Attending: Coverage Notice Comment: Reviewer: [id number] Rosemary Ruiz Notice Issued Date-Time: 05/24/2019 8:55 Notice Type: Patient Choice Letter Notice Delivered To: Patient Relationship to Patient: Tomato Grader Name: Delivery Method: HAND - Hand Delivered Sloane Days: Prior Verbal Notification: Recipient Understood Notice: Yes Recipient Signature: Yes Med Rec Note Co-signed by Attending: Coverage Notice Comment: [facility] Last DP export: 05/25/19 7:36 a Patient Name: YODIT TRAORE Page [phone] at 0819 All edits/amendments must be made on the electronic document DICTATION DATE: 05/26/19817 TAIL EDGER: ANDREWS 05/26/19817 RPT#: [id number] DC DATE: STATUS: ADM IN [facility] [address] [place] [address] END OF REPORT
--- NOTE | 2019-05-26 08:23 | NUR ---
COMPLETE BED LINEN CHANGE DONE AND AM SELF CARE DONE PER THIS NURSE. AT BEDSIDE.
[2019-05-26 09:39] VITALS: BP 150/69
--- NOTE | 2019-05-26 10:11 | MORECARE ---
CASE MANAGEMENT DISCHARGE SUMMARY PATIENT: YODIT TRAORE UNIT: [id number] ADM DATE: 05/09/19 AGE: 73 : 45 SEX: M ROOM/BED: D.2102 AUTHOR: AURY,DOC PHYSICIAN: REFERRING PHYSICIAN: JANIE MACKEY MD DATE OF SERVICE: 05/26/19 Discharge Plan Patient Name: YODIT TRAORE Facility: [facility]:[place] : 1945 Planned Disposition: Home with Home Health Anticipated Discharge Date: 05/26/19 Discharge Date: Expected LOS: 17 Initial Reviewer: [id number] Initial Review Date: 05/09/2019 Generated: 05/26/19 11:10 am Comments DCP- Discharge Planning Updated by [id number]: Mingo Ruiz on 05/26/19 9:[address] Patient Name: YODTI TRAORE Encounter No: [id number] : 1945 Primary Insurance: MEDICARE A & B Anticipated DC Date: 05-26-2019 Planned Disposition: Home with Home Health External Planned Provider:[facility] DCP follow-up note: CM SPOKE TO DR. MACKEY REGARDING DIALYSIS ARRANGEMENTS, DISCUSSED DELAYS OF NEEDING HEP PANEL RESULT AND RADIOLOGIST TO NOTE THAT PT HAS NO INDICATION OF TB. DR. MACKEY DIRECTED CM TO CALL HIS OFFICE TO SEE IF NECESSARY LABS ARE THERE AND TO HAVE [facility] CALL HIM AT THE [facility] TODAY. CM CONTACTED LARA REYEZ OF [facility], ADVISED OF ABOVE. LARA INFORMED CM THAT SHE SUBMITTED FINAL PAPERWORK YESTERDAY AND DID NOT RECEIVE AN ASSIGNMENT. A SHORT TIME LATER, CM RECEIVED MESSAGE FROM LARA WHO ADVISED PT HAS CHAIR AT [facility], [facility], [address] MACKEY WHO WANTED ENTIRE HEP PROFILE. RN LALA HOUSE CONTACTED LAB AND OBTAINED RESULTS AND PROVIDED PERSONALLY TO DR. MACKEY AT NURSES STATION. FOR DISCHARGE, FAX DISCHARGE INFORMATION TO [facility] AT [phone]. [facility] ADMISSION ON 05-28-19. CM TO FOLLOW AND ASSIST NEEDED. Mingo Ruiz, CASE MANAGEMENT Appended by Mingo Ruiz on 05/26/2019 10:10 CDT: CM RECEIVED WELCOME LETTER FOR DIALYSIS, MWF 0630, [facility], FIRST APPOINTMENT 05-27 AT 0600. PT AND SPOUSE NOTIFIED, COPY OF LETTER PROVIDED. COPY OF LETTER TO CHART. CM CALLED AND NOTIFIED MAULIK PENA WHO WILL NOTIFY DR. MACKEY. FOR DISCHARGE, FAX DISCHARGE INFORMATION TO [facility] AT [phone]. [facility] ON 05-28-19. CM TO FOLLOW AND ASSIST NEEDED. Mingo Ruiz CASE MANAGEMENT DCP- Discharge Planning Updated by [id number]: Mingo Ruiz on 05/25/19 7:[address] Patient Name: YODIT TRAORE Encounter No: [id number] : 1945 Primary Insurance: MEDICARE A & B Anticipated DC Date: 05-26-2019 Planned Disposition: Home with Home Health External Planned Provider: [facility] DCP follow-up note: CM RECEIVED DISCHARGE ORDER, CALLED DIAZ AT [facility], , REFERRAL PROVIDED; [facility] WILL ACCE[facility] PT FOR NEW HOME HEALTH WITH PLANNED ADMISSION ON THURSDAY. CM FAXED REFERRAL TO [facility] AT [phone]. FOR DISCHARGE, FAX DISCHARGE INFORMATION TO [facility] AT [phone]. [facility] ADMISSION ON 05-28-19. CM TO FOLLOW AND ASSIST NEEDED. Mingo Ruiz CASE YAMIL DCP- Discharge Planning Updated by [id number]: Mingo Ruiz on 05/24/19 3:[address] Patient Name: YODIT TRAORE Encounter No: [id number] : 1945 Primary Insurance: MEDICARE A & B Anticipated DC Date: 05-25-2019 Planned Disposition: Home with Home Health External Planned Provider: [facility] DCP follow-up note: CM RECEIVED ORDER FOR REHAB SERVICES. CM MET WITH PT AND SPOUSE IN ROOM TO DISCUSS ORDER, AVAILABILITY OF REHAB SERVICES, PROVIDERS AND LOCATIONS. PT PROVIDED PERMISSION TO DISCUSS CARE AND PLANNING WITH AND IN PRESENCE OF SPOUSE. PT REFUSED REHAB PLACEMENT. CM DISCUSSED HOME HEALTH SERVICES. PT INITIALLY DECLINED HOME HEALTH SERVICES. PT'S SPOUSE DISCUSSED WITH PT AND THEN PT AGREED AND WANTS [facility] THAT IS WHO HE HAS USED IN THE PAST. CHOICE SIGNED. PT REPORTS PLAN TO DISCHARGE HOME AND WANTS TO GO HOME SOON POSSIBLE. CM EXPLAINED WAIT FOR OUTPATIENT DIALYSIS UNIT ARRANGEMENTS. PT DECLINES REHAB, WILL ACCEPT HOME HEALTH. CM TO [facility]ANGE [facility] WITH PHYSICIAN AGREEMENT AND HOME HEALTH ORDER. Mingo Ruiz CASE MANAGEMENT DCP- Discharge Planning Updated by [id number]: Mingo Ruiz on 05/24/19 6:[address] Patient Name: YODIT TRAORE Encounter No: [id number] : 1945 Primary Insurance: MEDICARE A & B Anticipated DC Date: Planned Disposition: Home DCP follow-up note: ORDER FOR ARRANGEMENT OF OUTPATIENT HEMODIALYSIS RECEIVED. LARA REYEZ OF [facility] NOTIFIED. TOMAS Bermeo DCP- Discharge Planning Updated by [id number]: Shruthi Lawrence on 05/10/19 2:[address] Patient Name: YODIT TRAORE Admission Status: Elective Accout number: [id number] Admission Date: 05-09-2019 : 1945 Admission Diagnosis: Attending: NATO NAZARIO Current LOS: 1 Anticipated DC Date: Planned Disposition: Home Primary Insurance: MEDICARE A & B Discharge Planning Comments: CM met with patient to complete initial dc planning assessment. CM educated patient on the CM role and verbal consent given by patient to complete assessment. Patient lives at home with his where he is independent with his care. At discharge patient plans to return home and feels this is a safe discharge. CM discussed availability of home health, rehab services, and medical equipment. His will transport him home upon discharge. Patient has a nebulizer and home o2 ( [facility] home patient ) Patient denied known discharge needs at this time. CM will continue to follow and will assist as needed with dc plans/needs. Scrub Nurse: Shruthi Lawrence DCPIA - Discharge Planning Initial Assessment Updated by [email or web address]: Shruthi Lawrence on 05/10/19 3:31 pm * Is the patient Alert and Oriented? Yes * How many steps to enter\exit or inside your home? * PCP [facility] * [facility] * Preadmission Environment Home with Family * ADLs Independent * Other Equipment HOME/ PORTABLE 02, W/C , CANE, WALKER, NEBULIZER * List name and contact numbers for known caregivers / representatives who currently or will assist patient after discharge: LOLIS MORENO- [phone] * Verbal permission to speak to the caregivers and representatives has been obtained from the patient. Yes * Community resources currently utilized None * Additional services required to return to the preadmission environment? No * Can the patient safely return to the preadmission environment? Yes * Has this patient been hospitalized within the prior 30 days at any hospital? No Coverage Notice Reviewer: [id number] Ruiz Notice Issued Date-Time: 05/24/2019 8:55 Notice Type: IM Discharge Notice Notice Delivered To: Patient Relationship to Patient: Kiln Tester Name: Delivery Method: HAND - Hand Delivered Sloane Days: Prior Verbal Notification: Recipient Understood Notice: Yes Recipient Signature: Yes Med Rec Note Co-signed by Attending: Coverage Notice Comment: Reviewer: [id number] Ruiz Notice Issued Date-Time: 05/24/2019 8:55 Notice Type: Patient Choice Letter Notice Delivered To: Patient Relationship to Patient: Kiln Tester Name: Delivery Method: HAND - Hand Delivered Sloane Days: Prior Verbal Notification: Recipient Understood Notice: Yes Recipient Signature: Yes Med Rec Note Co-signed by Attending: Coverage Notice Comment: [facility] Last DP export: 05/26/19 7:19 a Patient Name: YODIT TRAORE Page 95815 at 1011 All edits/amendments must be made on the electronic document DICTATION DATE: 05/26/19 1010 PAPER CONE MACHINE OPERATOR: ANDREWS 05/26/19 1010 RPT#: [id number] DC DATE: STATUS: ADM IN [facility] [address] [place] [address] END OF REPORT
[2019-05-26] MEDS ORDERED: ROCALTROL0.25 MCG PO (11:57)
[2019-05-26] MEDS ORDERED: FLUTICASONE PRO16 GM NASAL (11:58)
[2019-05-26] MEDS ORDERED: COREG 3.1253.125 MG PO (11:58)
[2019-05-26] MEDS ORDERED: PHOSLO667 MG PO (11:59)
--- NOTE | 2019-05-26 13:13 | NUR ---
PATIENT IS RESTING IN BED WITH EYES CLOSED, RESP EVEN. AT BEDSIDE. I LET HER KNOW THAT DISCHARGE PAPERWORK IS DONE WHEN HE WAKES UP.
[2019-05-26 13:14] VITALS: BP 155/71
--- NOTE | 2019-05-26 13:33 | NUR ---
VERBAL AND WRITTEN DISCHARGE INSTRUCTIONS GIVEN TO PATIENT AND . RIGHT UPPER BACK POSTERIOR DRESSING REMOVED WITH HEALED INCISION SEEN. LEFT OPEN TO AIR. RIGHT FOREARM DRESSING OF OPSITE REMOVED FROM OLD SKIN TEAR, REPLACED WITH NEW OPSITE. MEPILEX DRESSING REMOVED TO RIGHT FOREARM AND NEW ONE REPLACED. BOTH OF THESE SKIN TEARS ARE HEALING WITH SCABS.
--- NOTE | 2019-05-26 13:44 | NUR ---
DISCHARGED HOME VIA WHEELCHAIR WITH HIS OWN PORTABLE OXYGEN TANK AND HIS EXTRA TANK.
--- NOTE | 2019-05-26 13:56 | MORECARE ---
CASE MANAGEMENT DISCHARGE SUMMARY PATIENT: YODIT TRAORE UNIT: [id number] ADM DATE: 05/09/19 AGE: 73 : 45 SEX: M ROOM/BED: D.2102 AUTHOR: AURY,DOC PHYSICIAN: REFERRING PHYSICIAN: JANIE MACKEY MD DATE OF SERVICE: 05/26/19 Discharge Plan Patient Name: YODIT TRAORE Facility: [facility]:[place] : 1945 Planned Disposition: Home with Home Health Anticipated Discharge Date: 05/26/19 Discharge Date: 05/26/2019 Expected LOS: 17 Initial Reviewer: [id number] Initial Review Date: 05/09/2019 Generated: 05/26/19 2:56 pm Comments DCP- Discharge Planning Updated by [id number]: Mingo Ruiz on 05/26/19 9:[address] Patient Name: YODIT TRAORE Encounter No: [id number] : 1945 Primary Insurance: MEDICARE A & B Anticipated DC Date: 05-26-2019 Planned Disposition: Home with Home Health External Planned Provider:[facility] DCP follow-up note: CM SPOKE TO DR. MACKEY REGARDING DIALYSIS ARRANGEMENTS, DISCUSSED DELAYS OF NEEDING HEP PANEL RESULT AND RADIOLOGIST TO NOTE THAT PT HAS NO INDICATION OF TB. DR. MACKEY DIRECTED CM TO CALL HIS OFFICE TO SEE IF NECESSARY LABS ARE THERE AND TO HAVE [facility] CALL HIM AT THE [facility] TODAY. CM CONTACTED LARA REYEZ OF [facility], ADVISED OF ABOVE. LARA INFORMED CM THAT SHE SUBMITTED FINAL PAPERWORK YESTERDAY AND DID NOT RECEIVE AN ASSIGNMENT. A SHORT TIME LATER, CM RECEIVED MESSAGE FROM LARA WHO ADVISED PT HAS CHAIR AT [facility], [facility], [address] MACKEY WHO WANTED ENTIRE HEP PROFILE. RN LALA HOUSE CONTACTED LAB AND OBTAINED RESULTS AND PROVIDED PERSONALLY TO DR. MACKEY AT NURSES STATION. FOR DISCHARGE, FAX DISCHARGE INFORMATION TO [facility] AT [phone]. [place] [facility] ADMISSION ON 05-28-19. CM TO FOLLOW AND ASSIST NEEDED. Mingo Ruiz, CASE MANAGEMENT Appended by Mingo Ruiz on 05/26/2019 10:10 CDT: CM RECEIVED WELCOME LETTER FOR DIALYSIS, MWF 0630, [facility], FIRST APPOINTMENT 05-27 AT 0600. PT AND SPOUSE NOTIFIED, COPY OF LETTER PROVIDED. COPY OF LETTER TO CHART. CM CALLED AND NOTIFIED MAULIK PENA WHO WILL NOTIFY DR. MACKEY. FOR DISCHARGE, FAX DISCHARGE INFORMATION TO [facility] AT [phone]. [facility] ON 05-28-19. CM TO FOLLOW AND ASSIST NEEDED. Mingo Ruiz CASE MANAGEMENT DCP- Discharge Planning Updated by [id number]: Mingo Ruiz on 05/25/19 7:[address] Patient Name: YODIT TRAORE Encounter No: [id number] : 1945 Primary Insurance: MEDICARE A & B Anticipated DC Date: 05-26-2019 Planned Disposition: Home with Home Health External Planned Provider: [facility] DCP follow-up note: CM RECEIVED DISCHARGE ORDER, CALLED DIAZ AT [facility], , REFERRAL PROVIDED; [facility] WILL ACCEPT PT FOR NEW HOME HEALTH WITH PLANNED ADMISSION ON THURSDAY. CM FAXED REFERRAL TO [facility] AT [phone]. FOR DISCHARGE, FAX DISCHARGE INFORMATION TO [facility] AT [phone]. [facility] ON 05-28-19. CM TO FOLLOW AND ASSIST NEEDED. Mingo Ruiz CASE YAMIL DCP- Discharge Planning Updated by [id number]: Mingo Ruiz on 05/24/19 3:[address] Patient Name: YODIT TRAORE Encounter No: [id number] : 1945 Primary Insurance: MEDICARE A & B Anticipated DC Date: 05-25-2019 Planned Disposition: Home with Home Health External Planned Provider: [facility] DCP follow-up note: CM RECEIVED ORDER FOR REHAB SERVICES. CM MET WITH PT AND SPOUSE IN ROOM TO DISCUSS ORDER, AVAILABILITY OF REHAB SERVICES, PROVIDERS AND LOCATIONS. PT PROVIDED PERMISSION TO DISCUSS CARE AND PLANNING WITH AND IN PRESENCE OF SPOUSE. PT REFUSED REHAB PLACEMENT. CM DISCUSSED HOME HEALTH SERVICES. PT INITIALLY DECLINED HOME HEALTH SERVICES. PT'S SPOUSE DISCUSSED WITH PT AND THEN PT AGREED AND WANTS [facility] THAT IS WHO HE HAS USED IN THE PAST. CHOICE SIGNED. PT REPORTS PLAN TO DISCHARGE HOME AND WANTS TO GO HOME SOON POSSIBLE. CM EXPLAINED WAIT FOR OUTPATIENT DIALYSIS UNIT ARRANGEMENTS. PT DECLINES REHAB, WILL ACCEPT HOME HEALTH. CM TO [facility]ANGE [facility] WITH PHYSICIAN AGREEMENT AND HOME HEALTH ORDER. Mingo Ruiz CASE MANAGEMENT DCP- Discharge Planning Updated by [id number]: Mingo Ruiz on 05/24/19 6:[address] Patient Name: YODIT TRAORE Encounter No: [id number] : 1945 Primary Insurance: MEDICARE A & B Anticipated DC Date: Planned Disposition: Home DCP follow-up note: ORDER FOR ARRANGEMENT OF OUTPATIENT HEMODIALYSIS RECEIVED. LARA REYEZ OF [facility] NOTIFIED. TOMAS Bermeo DCP- Discharge Planning Updated by [id number]: Shruthi Lawrence on 05/10/19 2:[address] Patient Name: YODIT TRAORE Admission Status: Elective Accout number: [id number] Admission Date: 05-09-2019 : 1945 Admission Diagnosis: Attending: NATO NAZARIO Current LOS: 1 Anticipated DC Date: Planned Disposition: Home Primary Insurance: MEDICARE A & B Discharge Planning Comments: CM met with patient to complete initial dc planning assessment. CM educated patient on the CM role and verbal consent given by patient to complete assessment. Patient lives at home with his where he is independent with his care. At discharge patient plans to return home and feels this is a safe discharge. CM discussed availability of home health, rehab services, and medical equipment. His will transport him home upon discharge. Patient has a nebulizer and home o2 ( [facility] patient ) Patient denied known discharge needs at this time. CM will continue to follow and will assist as needed with dc plans/needs. Design Agent: Shruthi Lawrence DCPIA - Discharge Planning Initial Assessment Updated by [id number]: Shruthi Lawrence on 05/10/19 3:31 pm * Is the patient Alert and Oriented? Yes * How many steps to enter\exit or inside your home? * PCP [facility] * [facility]acy [facility] * Preadmission Environment Home with Family * ADLs Independent * Other Equipment HOME/ PORTABLE 02, W/C , CANE, WALKER, NEBULIZER * List name and contact numbers for known caregivers / representatives who currently or will assist patient after discharge: LOLIS MORENO- [phone] * Verbal permission to speak to the caregivers and representatives has been obtained from the patient. Yes * Community resources currently utilized None * Additional services required to return to the preadmission environment? No * Can the patient safely return to the preadmission environment? Yes * Has this patient been hospitalized within the prior 30 days at any hospital? No Coverage Notice Reviewer: [id number] Ruiz Notice Issued Date-Time: 05/24/2019 8:55 Notice Type: IM Discharge Notice Notice Delivered To: Patient Relationship to Patient: Vegetable Sorter Name: Delivery Method: HAND - Hand Delivered Sloane Days: Prior Verbal Notification: Recipient Understood Notice: Yes Recipient Signature: Yes Med Rec Note Co-signed by Attending: Coverage Notice Comment: Reviewer: FLORENTINO Ruiz Notice Issued Date-Time: 05/24/2019 8:55 Notice Type: Patient Choice Letter Notice Delivered To: Patient Relationship to Patient: Vegetable Sorter Name: Delivery Method: HAND - Hand Delivered Sloane Days: Prior Verbal Notification: Recipient Understood Notice: Yes Recipient Signature: Yes Med Rec Note Co-signed by Attending: Coverage Notice Comment: [facility] Last DP export: 05/26/19 9:11 a Patient Name: YODIT TRAORE Page 63972 at 1356 All edits/amendments must be made on the electronic document DICTATION DATE: 05/26/19 1356 WATERWORKS PUMP STATION OPERATOR: ANDREWS 05/26/19 1356 RPT#: [id number] DC DATE:05/26/19 STATUS: DIS IN [facility] [address] [place] [address] END OF REPORT
--- NOTE | 2019-05-26 14:04 | MORECARE ---
CASE MANAGEMENT DISCHARGE SUMMARY PATIENT: YODIT TRAORE UNIT: [id number] ADM DATE: 05/09/19 AGE: 73 : [birth year] SEX: M ROOM/BED: D.2102 AUTHOR: AURY,DOC PHYSICIAN: REFERRING PHYSICIAN: JANIE MACKEY MD DATE OF SERVICE: 05/26/19 Discharge Plan Patient Name: YODIT TRAORE Facility: [facility]:[place] : 1945 Planned Disposition: Home with Home Health Anticipated Discharge Date: 05/26/19 Discharge Date: 05/26/2019 Expected LOS: 17 Initial Reviewer: [id number] Initial Review Date: 05/09/2019 Generated: 05/26/19 3:04 pm Comments DCP- Discharge Planning Updated by [id number]: Mingo Ruiz on 05/26/19 1:[address] Patient Name: YODIT TRAORE Encounter No: [id number] : 1945 Primary Insurance: MEDICARE A & B Anticipated DC Date: 05-26-2019 Planned Disposition: Home with Home Health External Planned Provider:[facility] DCP follow-up note: CM SPOKE TO DR. MACKEY REGARDING DIALYSIS ARRANGEMENTS, DISCUSSED DELAYS OF NEEDING HEP PANEL RESULT AND RADIOLOGIST TO NOTE THAT PT HAS NO INDICATION OF TB. DR. MACKEY DIRECTED CM TO CALL HIS OFFICE TO SEE IF NECESSARY LABS ARE THERE AND TO HAVE [facility] CALL HIM AT THE [facility] TODAY. CM CONTACTED LARA REYEZ OF [facility], ADVISED OF ABOVE. LARA INFORMED CM THAT SHE SUBMITTED FINAL PAPERWORK YESTERDAY AND DID NOT RECEIVE AN ASSIGNMENT. A SHORT TIME LATER, CM RECEIVED MESSAGE FROM LARA WHO ADVISED PT HAS CHAIR AT [facility], [facility], [address] MACKEY WHO WANTED ENTIRE HEP PROFILE. RN LALA HOUSE CONTACTED LAB AND OBTAINED RESULTS AND PROVIDED PERSONALLY TO DR. MACKEY AT NURSES STATION. FOR DISCHARGE, FAX DISCHARGE INFORMATION TO [facility] AT [phone]. [facility] ADMISSION ON 05-28-19. CM TO FOLLOW AND ASSIST NEEDED. Mingo Ruiz, CASE MANAGEMENT Appended by Mingo Ruiz on 05/26/2019 10:10 CDT: CM RECEIVED WELCOME LETTER FOR DIALYSIS, MWF 0630, [facility], FIRST APPOINTMENT 05-27 AT 0600. PT AND SPOUSE NOTIFIED, COPY OF LETTER PROVIDED. COPY OF LETTER TO CHART. CM CALLED AND NOTIFIED MAULIK PENA WHO WILL NOTIFY DR. MACKEY. FOR DISCHARGE, FAX DISCHARGE INFORMATION TO [facility] AT [phone]. [facility] ADMISSION ON 05-28-19. CM TO FOLLOW AND ASSIST NEEDED. Mingo Ruiz, CASE MANAGEMENT Appended by Mingo Ruiz on 05/26/2019 14:02 CDT: CM RECEIVED DISCHARGE, FAXED DISCHARGE INFORMATION TO [facility] AT [phone]. [facility] ADMISSION ON 05-28-19. CM CALLED DIAZ AT [facility], [address] [place] [address], NOTIFIED OF DISCHARGE HOME. Mingo Ruiz CASE YAMIL DCP- Discharge Planning Updated by [id number]: Mingo Ruiz on 05/25/19 7:[address] Patient Name: YODIT Leyva LEÓN Encounter No: [id number] : 1945 Primary Insurance: MEDICARE A & B Anticipated DC Date: 05-26-2019 Planned Disposition: Home with Home Health External [facility] follow-up note: CM RECEIVED DISCHARGE ORDER, CALLED DIAZ AT [facility], [address] [place] [address], REFERRAL PROVIDED; [facility] WILL ACCEPT PT FOR NEW HOME HEALTH WITH PLANNED ADMISSION ON THURSDAY. CM FAXED REFERRAL TO [facility] AT [phone]. FOR DISCHARGE, FAX DISCHARGE INFORMATION TO [facility] AT [phone]. [facility] ADMISSION ON 05-28-19. CM TO FOLLOW AND ASSIST NEEDED. Mingo Ruiz CASE MANAGEMENT DCP- Discharge Planning Updated by [id number]: Mingo Ruiz on 05/24/19 3:[address] Patient Name: YODIT Leyva LEÓN Encounter No: [id number] : 1945 Primary Insurance: MEDICARE A & B Anticipated DC Date: 05-25-2019 Planned Disposition: Home with Home Health External Planned Provider: [facility] DCP follow-up note: CM RECEIVED ORDER FOR REHAB SERVICES. CM MET WITH PT AND SPOUSE IN ROOM TO DISCUSS ORDER, AVAILABILITY OF REHAB SERVICES, PROVIDERS AND LOCATIONS. PT PROVIDED PERMISSION TO DISCUSS CARE AND PLANNING WITH AND IN PRESENCE OF SPOUSE. PT REFUSED REHAB PLACEMENT. CM DISCUSSED HOME HEALTH SERVICES. PT INITIALLY DECLINED HOME HEALTH SERVICES. PT'S SPOUSE DISCUSSED WITH PT AND THEN PT AGREED AND WANTS [facility] THAT IS WHO HE HAS USED IN THE PAST. CHOICE SIGNED. PT REPORTS PLAN TO DISCHARGE HOME AND WANTS TO GO HOME SOON POSSIBLE. CM EXPLAINED WAIT FOR OUTPATIENT DIALYSIS UNIT ARRANGEMENTS. PT DECLINES REHAB, WILL ACCEPT HOME HEALTH. CM TO ARRANGE [facility] WITH PHYSICIAN AGREEMENT AND HOME HEALTH ORDER. Mingo Ruiz CASE MANAGEMENT DCP- Discharge Planning Updated by [id number]: Mingo Ruiz on 05/24/19 6:[address] Patient Name: YODIT TRAORE Encounter No: [id number] : 1945 Primary Insurance: MEDICARE A & B Anticipated DC Date: Planned Disposition: Home DCP follow-up note: ORDER FOR ARRANGEMENT OF OUTPATIENT HEMODIALYSIS RECEIVED. LARA REYEZ OF [facility] NOTIFIED. TOMAS Bermeo DCP- Discharge Planning Updated by [id number]: Shruthi Lawrence on 05/10/19 2:[address] Patient Name: YODIT TRAORE Admission Status: Elective Accout number: [id number] Admission Date: 05-09-2019 : 1945 Admission Diagnosis: Attending: NATO NAZARIO Current LOS: 1 Anticipated DC Date: Planned Disposition: Home Primary Insurance: MEDICARE A & B Discharge Planning Comments: CM met with patient to complete initial dc planning assessment. CM educated patient on the CM role and verbal consent given by patient to complete assessment. Patient lives at home with his where he is independent with his care. At discharge patient plans to return home and feels this is a safe discharge. CM discussed availability of home health, rehab services, and medical equipment. His will transport him home upon discharge. Patient has a nebulizer and home o2 ( [place] home patient ) Patient denied known discharge needs at this time. CM will continue to follow and will assist as needed with dc plans/needs. Supervisor Cemetery Workers: Shruthi Lawrence DCPIA - Discharge Planning Initial Assessment Updated by [id number]: Shruthi Lawrence on 05/10/19 3:31 pm * Is the patient Alert and Oriented? Yes * How many steps to enter\exit or inside your home? * PCP MERIDA * Pharmacy [facility] * Preadmission Environment Home with Family * ADLs Independent * Other Equipment HOME/ PORTABLE 02, W/C , CANE, WALKER, NEBULIZER * List name and contact numbers for known caregivers / representatives who currently or will assist patient after discharge: LOLIS MORENO- [phone] * Verbal permission to speak to the caregivers and representatives has been obtained from the patient. Yes * Community resources currently utilized None * Additional services required to return to the preadmission environment? No * Can the patient safely return to the preadmission environment? Yes * Has this patient been hospitalized within the prior 30 days at any hospital? No Coverage Notice Reviewer: [id number] Ruiz Notice Issued Date-Time: 05/24/2019 8:55 Notice Type: IM Discharge Notice Notice Delivered To: Patient Relationship to Patient: Coal Mine Inspector Name: Delivery Method: HAND - Hand Delivered Sloane Days: Prior Verbal Notification: Recipient Understood Notice: Yes Recipient Signature: Yes Med Rec Note Co-signed by Attending: Coverage Notice Comment: Reviewer: FLORENTINO Ruiz Notice Issued Date-Time: 05/24/2019 8:55 Notice Type: Patient Choice Letter Notice Delivered To: Patient Relationship to Patient: Coal Mine Inspector Name: Delivery Method: HAND - Hand Delivered Sloane Days: Prior Verbal Notification: Recipient Understood Notice: Yes Recipient Signature: Yes Med Rec Note Co-signed by Attending: Coverage Notice Comment: [facility] Last DP export: 05/26/19 12:56 p Patient Name: YODIT TRAORE Page [phone] at 1404 All edits/amendments must be made on the electronic document DICTATION DATE: 05/26/19 1404 MOTOR GRADER ROUGH GRADE: ANDREWS 05/26/19 1404 RPT#: [id number] DC DATE:05/26/19 STATUS: DIS IN [facility] [address] [place] [address] END OF REPORT
--- NOTE | 2019-05-31 10:07 | OP ---
PATIENT NAME: YODIT TRAORE MEDICAL RECORD: [id number] :[birth year] LOCATION:D.M2 D.2102 ADMISSION DATE:05/09/19 SURGEON: DOM GAN MD DATE OF OPERATION: 05/19/2019 PREOPERATIVE DIAGNOSES: 1. Bpoty-tm-ruadfyi renal failure. 2. Coronary artery disease. 3. Recurrent pleural effusions. POSTOPERATIVE DIAGNOSES: 1. Zttfa-zm-mvaujfn renal failure. 2. Coronary artery disease. 3. Recurrent pleural effusions. PROCEDURE: A 15 cm right IJ Trialysis catheter placement. SURGEON: Dom aGn MD REPORT OF PROCEDURE: The patient's right neck was prepped and draped in sterile fashion. A total of 5 cc of 1% lidocaine with epinephrine was infused into the surrounding tissues. Using ultrasound guidance, a needle was used to cannulate the right internal jugular vein. A guidewire was then advanced with ease. Over this wire, a dilator was placed followed by the Trialysis catheter. The catheter aspirated nonpulsatile dark blood and flushed easily in all 3 ports. This was sutured into place with 3-0 nylons and dressed appropriately. COMPLICATIONS: None. CONDITION: Stable. ANESTHESIA: Local. BLOOD LOSS: 20 mL. Procedure done in the ICU at the bedside. TRANSINT:[id number] Voice Confirmation ID: [id number] DOCUMENT ID: [id number] DOM GAN MD at 1007 CC: [id number] DICTATION DATE: 05/19/19 1057 PRODUCTION GEAR CUTTER: 05/19/19 1207 DIS IN 05/26/19 [address] [id number] [place] [address]
[2019-06-07 07:14] LABS: FUNGUS MYCOLOGY CULTURE Final report (())
== END 2019-05-26 13:45 | disposition home health service (06) | DRG 163 ==
LOC: D.US 10:48 → D.OPS 10:48 → D.US 13:00 → D.M2 16:16 → D.CVICU 16:16 → D.M2 05-19 12:31
PROVIDERS: Family Medicine; Internal Medicine Hematology & Oncology; Internal Medicine Medical Oncology; Internal Medicine Nephrology; Internal Medicine Pulmonary Disease; Thoracic Surgery (Cardiothoracic Vascular Surgery); ADMIT Internal Medicine Nephrology; ATTEND Internal Medicine Nephrology
PROC: 0W993ZZ Drainage of Right Pleural Cavity, Percutaneous Approach (ICD-10-PCS; principal; 2019-05-09 13:00)
PROC: 0B968ZZ Drainage of Right Lower Lobe Bronchus, Via Natural or Artificial Opening Endoscopic (ICD-10-PCS; 2019-05-10)
PROC: 0B938ZZ Drainage of Right Main Bronchus, Via Natural or Artificial Opening Endoscopic (ICD-10-PCS; 2019-05-10)
PROC: 3E0L4GC Introduction of Other Therapeutic Substance into Pleural Cavity, Percutaneous Endoscopic Approach (ICD-10-PCS; 2019-05-10)
PROC: 0BNF4ZZ Release Right Lower Lung Lobe, Percutaneous Endoscopic Approach (ICD-10-PCS; 2019-05-10 07:30)
PROC: 06HY33Z Insertion of Infusion Device into Lower Vein, Percutaneous Approach (ICD-10-PCS; 2019-05-13)
PROC: 05HM33Z Insertion of Infusion Device into Right Internal Jugular Vein, Percutaneous Approach (ICD-10-PCS; 2019-05-19)
PROC: 0JH63XZ Insertion of Tunneled Vascular Access Device into Chest Subcutaneous Tissue and Fascia, Percutaneous Approach (ICD-10-PCS; 2019-05-23)
DX: J90 Pleural effusion, not elsewhere classified (principal); G93.41 Metabolic encephalopathy; J18.9 Pneumonia, unspecified organism; J96.22 Acute and chronic respiratory failure with hypercapnia; J96.21 Acute and chronic respiratory failure with hypoxia; I13.0 Hypertensive heart and chronic kidney disease with heart failure and stage 1 through stage 4 chronic kidney disease, or unspecified chronic kidney disease; N17.9 Acute kidney failure, unspecified; N18.4 Chronic kidney disease, stage 4 (severe); J98.11 Atelectasis; I50.32 Chronic diastolic (congestive) heart failure; E78.5 Hyperlipidemia, unspecified; E03.9 Hypothyroidism, unspecified; I25.10 Atherosclerotic heart disease of native coronary artery without angina pectoris; K21.9 Gastro-esophageal reflux disease without esophagitis; R05 Cough; J30.9 Allergic rhinitis, unspecified; D63.1 Anemia in chronic kidney disease; J44.9 Chronic obstructive pulmonary disease, unspecified; D53.9 Nutritional anemia, unspecified; R53.81 Other malaise; D75.82 Heparin induced thrombocytopenia (HIT); I27.20 Pulmonary hypertension, unspecified

== ENCOUNTER → 2019-06-09 11:27 | Outpatient (CLI) | payer MEDICARE, OTHER ==
[2019-05-10 19:23] VITALS: BMI 23.4
[~2019-06-09 11:27] MED LIST changes: +COREG 3.1253.125 MG PO; +FLUTICASONE PRO16 GM NASAL; +PHOSLO667 MG PO; +ROCALTROL0.25 MCG PO
== END | disposition home or self-care (01) ==
LOC: D.RAD 11:27
PROVIDERS: ATTEND Internal Medicine Nephrology
DX: R06.00 Dyspnea, unspecified (principal)

== ENCOUNTER → 2019-07-11 14:42 | Outpatient (CLI) | payer MEDICARE, OTHER ==
[2019-05-10 19:23] VITALS: BMI 23.4
[~2019-07-11 14:42] MED LIST changes: +RENVELA800 MG PO; +ULTRAM50 MG PO
== END | disposition home or self-care (01) ==
LOC: D.RAD 14:42
PROVIDERS: ATTEND Thoracic Surgery (Cardiothoracic Vascular Surgery)
DX: Z09 Encounter for follow-up examination after completed treatment for conditions other than malignant neoplasm (principal)

== ENCOUNTER 2019-08-02 05:47 | Day surgery (SDC) | payer MEDICARE, OTHER ==
[2019-08-01 12:03] LABS: ANION GAP 10.1 mmol/L (8-16); CALCIUM 8.4 mg/dL (8.5-10.1); CARBON DIOXIDE 31.7 mmol/L (21.0-32.0); CREATININE - SERUM 2.5 mg/dL (0.6-1.3); POTASSIUM - SERUM 3.8 mmol/L (3.5-5.1)
[2019-08-01 12:05] LABS: INR 1.11 (0.85-1.17); PROTIME 13.8 SECONDS (11.6-15.0)
[2019-08-01 12:19] LABS: BASOPHILS 0.4 % (0-2); EOSINOPHILS 1.7 % (0-7); HEMOGLOBIN 11.3 g/dL (13.5-17.5); IMMATURE GRANULOCYTES 0.2 % (0-5); LYMPHOCYTES 10.1 % (15-50); MCH 33.9 pg (26.0-34.0); MCHC 31.4 g/dL (31.0-37.0); MCV 108.1 fL (80.0-100.0); MEAN PLATELET VOLUME 9.1 fL (7.4-10.4); MONOCYTES 9.4 % (2-11); NEUTROPHILS 78.2 % (40-80); PLATELET COUNT 171 10x3/uL (130-400); RBC 3.33 10x6/uL (4.20-6.10); RDW 15.5 % (11.5-14.5); WBC 5.3 10x3/uL (4.8-10.8)
[~2019-08-02] VITALS: Ht 172.7 cm; Wt 71.2 kg
[~2019-08-02 05:47] MED LIST changes: -RENVELA800 MG PO; -ULTRAM50 MG PO
[2019-08-02] MEDS ORDERED: FUROSEMIDE40 MG PO (06:15)
[2019-08-02] MEDS ORDERED: REGLAN10 MG PO (06:15)
[2019-08-02] MEDS ORDERED: RENVELA800 MG PO (06:16)
[2019-08-02 06:21] VITALS: BP 152/65; Ht 172.7 cm; Wt 71.2 kg
[2019-08-02] MEDS ORDERED: ULTRAM50 MG PO (09:57)
--- NOTE | 2019-08-02 09:59 | NUR ---
TWO SKIN TEARS NOTED ON ANTERIOR SIDE OF RIGHT UPPER EXTREMITY. EXTREMITIES DRESSED. WILL CONTINUE TO MONITOR.
--- NOTE | 2019-08-02 10:28 | NUR ---
OPA IN AIRWAY ON ADMIT
--- NOTE | 2019-08-02 12:30 | NUR ---
1230 PT RESTING AND PORT FLUSHED WITH 1900 UNITS HEPARIN. AND CAPPED
--- NOTE | 2019-08-02 13:18 | NUR ---
1300 MEDICATED FOR MILD PAIN TO RIGHT ARM. MODRATE AMT OF DRAINAGE TO TELPHA DRESSING. NO SWELLING NOTED. MAINTAINED ELEVATED ON 2 PILLOWS. ICE INTACT. 1315 HOME ON HOME
--- NOTE | 2019-08-09 07:37 | OP ---
PATIENT NAME: YODIT PELAEZ MEDICAL RECORD: [id number] :[birth year] LOCATION:[facility] ADMISSION DATE: SURGEON: JEAN BLAND MD DATE OF OPERATION: 08/02/2019 REFERRED BY: Janie Loredo MD PREOPERATIVE DIAGNOSES: ESRD, on dialysis with additional diagnoses or comorbidities of hypertension, hyperlipidemia, coronary artery disease with prior OH, type 2 diabetes, and congestive heart failure. POSTOPERATIVE DIAGNOSES: ESRD, on dialysis with additional diagnoses or comorbidities of hypertension, hyperlipidemia, coronary artery disease with prior OH, type 2 diabetes, and congestive heart failure. OPERATION PERFORMED: Implantation of right forearm Artegraft loop AV fistula brachial artery to median cubital vein with a "pinky pull" configuration. SURGEON: Jean Bland MD ANESTHESIA: General per LITHOGRAPH PRESS OPERATOR. PREOPERATIVE NOTE: Mr. Pelaez is a chronically ill 73-year-old white male who is on hemodialysis now with a catheter and he needs long-term access. He has very poor vessels and very fragile tissues and thin skin, which tears easily. He is brought to the operating room today with plans to implant a forearm loop graft. DESCRIPTION OF PROCEDURE: Under general anesthesia per LITHOGRAPH PRESS OPERATOR, the anesthesiologist felt regional nerve block contraindicated in this case. The patient was prepped and draped in sterile manner. He was examined with duplex ultrasound after applying nitroglycerin to the intact skin of the arm and forearm and using a Peterman drain as a proximal venous tourniquet. The patient had very satisfactory median cubital vein which ran off to both the cephalic and basilic veins as well as a good looking fairly large brachial artery and I thought he should do quite well with a loop AV graft. The tourniquet was removed. A transverse incision made and the median cubital vein and brachial artery exposed and controlled with vessel loops. Smaller arterial branches were treated with electrocautery and the artery and vein treated with topical papaverine. A counter incision was made longitudinally on the volar surface of the forearm closer to the wrist and I then chose a 48-cm long Artegraft prosthetic and it was prepared as per the quality assurance supervisor body's directions. The graft was beveled and flushed with heparinized saline. The vein was opened and flushed with heparinized saline and the graft been anastomosed end-to-side, end of graft to side of vein with running 6-0 Prolene. The graft was again flushed with heparinized saline and the suture line was watertight and looked quite good. The graft was then placed in a subcutaneous tunnel utilizing the counter incision and carefully kept from twisting. The graft was flushed with heparinized saline and pressurized off and on to maintain a non-twisted configuration. The graft was then shortened and beveled. The artery was occluded with the loops. An arteriotomy made and the artery flushed proximally and distally with heparinized saline. An end-to-side, end of graft to side of artery anastomosis was then performed with running 6-0 Prolene, which when completed was hemostatic and with release of the occluding clamps and loops, excellent flow manifested by thrill and pulsation as well as continuous pulsatile Doppler signals was noted. There was good flow in the brachial artery OPERATIVE REPORT [id number] YODIT PELAEZ distal to the anastomosis, and in the radial artery at the wrist. The wounds were irrigated and flushed with 0.25% Marcaine without epinephrine. The wounds were infiltrated with the same. The wounds were closed with interrupted inverted 3-0 Vicryl and then running intracuticular 4-0 aches and Dermabond glue. They were sealed with Dermabond and dressed with Maxorb Ag, Tegaderm, and Cavilon skin prep. The patient was then awakened and taken to the recovery room in stable condition. Blood loss was about 5 cc and was unreplaced. Sponges, instruments, and needles were accounted for. No drain was used and there was no surgical specimen to submit. PLAN: The patient will be expected to go home later this morning. He is given a prescription for 20 tramadol 50 mg, he can take 1 or 2 p.o. q.6 hours p.r.n. pain. He will continue his same dialysis schedule and home medications, diet and activities and return to see me in my office next week, hopefully on Thursday for wound check and dressing change. Note, the patient has very fragile tissues and I expect that he will be very ecchymotic and swollen and it is going to likely be about a month before this new Artegraft should be accessed. TRANSINT:[id number] Voice Confirmation ID: [id number] DOCUMENT ID: [id number] cc: [facility] JEAN BLAND MD at 0737 CC: JANIE LOREDO MD [id number] DICTATION DATE: 08/02/19 1011 GRILL ATTENDANT: 08/02/19 1100 DEP SDC 08/02/19 [facility] [address] [place] [address]
== END 2019-08-02 13:13 | disposition home or self-care (01) ==
LOC: D.OPS 05:47 → D.PAN 08:00 → D.OPS 10:15
PROVIDERS: Surgery; ATTEND Internal Medicine Nephrology
DX: I13.2 Hypertensive heart and chronic kidney disease with heart failure and with stage 5 chronic kidney disease, or end stage renal disease (principal); E11.22 Type 2 diabetes mellitus with diabetic chronic kidney disease; E11.65 Type 2 diabetes mellitus with hyperglycemia; N18.6 End stage renal disease; I50.9 Heart failure, unspecified; Z99.2 Dependence on renal dialysis; E78.5 Hyperlipidemia, unspecified; I25.10 Atherosclerotic heart disease of native coronary artery without angina pectoris; I25.2 Old myocardial infarction; J44.9 Chronic obstructive pulmonary disease, unspecified

== ENCOUNTER 2020-06-30 13:51 | Emergency (ER) | payer MEDICARE, OTHER ==
[2019-08-02 06:21] VITALS: Ht 172.7 cm; Wt 78.2 kg
[~2020-06-30] VITALS: Ht 172.7 cm; Wt 78.2 kg
[~2020-06-30 13:51] MED LIST changes: +RENVELA800 MG PO; +ULTRAM50 MG PO
[2020-06-30] MEDS ORDERED: MUPIROCIN22 GM TOPICAL (16:33)
[2020-06-30 17:11] VITALS: BP 150/82
== END 2020-06-30 17:12 | disposition home or self-care (01) ==
LOC: D.ER 13:51
DX: S01.81XA Laceration without foreign body of other part of head, initial encounter (principal); S00.91XA Abrasion of unspecified part of head, initial encounter; I10 Essential (primary) hypertension; I25.2 Old myocardial infarction; J44.9 Chronic obstructive pulmonary disease, unspecified; Z99.81 Dependence on supplemental oxygen; K21.9 Gastro-esophageal reflux disease without esophagitis; W19.XXXA Unspecified fall, initial encounter; Y93.9 Activity, unspecified; Y92.9 Unspecified place or not applicable

== ENCOUNTER 2021-02-03 03:46 | Inpatient (IN) | payer MEDICARE, OTHER ==
[2021-02-03] VITALS (7 sets, daily range): BP systolic 109–144; BP diastolic 62–70; BMI 26.6
[~2021-02-03] VITALS: Ht 172.7 cm; Wt 79.4 kg
--- NOTE | ~2021-02-03 | CN ---
PATIENT NAME:YODIT TRAORE MEDICAL RECORD: [id number] : [birth year] LOCATION:D.Luis D.2111 ADMIT DATE: 02/03/21 ACCOUNT: [id number] CONSULTING PHYSICIAN: BAR CASTILLO MD REFERRING PHYSICIAN: LAZARA RODRIGUEZ MD DATE OF CONSULTATION: 02/03/2021 HISTORY OF PRESENT ILLNESS: The patient is a 75-year-old male with history of end-stage renal disease on hemodialysis, hypertension, hyperlipidemia, hypothyroidism, who presented with complaints of chest pain, noted to be in atrial fibrillation with rapid ventricular response. The patient denies exertional component to his symptoms. I am asked to evaluate from a cardiovascular standpoint. PAST MEDICAL HISTORY: Significant: 1. Atrial fibrillation -- currently in sinus rhythm. 2. Chest pain/discomfort in the setting of atrial fibrillation. 3. End-stage renal disease -- on hemodialysis. 4. Hyperlipidemia. 5. Hypothyroidism. MEDICATIONS: 1. Cardizem drip. 2. Protonix 40 mg daily. 3. Levothyroxine 50 mcg daily. 4. Lovenox 30 mg subQ daily. 5. Pravachol 20 mg daily. 6. Restoril 15 mg daily. 7. Coreg 6.25 mg b.i.d. PHYSICAL EXAMINATION: GENERAL: Pleasant elderly white male in no apparent distress. VITAL SIGNS: Blood pressure 110s/70, pulse 70s (regular). HEENT: Sclerae are clear; conjunctivae pink. NECK: Supple. No appreciated JVD. HEART: Regular rhythm and rate without appreciated murmurs, gallops, or rubs. LUNGS: Clear bilaterally. ABDOMEN: Benign. EXTREMITIES: Negative for edema. NEUROLOGICAL: Nonfocal. LABORATORY DATA: White blood cell count 6.4, hemoglobin and hematocrit 12.6 and 38.2, platelet count 134. Sodium 140, potassium 4.7, BUN 65, creatinine 8.0. Troponin 0.021. TSH 1.13. EKG: Atrial fibrillation with rapid ventricular response at 36 beats per minute. Telemetry: Sinus rhythm at 70 beats per minute. ASSESSMENT: 1. Paroxysmal atrial fibrillation -- currently in sinus rhythm. 2. Chest pains/discomfort -- nonexertional -- asymptomatic. 3. End-stage renal disease -- hemodialysis. 5. Hyperlipidemia. CONSULT REPORT [id number] YODIT TRAORE 6. Hypertension. 7. Hypothyroidism. PLAN: Continue current medical management at this time except discontinue Cardizem drip and start Cardizem-CD 120 daily. The patient also will be scheduled for echocardiogram to assess LV function, valvular status. Further recommendations clinically indicated. TRANSINT:[id number] Voice Confirmation ID: [id number] DOCUMENT ID: [id number] BAR CASTILLO MD CC: [id number] DICTATION DATE: 02/03/21 1357 MANUFACTURING SUPERVISOR: 02/05/212151 DIS IN 02/04/21 [id number] [place] [id number]
[~2021-02-03 03:46] MED LIST changes: +MUPIROCIN22 GM TOPICAL; +ZOFRAN ODT4 MG/UDTAB PO
[2021-02-03 04:26] LABS: BASOPHILS 1.5 % (0-2); EOSINOPHILS 2.1 % (0-7); HEMATOCRIT 38.2 % (42.0-54.0); HEMOGLOBIN 12.6 g/dL (13.5-17.5); MCH 36.3 pg (26.0-34.0); MCHC 33.1 g/dL (31.0-37.0); MCV 109.7 fL (80.0-100.0); MEAN PLATELET VOLUME 7.2 fL (7.4-10.4); MONOCYTES 9.3 % (2-11); NEUTROPHILS 73.1 % (40-80); PLATELET COUNT 134 10x3/uL (130-400); RBC 3.48 10x6/uL (4.20-6.10); RDW 15.1 % (11.5-14.5); WBC 6.4 10x3/uL (4.8-10.8)
[2021-02-03 04:35] LABS: INR 1.22 (0.85-1.17); PROTIME 14.3 SECONDS (11.6-15.0)
[2021-02-03 04:36] LABS: APTT 55.6 SECONDS (22.8-39.4)
[2021-02-03 04:40] LABS: ANION GAP 16.4 mmol/L (8-16); CALCIUM 8.9 mg/dL (8.5-10.1); CARBON DIOXIDE 25.3 mmol/L (21.0-32.0); POTASSIUM - SERUM 4.7 mmol/L (3.5-5.1)
[2021-02-03 04:53] LABS: BILIRUBIN - TOTAL 0.39 mg/dL (0.2-1.3); PROTEIN - SERUM 7.2 g/dL (6.4-8.2); THYROID STIMULATING HORMONE 1.13 uIU/mL (0.36-3.74); TROPONIN-I 0.021 ng/mL (0.000-0.060)
[2021-02-03] MEDS ORDERED: VITAMIN D 22000 UNIT PO (06:19)
[2021-02-03] MEDS ORDERED: TUMS X-STR300 MG PO (06:20)
--- NOTE | 2021-02-03 07:20 | NUR ---
RECIEVE REPORT. ALERT AND ORIENTED X4. SITTING UP IN BED. SPOUSE AT BEDSIDE. CONVERT TO SINUS RHYTHM 79 ON TELEMETRY AT 0600. DENIES ANY NEEDS. CONTINUE PLAN OF CARE AND SAFETY PRECAUTIONS.
--- NOTE | 2021-02-03 13:58 | NUR ---
ALERT AND ORIENTED X4. SITTING UP IN BED. SPOUSE AT BEDSIDE. SINUS RHYTHM 80 ON TELEMETRY. CARDIZEM DRIP DISCONTINUED PER 'S ORDER. PO CARDIZEM STARTED. DENIES ANY NEEDS. CONTINUE PLAN OF CARE AND SAFETY PRECAUTIONS.
--- NOTE | 2021-02-03 19:30 | NUR ---
RECEIVED REPORT, WILL ASSUME CARE OF PT, VISITING WITH , DENIES ANY NEEDS AT THIS TIME, BED IS LOW, SRX2, CALL LIGHT IN REACH, WILL CONTINUE PLAN OF CARE
[2021-02-04] VITALS: BP 156/70
[2021-02-04 04:00] VITALS: BP 129/63
[2021-02-04 06:45] LABS: BASOPHILS 0.7 % (0-2); EOSINOPHILS 2.5 % (0-7); HEMATOCRIT 35.5 % (42.0-54.0); HEMOGLOBIN 11.9 g/dL (13.5-17.5); LYMPHOCYTES 16.5 % (15-50); MCH 37.3 pg (26.0-34.0); MCHC 33.5 g/dL (31.0-37.0); MCV 111.2 fL (80.0-100.0); MEAN PLATELET VOLUME 7.2 fL (7.4-10.4); MONOCYTES 9.1 % (2-11); NEUTROPHILS 71.2 % (40-80); PLATELET COUNT 132 10x3/uL (130-400); RBC 3.19 10x6/uL (4.20-6.10); RDW 14.6 % (11.5-14.5); WBC 5.3 10x3/uL (4.8-10.8)
[2021-02-04 07:00] LABS: ALBUMIN 2.8 g/dL (3.4-5.0); ANION GAP 17.4 mmol/L (8-16); BILIRUBIN - TOTAL 0.34 mg/dL (0.2-1.3); CALCIUM 8.7 mg/dL (8.5-10.1); CARBON DIOXIDE 24.1 mmol/L (21.0-32.0); CREATININE - SERUM 9.6 mg/dL (0.6-1.3); MAGNESIUM - SERUM 2.1 mg/dL (1.8-2.4); PHOSPHOROUS 5.6 mg/dL (2.5-4.9); POTASSIUM - SERUM 4.5 mmol/L (3.5-5.1); PROTEIN - SERUM 6.8 g/dL (6.4-8.2)
[2021-02-04 07:45] VITALS: BP 130/74
[2021-02-04 11:44] VITALS: BP 127/69
[2021-02-04 13:14] VITALS: Ht 172.7 cm; Wt 79.4 kg
[2021-02-04] MEDS ORDERED: TIAZAC/CARDIZEM CD PO (13:46)
--- NOTE | 2021-02-04 14:31 | NUR ---
CARDIZEM CD 120 MG # 60 BID WITH 2 REFILLS CALLED TO [facility]ADD CASTILLO. I TALKED TO JEVON THE PHARMACIST.
--- NOTE | 2021-02-04 17:45 | NUR ---
STILL OFF THE FLOOR IN DIALYSIS.
--- NOTE | 2021-02-04 18:13 | NUR ---
RETURNS FROM DIALYSIS VIA WHHELCHAIR.
--- NOTE | 2021-02-04 18:44 | NUR ---
PATIENT IS SR WITH OCC. PVC. THIS IS EXPLAINED TO HIM AND . I ASKED THAT THEY STAY A LITTLE LONGER THIS EVENING TO MONITOR THEN DISCHARGE. THEY ARE IN AGREEMENT WITH THIS.
--- NOTE | 2021-02-04 19:47 | NUR ---
BACK FROM DIALYSIS. ALERT AND ORIENTED X4. RT ARM RESERVED D/T AVF. TELEMETRY IN PLACE.
--- NOTE | 2021-02-04 20:42 | NUR ---
CALLED [facility] AND OKAY TO D/C WITH FOLLOW UP APPTS.
--- NOTE | 2021-02-04 21:24 | NUR ---
LEAVING ROOM VIA W/C WITH STAFF. A/O UP AD ADEBAYO. IV D/C'D AND TELEMETRY REMOVED AND TAKEN BACK TO MONITOER TECH. SPOUSE AT ER ENTRANCE. LEFT BY PERSONAL VECHICLE. CARDIZEM GIVEN PER REPORT FROM OFF GOING,
== END 2021-02-04 21:26 | disposition home or self-care (01) | DRG 308 ==
LOC: D.ER 03:46 → D.M2 05:26
PROVIDERS: Student in an Organized Health Care Education/Training Program; ADMIT Family Medicine; ATTEND Family Medicine
DX: I48.91 Unspecified atrial fibrillation (principal); N18.6 End stage renal disease; I12.0 Hypertensive chronic kidney disease with stage 5 chronic kidney disease or end stage renal disease; R07.9 Chest pain, unspecified; Z99.2 Dependence on renal dialysis; I25.10 Atherosclerotic heart disease of native coronary artery without angina pectoris; E78.5 Hyperlipidemia, unspecified; D63.1 Anemia in chronic kidney disease; R00.0 Tachycardia, unspecified

== ENCOUNTER → 2021-02-18 10:04 | Outpatient (CLI) | payer MEDICARE, OTHER ==
[2021-02-04 13:14] VITALS: BMI 26.6
[~2021-02-18 10:04] MED LIST changes: +DILTIAZEM 24HR120 M3 PO; +TIAZAC/CARDIZEM CD PO; +TUMS X-STR300 MG PO; +VITAMIN D 22000 UNIT PO
== END | disposition home or self-care (01) ==
LOC: D.RAD 10:04
PROVIDERS: ATTEND Internal Medicine
DX: R06.02 Shortness of breath (principal); R05 Cough

== ENCOUNTER 2021-02-19 00:38 | Inpatient (IN) | payer MEDICARE, OTHER ==
[2021-02-19] VITALS (8 sets, daily range): BP systolic 89–121; BP diastolic 49–64; BMI 26.5
[~2021-02-19] VITALS: Ht 172.7 cm; Wt 97.3 kg
[~2021-02-19 00:38] MED LIST changes: -DILTIAZEM 24HR120 M3 PO
[2021-02-19] MEDS ORDERED: DILTIAZEM 24HR120 M3 PO (01:05)
[2021-02-19] MEDS ORDERED: IPRAT-ALBUT 0.5-3 ML UPD (01:05)
[2021-02-19] MEDS ORDERED: BAYER CHEWABLE81 MG PO (01:06)
[2021-02-19 01:27] LABS: BASOPHILS 0.6 % (0-2); EOSINOPHILS 0.6 % (0-7); HEMATOCRIT 34.1 % (42.0-54.0); LYMPHOCYTES 7.5 % (15-50); MCH 36.2 pg (26.0-34.0); MCHC 32.4 g/dL (31.0-37.0); MCV 111.9 fL (80.0-100.0); MEAN PLATELET VOLUME 7.6 fL (7.4-10.4); MONOCYTES 5.8 % (2-11); NEUTROPHILS 85.5 % (40-80); PLATELET COUNT 193 10x3/uL (130-400); RBC 3.04 10x6/uL (4.20-6.10); RDW 14.9 % (11.5-14.5); WBC 8.1 10x3/uL (4.8-10.8)
[2021-02-19 01:35] LABS: CREATININE - SERUM 6.6 mg/dL (0.6-1.3); SODIUM 136 mmol/L (136-145); UREA NITROGEN 41 mg/dL (7-18); eGFR NON AFRICAN AMERICAN 9 mL/min (90-120)
[2021-02-19 01:36] LABS: CALC OSMOLALITY 283 mosm/kg (275-300); CALCIUM 8.4 mg/dL (8.5-10.1); CARBON DIOXIDE 28.7 mmol/L (21.0-32.0); CHLORIDE - SERUM 96 mmol/L (98-107); POTASSIUM - SERUM 4.4 mmol/L (3.5-5.1)
[2021-02-19 01:38] LABS: APTT 55.7 SECONDS (22.8-39.4); INR 1.32 (0.85-1.17); PROTIME 15.2 SECONDS (11.6-15.0)
[2021-02-19 01:39] LABS: GLUCOSE 131 mg/dL (74-106)
[2021-02-19 01:52] LABS: ALBUMIN 2.9 g/dL (3.4-5.0); ALKALINE PHOSPHATASE 90 U/L (30-120); ALT (SGPT) 13 U/L (10-68); BILIRUBIN - TOTAL 1.61 mg/dL (0.2-1.3); CKMB 0.8 U/L (0.0-3.6); CREATINE KINASE 25 UL (21-232); MAGNESIUM - SERUM 2.1 mg/dL (1.8-2.4); PROTEIN - SERUM 7.9 g/dL (6.4-8.2); TROPONIN-I 0.033 ng/mL (0.000-0.060)
[2021-02-19 07:17] LABS: BASOPHILS 1.3 % (0-2); EOSINOPHILS 1.1 % (0-7); HEMOGLOBIN 10.2 g/dL (13.5-17.5); LYMPHOCYTES 11.7 % (15-50); MCH 36.3 pg (26.0-34.0); MCHC 32.9 g/dL (31.0-37.0); MCV 110.3 fL (80.0-100.0); MONOCYTES 8.6 % (2-11); NEUTROPHILS 77.3 % (40-80); PLATELET COUNT 168 10x3/uL (130-400); RBC 2.81 10x6/uL (4.20-6.10); RDW 14.6 % (11.5-14.5); WBC 7.3 10x3/uL (4.8-10.8)
[2021-02-19 07:44] LABS: ALBUMIN 2.5 g/dL (3.4-5.0); ALKALINE PHOSPHATASE 79 U/L (30-120); ALT (SGPT) 13 U/L (10-68); BILIRUBIN - TOTAL 1.53 mg/dL (0.2-1.3); CALC OSMOLALITY 279 mosm/kg (275-300); CARBON DIOXIDE 26.7 mmol/L (21.0-32.0); CHLORIDE - SERUM 98 mmol/L (98-107); CKMB 0.7 U/L (0.0-3.6); CREATINE KINASE 17 UL (21-232); CREATININE - SERUM 6.8 mg/dL (0.6-1.3); GLUCOSE 92 mg/dL (74-106); MAGNESIUM - SERUM 2.2 mg/dL (1.8-2.4); PHOSPHOROUS 4.8 mg/dL (2.5-4.9); POTASSIUM - SERUM 4.8 mmol/L (3.5-5.1); PROTEIN - SERUM 6.8 g/dL (6.4-8.2); SODIUM 135 mmol/L (136-145); TROPONIN-I 0.029 ng/mL (0.000-0.060); UREA NITROGEN 41 mg/dL (7-18); eGFR NON AFRICAN AMERICAN 8 mL/min (90-120)
--- NOTE | 2021-02-19 07:49 | NUR ---
CARDIZEM GTT STOPPED IN ER AT 0750 AND CONT'D UPON ADMISSION
--- NOTE | 2021-02-19 08:15 | NUR ---
PT TO ROOM FROM ER. AT BEDSIDE. CARDIZEM GTT INFUSING AT 10 ML/HR. CHEST PAIN DECREASED PER PT, OXYGEN AT 2LNC WITHOUT SOB. FISTULA TO RIGHT ARM IN PLACE, DIALYSIS MWF.
--- NOTE | 2021-02-19 11:53 | NUR ---
PT WITH BP AT 89/49 WHICH IS DOWN SINCE GTT STARTED. CARDIO CALLED AND ORDERS FOR DIG X1 AND STOP GTT IN ONE HOUR. PT AND FAMILY UPDATED.
--- NOTE | 2021-02-19 12:50 | NUR ---
CARDIZEM GTT STOPPED. PT ALSO WITH SOME COUGHING/CHOKING PROBLEMS. DISCUSSED MAYBE HAVING SPEACH THERAPY COME EVALUATE AND HE STATES NO, HE HAS DEALT WITH THEM BEFORE. IM NOT SURE HE ISNT ASPIRATING HOWEVER.
[2021-02-19 14:14] LABS: CKMB 1.3 U/L (0.0-3.6); CREATINE KINASE 23 UL (21-232)
[2021-02-19 20:37] LABS: CKMB 1.2 U/L (0.0-3.6); CREATINE KINASE 24 UL (21-232)
[2021-02-19 20:39] LABS: TROPONIN-I 0.107 ng/mL (0.000-0.060)
--- NOTE | 2021-02-19 20:43 | NUR ---
RESTING QUIETLY IN BED WITH FAMILY. LAB CALLED CRITICAL LAB TROP ELEVATED 0.107 . BRITTNEY VENEER SAWYER RESIDENTIAL TREATMENT COUNSELOR CALLED AND NO ORDERS RECEIVED. MONITOR SHOWS CAF @ 94
[2021-02-20 00:15] VITALS: BP 123/61
[2021-02-20 05:05] VITALS: BP 107/59
[2021-02-20 06:17] LABS: ALBUMIN 2.7 g/dL (3.4-5.0); ANION GAP 15.4 mmol/L (8-16); BILIRUBIN - TOTAL 1.72 mg/dL (0.2-1.3); CALCIUM 8.4 mg/dL (8.5-10.1); CARBON DIOXIDE 25.6 mmol/L (21.0-32.0); CREATININE - SERUM 8.3 mg/dL (0.6-1.3); MAGNESIUM - SERUM 2.4 mg/dL (1.8-2.4); PHOSPHOROUS 5.2 mg/dL (2.5-4.9); PROTEIN - SERUM 7.2 g/dL (6.4-8.2)
[2021-02-20 06:18] LABS: BASOPHILS 0.9 % (0-2); EOSINOPHILS 0.5 % (0-7); HEMATOCRIT 32.2 % (42.0-54.0); HEMOGLOBIN 10.4 g/dL (13.5-17.5); LYMPHOCYTES 7.9 % (15-50); MCH 36.1 pg (26.0-34.0); MCHC 32.4 g/dL (31.0-37.0); MCV 111.4 fL (80.0-100.0); MEAN PLATELET VOLUME 7.8 fL (7.4-10.4); MONOCYTES 8.4 % (2-11); NEUTROPHILS 82.3 % (40-80); PLATELET COUNT 189 10x3/uL (130-400); RBC 2.89 10x6/uL (4.20-6.10); RDW 14.8 % (11.5-14.5); WBC 7.7 10x3/uL (4.8-10.8)
[2021-02-20 08:00] VITALS: BP 131/64
[2021-02-20 12:00] VITALS: BP 136/73
[2021-02-20 14:20] VITALS: Ht 172.7 cm; Wt 97.3 kg
--- NOTE | 2021-02-20 15:30 | NUR ---
BACK FROM DIALYSIS
[2021-02-20 20:50] VITALS: BP 127/54
[2021-02-21 00:23] VITALS: BP 98/56
--- NOTE | 2021-02-21 02:38 | NUR ---
PT RESTING IN BED WITH EYES OPEN. PT COMPLAINT OF BELLY PAIN PRIOR TO SMALL BM. PT REFUSE PAIN MED AT THE MOMENT WILL CONT TO MONITOR.
--- NOTE | 2021-02-21 03:45 | NUR ---
I have reviewed this patient and I concur with the Shift Assessment completed by the Licensed Practical Nurse today this shift.
[2021-02-21 04:58] VITALS: BP 92/62
[2021-02-21 06:05] LABS: EOSINOPHILS 0.2 % (0-7); HEMATOCRIT 35.2 % (42.0-54.0); HEMOGLOBIN 11.5 g/dL (13.5-17.5); MCH 36.1 pg (26.0-34.0); MCHC 32.6 g/dL (31.0-37.0); MCV 110.7 fL (80.0-100.0); MEAN PLATELET VOLUME 7.8 fL (7.4-10.4); MONOCYTES 6.8 % (2-11); RBC 3.18 10x6/uL (4.20-6.10); RDW 14.9 % (11.5-14.5)
[2021-02-21 06:11] LABS: PLATELET COUNT 276 10x3/uL (130-400); WBC 9.7 10x3/uL (4.8-10.8)
[2021-02-21 06:30] LABS: ALBUMIN 2.8 g/dL (3.4-5.0); BILIRUBIN - TOTAL 1.42 mg/dL (0.2-1.3); CALCIUM 8.9 mg/dL (8.5-10.1); CARBON DIOXIDE 26.5 mmol/L (21.0-32.0); MAGNESIUM - SERUM 2.4 mg/dL (1.8-2.4); POTASSIUM - SERUM 5.5 mmol/L (3.5-5.1); PROTEIN - SERUM 7.7 g/dL (6.4-8.2)
[2021-02-21 06:31] LABS: PHOSPHOROUS 6.7 mg/dL (2.5-4.9)
[2021-02-21 08:09] VITALS: BP 145/73
[2021-02-21 11:00] VITALS: BP 153/865
[2021-02-21 15:30] VITALS: BP 127/64
[2021-02-21 21:34] VITALS: BP 145/67
--- NOTE | 2021-02-22 02:24 | NUR ---
PT RESTING IN BED, C/O ABD PAIN EARLIER IN THE NIGHT. PRN MEDICATION PROVIDED, PT SATES THE PAIN IS MORE INTENSE AT NIGHT. O2 OFF AND PT O2 SAT 87-88, 2L NC REAPPLIED. PT DENIES NEEDS. NO S/S OF ACUTE DISTRESS, 65 SR ON TELEMETRY. WILL CTM.
[2021-02-22 04:32] VITALS: BP 156/69
[2021-02-22 07:50] VITALS: BP 122/63
[2021-02-22 10:55] VITALS: BP 103/55
--- NOTE | 2021-02-22 11:25 | NUR ---
LEAVING FOR DIALYSIS BY W/C.
[2021-02-22 12:07] LABS: BASOPHILS 0.1 % (0-2); EOSINOPHILS 0.2 % (0-7); HEMATOCRIT 29.7 % (42.0-54.0); HEMOGLOBIN 9.9 g/dL (13.5-17.5); MCH 36.4 pg (26.0-34.0); MCHC 33.3 g/dL (31.0-37.0); MCV 109.2 fL (80.0-100.0); MEAN PLATELET VOLUME 7.3 fL (7.4-10.4); MONOCYTES 5.1 % (2-11); NEUTROPHILS 89.6 % (40-80); PLATELET COUNT 252 10x3/uL (130-400); RBC 2.72 10x6/uL (4.20-6.10); RDW 14.4 % (11.5-14.5); WBC 10.2 10x3/uL (4.8-10.8)
[2021-02-22 12:19] LABS: ALBUMIN 2.5 g/dL (3.4-5.0); ANION GAP 17.6 mmol/L (8-16); BILIRUBIN - TOTAL 1.49 mg/dL (0.2-1.3); CALCIUM 7.7 mg/dL (8.5-10.1); CARBON DIOXIDE 24.6 mmol/L (21.0-32.0); CREATININE - SERUM 8.7 mg/dL (0.6-1.3); MAGNESIUM - SERUM 2.5 mg/dL (1.8-2.4); PHOSPHOROUS 6.1 mg/dL (2.5-4.9); POTASSIUM - SERUM 5.2 mmol/L (3.5-5.1); PROTEIN - SERUM 6.1 g/dL (6.4-8.2)
--- NOTE | 2021-02-22 12:23 | NUR ---
Nutrition Follow-up: Poor appetite/PO intake with abd pain, nausea, & early satiety. Pt denies chewing/swallowing difficulty, although believes pt has difficulty swallowing. Hesitant to drink Nepro but agreed to try one for lunch today. HD MWF. Noted plans for lap radha on 02/27. Diet: Renal ADA No new wt; last wt: 176.6# (02/20) Labs noted: Na 133, K+ 5.2, BUN 67, Cre 8.7, GFR 6, Glu 108, Ca 7.7, PO4 6.1, Mg 2.5, Alb 2.5, elev LFTs Meds noted: Colace, Protonix, Folate, Renagel, vit B12, Reglan, vit D, Tums, Lasix, Pepcid -Encourage PO intake and honor food preferences within diet restrictions; hopefully appetite/PO intake will improve following lap radha. -Nepro sent with lunch today. -Pt may benefit from an ST eval. -Need new wt. -RD will follow up within 3-4 days.
--- NOTE | 2021-02-22 14:50 | NUR ---
TELEMETRY UCAF HR 108. WILL CONT. TO MONITOR.
--- NOTE | 2021-02-22 15:37 | NUR ---
BACK FROM DIALYSIS. B/P 93/50. HR 104. WILL CONT. TO MONITOR.
[2021-02-22 21:33] VITALS: BP 88/45
[2021-02-23 00:06] VITALS: BP 105/62
[2021-02-23 05:07] VITALS: BP 110/55
[2021-02-23 05:40] LABS: BASOPHILS 1.1 % (0-2); EOSINOPHILS 0.3 % (0-7); HEMATOCRIT 28.7 % (42.0-54.0); HEMOGLOBIN 9.3 g/dL (13.5-17.5); LYMPHOCYTES 6.1 % (15-50); MCH 35.8 pg (26.0-34.0); MCHC 32.6 g/dL (31.0-37.0); MEAN PLATELET VOLUME 7.2 fL (7.4-10.4); MONOCYTES 8.6 % (2-11); NEUTROPHILS 83.9 % (40-80); PLATELET COUNT 220 10x3/uL (130-400); RBC 2.61 10x6/uL (4.20-6.10); RDW 14.6 % (11.5-14.5); WBC 7.7 10x3/uL (4.8-10.8)
[2021-02-23 05:55] LABS: ALBUMIN 2.7 g/dL (3.4-5.0); ANION GAP 13.5 mmol/L (8-16); BILIRUBIN - TOTAL 0.92 mg/dL (0.2-1.3); CALCIUM 8.2 mg/dL (8.5-10.1); CARBON DIOXIDE 27.9 mmol/L (21.0-32.0); MAGNESIUM - SERUM 2.2 mg/dL (1.8-2.4); PHOSPHOROUS 5.2 mg/dL (2.5-4.9); PROTEIN - SERUM 6.5 g/dL (6.4-8.2)
[2021-02-23 05:56] LABS: CREATININE - SERUM 5.8 mg/dL (0.6-1.3); POTASSIUM - SERUM 4.4 mmol/L (3.5-5.1)
[2021-02-23 07:59] VITALS: BP 111/59
--- NOTE | 2021-02-23 08:00 | NUR ---
PT RECEIVED ASLEEP IN BED BUT EASILY AROUSED, AT BEDSIDE. URINE SPECIMAN CUP GIVEN FOR UA AND CX.
--- NOTE | 2021-02-23 10:51 | NUR ---
LABS DRAWN AND SENT. THINNER HELD PER ORDER. WAITING FOR URINE SAMPLE.
[2021-02-23 12:08] VITALS: BP 95/53
--- NOTE | 2021-02-23 15:09 | NUR ---
NS BOLUS STARTED.
[2021-02-23 15:18] VITALS: BP 106/55
[2021-02-23 15:39] VITALS: BP 97/60
[2021-02-24] VITALS: BP 126/72
[2021-02-24 04:00] VITALS: BP 108/69
--- NOTE | 2021-02-24 04:00 | NUR ---
PTS CONFUSION CONTINUES TO INCREASE SINCE HD ON THURSDAY. BP IN NORMAL RANGE SINCE LAST BOLUS. PT NOW IN SR PER TEMETERY. PT BECOMING MORE UNCOOPERATIVE WITH CARE, STATING HE IS GOING HOME. REFUSED PO PILLS LAST PM.
[2021-02-24 08:23] VITALS: BP 124/58
[2021-02-24 10:13] LABS: BASOPHILS 0.1 % (0-2); EOSINOPHILS 0.2 % (0-7); HEMATOCRIT 30.7 % (42.0-54.0); HEMOGLOBIN 9.5 g/dL (13.5-17.5); IMMATURE GRANULOCYTES 0.2 % (0-5); LYMPHOCYTE ABS# 0.68 10x3/uL (1.32-3.57); LYMPHOCYTES 8.2 % (15-50); MCH 35.2 pg (26.0-34.0); MCHC 30.9 g/dL (31.0-37.0); MEAN PLATELET VOLUME 9.2 fL (7.4-10.4); MONOCYTES 8.3 % (2-11); NEUTROPHIL ABS# 6.86 10x3/uL (1.78-5.38); PLATELET COUNT 232 10x3/uL (130-400); RDW 13.9 % (11.5-14.5); WBC 8.3 10x3/uL (4.8-10.8)
--- NOTE | 2021-02-24 10:20 | NUR ---
BLADDER SCAN SHOWS ZERO RESIFULE. REFUSED MOST OF HIS AM MEDS. RACHELL NOTIFIED TO SEE IS SHE COULD SIMPLIFY HIS MED LIST.
[2021-02-24 10:25] LABS: MCV 113.7 fL (80.0-100.0)
[2021-02-24 10:50] LABS: BILIRUBIN - TOTAL 1.01 mg/dL (0.2-1.3); CALCIUM 8.3 mg/dL (8.5-10.1); POTASSIUM - SERUM 4.6 mmol/L (3.5-5.1); PROTEIN - SERUM 6.6 g/dL (6.4-8.2)
[2021-02-24 10:55] LABS: CREATININE - SERUM 7.5 mg/dL (0.6-1.3)
[2021-02-24 11:01] LABS: ALBUMIN 2.7 g/dL (3.4-5.0); ANION GAP 16.6 mmol/L (8-16)
[2021-02-24 15:02] VITALS: BP 98/48
[2021-02-24 20:56] VITALS: BP 119/55
[2021-02-25] VITALS (11 sets, daily range): BP systolic 123–158; BP diastolic 62–78
[2021-02-25 05:17] LABS: BASOPHILS 0.9 % (0-2); EOSINOPHILS 0.7 % (0-7); HEMATOCRIT 29.8 % (42.0-54.0); HEMOGLOBIN 9.5 g/dL (13.5-17.5); LYMPHOCYTES 7.4 % (15-50); MCH 35.5 pg (26.0-34.0); MCHC 31.8 g/dL (31.0-37.0); MEAN PLATELET VOLUME 7.5 fL (7.4-10.4); MONOCYTES 9.2 % (2-11); NEUTROPHILS 81.8 % (40-80); PLATELET COUNT 245 10x3/uL (130-400); RBC 2.67 10x6/uL (4.20-6.10); RDW 14.9 % (11.5-14.5); WBC 9.4 10x3/uL (4.8-10.8)
[2021-02-25 05:35] LABS: MCV 111.7 fL (80.0-100.0)
[2021-02-25 05:43] LABS: ANION GAP 16.2 mmol/L (8-16); BILIRUBIN - TOTAL 0.97 mg/dL (0.2-1.3); CALCIUM 8.3 mg/dL (8.5-10.1); CARBON DIOXIDE 24.4 mmol/L (21.0-32.0); CREATININE - SERUM 8.5 mg/dL (0.6-1.3); POTASSIUM - SERUM 4.6 mmol/L (3.5-5.1); PROTEIN - SERUM 6.8 g/dL (6.4-8.2)
--- NOTE | 2021-02-25 08:34 | NUR ---
PT C/O ABD PAIN 03/23. DR PEGUERO ROUNDING AND GAVE ORDERS FOR MORPHINE 2 MG Q4PRN. PT HAS KNOWN GALL STONES THAT IS TO HAVE SX ON IN THE NEAR FUTURE
--- NOTE | 2021-02-25 09:35 | NUR ---
PT REPORTS HE IS TO TIRED TO EAT BREAKFAST. PT REPORTS HE DID NOT REST LAST PM.
--- NOTE | 2021-02-25 12:24 | NUR ---
Nutrition follow-up: Pt now in ICU Diet order: Renal ADA consistent CHO PO intake continues to be poor; pt refusing meals and medications Labs reviewed Wt: 214# Will continue to provide food choices and honor food preferences. RDN will order Nepro with meals Pt may benefit from an appetite stimulant. RDN will follow-up on progress toward nutrition goals in 2-3 days.
--- NOTE | 2021-02-25 15:24 | NUR ---
PT ARRIVED TO RM 2130 AT THIS TIME. RR EVEN NON LABORED, O2 IN PLACE VIA NC. PT AWAKE AND ALERT. ANSWERS MOST QUESTIONS APPROP. AT BEDSIDE. VSS. NO NEEDS OR PAIN REPORTED. CLWR.
--- NOTE | 2021-02-25 20:30 | NUR ---
PT IN BED, EYES CLOSED, RESP EVEN AND UNLABORED, NO DISTRESS NOTED, CL IN REACH, SR UP X 2.
[2021-02-26 00:04] VITALS: BP 109/61
--- NOTE | 2021-02-26 03:55 | NUR ---
I have reviewed this patient and I concur with the Shift Assessment completed by the Licensed Practical Nurse today this shift.
[2021-02-26 05:10] VITALS: BP 125/68
[2021-02-26 05:49] LABS: BASOPHILS 0.8 % (0-2); EOSINOPHILS 0.7 % (0-7); HEMATOCRIT 28.9 % (42.0-54.0); HEMOGLOBIN 9.3 g/dL (13.5-17.5); LYMPHOCYTES 7.7 % (15-50); MCH 35.4 pg (26.0-34.0); MCHC 32.3 g/dL (31.0-37.0); MEAN PLATELET VOLUME 7.3 fL (7.4-10.4); MONOCYTES 11.9 % (2-11); NEUTROPHILS 78.9 % (40-80); PLATELET COUNT 215 10x3/uL (130-400); RBC 2.63 10x6/uL (4.20-6.10); RDW 14.5 % (11.5-14.5); WBC 7.5 10x3/uL (4.8-10.8)
[2021-02-26 06:20] LABS: ALBUMIN 2.6 g/dL (3.4-5.0); ANION GAP 10.6 mmol/L (8-16); BILIRUBIN - TOTAL 0.8 mg/dL (0.2-1.3); CALCIUM 8.2 mg/dL (8.5-10.1); CARBON DIOXIDE 29.5 mmol/L (21.0-32.0); POTASSIUM - SERUM 4.1 mmol/L (3.5-5.1); PROTEIN - SERUM 6.3 g/dL (6.4-8.2)
[2021-02-26 06:23] LABS: CREATININE - SERUM 5.8 mg/dL (0.6-1.3)
[2021-02-26 06:30] LABS: MCV 109.7 fL (80.0-100.0)
[2021-02-26 08:00] VITALS: BP 117/58
--- NOTE | 2021-02-26 08:14 | NUR ---
PT AWAKE AND ALERT, ANSWERS QUESTIONS APPROP. PT QUESTIONS WHEN HE CAN GO HOME, AT BEDSIDE. EDUCATED PT REGARDING THERAPY EVALS. PT STATES UNDERSTANDING. BREAKFAST TRAY AT BEDSIDE. NO PAIN OR NEEDS VOICED. CLWR.
[2021-02-26 12:00] VITALS: BP 95/52
[2021-02-26 16:00] VITALS: BP 118/59
[2021-02-26 21:21] VITALS: BP 137/67
[2021-02-27 00:27] VITALS: BP 127/60
[2021-02-27 06:16] VITALS: BP 108/55
[2021-02-27 06:21] LABS: EOSINOPHILS 0.9 % (0-7); HEMATOCRIT 30.7 % (42.0-54.0); HEMOGLOBIN 9.8 g/dL (13.5-17.5); LYMPHOCYTES 6.6 % (15-50); MCH 35.6 pg (26.0-34.0); MCHC 31.9 g/dL (31.0-37.0); MCV 111.5 fL (80.0-100.0); MEAN PLATELET VOLUME 7.4 fL (7.4-10.4); MONOCYTES 11.3 % (2-11); NEUTROPHILS 80.2 % (40-80); PLATELET COUNT 228 10x3/uL (130-400); RBC 2.75 10x6/uL (4.20-6.10); RDW 15.2 % (11.5-14.5)
[2021-02-27 06:38] LABS: WBC 9.6 10x3/uL (4.8-10.8)
[2021-02-27 06:41] LABS: ALBUMIN 2.7 g/dL (3.4-5.0); ANION GAP 15.8 mmol/L (8-16); BILIRUBIN - TOTAL 0.87 mg/dL (0.2-1.3); CALCIUM 8.4 mg/dL (8.5-10.1); CARBON DIOXIDE 26.8 mmol/L (21.0-32.0); PHOSPHOROUS 6.9 mg/dL (2.5-4.9); POTASSIUM - SERUM 4.6 mmol/L (3.5-5.1); PROTEIN - SERUM 6.7 g/dL (6.4-8.2)
[2021-02-27 06:42] LABS: CREATININE - SERUM 7.3 mg/dL (0.6-1.3)
[2021-02-27 09:00] VITALS: BP 129/87
--- NOTE | 2021-02-27 09:06 | NUR ---
PT SITTING ON SIDE OF BED, RR EVEN NON LABORED O2 IN PLACE VIA NC. PT AWAKE AND ALERT, ANSWERS QUESTIONS APPROP. AM MEDS GIVEN AT THIS TIME. AT BEDSIDE. NO NEEDS VOICED. CLWR.
[2021-02-27] MEDS ORDERED: ELIQUIS2.5 MG PO (11:19)
[2021-02-27] MEDS ORDERED: BETAPACE 80 MG80 MG PO (11:20)
[2021-02-27] MEDS ORDERED: ADOXA100 MG PO (11:27)
[2021-02-27 12:00] VITALS: BP 122/66
[2021-02-27] MEDS ORDERED: FUROSEMIDE40 MG PO (12:27)
[2021-02-27] MEDS ORDERED: MIDODRINE HCL5 MG PO (12:27)
--- NOTE | 2021-02-27 13:03 | MORECARE ---
CASE MANAGEMENT DISCHARGE SUMMARY PATIENT: YODIT TRAORE UNIT: [id number] ADM DATE: 02/19/21 AGE: 75 : 45 SEX: M ROOM/BED: D.2130 AUTHOR: AURY,DOC PHYSICIAN: REFERRING PHYSICIAN: NIR DIETRICH MD DATE OF SERVICE: 02/27/21 Case Management Discharge Planning Summary DCP REVIEW SUMMARY ANTICIPATED D/C DATE: 02/27/2021 EXPECTED LOS : 8 CASE STATUS: DCP Initiated INITIAL REVIEW: 02/19/2021 INITIAL REVIEWER: Anitra Cleveland FINAL DISCHARGE DISPOSITION: 01 : Home or Self Care (Routine Discharge) FINAL REVIEWER: FINAL REVIEW DATE: DCP Focus Questions & Answers QUESTION: ANSWER : PATIENT: YODIT TRAORE ENCOUNTER: [id number] MEDICAL RECORD#: [id number] ADMISSION DATE: 02/19/2021 DISCHARGE DATE: ATTENDING MD: NIR BROOKE : AGE: 75 MARITAL STATUS: M DC PLAN ID: [id number] FACILITY: [facility] PRINTED ON: 02/27/21 13:03 CT All edits/amendments must be made on the electronic document DICTATION DATE: 02/27/21 1303 COMPUTER INFORMATION SCIENCE PROFESSOR: ANDREWS 02/27/21 1303 RPT#: [id number] DC DATE: STATUS: ADM IN [facility] [address] [place] [address] END OF REPORT
--- NOTE | 2021-02-27 13:16 | MORECARE ---
CASE MANAGEMENT DISCHARGE SUMMARY PATIENT: YODIT PELAEZ UNIT: [id number] ADM DATE: 02/19/21 AGE: 75 : 45 SEX: M ROOM/BED: D.2130 AUTHOR: AURY,DOC PHYSICIAN: REFERRING PHYSICIAN: NIR DIETRICH MD DATE OF SERVICE: 02/27/21 Case Management Discharge Planning Summary COMMENTS ENTERED DATE: 02/27/21 13:06 CT COMMENT TYPE: Discharge Planning REVIEWER: Anitra Cleveland CM met with patient to complete discharge planning assessment and offer availability of needed services. Patient states that he lives independently at home with his prior to admission. Lolis Pelaez present in room at time of DCP and verified that home environment is safe and has electricity and running water. Patient denies need for transportation and state that they have funds for services and medications if needed. PCP is Dr. Cueva and patient uses [facility] and [facility] for pharmacy. CM offered and discussed home health, rehab services, and need for any additional medical equipment. Patient did express need for home health PT services at this time. Patient has used [facility] previously and requested them as provider. Equipment obtained from [employer] Patient. Transportation home will be provided by . Patient verbalized understanding of signed forms. IMM served, and signed copy placed on chart. TATIANA form signed for refusal of additional services or needs at this time, placed on chart. DCP REVIEW SUMMARY ANTICIPATED D/C DATE: 02/27/2021 EXPECTED LOS : 8 CASE STATUS: DCP Initiated INITIAL REVIEW: 02/19/2021 INITIAL REVIEWER: Anitra Cleveland FINAL DISCHARGE DISPOSITION: 01 : Home or Self Care (Routine Discharge) FINAL REVIEWER: FINAL REVIEW DATE: [facility] Focus Questions & Answers DCP Screen QUESTION: ANSWER High Risk Factors: : Hosp related to CHF, COPD, DM, End Stage Ds, CVA, CA DCP Evaluation QUESTION: ANSWER Patient and/or caregiver agree upon recommended discharge plan? : Yes Family / Caregiver's ability to cope with chronic illness: : a. Adequate (ability to meet patient's medical needs, ensures patient attends medical appts.) Patient's current cognitive status: : *Oriented to person, place, situation, time and present Patient's ability to cope with chronic illness : d. No chronic illness Patient gives permission to discuss discharge plans with: (name, relationship and number) : LOLIS PELAEZ Does the patient have the ability to pay for or attain post discharge needs / services? : Yes Functional screen assessment: : Basic needs can adequately be met by self Family / Caregiver's ability to cope with chronic illness: : a. Adequate (ability to meet patient's medical needs, ensures patient attends medical appts.) Physical Status: : Independent with ADL's Equipment needed for post hospitalization: : None Is there a likelihood that the patient will require additional services to return to the preadmission environment? : N/A Living Arrangements: : Home with Spouse/Significant Other Results of this evaluation have been discussed with: : Patient Patient with capacity for self-care or can be cared for in same environment as prior to hospitalization? : Yes Baseline cognitive status: : *Oriented to person, place, situation, time and present Physical environment modification needed / anticipated for discharge: : N/A Medication Management: : Patient states can read and understand medication labels Medication Management: : Patient states they do have transportation to warehouse picker medications Medication Management: : Patient states can afford medications Planned post hospital services available for patient? : N/A Pharmacy name(s): : [facility] Planned post hospital services covered by insurance plan? : N/A Does Patient have transportation to get home and to follow-up medical appointments when discharged from the hospital? : Yes Would patient like to participate in any Care Coordination programs (if applicable): : Not applicable Does the patient have electricity at home? : Yes Does the patient have running water in their house? : Yes Equipment in use: : Wheelchair Equipment in use: : Walker - Standard Equipment agency name and contact information: : [facility] PATIENT Mental health screen: : No mental health history Psychosocial status: : Independent adult (65+) Abuse/Neglect: : None DCP Re-evaluation QUESTION: ANSWER Would patient like to participate in any Care Coordination programs (if applicable): : Not applicable PATIENT: YODIT PELAEZ ENCOUNTER: [id number] MEDICAL RECORD#: [id number] ADMISSION DATE: 02/19/2021 DISCHARGE DATE: ATTENDING MD: NIR BROOKE : AGE: 75 MARITAL STATUS: M DC PLAN ID: [id number] FACILITY: [facility] PRINTED ON: 02/27/21 13:16 CT All edits/amendments must be made on the electronic document DICTATION DATE: 02/27/211315 PRE PRESS PROOFER: ANDREWS 02/27/211315 RPT#: [id number] DC DATE: STATUS: ADM IN [facility] [address] [place] [address] END OF REPORT
--- NOTE | 2021-02-27 16:00 | NUR ---
CALLED DIALYSIS TO CHECK STATUS OF SCHEDULE FOR PT. PT WILL BE NEXT PER [facility] NURSE, DIAZ. PT SPOUSE LEAVING UNIT TO [employer]OR [employer] PRESCRIPTIONS FOR D/C HOME LATER THIS EVENING. PT DENIES ANY NEEDS. CLWR.
--- NOTE | 2021-02-27 16:07 | NUR ---
OT NOTE: PT COMPLETED SUPINE TO SIT AT EOB WITH SPV. PT COMPLETED SIT TO STAND WITH SBA. PT COMPLETED PORFIRIO SHOES WITH SETUP. PT DONNDED GOWN WITH SETUP. PT COMPLETED ADL MOB WITH SBA USING RW. [phone] JOSE GARCIA COTA
--- NOTE | 2021-02-27 17:37 | NUR ---
DINNER TRAY GIVEN TO PT IN DIALYSIS AT THIS TIME. NO FURTHER NEEDS VOICED.
--- NOTE | 2021-02-28 20:49 | MORECARE ---
CASE MANAGEMENT DISCHARGE SUMMARY PATIENT: YODIT PELAEZ UNIT: [id number] ADM DATE: 02/19/21 AGE: 75 : 45 SEX: M ROOM/BED: D.2130 AUTHOR: AURY,DOC PHYSICIAN: REFERRING PHYSICIAN: NIR DIETRICH MD DATE OF SERVICE: 02/28/21 Case Management Discharge Planning Summary COMMENTS ENTERED DATE: 02/27/21 13:06 CT COMMENT TYPE: Discharge Planning REVIEWER: Anitra Cleveland CM met with patient to complete discharge planning assessment and offer availability of needed services. Patient states that he lives independently at home with his prior to admission. Lolis Pelaez present in room at time of DCP and verified that home environment is safe and has electricity and running water. Patient denies need for transportation and state that they have funds for services and medications if needed. PCP is Dr. Cueva and patient uses [facility] and [facility] for pharmacy. CM offered and discussed home health, rehab services, and need for any additional medical equipment. Patient did express need for home health PT services at this time. Patient has used [facility] previously and requested them as provider. Equipment obtained from [employer] Patient. Transportation home will be provided by . Patient verbalized understanding of signed forms. IMM served, and signed copy placed on chart. TATIANA form signed for refusal of additional services or needs at this time, placed on chart. DCP REVIEW SUMMARY ANTICIPATED D/C DATE: 02/27/2021 EXPECTED LOS : 8 CASE STATUS: DCP Initiated INITIAL REVIEW: 02/19/2021 INITIAL REVIEWER: Anitra Cleveland FINAL DISCHARGE DISPOSITION: 01 : Home or Self Care (Routine Discharge) FINAL REVIEWER: FINAL REVIEW DATE: [facility] Focus Questions & Answers DCP Screen QUESTION: ANSWER High Risk Factors: : Hosp related to CHF, COPD, DM, End Stage Ds, CVA, CA DCP Evaluation QUESTION: ANSWER Patient and/or caregiver agree upon recommended discharge plan? : Yes Family / Caregiver's ability to cope with chronic illness: : a. Adequate (ability to meet patient's medical needs, ensures patient attends medical appts.) Patient's current cognitive status: : *Oriented to person, place, situation, time and present Patient's ability to cope with chronic illness : d. No chronic illness Patient gives permission to discuss discharge plans with: (name, relationship and number) : LOLIS PELAEZ Does the patient have the ability to pay for or attain post discharge needs / services? : Yes Functional screen assessment: : Basic needs can adequately be met by self Family / Caregiver's ability to cope with chronic illness: : a. Adequate (ability to meet patient's medical needs, ensures patient attends medical appts.) Physical Status: : Independent with ADL's Equipment needed for post hospitalization: : None Is there a likelihood that the patient will require additional services to return to the preadmission environment? : N/A Living Arrangements: : Home with Spouse/Significant Other Results of this evaluation have been discussed with: : Patient Patient with capacity for self-care or can be cared for in same environment as prior to hospitalization? : Yes Baseline cognitive status: : *Oriented to person, place, situation, time and present Physical environment modification needed / anticipated for discharge: : N/A Medication Management: : Patient states can read and understand medication labels Medication Management: : Patient states they do have transportation to black pickler medications Medication Management: : Patient states can afford medications Planned post hospital services available for patient? : N/A Pharmacy name(s): : [facility] Planned post hospital services covered by insurance plan? : N/A Does Patient have transportation to get home and to follow-up medical appointments when discharged from the hospital? : Yes Would patient like to participate in any Care Coordination programs (if applicable): : Not applicable Does the patient have electricity at home? : Yes Does the patient have running water in their house? : Yes Equipment in use: : Wheelchair Equipment in use: : Walker - Standard Equipment agency name and contact information: : [facility] PATIENT Mental health screen: : No mental health history Psychosocial status: : Independent adult (65+) Abuse/Neglect: : None DCP Re-evaluation QUESTION: ANSWER Would patient like to participate in any Care Coordination programs (if applicable): : Not applicable PATIENT: YODIT PELAEZ ENCOUNTER: [id number] MEDICAL RECORD#: [id number] ADMISSION DATE: 02/19/2021 DISCHARGE DATE: 02/27/2021 ATTENDING MD: NIR BROOKE : AGE: 75 MARITAL STATUS: M DC PLAN ID: [id number] FACILITY: [facility] PRINTED ON: 02/28/21 20:49 CT All edits/amendments must be made on the electronic document DICTATION DATE: 02/28/212048 BREAD BAKER: ANDREWS 02/28/212048 RPT#: [id number] DC DATE:02/27/21 STATUS: DIS IN [facility] [address] [place] [address] END OF REPORT
== END 2021-02-27 22:55 | disposition home or self-care (01) | DRG 193 ==
LOC: D.ER 00:38 → D.M2 01:18 → D.ICU 02-25 00:50 → D.M2 02-25 15:18
PROVIDERS: Emergency Medicine; Internal Medicine; ADMIT Emergency Medicine; ATTEND Emergency Medicine
DX: J18.9 Pneumonia, unspecified organism (principal); N18.6 End stage renal disease; G93.41 Metabolic encephalopathy; I13.2 Hypertensive heart and chronic kidney disease with heart failure and with stage 5 chronic kidney disease, or end stage renal disease; I50.32 Chronic diastolic (congestive) heart failure; N17.9 Acute kidney failure, unspecified; K81.0 Acute cholecystitis; I25.119 Atherosclerotic heart disease of native coronary artery with unspecified angina pectoris; I48.0 Paroxysmal atrial fibrillation; J44.9 Chronic obstructive pulmonary disease, unspecified; K21.9 Gastro-esophageal reflux disease without esophagitis; Z99.2 Dependence on renal dialysis; Z87.891 Personal history of nicotine dependence; M19.90 Unspecified osteoarthritis, unspecified site; I73.9 Peripheral vascular disease, unspecified; E78.5 Hyperlipidemia, unspecified; N40.0 Benign prostatic hyperplasia without lower urinary tract symptoms; E11.22 Type 2 diabetes mellitus with diabetic chronic kidney disease; E03.9 Hypothyroidism, unspecified; R42 Dizziness and giddiness; I35.0 Nonrheumatic aortic (valve) stenosis; R74.01 Elevation of levels of liver transaminase levels